=== PATIENT | male | born 1940 | race Caucasian/White ===

== ENCOUNTER 2024-05-07 14:35 | Inpatient (IN) | payer MEDICARE, SELFPAY ==
[2024-05-07] VITALS (22 sets, daily range): BP systolic 104–148; BP diastolic 54–90; PULSE 105–123; RESP 15–30; TEMP 36.4–36.9; O2SAT 93–100; BMI 23.6
--- NOTE | ~2024-05-07 | XR_ITS ---
EXAMINATION: XR chest 1V portable Exam Date/Time: 05/07/2024 17:00 BATCH ROLLER OPERATOR HISTORY: cough Comparison: 06/27/2012. RESULT: Lines, tubes, and devices: Median sternotomy wires. Fractures of inferior wires, but remain in stabl e position. Cardiac valve replacement. Lungs and pleura: Clear. Cardiomediastinal silhouette: Stable. Other: No acute osseous or upper abdominal finding. IMPRESSION: No acute cardiopulmonary process. Reviewed, dictated and finalized at location K. H ROLLER OPERATOR
--- OUTSIDE RECORDS SUMMARY | 2024-05-07 15:27 | XMS_ITS | Referral Summary ---
Author Organization [facility] Address [address] [facility] [address] Care Team Providers Care Labor Expediter Name Role Phone Cuate Mclaughlin MD Primary Care Provider [phone] Source Comments [facility],non-owned Affiliates and Associated Physician Practices is amultiple site organization consisting of ambulatory clinics and hospital sitesin [place], [place], [place] and [place]. This disclosure is being madepursuant to the Care Everywhere program and may not contain all information available regarding this patient. Last updated 17.[facility] [employer] Social History Tobacco Use Types Packs/Day Years Used Date Smoking Tobacco: Never Assessed Sex and Gender Information Value Date Recorded Sex Assigned at Not on file Gender Identity Not on file Sexual Orientation Not on file Plan of Treatment Not on file Care Teams Labor Expediter Relationship Specialty Start Date End Date Cuate Mclaughlin MD [address] [place] [address] PCP - General 06/27/18
--- OUTSIDE RECORDS SUMMARY | 2024-05-07 15:27 | XMS_ITS | Patient Health Summary ---
Author Organization [facility] Address [address] [facility] [place] [address] Care Team Providers Care Electrophysiology Scientist Name Role Phone Cuate Mclaughlin MD Primary Care Provider [phone] Note from [facility],non-owned Affiliates and Associated Physician Practices is amultiple site organization consisting of ambulatory clinics and hospital sitesin [place], [place], [place] and [place]. This disclosure is being madepursuant to the Care Everywhere program and may not contain all information available regarding this patient. Last updated 17.[facility] Social History Tobacco Use Types Packs/Day Years Used Date Smoking Tobacco: Never Assessed Sex and Gender Information Value Date Recorded Sex Assigned at Not on file Gender Identity Not on file Sexual Orientation Not on file Procedures * DERMATOPATHOLOGY(Performed 06/27/2018) Results * DERMATOPATHOLOGY (06/27/2018 12:00 AM CDT) Case Report Dermatopathology Report ? Case: [id number] ? Authorizing Provider: ??Pari Petit DO ? Collected: ? 06/27/2018 12:00 AM ? Pathologist: ? Ara Medina MD ? Received: ?06/28/2018 09:14 AM ? Specimen: ?Skin, right mid back ? 12:45 PM CDT DERMATOPATHOLOGY LABORATORY Final Diagnosis Specimen A. SKIN, right mid back: DILATED PORE OF CHEVY, FRAGMENTED (L70.8) 12:45 PM CDT DERMATOPATHOLOGY LABORATORY Clinical History DPW. 12:45 PM CDT DERMATOPATHOLOGY LABORATORY Gross Description Specimen A: Received is one formalin filled container labeled with the patient's name and designated right mid back. The specimen consists of a punch biopsy measuring 5x5x mm, bisected. Jar 0. 12:45 PM CDT DERMATOPATHOLOGY LABORATORY Microscopic Description Specimen A. SKIN, right mid back: There is a central, broad epidermal invagination lined by epithelium with a prominent rete pattern. The specimen is fragmented. 12:45 PM CDT DERMATOPATHOLOGY LABORATORY Disclaimer An external and internal positive and negative controls are appropriate for the histochemical, immunohistochemical and immunofluorescence stain(s) in this case (if any), except where stated explicitly. The performance characteristics of the stain(s) cited in this report were developed and its performance characteristic determined by the Dermatopathology Laboratory at [facility], directed by Dr. Ben Lucia. These tests need not be, and therefore are not, approved by the [place] Food and Drug Administration. The tests are used for clinical purposes. Billing Codes Specimen Charges Stain Charges 68524 1 12:45 PM CDT DERMATOPATHOLOGY LABORATORY Embedded Images 12:45 PM CDT DERMATOPATHOLOGY LABORATORY Pathology/Cytolog y TISSUE SPECIMEN FROM SKIN / Unknown 06/27/2018 06/28/2018 9:14 AM CDT Pari Petit DO LAB - PATHOLOGY/C YTOLOGY ORDERABLES DERMATOPATHOLOGY LABORATORY [facility] - Department of Dermatology [address] [facility], [address]th [place] [address], [facility] [phone] Care Teams Electrophysiology Scientist Relationship Specialty Start Date End Date Cuate Mclaughlin MD [address] [place] [address] PCP - General 06/27/18
--- OUTSIDE RECORDS SUMMARY | 2024-05-07 15:27 | XMS_ITS | Clinical Summary ---
Author Organization [facility] Address [address] [facility] [place] [address] Care Team Providers Care Nematologist Name Role Phone Cuate Mclaughlin MD Primary Care Provider [phone] Source Comments [facility],non-owned Affiliates and Associated Physician Practices is amultiple site organization consisting of ambulatory clinics and hospital sitesin [place], [place], [place] and [place]. This disclosure is being madepursuant to the Care Everywhere program and may not contain all information available regarding this patient. Last updated 17.[facility] Social History Tobacco Use Types Packs/Day Years Used Date Smoking Tobacco: Never Assessed Sex and Gender Information Value Date Recorded Sex Assigned at Not on file Gender Identity Not on file Sexual Orientation Not on file Plan of Treatment Health Maintenance Due Date Last Done Comments DTAP/TDAP/TD VACCINES (1 - Tdap) 1957 PNEUMOCOCCAL VACCINE 50+ (1 of 1 - PCV) 1988 ZOSTER VACCINE (1 of 2) 1988 Respiratory Syncytial Virus (RSV) Vaccine Pt: or over 60 yrs (1 - 1-dose 75+ series) 2013 COVID-19 VACCINE ( - 2023-2 5 season) 2023 INFLUENZA VACCINE (#1) 2023 DEPRESSION SCREENING 04/04/2024 MEDICARE AWV ? CALENDAR YEAR 2024 HEPATITIS B VACCINE Aged Out No longe r eligible based on patient's age to complete this topic HIB VACCINE Aged Out No longer eligi ble based on patient's age to complete this topic HPV VACCINE Aged Out No longer eligi ble based on patient's age to complete this topic MENINGOCOCCAL (Group B) VACCINE Aged Out No longer eligible based on patient's age to complete this topic MENINGOCOCCAL VACCINE Aged Out No nadiya cyril eligible based on patient's age to complete this topic Care Teams Nematologist Relationship Specialty Start Date End Date Cuate Mclaughlin MD [address] [place] [address] PCP - General 06/27/18
--- OUTSIDE RECORDS SUMMARY | 2024-05-07 15:27 | XMS_ITS | Encounter Summary ---
Author Organization [facility] Address [address] [place] [address] Care Team Providers Care Baker Test Name Role Phone Cuate Mclaughlin MD Primary Care Provider [phone] Encounter Details Date Type Department Care Team (Late st Contact Info) Description 06/28/2018 Lab Requisition [facility] Care DermPath Lab [address] [facility], [place] [id number] Pari Petit DO [address] [facility] [address] [place] [address] Social History Tobacco Use Types Packs/Day Years Used Date Smoking Tobacco: Never Assessed Sex and Gender Information Value Date Recorded Sex Assigned at Not on file Gender Identity Not on file Sexual Orientation Not on file documented as of this encounter Plan of Treatment Not on file documented as of this encounter Procedures Procedure Name Priority Date/Time Associated Diagnosis Comments DERMATOPATHOLOGY Routine 06/27/2018 12:0 0 AM CDT documented in this encounter Results * DERMATOPATHOLOGY (06/27/2018 12:00 AM CDT) Case Report Dermatopathology Report ? Case: [id number] ? Authorizing Provider: ??Pari Petit DO ? [...] characteristic determined by the Dermatopathology Laboratory at [facility], directed by Dr. Ben Lucia. These tests need not be, and therefore are not, approved by the [place] Food and Drug Administration. The tests are used for clinical purposes. Billing Codes Specimen Charges Stain Charges 30524 1 12:45 PM CDT DERMATOPATHOLOGY LABORATORY Embedded Images 12:45 PM CDT DERMATOPATHOLOGY LABORATORY Pathology/Cytolog y TISSUE SPECIMEN FROM SKIN / Unknown 06/27/2018 06/28/2018 9:14 AM CDT Parisanya Ring Damaso DO LAB - PATHOLOGY/C YTOLOGY ORDERABLES DERMATOPATHOLOGY LABORATORY [facility] - Department of Dermatology [address] [place] [address], [address] [place] [address], [facility] [phone] documented in this encounter Visit Diagnoses Not on filedocumented in this encounter Care Teams Baker Test Relationship Specialty Start Date End Date Cuate Mclaughlin MD [address] [place] [address] PCP - General 06/27/18 documented as of this encounter
--- OUTSIDE RECORDS SUMMARY | 2024-05-07 15:27 | XMS_ITS | Referral Summary ---
Author Organization [facility] Address [address] [place] [address] Care Team Providers Care Freight Representative Name Role Phone Steve Potter MD Primary Care Provider Allergies Active Allergy Reactions Criticality Noted Date Comments Adhesive Tape-Silicones Redness Low Medications fenofibrate nanocrystallized (TRICOR,TRIGLIDE) 145 mg tablet Take 145 mg by mouth steamfitter before breakfast. Active metoprolol XL (TOPROL-XL) 50 mg 24 hr tablet Take 50 mg by mouth steamfitter before breakfast. Active atorvastatin (LIPITOR) 10 mg tablet Take 10 mg by mouth nightly. Active imipramine (TOFRANIL) 25 mg tablet Take 25 mg by mouth nightly. Active NIFEdipine (NIFEdipine CC) 30 mg 24 hr tablet Take 30 mg by mouth nightly. Active ALPRAZolam (XANAX) 0.25 mg tablet Take 0.25 mg by mouth nightly. Active acetaminophen 500 mg capsuleIndications:P ain Take 2 capsules (1,000 mg total) by mouth every 6 (six) hours. 30 tablet 08/24/19 18 Active Additional Information Patient not taking.Reported on 09/14/2018 aspirin 81 mg enteric coated tablet Take 81 mg by mouth daily Active vitamin b complex tablet Take 1 tablet by mouth daily Active pentoxifylline ER (TRENtal) 400 mg CR tabletIndications:In termittent Claudication Take 400 mg by mouth 3 (three) times a day with meals Active bicalutamide (CASODEX) 50 mg tablet Take 50 mg by mouth daily Active Active Problems Problem Noted Date Diagnosed Date S/P aortic valve replacement with bioprosthetic valve 08/17/2017 H/O bicuspid aortic valve 08/17/2017 S/P ascending aortic aneurysm repair 08/17/2017 Preop cardiovascular exam 08/17/2017 Chronic kidney disease, stage III (moderate) Essential hypertension 08/17/2017 Mixed hyperlipidemia 08/17/2017 Blepharoptosis 10/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 Benign paroxysmal positional vertigo 05/17/2012 Nuclear senile cataract 08/14/2009 Social History Tobacco Use Types Packs/Day Years Used Date Smoking Tobacco: Never Smokeless Tobacco: Never Alcohol Use Standard Drinks/Week Comments No 0 (1 standard drink = 0.6 oz pur e alcohol) Sex and Gender Information Value Date Recorded Sex Assigned at Not on file Legal Sex Male 10:54 PM BARMAID Gender Identity Not on file Sexual Orientation Not on file Last Filed Vital Signs Vital Sign Reading Time Taken Comments Blood Pressure 131/93 09/15/2018 10:51 AM CDT Pulse 81 09/15/2018 10:51 AM CDT Temperature 36.3 ??C (97.3 ??F) 08/23/2017 7:00 AM CD T Respiratory Rate 16 09/15/2018 10:51 AM CDT Oxygen Saturation 98% 09/15/2018 10:51 AM CDT Inhaled Oxygen Concentration - - Weight 80.7 kg (178 lb) 09/15/2018 10:51 AM CDT Height 182.9 cm (6') 09/15/2018 10:51 AM CDT Body Mass Index 24.14 09/15/2018 10:51 AM CDT Plan of Treatment Not on file Insurance MEDICARE SOL[facility]IONS [facility] MEDICARE Address: [facility] [address] [place] [address] MEDICARE SOLUTIONS Advance Directives For more information, please contact: [phone] Documents on File Type Date Recorded Patient Haul Cane Brakeman Expl anation ADVANCE DIRECTIVE 08/22/2017 11:06 AM ADVANCE DIRECTIVE 08/22/2017 Advance Di rective Checklist * Full Code (Latest Code Status on File) Date Activated Date Inactivated Comments 08/22/2017 2:39 PM 08/23/2017 2:18 PM Care Teams Freight Representative Relationship Specialty Start Date End Date Steve Potter MD PCP - General 08/12/17
--- OUTSIDE RECORDS SUMMARY | 2024-05-07 15:27 | XMS_ITS | Clinical Summary ---
Author Organization [facility] Address [address] [place] [address] Care Team Providers Care Accounting Manager Name Role Phone Steve Potter MD Primary Care Provider Allergies Active Allergy Reactions Criticality Noted Date Comments Adhesive Tape-Silicones Redness Low Medications fenofibrate nanocrystallized (TRICOR,TRIGLIDE) 145 mg tablet Take 145 mg by mouth associate professor of geography before breakfast. Active metoprolol XL (TOPROL-XL) 50 mg 24 hr tablet Take 50 mg by mouth associate professor of geography before breakfast. Active atorvastatin (LIPITOR) 10 mg [...] positional vertigo 05/17/2012 Nuclear senile cataract 08/14/2009 Surgical History Surgery Date Site/Laterality Comments CATARACT EXTRACTION Bilateral LA KERATOPLASTY ANTERIOR LAMELLAR Right PHOTOREFRACTIVE KERATOTOMY Bilateral LUMBAR LAMINECTOMY 04/04/1981 - 04/03/1982 ASCENDING AORTIC ANEURYSM REPAIR W/ TISSUE AORTIC VALVE REPLACEMENT 04/04/2009 - 04/03/2010 CORRECTION HAMMER TOE INGUINAL HERNIA REPAIR Left AORTIC VALVE REPLACEMENT 04/04/2009 - 04/03/2010 Bioprosthetic valve, Dr. Thomas, [facility] Medical History Medical History Date Comments Lumbar stenosis Dyslipidemia Hypertension Osteoarthritis Anxiety and depression History of valvular heart disease CKD (chronic kidney disease) stage 3, GFR 30-59 ml/min ([facility]) baseline creatinine 1.4 Glaucoma TIA (transient ischemic attack) 05/2009 per OSH records Hyperlipidemia Valvular disease 2009 Bicuspid aortic valve status post bioprosthetic valve replacement and replacement of ascending aortic aneurysm Family History Medical History Relation Name Comments Cancer Father Heart disease Mother Alzheimer's disease Sister Relation Name Status Comments Father Mother (Age 4343 years old) Patient had valve disease and of endocarditis. 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 Gender Identity Not on file Sexual Orientation Not on file Obstetrics History Last Filed Vital Signs Vital Sign Reading [...] Treatment Not on file Insurance [facility]ICARE [facility] MED[facility] Address: [address] [address] [place] [address] MEDICARE [facility] Address: [address] [address] [place] [address] Advance Directives For more information, please contact: [phone] Documents on File Type Date Recorded Patient Process Eng Expl anation ADVANCE DIRECTIVE 08/22/2017 11:06 AM ADVANCE DIRECTIVE 08/22/2017 Advance Di rective Checklist * Full Code (Latest Code Status on File) Date Activated Date Inactivated Comments 08/22/2017 2:39 PM 08/23/2017 2:18 PM Care Teams Accounting Manager Relationship Specialty Start Date End Date Steve Potter MD PCP - General 08/12/17
--- NOTE | 2024-05-07 16:02 | ED_ITS ---
HPI - SOB/Dyspnea General Chief Complaint: Shortness of Breath/Dyspnea Stated Complaint: SOB Focused HPI: This is an 83-year-old male who presents to the ED for chief complaint of cough, chills, body aches and dyspnea since last night. States that he was coughing up phlegm last night. States that he has had multiple episodes of dry heaving with nausea today. Endorses subjective fevers. Family member states that someone else at home is sick with the flu. GENERAL: Well-appearing, well-nourished, and in no acute distress. HEAD: Normocephalic, atraumatic. CHEST: Clear to auscultation. No respiratory distress. HEART: Regular rate and rhythm. NEURO: Alert and oriented x3. Patient screened in triage and initial orders placed. Additional care and disposition to be based upon diagnostic testing and treatment. Source: patient Mode of arrival: ambulatory Limitations: no limitations Related Data Home Medications ?Medication ?Instructions ?Recorded ?Confirmed ?Last Taken ?Type aspirin 81 mg chewable tablet 81 mg PO DAILY 04/09/19 04/29/24 Unknown History multivitamin (Multiple Vitamins 1 tablet PO DAILY 04/09/19 04/29/24 Unknown History tablet) omega 6-tla-ntz-fish oil 1,000 mg 1 cap PO DAILY 04/09/19 04/29/24 Unknown History (120 mg-180 mg) capsule (Fish Oil) Allergies Allergy/AdvReac Type Severity Reaction Status Date / Time adhesive tape Allergy Unknown Itching Verified 04/29/24 15:37 [facility] Past Medical History Medical History (Updated 04/30/24 @ 00:00 by Joey Mota) Allergic reaction Dyslipidemia CKD (chronic kidney disease) stage 3, GFR 30-59 ml/min Chronic bilateral low back pain with left-sided sciatica Anxiety Gynecomastia, male Elevated PSA URI with cough and congestion Ear bleeding Impacted ear wax Great toe pain Essential (primary) hypertension CKD (chronic kidney disease) stage 3, GFR 30-59 ml/min Anxiety Dyslipidemia History of prostate cancer (~05/30/18) Chronic bilateral low back pain with left-sided sciatica (~11/09/16) Surgical History Surgical History (Updated 09/29/23 @ 14:22 by Fariha Vieyra MA) Status post ascending aortic aneurysm repair Hx of aortic valve replacement with porcine valve (~2009) Status post ascending aortic aneurysm repair (~2009) Family History Family History Father Family history of pancreatic cancer, Onset Age: 51 Mother Family history of coronary artery disease, Onset Age: 43 Social History Social History Social History: , 2nd 2019. 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 Smoking status: Never smoker Second hand tobacco smoke exposure: No Alcohol intake: never Substance use: never Substance use type: does not use Current Housing: Decline to Answer Concerned About Future Housing: Decline to Answer Difficulty Paying Gas/Electric Bills: Decline to Answer Difficulty Paying for Meds: Decline to Answer Currently Unemployed: Decline to Answer Education: Decline to Answer Difficulty w/ Childcare or Family Care: Decline to Answer Gender identity (if verbalized by the patient): Male Course Vital Signs Vital signs: Vital Signs Temperature 98.5 F 05/07/24 15:06 Pulse Rate 115 H 05/07/24 15:06 Respiratory Rate 20 05/07/24 15:06 Blood Pressure 104/67 05/07/24 15:06 Pulse Oximetry 93 05/07/24 15:06 Oxygen Delivery Room Air 05/07/24 15:06 Temperature 98.5 F 05/07/24 15:06 Pulse Rate 115 H 05/07/24 15:06 Respiratory Rate 20 05/07/24 15:06 Blood Pressure 104/67 05/07/24 15:06 Pulse Oximetry 93 05/07/24 15:06 Oxygen Delivery Room Air 05/07/24 15:06 Discharge Plan Discharge Patient Language: East Timorese Prescriptions: No Action ketoconazole 2 % shampoo 1 applic topical 3XW Qty: 120 0RF multivitamin [Multiple Vitamins] Tablet 1 tablet PO DAILY Rx Instructions: take 1 tablet by oral route every day omega 2-ldi-cmj-fish oil [Fish Oil] 1,000 mg (120 mg-180 mg) capsule 1 cap PO DAILY Rx Instructions: take 1 capsule by oral route every day aspirin 81 mg tablet,chewable 81 mg PO DAILY Rx Instructions: chew 1 tablet by oral route every day cholecalciferol (vitamin D3) 50 mcg (2,000 unit) capsule 50 mcg PO DAILY Qty: 90 0RF atorvastatin 10 mg tablet See Rx Instructions .ROUTE .COMPLEX Qty: 90 2RF Dose Instruction: Take 1 Tablet (10 mg) by mouth daily at bedtime. Rx Instructions: Take 1 Tablet (10 mg) by mouth daily at bedtime. nifedipine 30 mg tablet extended release 24hr See Rx Instructions .ROUTE .COMPLEX Qty: 90 2RF Dose Instruction: Take 1 Tablet (30 mg) by mouth daily. Rx Instructions: Take 1 Tablet (30 mg) by mouth daily. fenofibrate nanocrystallized 145 mg tablet See Rx Instructions .ROUTE .COMPLEX Qty: 90 2RF Dose Instruction: TAKE ONE TABLET BY MOUTH ONCE DAILY Rx Instructions: TAKE ONE TABLET BY MOUTH ONCE DAILY imipramine HCl 25 mg tablet See Rx Instructions .ROUTE .COMPLEX Qty: 90 2RF Dose Instruction: Take 1 Tablet (25 mg) by mouth daily. Rx Instructions: Take 1 Tablet (25 mg) by mouth daily. metoprolol succinate 50 mg tablet extended release 24 hr See Rx Instructions .ROUTE .COMPLEX Qty: 90 2RF Dose Instruction: Take 1 Tablet (50 mg) by mouth daily. Rx Instructions: Take 1 Tablet (50 mg) by mouth daily. Follow-up/Referrals: Adonis Cabral MD [Primary Care Provider] -
--- NOTE | 2024-05-07 16:04 | ECG_ITS ---
Test Date: 2024-05-07 17:04:00 Measurements Intervals [place] Rate: 110 P: 0 LA: 0 QRS: -28 QRSD: 97 T: 143 QT: 339 QTc: 459 Interpretive Statements ATRIAL FIBRILLATION WITH RAPID VENTRICULAR RESPONSE LEFT VENTRICULAR HYPERTROPHY WITH ST-T CHANGE BORDERLINE R WAVE PROGRESSION, ANTERIOR LEADS BASELINE WANDER- I, II, III, AVL, AVF ABNORMAL ECG No previous ECG available for comparison Electronically Signed On 05-07-2024 19:21:42 CEMENT WORKER by Giovanni Smith D.O.
[2024-05-07 17:21] LABS: Basophils Percent Auto 0.3 % (0.2-1.2); Eosinophils Absolute Auto 0.1 K/mm3 (0-0.3); Eosinophils Percent Auto 0.6 % (0-4.4); Hematocrit 38.5 % (42.0-52.0); Hemoglobin 12.7 g/dL (14.0-18.0); Immature Granulocyte Absolute 0.05 K/mm3 (0.00-0.031); Immature Granulocyte Percent A 0.6 % (0-0.5); Lymphocytes Absolute Auto 0.54 K/mm3 (0.9-3.2); Lymphocytes Percent Auto 6.8 % (18.3-44.2); Mean Corpuscular Hemoglobin 29.8 pg (26-34); Mean Corpuscular Volume 90.4 fl (80-100); Monocytes Absolute Auto 0.7 K/mm3 (0.1-0.6); Monocytes Percent Auto 9.1 % (2.6-8.5); Neutrophils Absolute Auto 6.5 K/mm3 (1.3-6.7); Neutrophils Percent Auto 82.6 % (45.5-73.1); Platelet Count Result 180 k/mm3 (150-375); Red Blood Count 4.26 M/mm3 (4.6-6.20); Red Cell Distribution Width 13.2 % (11.5-14.5); White Blood Count 7.9 K/mm3 (4.5-10.0)
[2024-05-07 17:27] LABS: Alanine Aminotransferase 33 U/L (6-50); Albumin Level 4.2 g/dL (3.5-5.1); Alkaline Phosphatase 41 U/L (38-126); Anion Gap 10 mmol/L (4-12); Aspartate Amino Transferase 50 U/L (17-59); Bilirubin,Total 0.8 mg/dL (0.2-1.3); Blood Urea Nitrogen 19 mg/dL (9-20); Calcium 9.3 mg/dL (8.4-10.2); Carbon Dioxide 21 mmol/L (22-30); Chloride 106 mmol/L (98-107); Estimated CRCL calculation 39 ml/min; Estimated Glomerular Filt Rate 53; Glucose 149 mg/dL (65-110); Sodium 137 mmol/L (137-145)
[2024-05-07 17:28] LABS: Lactic Acid Reflex 1.4 mmol/L (0.7-2.0)
[2024-05-07 17:30] LABS: INR 1.2; Prothrombin Time 15.5 Seconds (11.1-14.7)
[2024-05-07 17:31] LABS: Partial Thromboplastin Time 29.1 Seconds (22.3-36.8)
[2024-05-07 17:45] LABS: NT Pro B Type Natriuretic Pept 1780 pg/mL (19.9-100); Troponin I 0.065 ng/mL (0.000-0.034)
[2024-05-07 17:53] LABS: Influenza A QL RT-PCR Positive (Negative); Influenza B QL RT-PCR Negative (Negative); RSV RNA, RT-PCR Negative (Negative); SARS-CoV-2 RNA PCR Negative (Negative)
[2024-05-07] MEDS: SODIUM CHLORIDE 0.9% IV 1,000 ML 150 ML IV CONT (18:11)
--- NOTE | 2024-05-07 18:25 | PC.NURSE ---
pt unable to provide UA at this time an declines straight catheter. fluids infusing for pt and educated to use call light with any urge to provide sample.
--- OUTSIDE RECORDS SUMMARY | 2024-05-07 18:58 | XMS_ITS | Encounter Summary ---
[facility] Address 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
--- OUTSIDE RECORDS SUMMARY | 2024-05-07 18:58 | XMS_ITS | Patient Health Summary ---
Author Organization [facility] Address [address] [place] [address] Care Team Providers Care Hydro Excavation Operator Name Role Phone Cuate Mclaughlin MD Primary Care Provider [phone] Note from [facility],non-owned Affiliates and Associated Physician Practices is amultiple site organization consisting of ambulatory clinics and hospital sitesin [place], [place], [place] and [place]. This disclosure is being madepursuant to the Care Everywhere program and may not contain all information available regarding this patient. Last updated 17.[facility] Social History Tobacco Use Types Packs/Day Years Used Date Smoking Tobacco: Never Assessed Sex and Gender Information Value Date Recorded Sex Assigned at Not on file Gender Identity Not on file Sexual Orientation Not on file Procedures * DERMATOPATHOLOGY(Performed 06/27/2018) Results * DERMATOPATHOLOGY (06/27/2018 12:00 AM CDT) Case Report Dermatopathology Report ? Case: [id number] ? Authorizing Provider: ??Pari Petit DO ? [...] characteristic determined by the Dermatopathology Laboratory at [facility], directed by Dr. Ben Lucia. These tests need not be, and therefore are not, approved by the [place] Food and Drug Administration. The tests are used for clinical purposes. Billing Codes Specimen Charges Stain Charges [id number] [id number] 12:45 PM CDT DERMATOPATHOLOGY LABORATORY Embedded Images 12:45 PM CDT DERMATOPATHOLOGY LABORATORY Pathology/Cytolog y TISSUE SPECIMEN FROM SKIN / Unknown 06/27/2018 06/28/2018 9:14 AM CDT Pari Petit DO LAB - PATHOLOGY/C YTOLOGY ORDERABLES DERMATOPATHOLOGY LABORATORY [facility] - Department of Dermatology [address], [address]th [place] [address], [facility] [phone] Care Teams Hydro Excavation Operator Relationship Specialty Start Date End Date Cuate Mclaughlin MD [address] [address] PCP - General 06/27/18
--- OUTSIDE RECORDS SUMMARY | 2024-05-07 18:58 | XMS_ITS | Encounter Summary ---
Author Organization [facility] [place] Address [address] [place] [address] Care Team Providers Care Military Communications Specialist Name Role Phone Cuate Mclaughlin MD Primary Care Provider [phone] Encounter Details Date Type Department Care Team (Late st Contact Info) Description 06/28/2018 Lab Requisition [facility] Care DermPath Lab [address] [place] [id number] Pari Petit DO [address] [place] [address] Social History Tobacco Use Types Packs/Day Years [...] CDT) Case Report Dermatopathology Report ? Case: [id number] ? Authorizing Provider: ??Pari Petit DO ? [...] characteristic determined by the Dermatopathology Laboratory at [facility], directed by Dr. Ben Lucia. These tests need not be, and therefore are not, approved by the [place] Food and Drug Administration. The tests are used for clinical purposes. Billing Codes Specimen Charges Stain Charges [id number] 1 12:45 PM CDT DERMATOPATHOLOGY LABORATORY Embedded Images 12:45 PM CDT DERMATOPATHOLOGY LABORATORY Pathology/Cytolog y TISSUE SPECIMEN FROM SKIN / Unknown 06/27/2018 06/28/2018 9:14 AM CDT Parisanya Ring Damaso DO LAB - PATHOLOGY/C YTOLOGY ORDERABLES DERMATOPATHOLOGY LABORATORY [facility] - Department of Dermatology [address] [place] [address], [address]th [place] [address], [facility] [phone] documented in this encounter Visit Diagnoses Not on filedocumented in this encounter Care Teams Military Communications Specialist Relationship Specialty Start Date End Date Cuate Mclaughlin MD [address] [place] [address] PCP - General 06/27/18 documented as of this encounter
--- OUTSIDE RECORDS SUMMARY | 2024-05-07 18:58 | XMS_ITS | Clinical Summary ---
Author Organization [facility] Address [address] [place] [address] Care Team Providers Care String Cutter Name Role Phone Steve Potter MD Primary Care Provider Allergies Active Allergy Reactions Criticality Noted Date Comments Adhesive Tape-Silicones Redness Low Medications fenofibrate nanocrystallized (TRICOR,TRIGLIDE) 145 mg tablet Take 145 mg by mouth project associate before breakfast. Active metoprolol XL (TOPROL-XL) 50 mg 24 hr tablet Take 50 mg by mouth project associate before breakfast. Active atorvastatin (LIPITOR) 10 mg [...] Surgery Date Site/Laterality Comments CATARACT EXTRACTION Bilateral RI KERATOPLASTY ANTERIOR LAMELLAR Right PHOTOREFRACTIVE KERATOTOMY Bilateral LUMBAR LAMINECTOMY 04/04/1981 - 04/03/1982 ASCENDING AORTIC ANEURYSM REPAIR W/ TISSUE AORTIC VALVE REPLACEMENT 04/04/2009 - 04/03/2010 CORRECTION HAMMER TOE INGUINAL HERNIA REPAIR Left AORTIC VALVE REPLACEMENT 04/04/2009 - 04/03/2010 Bioprosthetic valve, Dr. 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
--- OUTSIDE RECORDS SUMMARY | 2024-05-07 18:58 | XMS_ITS | Referral Summary ---
Author Organization [facility] Address [address] [place] [address] Care Team Providers Care Care Provider Name Role Phone Cuate Mclaughlin MD Primary Care Provider [phone] Source Comments [facility],non-owned Affiliates and Associated Physician Practices is amultiple site organization consisting of ambulatory clinics and hospital sitesin [place], [place], [place] and [place]. This disclosure is being madepursuant to the Care Everywhere program and may not contain all information available regarding this patient. Last updated 17.[facility] Social History Tobacco Use Types Packs/Day Years Used Date Smoking Tobacco: Never Assessed Sex and Gender Information Value Date Recorded Sex Assigned at Not on file Gender Identity Not on file Sexual Orientation Not on file Plan of Treatment Not on file Care Teams Care Provider Relationship Specialty Start Date End Date Cuate Mclaughlin MD [address] [place] [address] PCP - General 06/27/18
--- OUTSIDE RECORDS SUMMARY | 2024-05-07 18:58 | XMS_ITS | Clinical Summary ---
Author Organization [facility] Address [address] [place] [address] Care Team Providers Care Director Of Pulmonary Unit Name Role Phone Cuate Mclaughlin MD Primary Care Provider [phone] Source Comments [facility],non-owned Affiliates and Associated Physician Practices is amultiple site organization consisting of ambulatory clinics and hospital sitesin [place], [place], [place] and [place]. This disclosure is being madepursuant to the Care Everywhere program and may not contain all information available regarding this patient. Last updated 17.[facility] Social History Tobacco Use Types Packs/Day Years [...] age to complete this topic Care Teams Director Of Pulmonary Unit Relationship Specialty Start Date End Date Cuate Mclaughlin MD [address] [place] [address] PCP - General 06/27/18
--- OUTSIDE RECORDS SUMMARY | 2024-05-07 18:59 | XMS_ITS | Clinical Summary ---
Author Organization [facility] Address [address] Bui: Epic Prelude ADT [place] [address] Care Team Providers Care Rack Worker Name Role Phone Unavailable Primary Care Provider Unavailabl e Allergies No known active allergies Medications brimonidine (ALPHAGAN P) 0.15 % solution INSTILL 1 DROP IN THE RIGHT EYE THREE TIMES A DAY NEEDED 10 mL 5 3 3:30 PM COAL WASHER TENDER 02/28/20 22 Active lactulose (KRISTALOSE) 10 gram Packet DISSOLVE THE CONTENTS OF 1 PACKET IN 4 OUNCES OF WATER AND DRINK ONCE DAILY NEEDED FOR CONSTIPATION 15 Packet 5 3 5:25 PM CDT 09/29/19 23 Active amoxicillin (AMOXIL) 250 mg capsule TAKE 8 CAPSULES 1 HOUR BEFORE APPOINTMENT. 24 Capsule 2 3 5:45 PM CDT 11/05/19 23 Active azithromycin (ZITHROMAX) 250 mg tablet Take 2 tablets by mouth on day 1, then take 1 tablet by mouth for 4 days. 6 Tablet 3 7:44 PM CDT 11/25/19 23 Active triamcinolone acetonide (KENALOG) 0.1 % Paste APPLY TO MOUTH SORES 3-4 TIMES DAILY AFTER MEALS AND AT BEDTIME. DO NOT RUB 5 Gram 50 3 4:48 PM CDT 12/03/19 23 Active dorzolamide-timoloL (COSOPT) 22.3-6.8 mg/mL solution Administer one drop into right eye twice daily 10 mL 6 12/24/19 23 Active erythromycin (ILOTYCIN) 5 mg/gram (0.5 %) ointment Apply a small amount to eyelids once daily as needed 3.5 Gram 3 3 7:20 PM CDT 12/24/19 Active brimonidine (ALPHAGAN P) 0.15 % solution INSTILL 1 DROP IN THE RIGHT EYE 3 TIMES DAILY. 10 mL 12 01/06/20 23 Active ALPRAZolam (XANAX) 0.25 mg tablet Take 0.5 Tablets (0.125 mg) by mouth 1 time daily as needed for anxiety. 45 Tablet 1 4 7:34 PM COAL WASHER TENDER 02/03/20 23 Active brimonidine (ALPHAGAN P) 0.15 % solution Administer 1 Drop in right eye 3 times daily as needed. 10 mL 5 4 5:30 PM COAL WASHER TENDER 05/10/19 24 Active atorvastatin (LIPITOR) 10 mg tablet Take 1 Tablet (10 mg) by mouth daily at bedtime. 90 Tablet 2 4 5:30 PM COAL WASHER TENDER 05/12/19 24 Active dorzolamide-timoloL (COSOPT) 22.3-6.8 mg/mL solution INSTILL ONE DROP IN THE RIGHT EYE TWO TIMES A DAY 10 mL 5 5 5:25 PM COAL WASHER TENDER 06/27/19 24 025 Active NIFEdipine (PROCARDIA XL) 30 mg Extended Release 24 hour tablet Take 1 Tablet (30 mg) by mouth daily. 90 Tablet 2 4 5:30 PM COAL WASHER TENDER 02/10/20 24 Active fenofibrate nanocrystallized (TRICOR) 145 mg tablet TAKE ONE TABLET BY MOUTH ONCE DAILY 90 Tablet 2 4 5:30 PM COAL WASHER TENDER 02/22/20 24 Active imipramine HCl (TOFRANIL) 25 mg tablet Take 1 Tablet (25 mg) by mouth daily. 90 Tablet 2 4 2:05 PM COAL WASHER TENDER 03/05/20 24 Active metoprolol succinate (TOPROL XL) 50 mg Extended Release 24 hour tablet Take 1 Tablet (50 mg) by mouth daily. 90 Tablet 2 4 2:05 PM COAL WASHER TENDER 03/21/20 24 Active ketoconazole (NIZORAL) 2 % Shampoo USE ON AFFECTED AREA 3 TIMES A WEEK. 120 mL 5 5:25 PM COAL WASHER TENDER 04/29/19 25 Active Encounters Date Type Department Care Team Description 04/26/2024 External Device Data [facility] ABSTRACTION Provider, Abstract from Last 3 Months Social History Tobacco Use Types Packs/Day Years Used Date Smoking Tobacco: Never Assessed Sex and Gender Information Value Date Recorded Sex Assigned at Not on file Legal Sex Male 4:58 AM COAL WASHER TENDER Gender Identity Not on file Sexual Orientation Not on file Plan of Treatment Health Maintenance Due Date Last Done Comments DTAP/TDAP/TD VACCINES (1 - Tdap) 1957 PNEUMOCOCCAL VACCINE 65+ YEARS (1 of 1 - PCV) 12/03/18 89 ZOSTER VACCINE (1 of 2) 1988 RSV VACCINE (60+ or ) (1 - 1-dose 75+ series) 2013 INFLUENZA VACCINE (#1) 2023 Insurance RX AETNA Medicare Part D RX [place] [employer] (INTERNAL) [facility]
--- OUTSIDE RECORDS SUMMARY | 2024-05-07 18:59 | XMS_ITS | Referral Summary ---
Author Organization [facility] Address [address] [place] [address] Care Team Providers Care Biomedical Specialist Name Role Phone Steve Potter MD Primary Care Provider Allergies Active Allergy Reactions Criticality Noted Date Comments Adhesive Tape-Silicones Redness Low Medications fenofibrate nanocrystallized (TRICOR,TRIGLIDE) 145 mg tablet Take 145 mg by mouth deputy sheriff court services before breakfast. Active metoprolol XL (TOPROL-XL) 50 mg 24 hr tablet Take 50 mg by mouth deputy sheriff court services before breakfast. 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
--- NOTE | 2024-05-07 20:10 | ECG_ITS ---
Test Date: 2024-05-07 20:22:58 Measurements Intervals [place] Rate: 110 P: 0 TN: 0 QRS: -38 QRSD: 103 T: 81 QT: 332 QTc: 451 Interpretive Statements ATRIAL FIBRILLATION WITH RAPID VENTRICULAR RESPONSE LEFT AXIS DEVIATION LEFT VENTRICULAR HYPERTROPHY WITH ST-T CHANGE BORDERLINE R WAVE PROGRESSION, ANTERIOR LEADS BASELINE ARTIFACT- I, II, III, AVR, AVL, AVF, V1, V6 ABNORMAL ECG Compared to ECG 05/07/2024 17:04:00 NO SIGNIFICANT CHANGE Electronically Signed On 05-08-2024 07:00:23 STOCK SORTER by Giovanni Smith D.O.
[2024-05-07 20:30] LABS: Add Urine Microscopic? YES; Appearance Urine Clear (Clear); Bacteria Urine None Seen /hpf; Bilirubin Urine 1+ (Negative); Blood Urine Negative (Negative); Color Urine Dark Yellow (Yellow); Glucose Urine UA Negative (Negative); Ketones Urine Trace mg/dL (Negative); Leukocyte Esterase Ur Negative LEU/UL (Negative); Nitrate Urine Negative (Negative); Protein Urine 2+ mg/dL (Negative); RBC Urine 0-2 /hpf (0-2); Specific Grav Ur 1.021 (1.001-1.035); Squamous Epithelial Cell Urine Occasional /hpf (Few); WBC Urine 0-5 /hpf (0-3); pH Urine 5.5 (5.0-9.0)
[2024-05-07 20:50] LABS: Troponin I 0.103 ng/mL (0.000-0.034)
[2024-05-07] MEDS: OSELTAMIVIR PHOSPHATE 30 MG CAPSULE PO (21:29)
--- NOTE | 2024-05-07 22:46 | ADMGEN ---
This patient, Robin Beckwith, was admitted to IMU Room 203-01. Patient/family oriented to hospital policies and general routines including ID bracelet, bed and alarms, visiting hours, pain management, procedures, bathroom and other care routines, personal items, smoking policy, room service/diet, and visiting hours. Information on how to activate the Rapid Response Team has been discussed. Patient/Family are encouraged to report perceived risks to care and to ask questions if they do not understand what they are told or what they should do.
[2024-05-08] VITALS (22 sets, daily range): BP systolic 123–146; BP diastolic 54–67; PULSE 55–98; RESP 16–22; TEMP 36.7–37.3; O2SAT 95–100
--- NOTE | 2024-05-08 | ECHO_ITS ---
Patient Info Name: Robin Beckwith Age: 83 years : 1940 Gender: Male Ht: 72 in Wt: 160 lbs BSA: 1.92 m2 HR: 92 bpm BP: 146 / 57 mmHg Heart Rhythm: Atrial Fibrillation Technical Quality: Fair Exam Date: 05/08/2024 10:46 AM Exam Location: Echo Lab Patient Status: Inpatient Admit Date: 05/07/2024 Staff Ordering Physician: Ike Peters MD Eligibility Worker: Marita Hemphill RDCS Attending Provider: Fernando Fishman MD Exam Type: CA echo doppler color flow Study Info Indications - NEW ONSET AFIB Complete two-dimensional, color flow and Doppler transthoracic echocardiogram is performed. Summary 1. Left ventricular chamber dimension is normal. 2. Left ventricular systolic function is normal, estimated at 60-65%. 3. There is severely increased left ventricular wall thickness. 4. The left ventricular diastolic function is grade I diastolic dysfunction. 5. Right ventricular systolic function is normal. 6. Left atrial chamber dimension is mildly enlarged. 7. Right atrial chamber dimension is moderately enlarged. 8. Prosthetic aortic valve is not well visualized. There is mild aortic regurgitation. Left Ventricle Left ventricular chamber dimension is normal. Left ventricular systolic function is normal, estimated at 60-65%. There is severely increased left ventricular wall thickness. The left ventricular diastolic function is grade I diastolic dysfunction. Right Ventricle Right ventricular chamber dimension is normal. Right ventricular systolic function is normal. Left Atria Left atrial chamber dimension is mildly enlarged. Right Atria Right atrial chamber dimension is moderately enlarged. Atrial Septum Intact interatrial septum visualized by color flow imaging. Aortic Valve Prosthetic aortic valve is not well visualized. There is mild aortic regurgitation. Pulmonic Valve The pulmonic valve is not well visualized. Mitral Valve There is trace mitral valve regurgitation. Tricuspid Valve There is trace tricuspid valve regurgitation. Pericardium/Pleural The pericardium appears epicardial fat pad. There is no pericardial effusion. Inferior Vena Cava Normal inferior vena cava with >50% collapse upon inspiration consistent with normal right atrial pressure, 3 mmHg. Aorta The aortic root size at the sinus of Valsalva is normal. Left Ventricular Outflow Tract Name Value Normal LVOT 2D LVOT Diameter 2.0 cm LVOT Doppler LVOT Peak Gradient 3 mmHg LVOT Mean Gradient 2 mmHg LVOT VTI 22 cm LVOT VTI/AV VTI Ratio 0.5 LVOT Stroke Volume 72 ml LVOT CO 4.9 l/min LVOT CI 2.6 l/min/m2 Pulmonic Valve Name Value Normal RVOT Doppler RVOT Peak Gradient 4 mmHg PV Doppler PV Peak Gradient 8 mmHg Mitral Valve Name Value Normal MV Doppler MV Decel [place] 370 cm/s2 MV PHT 47 ms MV Area (PHT) 4.7 cm2 4.0-5.0 MV Diastolic Function MV E Peak Velocity 59 cm/s MV A Peak Velocity 84 cm/s MV E/A 0.7 MV Decel Time 161 ms MV Annular TDI MV E/e' (Septal) 8.0 <=8.0 MV E/e' (Lateral) 4.5 <=8.0 MV E/e' (Average) 6.3 Tricuspid Valve Name Value Normal TV Regurgitation Doppler TR Peak Velocity 299 cm/s TR Peak Gradient 36 mmHg Estimated PAP/RSVP RA Pressure 3 mmHg <=5 PA Systolic Pressure 39 mmHg <36 RV Systolic Pressure 39 mmHg <36 Aorta Name Value Normal Ascending Aorta Ao Root Diameter (MM) 3.5 cm Ao Root Diam Index (MM) 1.8 cm/m2 Aortic Valve Name Value Normal AV Doppler AV Peak Velocity 232 cm/s AV Peak Gradient 17 mmHg AV Mean Gradient 10 mmHg AV VTI 44 cm AV Area (Cont Eq VTI) 1.6 cm2 >=3.0 AV Area (Cont Eq Steven) 1.4 cm2 AV Regurgitation 2D LVOT Area 3.2 cm2 Ventricles Name Value Normal LV Dimensions 2D/MM IVS Diastolic Thickness (2D) 2.5 cm 0.6-1.0 LVID Diastole (2D) 3.3 cm 4.2-5.8 LVIW Diastolic Thickness (2D) 1.6 cm 0.6-1.0 LVID Systole (2D) 2.1 cm 2.5-4.0 LVOT Diameter 2.0 cm LV Mass (2D Cubed) 313.18 g 88.00-224.00 LV Mass Index (2D Cubed) 163 g/m2 49-115 Relative Wall Thickness (2D) 0.98 LV Fractional Shortening/Ejection Fraction 2D/MM LV Fractional Shortening (2D) 37 % 25-43 LV EF (2D Teicholz) 68 % 52-72 LV Diastolic Volume (4C MOD) 84 ml LV EF (4C MOD) 46 % LV Diastolic Volume (2C MOD) 67 ml LV EF (2C MOD) 62 % LV Diastolic Volume (BP MOD) 78 ml 62-150 LV Diastolic Volume Index (BP MOD) 41 ml/m2 34-74 LV Systolic Volume (BP MOD) 36 ml 21-61 LV Systolic Volume Index (BP MOD) 19 ml/m2 11-31 LV EF (BP MOD) 53 % 52-72 LV Diastolic Length (4C) 7.1 cm LV Systolic Length (4C) 6.7 cm LV Stroke Volume (4C MOD) 39 ml Atria Name Value Normal LA Dimensions LA Dimension (MM) 4.2 cm 3.0-4.1 LA Volume (4C A-L) 36 ml LA Volume (BP A-L) 46 ml RA Dimensions RA Area (4C) 24.2 cm2 <=18.0 Report Signatures
[2024-05-08 01:24] LABS: Troponin I 0.197 ng/mL (0.000-0.034)
[2024-05-08] MEDS: SODIUM CHLORIDE 0.9% IV 1,000 ML 125 ML IV CONT (01:41)
--- NOTE | 2024-05-08 02:11 | P.HP_ITS ---
H&P: HPI History of Present Illness Date/Time: 05/08/24 01:00 Chief Complaint: Cough, nausea and vomiting Narrative: 83-year-old male with a past medical history poor seen aortic valve replacement and ascending aortic aneurysm repair 2009, glaucoma, hyperlipidemia, hypertension and chronic back pain who presented to the ER with 1 day of drip weakness, she shortness of breath and dry heaves. He reports that he had eating some chili earlier in the day shortly thereafter he developed a moist cough. After couple of hours a moist cough turn into a dry cough. He was coughing so frequently that he was having some dry heaves. But he also did have a couple episodes of loose stool which is unusual for him. He reports that since he is not very active he usually has hard pebble like stool. He usually has trouble passing the stool. He denies any hematochezia or melena. He does have a history of prostate cancer but denies any urinary frequency, urgency or urinary incontinence. He has not had any hematuria. He denies having any chest pain or palpitations. In the ER he was noted to be in AFib in his rate was anywhere between 100 and 120. He denied known history of AFib. He also denies history of heart failure. He reports he has not followed up with edema in regarding his heart many years and does not have any space control supervisor. He reports that his daughter who lives a few houses down from him has been ill with upper respiratory symptoms. He denies any fevers or chills. He reports that he has ?never had the flu in his life?. He reports that he is miserable and feels truly ill. His troponin was noted to be elevated in the ER but he denies having any chest pain. He denies any history of coronary artery disease. He reports that he is not very active and only gets up out of bed about 5 times a day but has become so weak in the last 24 hours that he was unable to get out of bed. He reports that he does not use a walker and states that he has only had 1 fall in 50 years. Review of Systems 2 Review of Systems: 12 systems were reviewed with pertinent positives and negatives per HPI. Except as documented in the HPI, all other systems were reviewed and are negative. [facility] Past Medical History Medical History (Updated 05/08/24 @ 03:57 by Roxanne Langston DO) Slow transit constipation CKD (chronic kidney disease) stage 3, GFR 30-59 ml/min Although the patient denies this and prior labs demonstrated normal GFR and creatinine. Gynecomastia, male URI with cough and congestion Essential (primary) hypertension Anxiety Dyslipidemia History of prostate cancer (~05/30/18) Treated with radiation therapy Chronic bilateral low back pain with left-sided sciatica (~11/09/16) Surgical History Surgical History (Updated 05/08/24 @ 04:00 by Roxanne Langston DO) History of tonsillectomy and adenoidectomy Status post cataract extraction of both eyes with insertion of intraocular lens History of lumbar laminectomy Hx of aortic valve replacement with porcine valve (~2009) Status post ascending aortic aneurysm repair (~2009) Performed at [facility] by Dr. Thomas Family History Family History Father Family history of pancreatic cancer, Onset Age: 51 Mother Family history of coronary artery disease, Onset Age: 43 Social History Social History (Updated 05/08/24 @ 03:55 by Roxanne Langston DO) Social History: , 2nd 2018. His 2nd in September of 2023. 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 He is written over 50 looks on local history. He is a lifelong nonsmoker and does not drink alcohol. Code status: DNR/DNI per patient request Surrogate decision maker: Mukul (son) Smoking status: Never smoker Second hand tobacco smoke exposure: No Alcohol intake: never Substance use: never Substance use type: does not use Do You Feel Safe in your Home?: Yes Lack of Transportation: YES Lack of Food: Never True Current Housing: I Have Housing Concerned About Future Housing: No Difficulty Paying Gas/Electric Bills: No Difficulty Paying for Meds: No Currently Unemployed: No Education: Master's Degree or Higher Difficulty w/ Childcare or Family Care: No Gender identity (if verbalized by the patient): Male Spiritual care concerns: No Meds Home Medications and Allergies Home Medications ?Medication ?Instructions ?Recorded ?Confirmed ?Type aspirin 81 mg chewable tablet 81 mg PO DAILY 04/09/19 05/07/24 History multivitamin (Multiple Vitamins 1 tablet PO DAILY 04/09/19 05/07/24 History tablet) cholecalciferol (vitamin D3) 50 50 mcg PO DAILY #90 caps 02/02/21 05/07/24 Rx mcg (2,000 unit) capsule atorvastatin 10 mg tablet See Rx Instructions .Route 05/12/23 05/07/24 Rx .COMPLEX #90 tabs nifedipine 30 mg tablet,extended See Rx Instructions .Route 02/10/24 05/07/24 Rx release 24 hr .COMPLEX #90 tabs fenofibrate nanocrystallized 145 See Rx Instructions .Route 02/22/24 05/07/24 Rx mg tablet .COMPLEX #90 tabs metoprolol succinate 50 mg See Rx Instructions .Route 03/21/24 05/07/24 Rx tablet,extended release 24 hr .COMPLEX #90 tabs alprazolam 0.25 mg tablet 0.125 mg PO DAILY PRN anxiety 05/07/24 05/07/24 History brimonidine 0.15 % eye drops 1 drp RIGHT EYE TID PRN glaucoma 05/07/24 05/07/24 History dorzolamide 22.3 mg-timolol 6.8 1 drp RIGHT EYE BID 05/07/24 05/07/24 History mg/mL eye drops imipramine HCl 25 mg tablet 25 mg PO .three times per week 05/07/24 05/07/24 History Allergies Allergy/AdvReac Type Severity Reaction Status Date / Time adhesive tape Allergy Unknown Itching Verified 04/29/24 15:37 Vital Signs Vital Signs - 24 hr 05/07/24 15:06 05/07/24 17:10 05/07/24 17:10 Temperature 98.5 F Pulse Rate 115 H Respiratory Rate 20 Blood Pressure 104/67 142/78 H Pulse Oximetry 93 97 97 Oxygen Delivery Room Air Room Air Room Air 05/07/24 17:15 05/07/24 17:16 05/07/24 17:31 Temperature Pulse Rate Respiratory Rate Blood Pressure 132/80 142/78 H 123/67 Pulse Oximetry 97 95 94 Oxygen Delivery 05/07/24 17:46 05/07/24 18:16 05/07/24 18:31 Temperature Pulse Rate 106 H 105 H Respiratory Rate 26 H 30 H Blood Pressure 123/68 118/68 131/54 L Pulse Oximetry 94 98 94 Oxygen Delivery 05/07/24 18:46 05/07/24 19:01 05/07/24 19:16 Temperature Pulse Rate 107 H 114 H 112 H Respiratory Rate 28 H 21 H 28 H Blood Pressure 123/70 116/68 113/58 L Pulse Oximetry 96 Oxygen Delivery 05/07/24 19:31 05/07/24 19:47 05/07/24 20:02 Temperature Pulse Rate 119 H 112 H 116 H Respiratory Rate 23 H 25 H 28 H Blood Pressure 114/90 148/62 H 129/69 Pulse Oximetry 97 Oxygen Delivery 05/07/24 20:31 05/07/24 20:46 05/07/24 21:02 Temperature Pulse Rate 118 H 107 H 111 H Respiratory Rate 26 H 28 H 29 H Blood Pressure 120/87 137/73 130/75 Pulse Oximetry 95 95 96 Oxygen Delivery 05/07/24 21:16 05/07/24 21:32 05/07/24 21:40 Temperature 97.6 F Pulse Rate 113 H 123 H Respiratory Rate 27 H 15 Blood Pressure 131/73 116/79 Pulse Oximetry 95 Oxygen Delivery 05/07/24 23:47 05/07/24 23:57 05/08/24 00:00 Temperature 97.6 F Pulse Rate 108 H 98 Respiratory Rate 16 Blood Pressure 120/74 Pulse Oximetry 95 100 Oxygen Delivery Room Air 05/08/24 02:00 Temperature Pulse Rate 97 Respiratory Rate Blood Pressure Pulse Oximetry Oxygen Delivery Exam 2 Narrative: Weight 81.2 kg BMI 23.6 Const: Other: Mildly ill-appearing, appears stated age, well-developed well-nourished HENMT: Other: Mucous membranes are moist, no oral pharyngeal erythema, fair dentition, head is normocephalic atraumatic Eyes: Other: Pupils are equal and reactive with bilateral lens implants noted Neck: Other: No JVD, trachea midline Resp: Other: Decreased breath sounds at the bases, conversational tachypnea Cardio: Other: Irregularly irregular, mildly tachycardic, no obvious murmur, 2+ pulses bilateral radial and pedal GI: Other: Soft, slightly distended, nontender, hypoactive bowel sounds, no organomegaly : Other: Uncircumcised male, continent of urine Skin: Other: Warm to touch, non jaundice, mild pallor Neuro: Other: Alert orient x4, speech is clear, no facial asymmetry, no localizing neurologic deficits noted during the course of conversation Extrem: Other: No clubbing, cyanosis or edema, moves all extremities equally Psych: Other: Loquacious, Appropriate mood and affect, pleasant and cooperative, judgment and insight intact H&P: Results Labs Labs: Laboratory Tests 05/07/24 17:11 05/07/24 17:11 05/07/24 05/07/24 05/07/24 17:11 17:12 20:16 WBC 7.9 RBC 4.26 L Hgb 12.7 L Hct 38.5 L MCV 90.4 MCH 29.8 MCHC 33.0 RDW 13.2 Plt Count 180 MPV 10.0 Immature Gran % (Auto) 0.6 H Neut % (Auto) 82.6 H Lymph % (Auto) 6.8 L [place] % (Auto) 9.1 H Eos % (Auto) 0.6 Baso % (Auto) 0.3 Lymph # (Auto) 0.54 L [place] # (Auto) 0.7 H Eos # (Auto) 0.1 Baso # (Auto) 0.0 Abs Immat Gran (auto) 0.05 H Absolute Neuts (auto) 6.5 Absolute Nucleated RBC 0.000 Nucleated RBC % 0.0 PT 15.5 H INR 1.2 APTT 29.1 Sodium 137 Potassium 4.0 Chloride 106 Carbon Dioxide 21 L Anion Gap 10 BUN 19 Creatinine 1.28 Estim Creat Clear Calc 39 Estimated GFR 53 L Glucose 149 H Lactic Acid 1.4 Calcium 9.3 Total Bilirubin 0.8 AST 50 ALT 33 Alkaline Phosphatase 41 Troponin I 0.065 H* 0.103 H* D NT-Pro-B Natriuret Pep 1780 H Total Protein 7.0 Albumin 4.2 Urine Color Urine Appearance Urine pH Ur Specific [place] Urine Protein Urine Glucose (UA) Urine Ketones Ur Blood (Man) Urine Nitrate Urine Bilirubin Urine Urobilinogen Leukocyte Esterase Rfl Urine RBC Urine WBC Ur Squamous Epith Cells Urine Bacteria Urine Casts Influenza A (RT-PCR) Positive A Influenza B (RT-PCR) Negative RSV (RT-PCR) Negative SARS-CoV-2 RNA (RT-PCR) Negative 05/07/24 05/08/24 20:17 00:54 WBC RBC Hgb Hct MCV MCH MCHC RDW Plt Count MPV Immature Gran % (Auto) Neut % (Auto) Lymph % (Auto) [place] % (Auto) Eos % (Auto) Baso % (Auto) Lymph # (Auto) [place] # (Auto) Eos # (Auto) Baso # (Auto) Abs Immat Gran (auto) Absolute Neuts (auto) Absolute Nucleated RBC Nucleated RBC % PT INR APTT Sodium Potassium Chloride Carbon Dioxide Anion Gap BUN Creatinine Estim Creat Clear Calc Estimated GFR Glucose Lactic Acid Calcium Total Bilirubin AST ALT Alkaline Phosphatase Troponin I 0.197 H* D NT-Pro-B Natriuret Pep Total Protein Albumin Urine Color Dark yellow Urine Appearance Clear Urine pH 5.5 Ur Specific [place] 1.021 Urine Protein 2+ H Urine Glucose (UA) Negative Urine Ketones Trace H Ur Blood (Man) Negative Urine Nitrate Negative Urine Bilirubin 1+ H Urine Urobilinogen 1.0 Leukocyte Esterase Rfl Negative Urine RBC 0-2 Urine WBC 0-5 Ur Squamous Epith Cells Occasional Urine Bacteria None seen Urine Casts 3-5 Influenza A (RT-PCR) Influenza B (RT-PCR) RSV (RT-PCR) SARS-CoV-2 RNA (RT-PCR) Impressions Chest X-Ray 05/07/24 17:25 IMPRESSION: No acute cardiopulmonary process. EKG: Personally reviewed AFib with patient's telemetry demonstrating heart rates anywhere between 100-123. All imaging and EKGs personally reviewed and interpreted. And unless stated otherwise agree with radiologic and cardiology interpretation. Assessment and Plan Assessment and plan (1) Atrial fibrillation: Qualifiers: Atrial fibrillation type: unspecified Qualified Code(s): I48.91 - Unspecified atrial fibrillation Code(s): I48.91 - Unspecified atrial fibrillation Status: Acute (2) Hx of aortic valve replacement with porcine valve: Onset Date: ~2009 Code(s): Z95.3 - Presence of xenogenic heart valve Status: Acute (3) Slow transit constipation: Code(s): K59.01 - Slow transit constipation Status: Acute (4) Influenza A: Code(s): J10.1 - Influenza due to other identified influenza virus with other respiratory manifestations Status: Acute (5) Elevated troponin: Code(s): R79.89 - Other specified abnormal findings of blood chemistry Status: Acute Plan Patient presented with AFib. Presumed to be onset but given lack of symptoms of AFib patient may have chronic AFib that was previously unknown. Patient does have subsequent troponin leak likely secondary to tachycardia. Again tachycardia could be reactive due to the patient's active influenza a infection versus new onset AFib. Troponin is still trending upward. Will place patient on therapeutic Lovenox for the short term. Will check echocardiogram to further evaluate cardiac structure and function. Will continue patient's home aspirin and beta-angel. The patient's heart rate has improved after IV fluid hydration. Currently patient appears clinically euvolemic and will stop IV fluids. The patient's chads Vasc score is at least 2 any would benefit from long-term anticoagulation to reduce stroke risk. However after discussion and shared decision making the patient has opted to not pursue long-term anticoagulation. Will consult Cardiology this patient would benefit from continued cardiology follow-up. Will defer adjustments in rate controlling medications to Cardiology Service. Patient does have elevated troponin again likely secondary to type 2 infarct. Patient being monitored heard in the IMU and she will troponins have been trended. Will repeat troponin with a.m. labs. The patient has been started on Tamiflu renally dosed 30 mg p.o. b.i.d. patient has chronic slow transit constipation but some loose stools today at home. He will benefit from stool softeners as outpatient bubble hold off on stool softeners at this time. Will order Dulcolax suppository as needed for constipation. Will repeat CBC and electrolyte panel in a.m. Hospitalist MIPS Advance Care Plan I have confirmed that the patient's Advanced Care Plan is present, code status is documented, or surrogate decision maker is listed in patient medical record.: Yes Medication Reconciliation I have utilized all available resources to obtain, update and review the patients current medications (includes all prescriptions, OTC, herbals, cannabis, and nutritional supplements).: Yes
[2024-05-08] MEDS: DORZOLAMIDE/TIMOLOL OPHTH SOL 10 ML BOTTLE 1 DROP RIGHT EYE ×3 (02:46→22:08)
[2024-05-08] MEDS: ENOXAPARIN 80 MG/0.8 ML SYRINGE SUB-Q ×2 (02:46→20:40)
[2024-05-08] MEDS: ATORVASTATIN 10 MG TABLET PO ×2 (02:47→20:40)
[2024-05-08 04:57] LABS: Basophils Percent Auto 0.2 % (0.2-1.2); Eosinophils Percent Auto 0.2 % (0-4.4); Hemoglobin 11.5 g/dL (14.0-18.0); Immature Granulocyte Absolute 0.03 K/mm3 (0.00-0.031); Immature Granulocyte Percent A 0.5 % (0-0.5); Lymphocytes Absolute Auto 0.71 K/mm3 (0.9-3.2); Lymphocytes Percent Auto 12.5 % (18.3-44.2); Mean Corpuscular HGB Conc 32.9 g/dl (32-36); Mean Corpuscular Hemoglobin 29.9 pg (26-34); Mean Corpuscular Volume 91.1 fl (80-100); Mean Platelet Volume 10.4 fl (7.4-10.4); Monocytes Absolute Auto 0.8 K/mm3 (0.1-0.6); Monocytes Percent Auto 13.4 % (2.6-8.5); Neutrophils Absolute Auto 4.2 K/mm3 (1.3-6.7); Neutrophils Percent Auto 73.2 % (45.5-73.1); Platelet Count Result 147 k/mm3 (150-375); Red Blood Count 3.84 M/mm3 (4.6-6.20); Red Cell Distribution Width 13.2 % (11.5-14.5); White Blood Count 5.7 K/mm3 (4.5-10.0)
[2024-05-08 05:11] LABS: Anion Gap 8 mmol/L (4-12); Blood Urea Nitrogen 18 mg/dL (9-20); Calcium 8.6 mg/dL (8.4-10.2); Carbon Dioxide 20 mmol/L (22-30); Chloride 107 mmol/L (98-107); Estimated CRCL calculation 51 ml/min; Estimated Glomerular Filt Rate > 60; Glucose 108 mg/dL (65-110); Sodium 135 mmol/L (137-145)
[2024-05-08 05:19] LABS: Troponin I 0.221 ng/mL (0.000-0.034)
--- NOTE | 2024-05-08 05:23 | ECG_ITS ---
Test Date: 2024-05-08 05:30:54 Measurements Intervals [place] Rate: 88 P: 0 WI: 0 QRS: -32 QRSD: 98 T: 103 QT: 289 QTc: 350 Interpretive Statements ATRIAL FIBRILLATION LEFT AXIS DEVIATION LEFT VENTRICULAR HYPERTROPHY WITH ST-T CHANGE BORDERLINE R WAVE PROGRESSION, ANTERIOR LEADS BORDERLINE T WAVE ABNORMALITY- ANTEROLATERAL LEADS ABNORMAL ECG Compared to ECG 05/07/2024 20:22:58 HEART RATE HAS DECREASED Electronically Signed On 05-08-2024 07:18:33 [employer] by Giovanni Smith D.O.
--- NOTE | 2024-05-08 05:53 | PC.NURSE ---
Elevated troponin called to dr. Langston. Orders received for EKG and call alma
--- NOTE | 2024-05-08 05:55 | PC.NURSE ---
Elevated troponin called to Dr. Langston. Orders received for EKG and call cardiology consult. Cardiology called and report given to Dr. Jackson with [facility].
[2024-05-08] MEDS: BRIMONIDINE TARTRATE 0.15% 5 ML OPHTH SOLN 1 DROP RIGHT EYE ×3 (06:02→18:43)
--- NOTE | 2024-05-08 08:17 | P.PNIM_ITS ---
Progress Note: A&P Assessment and Plan (1) Atrial fibrillation: Qualifiers: Atrial fibrillation type: unspecified Qualified Code(s): I48.91 - Unspecified atrial fibrillation Code(s): I48.91 - Unspecified atrial fibrillation Status: Acute (2) Hx of aortic valve replacement with porcine valve: Onset Date: ~2009 Code(s): Z95.3 - Presence of xenogenic heart valve Status: Acute (3) Slow transit constipation: Code(s): K59.01 - Slow transit constipation Status: Acute (4) Influenza A: Code(s): J10.1 - Influenza due to other identified influenza virus with other respiratory manifestations Status: Acute (5) Elevated troponin: Code(s): R79.89 - Other specified abnormal findings of blood chemistry Status: Acute Plan 83-year-old male w/h aortic valve replacement and ascending aortic aneurysm repair 2009, glaucoma, hyperlipidemia, hypertension and chronic back pain who presented to the ER with 1 day of weakness, shortness breath, cough, loose stools. Patient has a general weakness, cannot get out of bed . Upon arrival to the ED, patient was found have AFib RVR heart rate about 100-120, influenza A positive New onset AFib Patient presented with AFib. Patient does not know he has AFib previously Start Lovenox based on the CHADS scores Patient is on metoprolol 50 mg daily p.o., nifedipine 30 mg daily p.o. Continue metoprolol 50 mg daily p.o. stop nifedipine 30 mg daily p.o. changed to Cardizem 30 mg q.8 hours p.o. Pending echocardiogram Telemetry monitoring Consult manufacturing sr engineer for evaluation treatment Now patient has sinus rhythm Elevated troponin Positive troponin, it is trending up Possible due to demand ischemia resulting from AFib RVR and influenza a infection Telemetry monitoring Continue aspirin 81 mg daily p.o. Pending echocardiogram Consult manufacturing sr engineer for evaluation treatment Influenza a infection Continue Tamiflu p.o. Chronic anemia No obvious bleeding Follow-up CBC, stool guaiac, iron panel Hyponatremia, dehydration Patient received fluid resuscitation with normal saline Follow-up BMP Uncontrolled hypertension Chronic patient is on metoprolol and Cardizem p.o. Subjective Date/time seen: 05/08/24 08:17 Interval history: Patient is afebrile, blood pressure stable, no O2 desaturation on room air, heart rate is better controlled. Labs reviewed, hemoglobin 11.5 stable, sodium 135, patient feels tired, denies palpitation, patient still has cough and shortness breath with exertion Exam Narrative: GENERAL: Pleasant, in no acute distress. Well-nourished. - EYES: EOMI. Anicteric. - HENT: Moist mucous membranes. - LUNGS: Clear to auscultation bilateral ly, no wheezing, rhonchi, or rales. - CARDIOVASCULAR: Irregular irregular r hythm, No murmur. No JVD. - ABDOMEN: Soft, non-tender and non-dist ended. No palpable masses. - EXTREMITIES: No edema. Peripheral puls es 2+. Non-tender. - NEUROLOGIC: No focal neurological defi cits. CN II-XII grossly intact. - PSYCHIATRIC: Awake, Alert and oriented x 3. Appropriate mood and affect. - SKIN: No rashes or lesions. Warm. - LYMPH: No cervical lymphadenopathy. Objective Data Vital Signs Vital Signs: Vital Signs - 24 hr 05/07/24 15:06 05/07/24 17:10 05/07/24 17:10 Temperature 98.5 F Pulse Rate 115 H Respiratory Rate 20 Blood Pressure 104/67 142/78 H Pulse Oximetry 93 97 97 Oxygen Delivery Room Air Room Air Room Air 05/07/24 17:15 05/07/24 17:16 05/07/24 17:31 Temperature Pulse Rate Respiratory Rate Blood Pressure 132/80 142/78 H 123/67 Pulse Oximetry 97 95 94 Oxygen Delivery 05/07/24 17:46 05/07/24 18:16 05/07/24 18:31 Temperature Pulse Rate 106 H 105 H Respiratory Rate 26 H 30 H Blood Pressure 123/68 118/68 131/54 L Pulse Oximetry 94 98 94 Oxygen Delivery 05/07/24 18:46 05/07/24 19:01 05/07/24 19:16 Temperature Pulse Rate 107 H 114 H 112 H Respiratory Rate 28 H 21 H 28 H Blood Pressure 123/70 116/68 113/58 L Pulse Oximetry 96 Oxygen Delivery 05/07/24 19:31 05/07/24 19:47 05/07/24 20:02 Temperature Pulse Rate 119 H 112 H 116 H Respiratory Rate 23 H 25 H 28 H Blood Pressure 114/90 148/62 H 129/69 Pulse Oximetry 97 Oxygen Delivery 05/07/24 20:31 05/07/24 20:46 05/07/24 21:02 Temperature Pulse Rate 118 H 107 H 111 H Respiratory Rate 26 H 28 H 29 H Blood Pressure 120/87 137/73 130/75 Pulse Oximetry 95 95 96 Oxygen Delivery 05/07/24 21:16 05/07/24 21:32 05/07/24 21:40 Temperature 97.6 F Pulse Rate 113 H 123 H Respiratory Rate 27 H 15 Blood Pressure 131/73 116/79 Pulse Oximetry 95 Oxygen Delivery 05/07/24 23:47 05/07/24 23:57 05/08/24 00:00 Temperature 97.6 F Pulse Rate 108 H 98 Respiratory Rate 16 Blood Pressure 120/74 Pulse Oximetry 95 100 Oxygen Delivery Room Air 05/08/24 02:00 05/08/24 03:57 05/08/24 04:00 Temperature Pulse Rate 97 84 Respiratory Rate Blood Pressure Pulse Oximetry 95 Oxygen Delivery Room Air 05/08/24 04:22 05/08/24 06:00 05/08/24 07:30 Temperature 98.5 F 98.0 F Pulse Rate 91 92 89 Respiratory Rate 16 22 H Blood Pressure 146/57 H 130/59 L Pulse Oximetry 98 99 Oxygen Delivery Intake/Output Intake/Output: Intake & Output 05/05/24 05/06/24 05/07/24 05/08/24 23:59 23:59 23:59 23:59 Intake Total 865 Output Total 50 Balance 815 Meds/Results Medications: Active Medications Generic Name Dose Route Start Last Admin Trade Name Freq PRN Reason Stop Dose Admin Acetaminophen 650 mg 05/07/24 18:45 Acetaminophen 325 Mg Tablet PO Q4H PRN Mild Pain (1-3) or Fever Al Hydrox/Mg Hydrox/Simethicone 30 ml 05/08/24 04:09 Mag Hydrox/Al Hydrox/Simeth 30 Ml Udc PO Q6H PRN Indigestion Alprazolam 0.125 mg 05/08/24 02:18 Alprazolam (*Crx) 0.125 Mg Tablet PO DAILY PRN anxiety Aspirin 81 mg 05/08/24 09:00 Aspirin 81 Mg Chewable Tablet PO DAILY KANDY Atorvastatin Calcium 10 mg 05/08/24 02:20 05/08/24 02:47 Atorvastatin 10 Mg Tablet PO 10 mg HS KANDY Administration Bisacodyl 10 mg 05/08/24 04:09 Bisacodyl 10 Mg Suppository RECTAL QAM PRN Constipation Brimonidine Tartrate 1 drop 05/08/24 06:00 05/08/24 06:02 Brimonidine Tartrate 0.15% 5 Ml Ophth Soln RIGHT EYE 1 drop Q8HR [facility] Administration Dorzolamide/Timolol 1 drop 05/08/24 02:20 05/08/24 02:46 Dorzolamide/Timolol Ophth Hailey 10 Ml Bottle RIGHT EYE 1 drop BID [facility] Administration Enoxaparin Sodium 80 mg 05/08/24 02:35 05/08/24 02:46 Enoxaparin 80 Mg/0.8 Ml Syringe SUB-Q 80 mg Q12HR [facility] Administration Fenofibrate 145 mg 05/08/24 09:00 Fenofibrate Nanocrystallized 145 Mg Tablet PO DAILY [facility] Metoprolol Succinate 50 mg 05/08/24 09:00 Metoprolol Succinate Ext Rel 50 Mg Tabcr PO DAILY [facility] Morphine Sulfate 2 mg 05/07/24 18:45 Morphine Sulfate (*Crx) 2 Mg/Ml Inj IV PUSH Q2H PRN Pain Rated 7-10 Multivitamins Therapeutic 1 tablet 05/08/24 09:00 Multivitamins Therapeutic Tab (*Bkc) PO DAILY [facility] Nifedipine 30 mg 05/08/24 09:00 Nifedipine 30 Mg Tab.Er.24 PO DAILY [facility] Ondansetron HCl 4 mg 05/07/24 18:45 Ondansetron Inj 4 Mg/2 Ml Vial IV PUSH Q4H PRN Nausea Oseltamivir Phosphate 30 mg 05/07/24 21:00 05/07/24 21:29 Oseltamivir Phosphate 30 Mg Capsule PO 05/12/24 20:59 30 mg Q12HR [facility] Administration Perflutren Lipid Microsphere 0 ml 05/07/24 18:45 Perflutren Lipid Microspheres 1.5 Ml Vial Diluted To 10 Ml Total Volume IV PUSH 05/10/24 18:47 ONCE PRN adequate visualization Protocol Vitamin D 2,000 units 05/08/24 09:00 Cholecalciferol 1,000 Units Tablet PO DAILY [facility] Radiology Results: ITS Impressions Chest X-Ray 05/07/24 17:25 IMPRESSION: No acute cardiopulmonary process. Labs Labs: Laboratory Results - last 24 hr 05/07/24 05/07/24 05/07/24 17:11 17:12 20:16 WBC 7.9 RBC 4.26 L Hgb 12.7 L Hct 38.5 L MCV 90.4 MCH 29.8 MCHC 33.0 RDW 13.2 Plt Count 180 MPV 10.0 Immature Gran % (Auto) 0.6 H Neut % (Auto) 82.6 H Lymph % (Auto) 6.8 L [place] % (Auto) 9.1 H Eos % (Auto) 0.6 Baso % (Auto) 0.3 Lymph # (Auto) 0.54 L [place] # (Auto) 0.7 H Eos # (Auto) 0.1 Baso # (Auto) 0.0 Abs Immat Gran (auto) 0.05 H Absolute Neuts (auto) 6.5 Absolute Nucleated RBC 0.000 Nucleated RBC % 0.0 PT 15.5 H INR 1.2 APTT 29.1 Sodium 137 Potassium 4.0 Chloride 106 Carbon Dioxide 21 L Anion Gap 10 BUN 19 Creatinine 1.28 Estim Creat Clear Calc 39 Estimated GFR 53 L Glucose 149 H Lactic Acid 1.4 Calcium 9.3 Total Bilirubin 0.8 AST 50 ALT 33 Alkaline Phosphatase 41 Troponin I 0.065 H* 0.103 H* D NT-Pro-B Natriuret Pep 1780 H Total Protein 7.0 Albumin 4.2 Urine Color Urine Appearance Urine pH Ur Specific [place] Urine Protein Urine Glucose (UA) Urine Ketones Ur Blood (Man) Urine Nitrate Urine Bilirubin Urine Urobilinogen Leukocyte Esterase Rfl Urine RBC Urine WBC Ur Squamous Epith Cells Urine Bacteria Urine Casts Influenza A (RT-PCR) Positive A Influenza B (RT-PCR) Negative RSV (RT-PCR) Negative SARS-CoV-2 RNA (RT-PCR) Negative 05/07/24 05/08/24 05/08/24 20:17 00:54 04:31 WBC 5.7 RBC 3.84 L Hgb 11.5 L Hct 35.0 L MCV 91.1 MCH 29.9 MCHC 32.9 RDW 13.2 Plt Count 147 L MPV 10.4 Immature Gran % (Auto) 0.5 Neut % (Auto) 73.2 H Lymph % (Auto) 12.5 L [place] % (Auto) 13.4 H Eos % (Auto) 0.2 Baso % (Auto) 0.2 Lymph # (Auto) 0.71 L [place] # (Auto) 0.8 H Eos # (Auto) 0.0 Baso # (Auto) 0.0 Abs Immat Gran (auto) 0.03 Absolute Neuts (auto) 4.2 Absolute Nucleated RBC 0.000 Nucleated RBC % 0.0 PT INR APTT Sodium 135 L Potassium 4.0 Chloride 107 Carbon Dioxide 20 L Anion Gap 8 BUN 18 Creatinine 1.06 Estim Creat Clear Calc 51 Estimated GFR > 60 Glucose 108 Lactic Acid Calcium 8.6 Total Bilirubin AST ALT Alkaline Phosphatase Troponin I 0.197 H* D 0.221 H* NT-Pro-B Natriuret Pep Total Protein Albumin Urine Color Dark yellow Urine Appearance Clear Urine pH 5.5 Ur Specific [place] 1.021 Urine Protein 2+ H Urine Glucose (UA) Negative Urine Ketones Trace H Ur Blood (Man) Negative Urine Nitrate Negative Urine Bilirubin 1+ H Urine Urobilinogen 1.0 Leukocyte Esterase Rfl Negative Urine RBC 0-2 Urine WBC 0-5 Ur Squamous Epith Cells Occasional Urine Bacteria None seen Urine Casts 3-5 Influenza A (RT-PCR) Influenza B (RT-PCR) RSV (RT-PCR) SARS-CoV-2 RNA (RT-PCR)
[2024-05-08] MEDS: dilTIAZem HCL 30 MG TABLET PO ×3 (09:29→20:40)
[2024-05-08] MEDS: ASPIRIN 81 MG CHEWABLE TABLET PO (09:29)
[2024-05-08] MEDS: CHOLECALCIFEROL 1,000 UNITS TABLET 2000 UNITS PO (09:29)
[2024-05-08] MEDS: OSELTAMIVIR PHOSPHATE 30 MG CAPSULE PO ×2 (09:30→20:40)
[2024-05-08] MEDS: MULTIVITAMINS THERAPEUTIC TAB (*BKC) 1 TABLET PO (09:30)
[2024-05-08] MEDS: FENOFIBRATE NANOCRYSTALLIZED 145 MG TABLET PO (09:30)
[2024-05-08] MEDS: METOPROLOL SUCCINATE EXT REL 50 MG TABCR PO (09:30)
[2024-05-08 10:04] LABS: Iron 29 ug/dL (49-181)
[2024-05-08 10:13] LABS: Percent Iron Saturation 8 % (20-50)
[2024-05-08] MEDS: IPRATROPIUM 0.5 MG/ALBUTEROL SULFATE 2.5 MG AMPUL.NEB 3 ML INHALATION (20:02)
[2024-05-09] VITALS (12 sets, daily range): BP systolic 138–146; BP diastolic 47–62; PULSE 66–91; RESP 16–20; TEMP 36.6–36.8; O2SAT 96–98
[2024-05-09] MEDS: IPRATROPIUM 0.5 MG/ALBUTEROL SULFATE 2.5 MG AMPUL.NEB 3 ML INHALATION ×3 (00:20→16:13)
[2024-05-09] MEDS: dilTIAZem HCL 30 MG TABLET PO ×3 (06:36→21:34)
[2024-05-09] MEDS: BRIMONIDINE TARTRATE 0.15% 5 ML OPHTH SOLN 1 DROP RIGHT EYE ×3 (06:37→17:54)
[2024-05-09] MEDS: ASPIRIN 81 MG CHEWABLE TABLET PO (09:50)
[2024-05-09] MEDS: CHOLECALCIFEROL 1,000 UNITS TABLET 2000 UNITS PO (09:50)
[2024-05-09] MEDS: MULTIVITAMINS THERAPEUTIC TAB (*BKC) 1 TABLET PO (09:51)
[2024-05-09] MEDS: OSELTAMIVIR PHOSPHATE 30 MG CAPSULE PO ×2 (09:51→21:33)
[2024-05-09] MEDS: ENOXAPARIN 80 MG/0.8 ML SYRINGE SUB-Q ×2 (09:51→21:33)
[2024-05-09] MEDS: FENOFIBRATE NANOCRYSTALLIZED 145 MG TABLET PO (09:51)
[2024-05-09] MEDS: METOPROLOL SUCCINATE EXT REL 50 MG TABCR PO (09:51)
[2024-05-09] MEDS: DORZOLAMIDE/TIMOLOL OPHTH SOL 10 ML BOTTLE 1 DROP RIGHT EYE ×2 (09:52→22:22)
--- NOTE | 2024-05-09 10:00 | PM.IMPN ---
Progress Note: A&P Assessment and Plan (1) Atrial fibrillation: Qualifiers: Atrial fibrillation type: unspecified Qualified Code(s): I48.91 - Unspecified atrial fibrillation Code(s): I48.91 - Unspecified atrial fibrillation Status: Acute (2) Hx of aortic valve replacement with porcine valve: Onset Date: ~2009 Code(s): Z95.3 - Presence of xenogenic heart valve Status: Acute (3) Slow transit constipation: Code(s): K59.01 - Slow transit constipation Status: Acute (4) Influenza A: Code(s): J10.1 - Influenza due to other identified influenza virus with other respiratory manifestations Status: Acute (5) Elevated troponin: Code(s): R79.89 - Other specified abnormal findings of blood chemistry Status: Acute Plan 83-year-old male w/h aortic valve replacement and ascending aortic aneurysm repair 2009, glaucoma, hyperlipidemia, hypertension and chronic back pain who presented to the ER with 1 day of weakness, shortness breath, cough, loose stools. Patient has a general weakness, cannot get out of bed . Upon arrival to the ED, patient was found have AFib RVR heart rate about 100-120, influenza A positive New onset AFib Patient presented with AFib. Patient does not know he has AFib previously Start Lovenox based on the CHADS scores Patient is on metoprolol 50 mg daily p.o., nifedipine 30 mg daily p.o. Continue metoprolol 50 mg daily p.o. stop nifedipine 30 mg daily p.o. changed to Cardizem 30 mg q.8 hours p.o. Pending echocardiogram Telemetry monitoring Consult supervisor safety deposit for evaluation treatment Now patient has sinus rhythm Switch from Lovenox to Eliquis 5 mg b.i.d. p.o. on discharge Elevated troponin Positive troponin, it is trending up Possible due to demand ischemia resulting from AFib RVR and influenza a infection Telemetry monitoring Continue aspirin 81 mg daily p.o. Pending echocardiogram Consult supervisor safety deposit for evaluation treatment Influenza a infection Continue Tamiflu p.o. Chronic anemia No obvious bleeding Follow-up CBC, Pending stool guaiac, iron panel: Iron of 29, saturation 8% ferritin on lower side 70.5 Provide ferrous sulfate 325 mg daily p.o. Hyponatremia, dehydration Patient received fluid resuscitation with normal saline Follow-up BMP Uncontrolled hypertension Chronic patient is on metoprolol and Cardizem p.o. Subjective Date/time seen: 05/09/24 10:00 Interval history: Patient is afebrile, blood pressure stable, patient still has general weakness, denies chest pain abdomen pain Exam Narrative: GENERAL: Pleasant, in no acute distress. Well-nourished. - EYES: EOMI. Anicteric. - HENT: Moist mucous membranes. - LUNGS: Clear to auscultation bilaterally, no wheezing, rhonchi, or rales. - CARDIOVASCULAR: Regular rhythm No murmur. No JVD. - ABDOMEN: Soft, non-tender and non-distended. No palpable masses. - EXTREMITIES: No edema. Peripheral pulses 2+. Non-tender. - NEUROLOGIC: No focal neurological deficits. CN II-XII grossly intact. - PSYCHIATRIC: Awake, Alert and oriented x 3. Appropriate mood and affect. - SKIN: No rashes or lesions. Warm. - LYMPH: No cervical lymphadenopathy. Objective Data Vital Signs Vital Signs: Vital Signs - 24 hr 05/08/24 11:55 05/08/24 12:00 05/08/24 15:49 Temperature 99.2 F 98.2 F Pulse Rate 71 83 81 Respiratory Rate 22 H 22 H Blood Pressure 135/60 123/67 Pulse Oximetry 99 100 Oxygen Delivery Oxygen Flow Rate 05/08/24 16:00 05/08/24 18:00 05/08/24 19:50 Temperature Pulse Rate 81 81 Respiratory Rate 22 H Blood Pressure Pulse Oximetry 99 99 Oxygen Delivery Nasal Cannula Nasal Cannula Oxygen Flow Rate 2 2 05/08/24 19:52 05/08/24 20:02 05/08/24 20:10 Temperature Pulse Rate 81 73 71 Respiratory Rate 20 20 Blood Pressure Pulse Oximetry Oxygen Delivery Oxygen Flow Rate 05/08/24 20:22 05/08/24 23:23 05/09/24 00:00 Temperature 98.1 F Pulse Rate 55 L 67 Respiratory Rate 22 H Blood Pressure 130/54 L Pulse Oximetry 97 98 Oxygen Delivery Nasal Cannula Oxygen Flow Rate 2 05/09/24 00:20 05/09/24 00:30 05/09/24 04:00 Temperature Pulse Rate 69 70 66 Respiratory Rate 20 20 Blood Pressure Pulse Oximetry Oxygen Delivery Oxygen Flow Rate 05/09/24 07:37 05/09/24 07:37 05/09/24 08:00 Temperature 98.1 F Pulse Rate 85 90 Respiratory Rate 20 20 Blood Pressure 138/60 Pulse Oximetry 96 97 Oxygen Delivery Room Air Oxygen Flow Rate 05/09/24 09:51 Temperature Pulse Rate 84 Respiratory Rate Blood Pressure Pulse Oximetry Oxygen Delivery Oxygen Flow Rate Intake/Output Intake/Output: Intake & Output 05/06/24 05/07/24 05/08/24 05/09/24 23:59 23:59 23:59 23:59 Intake Total 1835 200 Output Total 750 Balance 1085 200 Meds/Results Medications: Active Medications Generic Name Dose Route Start Last Admin Trade Name Freq PRN Reason Stop Dose Admin Acetaminophen 650 mg 05/07/24 18:45 Acetaminophen 325 Mg Tablet PO Q4H PRN Mild Pain (1-3) or Fever Al Hydrox/Mg Hydrox/Simethicone 30 ml 05/08/24 04:09 Mag Hydrox/Al Hydrox/Simeth 30 Ml Udc PO Q6H PRN Indigestion Albuterol/Ipratropium 3 ml 05/08/24 18:40 05/09/24 07:36 Ipratropium 0.5 Mg/Albuterol Sulfate 2.5 Mg Ampul.Neb 3 Ml INHALATION 3 ml Q8HRT KANDY Administration Alprazolam 0.125 mg 05/08/24 02:18 Alprazolam (*Crx) 0.125 Mg Tablet PO DAILY PRN anxiety Aspirin 81 mg 05/08/24 09:00 05/09/24 09:50 Aspirin 81 Mg Chewable Tablet PO 81 mg DAILY KANDY Administration Atorvastatin Calcium 10 mg 05/08/24 02:20 05/08/24 20:40 Atorvastatin 10 Mg Tablet PO 10 mg HS KANDY Administration Bisacodyl 10 mg 05/08/24 04:09 Bisacodyl 10 Mg Suppository RECTAL QAM PRN Constipation Brimonidine Tartrate 1 drop 05/08/24 18:00 05/09/24 06:37 Brimonidine Tartrate 0.15% 5 Ml Ophth Soln RIGHT EYE 1 drop 0700,1400,1800 KANDY Administration Diltiazem HCl 30 mg 05/08/24 08:35 05/09/24 06:36 Diltiazem Hcl 30 Mg Tablet PO 30 mg Q8HR KANDY Administration Dorzolamide/Timolol 1 drop 05/08/24 22:00 05/09/24 09:52 Dorzolamide/Timolol Ophth Hailey 10 Ml Bottle RIGHT EYE 1 drop Q12H [facility]Y Administration Enoxaparin Sodium 80 mg 05/08/24 02:35 05/09/24 09:51 Enoxaparin 80 Mg/0.8 Ml Syringe SUB-Q 80 mg Q12HR KANDY Administration Fenofibrate 145 mg 05/08/24 09:00 05/09/24 09:51 Fenofibrate Nanocrystallized 145 Mg Tablet PO 145 mg DAILY KANDY Administration Metoprolol Succinate 50 mg 05/08/24 09:00 05/09/24 09:51 Metoprolol Succinate Ext Rel 50 Mg Tabcr PO 50 mg DAILY KANDY Administration Morphine Sulfate 2 mg 05/07/24 18:45 Morphine Sulfate (*Crx) 2 Mg/Ml Inj IV PUSH Q2H PRN Pain Rated 7-10 Multivitamins Therapeutic 1 tablet 05/08/24 09:00 05/09/24 09:51 Multivitamins Therapeutic Tab (*Bkc) PO 1 tablet DAILY KANDY Administration Ondansetron HCl 4 mg 05/07/24 18:45 Ondansetron Inj 4 Mg/2 Ml Vial IV PUSH Q4H PRN Nausea Oseltamivir Phosphate 30 mg 05/07/24 21:00 05/09/24 09:51 Oseltamivir Phosphate 30 Mg Capsule PO 05/12/24 20:59 30 mg Q12HR KANDY Administration Perflutren Lipid Microsphere 0 ml 05/07/24 18:45 Perflutren Lipid Microspheres 1.5 Ml Vial Diluted To 10 Ml Total Volume IV PUSH 05/10/24 18:47 ONCE PRN adequate visualization Protocol Vitamin D 2,000 units 05/08/24 09:00 05/09/24 09:50 Cholecalciferol 1,000 Units Tablet PO 2,000 units DAILY KANDY Administration Radiology Results: ITS Impressions Chest X-Ray 05/07/24 17:25 IMPRESSION: No acute cardiopulmonary process. Labs Labs: Laboratory Results - last 24 hr 05/08/24 04:31 Iron 29 L TIBC 383 % Saturation 8 L Ferritin 70.50
--- NOTE | 2024-05-09 12:00 | P.CONCA_ITS ---
Assessment and Plan Assessment and plan (1) Atrial fibrillation: Qualifiers: Atrial fibrillation type: unspecified Qualified Code(s): I48.91 - Unspecified atrial fibrillation Code(s): I48.91 - Unspecified atrial fibrillation Status: Acute Assessment and Plan: Probably due to flu. [id number] 3. Rate controlled. On Lovenox. Upon discharge will change Lovenox to Eliquis 5 mg BID. Monitor. (2) Elevated troponin: Code(s): R79.89 - Other specified abnormal findings of blood chemistry Status: Acute Assessment and Plan: Troponin up to 0.2 and trending up. Could be flu related with atrial fibrillation. Doubt ACS as no chest pains or ST changes on EKG. Patient does not want any invasive procedures and conservative treatment only per patient. Obtain echo. (3) Hx of aortic valve replacement with porcine valve: Onset Date: ~2009 Code(s): Z95.3 - Presence of xenogenic heart valve Status: Acute (4) Essential (primary) hypertension: Code(s): I10 - Essential (primary) hypertension Status: Acute Assessment and Plan: Stable. (5) Dyslipidemia: Code(s): E78.5 - Hyperlipidemia, unspecified Status: Acute Assessment and Plan: On Atorvastatin. (6) Influenza A: Code(s): J10.1 - Influenza due to other identified influenza virus with other respiratory manifestations Status: Acute Assessment and Plan: Managed as per hospitalist. History of Present Illness History of Present Illness Consult date/time: 05/09/24 12:00 Reason For Visit: New onset afib, Influenza, Elevated Troponin Narrative: 83 yr old man presents to ER due to sob. He has a history of bioprosthetic aortic valve with ascending aortic repair in 2009 at [facility], hypertension, dyslipidemia. Reports for last 1 day he noted coughing with sob and a temp of 100 degrees, and found to have influenza and new onset atrial fibrillation. He is normally limited at walking to restroom due to progressively worsening back pain. Denies chest pain, orthopnea, PND, edema, dizziness, palpitations. Review of Systems 2 Review of Systems: All systems reviewed & are unremarkable except as noted in HPI and below Constitutional: Constitutional: Reports as per HPI, Denies chills and Reports fever(s) Cardiovascular: Cardiovascular: Denies as per HPI, Denies chest pain and Denies irregular heart rhythm Respiratory: Respiratory: Reports as per HPI, Reports cough and Reports dyspnea Gastrointestinal: Gastrointestinal: Reports as per HPI and Denies abdominal pain Genitourinary: Genitourinary: Reports as per HPI and Denies dysuria Musculoskeletal: Musculoskeletal: Reports as per HPI and Reports back pain Neurologic: Reports as per HPI, Denies dizziness and Denies syncope [facility] Past Medical History Medical History (Updated 05/08/24 @ 03:57 by Roxanne Langston DO) Slow transit constipation CKD (chronic kidney disease) stage 3, GFR 30-59 ml/min Although the patient denies this and prior labs demonstrated normal GFR and creatinine. Gynecomastia, male URI with cough and congestion Essential (primary) hypertension Anxiety Dyslipidemia History of prostate cancer (~05/30/18) Treated with radiation therapy Chronic bilateral low back pain with left-sided sciatica (~11/09/16) Surgical History Surgical History (Updated 05/08/24 @ 04:00 by Roxanne Langston DO) History of tonsillectomy and adenoidectomy Status post cataract extraction of both eyes with insertion of intraocular lens History of lumbar laminectomy Hx of aortic valve replacement with porcine valve (~2009) Status post ascending aortic aneurysm repair (~2009) Performed at [facility] by Dr. Thomas Family History Family History Father Family history of pancreatic cancer, Onset Age: 51 Mother Family history of coronary artery disease, Onset Age: 43 Social History Social History (Updated 05/08/24 @ 03:55 by Roxanne Langston DO) Social History: , 2nd 2018. His 2nd in September of 2023. 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 He is written over 50 looks on local history. He is a lifelong nonsmoker and does not drink alcohol. Code status: DNR/DNI per patient request Surrogate decision maker: Mukul (son) Smoking status: Never smoker Second hand tobacco smoke exposure: No Alcohol intake: never Substance use: never Substance use type: does not use Do You Feel Safe in your Home?: Yes Lack of Transportation: YES Lack of Food: Never True Current Housing: I Have Housing Concerned About Future Housing: No Difficulty Paying Gas/Electric Bills: No Difficulty Paying for Meds: No Currently Unemployed: No Education: Master's Degree or Higher Difficulty w/ Childcare or Family Care: No Gender identity (if verbalized by the patient): Male Spiritual care concerns: No Meds Home Medications and Allergies Home Medications ?Medication ?Instructions ?Recorded ?Confirmed ?Type aspirin 81 mg chewable tablet 81 mg PO DAILY 04/09/19 05/07/24 History multivitamin (Multiple Vitamins 1 tablet PO DAILY 04/09/19 05/07/24 History tablet) cholecalciferol (vitamin D3) 50 50 mcg PO DAILY #90 caps 02/02/21 05/07/24 Rx mcg (2,000 unit) capsule atorvastatin 10 mg tablet See Rx Instructions .Route 05/12/23 05/07/24 Rx .COMPLEX #90 tabs nifedipine 30 mg tablet,extended See Rx Instructions .Route 02/10/24 05/07/24 Rx release 24 hr .COMPLEX #90 tabs fenofibrate nanocrystallized 145 See Rx Instructions .Route 02/22/24 05/07/24 Rx mg tablet .COMPLEX #90 tabs metoprolol succinate 50 mg See Rx Instructions .Route 03/21/24 05/07/24 Rx tablet,extended release 24 hr .COMPLEX #90 tabs alprazolam 0.25 mg tablet 0.125 mg PO DAILY PRN anxiety 05/07/24 05/07/24 History brimonidine 0.15 % eye drops 1 drp RIGHT EYE TID PRN glaucoma 05/07/24 05/07/24 History dorzolamide 22.3 mg-timolol 6.8 1 drp RIGHT EYE BID 05/07/24 05/07/24 History mg/mL eye drops imipramine HCl 25 mg tablet 25 mg PO .three times per week 05/07/24 05/07/24 History Allergies Allergy/AdvReac Type Severity Reaction Status Date / Time adhesive tape Allergy Unknown Itching Verified 04/29/24 15:37 Vital Signs Vital Signs - 24 hr 05/08/24 15:49 05/08/24 16:00 05/08/24 18:00 Temperature 98.2 F Pulse Rate 81 81 Respiratory Rate 22 H Blood Pressure 123/67 Pulse Oximetry 100 99 Oxygen Delivery Nasal Cannula Oxygen Flow Rate 2 05/08/24 19:50 05/08/24 19:52 05/08/24 20:02 Temperature Pulse Rate 81 81 73 Respiratory Rate 22 H 20 Blood Pressure Pulse Oximetry 99 Oxygen Delivery Nasal Cannula Oxygen Flow Rate 2 05/08/24 20:10 05/08/24 20:22 05/08/24 23:23 Temperature 98.1 F Pulse Rate 71 55 L Respiratory Rate 20 22 H Blood Pressure 130/54 L Pulse Oximetry 97 98 Oxygen Delivery Nasal Cannula Oxygen Flow Rate 2 05/09/24 00:00 05/09/24 00:20 05/09/24 00:30 Temperature Pulse Rate 67 69 70 Respiratory Rate 20 20 Blood Pressure Pulse Oximetry Oxygen Delivery Oxygen Flow Rate 05/09/24 04:00 05/09/24 07:37 05/09/24 07:37 Temperature Pulse Rate 66 85 Respiratory Rate 20 Blood Pressure Pulse Oximetry 96 Oxygen Delivery Room Air Oxygen Flow Rate 05/09/24 08:00 05/09/24 09:51 05/09/24 10:11 Temperature 98.1 F Pulse Rate 90 84 84 Respiratory Rate 20 20 Blood Pressure 138/60 Pulse Oximetry 97 97 Oxygen Delivery Room Air Oxygen Flow Rate 05/09/24 10:11 Temperature Pulse Rate 91 Respiratory Rate Blood Pressure Pulse Oximetry Oxygen Delivery Oxygen Flow Rate Exam 2 Const: General: cooperative, healthy appearing and comfortable Resp: Auscultation: clear to auscultation bilaterally, no crackles, no rales, no rhonchi and no wheezes Cardio: Rate: regular rate Rhythm: abnormal rhythm Heart sounds: no murmurs Peripheral pulses: dorsalis pedis present GI: GI Palp: No abdominal tenderness and Yes Soft to palpation Neuro: General: oriented to person, oriented to place and oriented to time Extrem: Right lower extremity: no edema Left lower extremity: no edema Results Labs and Meds 05/08/24 04:31 05/08/24 04:31 Lab results: Intake and Output 05/08/24 05/09/24 05/09/24 23:59 07:59 15:59 Intake Total 490 200 240 Output Total 100 Balance 390 200 240 Intake: Oral 490 200 240 Output: Urine 100 Patient Weight 05/09/24 23:59 Weight 81 kg
[2024-05-09] MEDS: polyethylene glycoL 3350 17 GM POWD.PACK PO (12:56)
--- NOTE | 2024-05-09 16:57 | PC.NURSE ---
orders for med surg earlier today- report given to Tina RN- pt to move to room 246 via bed accompanied by staff
--- NOTE | 2024-05-09 18:05 | PC.NURSE ---
to room 246 accompanied by staff and family via bed
[2024-05-09] MEDS: ATORVASTATIN 10 MG TABLET PO (21:33)
[2024-05-10 00:20] VITALS: PULSE 69; RESP 20; O2SAT 97
[2024-05-10] MEDS: IPRATROPIUM 0.5 MG/ALBUTEROL SULFATE 2.5 MG AMPUL.NEB 3 ML INHALATION ×2 (00:20→07:55)
[2024-05-10 01:48] VITALS: PULSE 70; RESP 20
[2024-05-10 05:03] LABS: Basophils Percent Auto 0.2 % (0.2-1.2); Eosinophils Absolute Auto 0.1 K/mm3 (0-0.3); Eosinophils Percent Auto 1.7 % (0-4.4); Hematocrit 31.1 % (42.0-52.0); Hemoglobin 10.5 g/dL (14.0-18.0); Immature Granulocyte Absolute 0.02 K/mm3 (0.00-0.031); Immature Granulocyte Percent A 0.4 % (0-0.5); Lymphocytes Absolute Auto 1.13 K/mm3 (0.9-3.2); Lymphocytes Percent Auto 24.7 % (18.3-44.2); Mean Corpuscular HGB Conc 33.8 g/dl (32-36); Mean Corpuscular Hemoglobin 30.3 pg (26-34); Mean Corpuscular Volume 89.6 fl (80-100); Monocytes Absolute Auto 0.5 K/mm3 (0.1-0.6); Monocytes Percent Auto 10.7 % (2.6-8.5); Neutrophils Absolute Auto 2.9 K/mm3 (1.3-6.7); Neutrophils Percent Auto 62.3 % (45.5-73.1); Platelet Count Result 126 k/mm3 (150-375); Red Blood Count 3.47 M/mm3 (4.6-6.20); Red Cell Distribution Width 13.2 % (11.5-14.5); White Blood Count 4.6 K/mm3 (4.5-10.0)
[2024-05-10 05:18] LABS: Anion Gap 6 mmol/L (4-12); Blood Urea Nitrogen 18 mg/dL (9-20); Calcium 8.7 mg/dL (8.4-10.2); Carbon Dioxide 25 mmol/L (22-30); Chloride 105 mmol/L (98-107); Estimated CRCL calculation 52 ml/min; Estimated Glomerular Filt Rate > 60; Glucose 90 mg/dL (65-110); Magnesium 1.8 mg/dL (1.6-2.3); Potassium 3.5 mmol/L (3.4-5.0); Sodium 136 mmol/L (137-145)
[2024-05-10 05:27] LABS: Troponin I 0.106 ng/mL (0.000-0.034)
[2024-05-10] MEDS: BRIMONIDINE TARTRATE 0.15% 5 ML OPHTH SOLN 1 DROP RIGHT EYE ×2 (05:53→14:30)
[2024-05-10] MEDS: dilTIAZem HCL 30 MG TABLET PO (05:54)
[2024-05-10 05:57] VITALS: BP 153/73; PULSE 67; RESP 16; TEMP 36.5; O2SAT 96
--- NOTE | 2024-05-10 07:47 | PM.PNCARD ---
Progress Note: A&P Assessment and Plan (1) Atrial fibrillation: Qualifiers: Atrial fibrillation type: unspecified Qualified Code(s): I48.91 - Unspecified atrial fibrillation Code(s): I48.91 - Unspecified atrial fibrillation Status: Acute Assessment and Plan: Probably due to flu. [id number] 3. Rate controlled On Metoprolol. On Lovenox. Stop Lovenox. Start Eliquis 5 mg BID. August d/c home from cardiology standpoint and f/u with me in 1 week. (2) Elevated troponin: Code(s): R79.89 - Other specified abnormal findings of blood chemistry Status: Acute Assessment and Plan: Troponin peaked at 0.2. Could be flu related with atrial fibrillation. Doubt ACS as no chest pains or ST changes on EKG. 05/08/24 Echo: EF 60-65%, severe LVH, grade I diastolic dysfunction, mild LAE, mod VINNY, prosthetic AVR, mild AI. Patient does not want any invasive procedures and conservative treatment only per patient. (3) Hx of aortic valve replacement with porcine valve: Onset Date: ~2009 Code(s): Z95.3 - Presence of xenogenic heart valve Status: Acute (4) Essential (primary) hypertension: Code(s): I10 - Essential (primary) hypertension Status: Acute Assessment and Plan: Stable. (5) Dyslipidemia: Code(s): E78.5 - Hyperlipidemia, unspecified Status: Acute Assessment and Plan: On Atorvastatin. (6) Influenza A: Code(s): J10.1 - Influenza due to other identified influenza virus with other respiratory manifestations Status: Acute Assessment and Plan: Managed as per hospitalist. Subjective Date/time seen: 05/10/24 07:47 Interval history: Denies chest pain or sob. Has some cough. He would like to go home. Exam Const: General: cooperative, healthy appearing and comfortable Orientation/consciousness: oriented to person, oriented to place and oriented to time Resp: Auscultation: clear to auscultation bilaterally, no crackles, no rales, no rhonchi and no wheezes Cardio: Rate: regular rate Rhythm: abnormal rhythm Heart sounds: no murmurs Peripheral pulses: dorsalis pedis present Neuro: General: oriented to person, oriented to place and oriented to time Extrem: Right lower extremity: no edema Left lower extremity: no edema Objective Data Vital Signs Vital Signs: Vital Signs - 24 hr 05/09/24 08:00 05/09/24 09:51 05/09/24 10:11 Temperature 98.1 F Pulse Rate 90 84 84 Respiratory Rate 20 20 Blood Pressure 138/60 Pulse Oximetry 97 97 Oxygen Delivery Room Air 05/09/24 10:11 05/09/24 16:00 05/09/24 16:13 Temperature 98.2 F Pulse Rate 91 73 70 Respiratory Rate 20 20 Blood Pressure 146/47 H Pulse Oximetry 96 Oxygen Delivery 05/09/24 16:24 05/09/24 20:00 05/09/24 23:00 Temperature 97.8 F Pulse Rate 68 66 Respiratory Rate 20 16 Blood Pressure 141/62 H Pulse Oximetry 98 Oxygen Delivery Room Air 05/10/24 00:20 05/10/24 00:20 05/10/24 01:48 Temperature Pulse Rate 69 70 Respiratory Rate 20 20 Blood Pressure Pulse Oximetry 97 Oxygen Delivery Room Air 05/10/24 05:57 Temperature 97.7 F Pulse Rate 67 Respiratory Rate 16 Blood Pressure 153/73 H Pulse Oximetry 96 Oxygen Delivery Intake/Output Intake/Output: Intake & Output 05/07/24 05/08/24 05/09/24 05/10/24 23:59 23:59 23:59 23:59 Intake Total 1835 1320 550 Output Total 750 800 300 Balance 1085 520 250 Meds/Results Medications: Active Medications Generic Name Dose Route Start Last Admin Trade Name Freq PRN Reason Stop Dose Admin Acetaminophen 650 mg 05/07/24 18:45 Acetaminophen 325 Mg Tablet PO Q4H PRN Mild Pain (1-3) or Fever Al Hydrox/Mg Hydrox/Simethicone 30 ml 05/08/24 04:09 Mag Hydrox/Al Hydrox/Simeth 30 Ml Udc PO Q6H PRN Indigestion Albuterol/Ipratropium 3 ml 05/08/24 18:40 05/10/24 00:20 Ipratropium 0.5 Mg/Albuterol Sulfate 2.5 Mg Ampul.Neb 3 Ml INHALATION 3 ml Q8HRT KANDY Administration Alprazolam 0.125 mg 05/08/24 02:18 Alprazolam (*Crx) 0.125 Mg Tablet PO DAILY PRN anxiety Apixaban 5 mg 05/10/24 09:00 Apixaban 2.5 Mg Tablet PO Q12HR [facility] Aspirin 81 mg 05/08/24 09:00 05/09/24 09:50 Aspirin 81 Mg Chewable Tablet PO 81 mg DAILY [facility] Administration Atorvastatin Calcium 10 mg 05/08/24 02:20 05/09/24 21:33 Atorvastatin 10 Mg Tablet PO 10 mg HS KANDY Administration Bisacodyl 10 mg 05/08/24 04:09 Bisacodyl 10 Mg Suppository RECTAL QAM PRN Constipation Brimonidine Tartrate 1 drop 05/08/24 18:00 05/10/24 05:53 Brimonidine Tartrate 0.15% 5 Ml Ophth Soln RIGHT EYE 1 drop 0700,1400,1800 [facility] Administration Diltiazem HCl 30 mg 05/08/24 08:35 05/10/24 05:54 Diltiazem Hcl 30 Mg Tablet PO 30 mg Q8HR [facility] Administration Dorzolamide/Timolol 1 drop 05/08/24 22:00 05/09/24 22:22 Dorzolamide/Timolol Ophth Hailey 10 Ml Bottle RIGHT EYE 1 drop Q12H [facility] Administration Fenofibrate 145 mg 05/08/24 09:00 05/09/24 09:51 Fenofibrate Nanocrystallized 145 Mg Tablet PO 145 mg DAILY [facility] Administration Ferrous Sulfate 325 mg 05/10/24 09:00 Ferrous Sulfate [address] PO DAILY [facility] Metoprolol Succinate 50 mg 05/08/24 09:00 05/09/24 09:51 Metoprolol Succinate Ext Rel 50 Mg Tabcr PO 50 mg DAILY [facility] Administration Morphine Sulfate 2 mg 05/07/24 18:45 Morphine Sulfate (*Crx) 2 Mg/Ml Inj IV PUSH Q2H PRN Pain Rated 7-10 Multivitamins Therapeutic 1 tablet 05/08/24 09:00 05/09/24 09:51 Multivitamins Therapeutic Tab (*Bkc) PO 1 tablet DAILY [facility] Administration Ondansetron HCl 4 mg 05/07/24 18:45 Ondansetron Inj 4 Mg/2 Ml Vial IV PUSH Q4H PRN Nausea Oseltamivir Phosphate 30 mg 05/07/24 21:00 05/09/24 21:33 Oseltamivir Phosphate 30 Mg Capsule PO 05/12/24 20:59 30 mg Q12HR [facility] Administration Perflutren Lipid Microsphere 0 ml 05/07/24 18:45 Perflutren Lipid Microspheres 1.5 Ml Vial Diluted To 10 Ml Total Volume IV PUSH 05/10/24 18:47 ONCE PRN adequate visualization Protocol Perflutren Lipid Microsphere 0 ml 05/09/24 12:06 Perflutren Lipid Microspheres 1.5 Ml Vial Diluted To 10 Ml Total Volume IV PUSH 05/12/24 12:06 ONCE PRN adequate visualization Protocol Polyethylene Glycol 17 gm 05/09/24 12:45 05/09/24 12:56 Polyethylene Glycol 3350 17 Gm Powd.Pack PO 17 gm QAM KANDY Administration Vitamin D 2,000 units 05/08/24 09:00 05/09/24 09:50 Cholecalciferol 1,000 Units Tablet PO 2,000 units DAILY KANDY Administration Radiology Results: ITS Impressions Chest X-Ray 05/07/24 17:25 IMPRESSION: No acute cardiopulmonary process. Labs Labs: Laboratory Results - last 24 hr 05/10/24 04:53 WBC 4.6 RBC 3.47 L Hgb 10.5 L Hct 31.1 L MCV 89.6 MCH 30.3 MCHC 33.8 RDW 13.2 Plt Count 126 L MPV 10.0 Immature Gran % (Auto) 0.4 Neut % (Auto) 62.3 Lymph % (Auto) 24.7 [place] % (Auto) 10.7 H Eos % (Auto) 1.7 Baso % (Auto) 0.2 Lymph # (Auto) 1.13 [place] # (Auto) 0.5 Eos # (Auto) 0.1 Baso # (Auto) 0.0 Abs Immat Gran (auto) 0.02 Absolute Neuts (auto) 2.9 Absolute Nucleated RBC 0.000 Nucleated RBC % 0.0 Sodium 136 L Potassium 3.5 Chloride 105 Carbon Dioxide 25 Anion Gap 6 BUN 18 Creatinine 1.05 Estim Creat Clear Calc 52 Estimated GFR > 60 Glucose 90 Calcium 8.7 Magnesium 1.8 Troponin I 0.106 H*
[2024-05-10 07:57] VITALS: PULSE 73; RESP 20; O2SAT 93
[2024-05-10 08:07] VITALS: PULSE 68; RESP 20
[2024-05-10] MEDS: CHOLECALCIFEROL 1,000 UNITS TABLET 2000 UNITS PO (08:31)
[2024-05-10] MEDS: MULTIVITAMINS THERAPEUTIC TAB (*BKC) 1 TABLET PO (08:31)
[2024-05-10] MEDS: ASPIRIN 81 MG CHEWABLE TABLET PO (08:32)
[2024-05-10] MEDS: FERROUS SULFATE 325 MG TABLET DR PO (08:32)
[2024-05-10] MEDS: dilTIAZem HCL CD 120 MG CAP.24HR PO (08:32)
[2024-05-10] MEDS: OSELTAMIVIR PHOSPHATE 30 MG CAPSULE PO (08:32)
[2024-05-10] MEDS: FENOFIBRATE NANOCRYSTALLIZED 145 MG TABLET PO (08:32)
[2024-05-10 08:33] VITALS: PULSE 68
[2024-05-10] MEDS: METOPROLOL SUCCINATE EXT REL 50 MG TABCR PO (08:33)
[2024-05-10] MEDS: APIXABAN 5 MG TABLET BY MOUTH (08:33)
--- NOTE | 2024-05-10 09:28 | PM.IMPN ---
Progress Note: A&P Assessment and Plan (1) Atrial fibrillation: Qualifiers: Atrial fibrillation type: unspecified Qualified Code(s): I48.91 - Unspecified atrial fibrillation Code(s): I48.91 - Unspecified atrial fibrillation Status: Acute (2) Hx of aortic valve replacement with porcine valve: Onset Date: ~2009 Code(s): Z95.3 - Presence of xenogenic heart valve Status: Acute (3) Slow transit constipation: Code(s): K59.01 - Slow transit constipation Status: Acute (4) Influenza A: Code(s): J10.1 - Influenza due to other identified influenza virus with other respiratory manifestations Status: Acute (5) Elevated troponin: Code(s): R79.89 - Other specified abnormal findings of blood chemistry Status: Acute Plan 83-year-old male w/h aortic valve replacement and ascending aortic aneurysm repair 2009, glaucoma, hyperlipidemia, hypertension and chronic back pain who presented to the ER with 1 day of weakness, shortness breath, cough, loose stools. Patient has a general weakness, cannot get out of bed . Upon arrival to the ED, patient was found have AFib RVR heart rate about 100-120, influenza A positive New onset AFib Patient presented with AFib. Patient does not know he has AFib previously Start Lovenox based on the CHADS scores Patient is on metoprolol 50 mg daily p.o., nifedipine 30 mg daily p.o. Continue metoprolol 50 mg daily p.o. stop nifedipine 30 mg daily p.o. changed to Cardizem 30 mg q.8 hours p.o. Telemetry monitoring Consult land conservation specialist for evaluation treatment Now patient has sinus rhythm Switch from Lovenox to Eliquis 5 mg b.i.d. p.o. continue Cardizem 180 mg daily p.o. Elevated troponin Positive troponin, Possible due to demand ischemia resulting from AFib RVR and influenza a infection Telemetry monitoring Continue aspirin 81 mg daily p.o. echocardiogram 1. Left ventricular chamber dimension is normal. 2. Left ventricular systolic function is normal, estimated at 60-65%. 3. There is severely increased left ventricular wall thickness. 4. The left ventricular diastolic function is grade I diastolic dysfunction. 5. Right ventricular systolic function is normal. 6. Left atrial chamber dimension is mildly enlarged. 7. Right atrial chamber dimension is moderately enlarged. 8. Prosthetic aortic valve is not well visualized. There is mild aorticregurgitation. Consult land conservation specialist for evaluation treatment Patient does not want any invasive procedures and conservative treatment only per land conservation specialist note Influenza a infection Continue Tamiflu p.o. Continue Tamiflu to May 12 Chronic anemia No obvious bleeding Follow-up CBC, Ordered stool guaiac, not collected iron panel: Iron of 29, saturation 8% ferritin on lower side 70.5 Provide ferrous sulfate 325 mg daily p.o. Patient needs to follow-up with primary care doctor for further evaluation treatment Hyponatremia, dehydration Patient received fluid resuscitation with normal saline Follow-up BMP corrected Uncontrolled hypertension Chronic patient is on metoprolol and Cardizem p.o. discontinue nifedipine p.o. Consult PT OT, ocular care aide for evaluation and assisting placement Subjective Date/time seen: 05/10/24 09:28 Interval history: I saw examined the patient today, patient feels comfortable, denies chest pain, palpitation, cough, shortness breast. Patient also denies Abdomen pain, nausea vomiting. Patient is afebrile, blood pressure stable Exam Narrative: GENERAL: Pleasant, in no acute distress. Well-nourished. - EYES: EOMI. Anicteric. - HENT: Moist mucous membranes. - LUNGS: Clear to auscultation bilaterally, no wheezing, rhonchi, or rales. - CARDIOVASCULAR: Regular rhythm No murmur. No JVD. - ABDOMEN: Soft, non-tender and non-distended. No palpable masses. - EXTREMITIES: No edema. Peripheral pulses 2+. Non-tender. - NEUROLOGIC: No focal neurological deficits. CN II-XII grossly intact. - PSYCHIATRIC: Awake, Alert and oriented x 3. Appropriate mood and affect. - SKIN: No rashes or lesions. Warm. - LYMPH: No cervical lymphadenopathy. Objective Data Vital Signs Vital Signs: Vital Signs - 24 hr 05/09/24 09:51 05/09/24 10:11 05/09/24 10:11 Temperature Pulse Rate 84 84 91 Respiratory Rate 20 Blood Pressure Pulse Oximetry 97 Oxygen Delivery Room Air 05/09/24 16:00 05/09/24 16:13 05/09/24 16:24 Temperature 98.2 F Pulse Rate 73 70 68 Respiratory Rate 20 20 20 Blood Pressure 146/47 H Pulse Oximetry 96 Oxygen Delivery 05/09/24 20:00 05/09/24 23:00 02/06/25 00:20 Temperature 97.8 F Pulse Rate 66 69 Respiratory Rate 16 20 Blood Pressure 141/62 H Pulse Oximetry 98 Oxygen Delivery Room Air 05/10/24 00:20 05/10/24 01:48 05/10/24 05:57 Temperature 97.7 F Pulse Rate 70 67 Respiratory Rate 20 16 Blood Pressure 153/73 H Pulse Oximetry 97 96 Oxygen Delivery Room Air 05/10/24 07:57 05/10/24 07:57 05/10/24 08:07 Temperature Pulse Rate 73 68 Respiratory Rate 20 20 Blood Pressure Pulse Oximetry 93 Oxygen Delivery Room Air 05/10/24 08:33 Temperature Pulse Rate 68 Respiratory Rate Blood Pressure Pulse Oximetry Oxygen Delivery Intake/Output Intake/Output: Intake & Output 05/07/24 05/08/24 05/09/24 05/10/24 23:59 23:59 23:59 23:59 Intake Total 1835 1320 550 Output Total 750 800 300 Balance 1085 520 250 Meds/Results Medications: Active Medications Generic Name Dose Route Start Last Admin Trade Name Freq PRN Reason Stop Dose Admin Acetaminophen 650 mg 05/07/24 18:45 Acetaminophen 325 Mg Tablet PO Q4H PRN Mild Pain (1-3) or Fever Al Hydrox/Mg Hydrox/Simethicone 30 ml 05/08/24 04:09 Mag Hydrox/Al Hydrox/Simeth 30 Ml Udc PO Q6H PRN Indigestion Albuterol/Ipratropium 3 ml 05/08/24 18:40 05/10/24 07:55 Ipratropium 0.5 Mg/Albuterol Sulfate 2.5 Mg Ampul.Neb 3 Ml INHALATION 3 ml Q8HRT KANDY Administration Alprazolam 0.125 mg 05/08/24 02:18 Alprazolam (*Crx) 0.125 Mg Tablet PO DAILY PRN anxiety Apixaban 5 mg 05/10/24 09:00 05/10/24 08:33 Apixaban 5 Mg Tablet BY MOUTH 5 mg Q12HR KANDY Administration Aspirin 81 mg 05/08/24 09:00 05/10/24 08:32 Aspirin 81 Mg Chewable Tablet PO 81 mg DAILY KANDY Administration Atorvastatin Calcium 10 mg 05/08/24 02:20 05/09/24 21:33 Atorvastatin 10 Mg Tablet PO 10 mg HS KANDY Administration Bisacodyl 10 mg 05/08/24 04:09 Bisacodyl 10 Mg Suppository RECTAL QAM PRN Constipation Brimonidine Tartrate 1 drop 05/08/24 18:00 05/10/24 05:53 Brimonidine Tartrate 0.15% 5 Ml Ophth Soln RIGHT EYE 1 drop 0700,1400,1800 KANDY Administration Diltiazem HCl 120 mg 05/10/24 09:00 05/10/24 08:32 Diltiazem Hcl Cd 120 Mg Cap.24hr PO 120 mg QAM KANDY Administration Dorzolamide/Timolol 1 drop 05/08/24 22:00 05/09/24 22:22 Dorzolamide/Timolol Ophth [place]iley 10 Ml Bottle RIGHT EYE 1 drop Q12H KANDY Administration Fenofibrate 145 mg 05/08/24 09:00 05/10/24 08:32 Fenofibrate Nanocrystallized 145 Mg Tablet PO 145 mg DAILY KANDY Administration Ferrous Sulfate 325 mg 05/10/24 09:00 05/10/24 08:32 Ferrous Sulfate [address] PO 325 mg DAILY KANDY Administration Metoprolol Succinate 50 mg 05/08/24 09:00 05/10/24 08:33 Metoprolol Succinate Ext Rel 50 Mg Tabcr PO 50 mg DAILY KANDY Administration Morphine Sulfate 2 mg 05/07/24 18:45 Morphine Sulfate (*Crx) 2 Mg/Ml Inj IV PUSH Q2H PRN Pain Rated 7-10 Multivitamins Therapeutic 1 tablet 05/08/24 09:00 05/10/24 08:31 Multivitamins Therapeutic Tab (*Bkc) PO 1 tablet DAILY KANDY Administration Ondansetron HCl 4 mg 05/07/24 18:45 Ondansetron Inj 4 Mg/2 Ml Vial IV PUSH Q4H PRN Nausea Oseltamivir Phosphate 30 mg 05/07/24 21:00 05/10/24 08:32 Oseltamivir Phosphate 30 Mg Capsule PO 05/12/24 20:59 30 mg Q12HR KANDY Administration Perflutren Lipid Microsphere 0 ml 05/07/24 18:45 Perflutren Lipid Microspheres 1.5 Ml Vial Diluted To 10 Ml Total Volume IV PUSH 05/10/24 18:47 ONCE PRN adequate visualization Protocol Perflutren Lipid Microsphere 0 ml 05/09/24 12:06 Perflutren Lipid Microspheres 1.5 Ml Vial Diluted To 10 Ml Total Volume IV PUSH 05/12/24 12:06 ONCE PRN adequate visualization Protocol Polyethylene Glycol 17 gm 05/09/24 12:45 05/10/24 08:33 Polyethylene Glycol 3350 17 Gm Powd.Pack PO Not Given QAM [facility] Vitamin D 2,000 units 05/08/24 09:00 05/10/24 08:31 Cholecalciferol 1,000 Units Tablet PO 2,000 units DAILY KANDY Administration Radiology Results: ITS Impressions Chest X-Ray 05/07/24 17:25 IMPRESSION: No acute cardiopulmonary process. Labs Labs: Laboratory Results - last 24 hr 05/10/24 04:53 WBC 4.6 RBC 3.47 L Hgb 10.5 L Hct 31.1 L MCV 89.6 MCH 30.3 MCHC 33.8 RDW 13.2 Plt Count 126 L MPV 10.0 Immature Gran % (Auto) 0.4 Neut % (Auto) 62.3 Lymph % (Auto) 24.7 [place] % (Auto) 10.7 H Eos % (Auto) 1.7 Baso % (Auto) 0.2 Lymph # (Auto) 1.13 [place] # (Auto) 0.5 Eos # (Auto) 0.1 Baso # (Auto) 0.0 Abs Immat Gran (auto) 0.02 Absolute Neuts (auto) 2.9 Absolute Nucleated RBC 0.000 Nucleated RBC % 0.0 Sodium 136 L Potassium 3.5 Chloride 105 Carbon Dioxide 25 Anion Gap 6 BUN 18 Creatinine 1.05 Estim Creat Clear Calc 52 Estimated GFR > 60 Glucose 90 Calcium 8.7 Magnesium 1.8 Troponin I 0.106 H*
[2024-05-10] MEDS: DORZOLAMIDE/TIMOLOL OPHTH SOL 10 ML BOTTLE 1 DROP RIGHT EYE (10:10)
--- NOTE | 2024-05-10 14:25 | PM.DS ---
DS: Admitting Diagnosis Discharge Date 05/10/24 Admitting Diagnosis (1) Atrial fibrillation: Qualifiers: Atrial fibrillation type: unspecified Qualified Code(s): I48.91 - Unspecified atrial fibrillation Code(s): I48.91 - Unspecified atrial fibrillation Status: Acute (2) Hx of aortic valve replacement with porcine valve: Onset Date: ~2009 Code(s): Z95.3 - Presence of xenogenic heart valve Status: Acute (3) Slow transit constipation: Code(s): K59.01 - Slow transit constipation Status: Acute (4) Influenza A: Code(s): J10.1 - Influenza due to other identified influenza virus with other respiratory manifestations Status: Acute (5) Elevated troponin: Code(s): R79.89 - Other specified abnormal findings of blood chemistry Status: Acute DS: Discharge Diagnosis Discharge Diagnosis (1) Atrial fibrillation: Qualifiers: Atrial fibrillation type: unspecified Qualified Code(s): I48.91 - Unspecified atrial fibrillation Code(s): I48.91 - Unspecified atrial fibrillation Status: Acute (2) Hx of aortic valve replacement with porcine valve: Onset Date: ~2009 Code(s): Z95.3 - Presence of xenogenic heart valve Status: Acute (3) Slow transit constipation: Code(s): K59.01 - Slow transit constipation Status: Acute (4) Influenza A: Code(s): J10.1 - Influenza due to other identified influenza virus with other respiratory manifestations Status: Acute (5) Elevated troponin: Code(s): R79.89 - Other specified abnormal findings of blood chemistry Status: Acute DS: Summary Hospital Course Hospital Course: 83-year-old male w/h aortic valve replacement and ascending aortic aneurysm repair 2009, glaucoma, hyperlipidemia, hypertension and chronic back pain who presented to the ER with 1 day of weakness, shortness breath, cough, loose stools. Patient has a general weakness, cannot get out of bed . Upon arrival to the ED, patient was found have AFib RVR heart rate about 100-120, influenza A positive The following med issues have been addressed during hospitalization New onset AFib Patient presented with AFib. Patient does not know he has AFib previously Start Lovenox based on the CHADS scores Patient is on metoprolol 50 mg daily p.o., nifedipine 30 mg daily p.o. Continue metoprolol 50 mg daily p.o. stop nifedipine 30 mg daily p.o. changed to Cardizem 30 mg q.8 hours p.o. Telemetry monitoring Consult opinion polls survey worker for evaluation treatment Now patient has sinus rhythm Switch from Lovenox to Eliquis 5 mg b.i.d. p.o. continue Cardizem 180 mg daily p.o. Elevated troponin Positive troponin, Possible due to demand ischemia resulting from AFib RVR and influenza a infection Telemetry monitoring Continue aspirin 81 mg daily p.o. echocardiogram 1. Left ventricular chamber dimension is normal. 2. Left ventricular systolic function is normal, estimated at 60-65%. 3. There is severely increased left ventricular wall thickness. 4. The left ventricular diastolic function is grade I diastolic dysfunction. 5. Right ventricular systolic function is normal. 6. Left atrial chamber dimension is mildly enlarged. 7. Right atrial chamber dimension is moderately enlarged. 8. Prosthetic aortic valve is not well visualized. There is mild aorticregurgitation. Consult opinion polls survey worker for evaluation treatment Patient does not want any invasive procedures and conservative treatment only per opinion polls survey worker note Influenza a infection Continue Tamiflu p.o. Continue Tamiflu to May 12 Chronic anemia No obvious bleeding Follow-up CBC, Ordered stool guaiac, not collected iron panel: Iron of 29, saturation 8% ferritin on lower side 70.5 Provide ferrous sulfate 325 mg daily p.o. Patient needs to follow-up with primary care doctor for further evaluation treatment Hyponatremia, dehydration Patient received fluid resuscitation with normal saline Follow-up BMP corrected Uncontrolled hypertension Chronic patient is on metoprolol and Cardizem p.o. discontinue nifedipine p.o. Consult PT OT, care giver for evaluation and assisting placement Time Spent with Patient Time attestation: Total time spent providing and/or coordinating discharge services: Exam Narrative: GENERAL: Pleasant, in no acute distress. Well-nourished. - EYES: EOMI. Anicteric. - HENT: Moist mucous membranes. - LUNGS: Clear to auscultation bilaterally, no wheezing, rhonchi, or rales. - CARDIOVASCULAR: Regular rhythm No murmur. No JVD. - ABDOMEN: Soft, non-tender and non-distended. No palpable masses. - EXTREMITIES: No edema. Peripheral pulses 2+. Non-tender. - NEUROLOGIC: No focal neurological deficits. CN II-XII grossly intact. - PSYCHIATRIC: Awake, Alert and oriented x 3. Appropriate mood and affect. - SKIN: No rashes or lesions. Warm. - LYMPH: No cervical lymphadenopathy. DS: Data Data Completed and Pending Labs on day of discharge: Labs from last 24 hours 05/10/24 04:53 WBC 4.6 RBC 3.47 L Hgb 10.5 L Hct 31.1 L MCV 89.6 MCH 30.3 MCHC 33.8 RDW 13.2 Plt Count 126 L MPV 10.0 Immature Gran % (Auto) 0.4 Neut % (Auto) 62.3 Lymph % (Auto) 24.7 [place] % (Auto) 10.7 H Eos % (Auto) 1.7 Baso % (Auto) 0.2 Lymph # (Auto) 1.13 [place] # (Auto) 0.5 Eos # (Auto) 0.1 Baso # (Auto) 0.0 Abs Immat Gran (auto) 0.02 Absolute Neuts (auto) 2.9 Absolute Nucleated RBC 0.000 Nucleated RBC % 0.0 Sodium 136 L Potassium 3.5 Chloride 105 Carbon Dioxide 25 Anion Gap 6 BUN 18 Creatinine 1.05 Estim Creat Clear Calc 52 Estimated GFR > 60 Glucose 90 Calcium 8.7 Magnesium 1.8 Troponin I 0.106 H* Discharge Plan Discharge Attending physician on discharge: Flora Jacobs Consulting providers: Roxanne Langston; Giovanni Smith Discharging Clinician: Flora Jacobs Anticipated Discharge Date/Time: 05/10/24 14:25 Patient Disposition: Home Health Service Activity: as tolerated Diet: as tolerated and heart healthy Discharge Instructions: Per Care Coordination Patient has been accepted to have [facility] for RN, PT, OT [phone] RN please fax completed discharge instructions to [phone] Patient Instructions: Antibiotic Form, Heart Failure (GEN) Patient Language: Filipino Stand Alone Forms: General Discharge Information Follow-up/Referrals: Giovanni Smith DO [Physician] - (See opinion polls survey worker at scheduled appointment) Adonis Cabral MD [Primary Care Provider] - (See primary care doctor in 1 week) Discharge Medications: New diltiazem HCl 120 mg Capsule,Extended Release 24hr 120 mg PO QAM Qty: 60 0RF ferrous sulfate 325 mg (65 mg iron) Tablet,Delayed Release (Dr/Ec) 325 mg PO DAILY Qty: 30 0RF oseltamivir [Tamiflu] 30 mg Capsule 30 mg PO Q12HR Qty: 5 0RF Continued dorzolamide-timolol 22.3-6.8 mg/mL drops 1 drp RIGHT EYE BID brimonidine 0.15 % drops 1 drp RIGHT EYE TID PRN (Reason: glaucoma) imipramine HCl 25 mg tablet 25 mg PO .three times per week Rx Instructions: Take 1 Tablet (25 mg) by mouth [id number] multivitamin [Multiple Vitamins] Tablet 1 tablet PO DAILY Rx Instructions: take 1 tablet by oral route every day aspirin 81 mg tablet,chewable 81 mg PO DAILY Rx Instructions: chew 1 tablet by oral route every day cholecalciferol (vitamin D3) 50 mcg (2,000 unit) capsule 50 mcg PO DAILY Qty: 90 0RF atorvastatin 10 mg tablet See Rx Instructions .ROUTE .COMPLEX Qty: 90 2RF Dose Instruction: Take 1 Tablet (10 mg) by mouth daily at bedtime. Rx Instructions: Take 1 Tablet (10 mg) by mouth daily at bedtime. fenofibrate nanocrystallized 145 mg tablet See Rx Instructions .ROUTE .COMPLEX Qty: 90 2RF Dose Instruction: TAKE ONE TABLET BY MOUTH ONCE DAILY Rx Instructions: TAKE ONE TABLET BY MOUTH ONCE DAILY metoprolol succinate 50 mg tablet extended release 24 hr See Rx Instructions .ROUTE .COMPLEX Qty: 90 2RF Dose Instruction: Take 1 Tablet (50 mg) by mouth daily. Rx Instructions: Take 1 Tablet (50 mg) by mouth daily. Discontinued alprazolam 0.25 mg tablet 0.125 mg PO DAILY PRN (Reason: anxiety) nifedipine 30 mg tablet extended release 24hr See Rx Instructions .ROUTE .COMPLEX Qty: 90 2RF Dose Instruction: Take 1 Tablet (30 mg) by mouth daily. Rx Instructions: Take 1 Tablet (30 mg) by mouth daily. Date of admission: 05/07/24 18:45 Primary Care Provider: Adonis Cabral Admitting Provider: Fernando Fishman Attending physician on admission: Fernando Fishman Condition: Stable
== END 2024-05-10 16:10 | disposition home health service (06) | DRG 194 ==
LOC: ANHED 18:55 → ANHIMU 05-08 02:13 → ANH2MED 05-10 14:26 → ANHIMU 05-11 08:58
PROVIDERS: Internal Medicine; Internal Medicine Cardiovascular Disease; Physician Assistant; Admitting Provider Internal Medicine; Emergency Provider Family Medicine; PCP Emergency Medicine; Visit Provider Hospitalist
DX: J10.1 Influenza due to other identified influenza virus with other respiratory manifestations (principal); E87.1 Hypo-osmolality and hyponatremia; I5A Non-ischemic myocardial injury (non-traumatic); I48.91 Unspecified atrial fibrillation; I12.9 Hypertensive chronic kidney disease with stage 1 through stage 4 chronic kidney disease, or unspecified chronic kidney disease; N18.30 Chronic kidney disease, stage 3 unspecified; D64.9 Anemia, unspecified; E86.0 Dehydration; E78.5 Hyperlipidemia, unspecified; M54.42 Lumbago with sciatica, left side; K59.01 Slow transit constipation; F41.9 Anxiety disorder, unspecified; Z20.822 Contact with and (suspected) exposure to COVID-19; Z95.3 Presence of xenogenic heart valve; Z79.624 Long term (current) use of inhibitors of nucleotide synthesis; Z85.46 Personal history of malignant neoplasm of prostate
CPT/HCPCS: 36415; 71045; 80048; 80053; 81001; 82728; 83540; 83550; 83605; 83735; 83880; 84484; 85025; 85610; 85730; 87637; 93005; 93306; 94640; 96361; 96374; 96375; 97165; 97535; 99285; A9270; J1650; J7030

== ENCOUNTER 2024-06-24 09:43 | Emergency (ER) | payer MEDICARE, SELFPAY ==
--- NOTE | ~2024-06-24 | XR_ITS ---
CHEST RADIOGRAPH, PA AND LATERAL CLINICAL HISTORY: SOB . COMPARISON: 05/07/2024 TECHNIQUE: PA and lateral views of the chest. Examination is limited as the patient is rotated toward s the left side on frontal view and a lateral view is in a seated position. FINDINGS Sternal wires and mediastinal clips are identified, the wires are midline and intact. The remainder of the cardiomediastinal silhouette is otherwise unremarkable. Increased opacification within the left lung base on the frontal view representing either overlying s oft tissues, versus atelectasis. Semierect view done portably on 05/07/2024 demonstrated air opacificat ion in this area, representing an interval change. Repeat imaging, in the standing position versus a semierect portable to mimic prior examination is re commended, if the patient is clinically able. IMPRESSION: As above. Reviewed, dictated and finalized at location A. IMPRESSION: As above.
[2024-06-24 10:01] VITALS: BP 109/85; PULSE 92; RESP 16; TEMP 35.7; O2SAT 98
--- NOTE | 2024-06-24 10:24 | ED_ITS ---
HPI - General Adult General Chief complaint: Upper Respiratory Infection Stated complaint: SOB Time Seen by Provider: 06/24/24 10:24 Source: patient Mode of arrival: ambulatory Limitations: no limitations History of Present Illness HPI narrative: 83-year-old male patient presents to the [facility] with complaints of a cough and shortness of breath for the past 2-3 days. Patient was diagnosed with influenza a and was hospitalized beginning of the month. Patient states he is pretty well bed-bound or wheelchair-bound does not walk around or do much due to a back injury. Patient states no fevers but has had a little bit of drainage recently. Denies any chest pain at this time. Denies any nausea, vomiting or diarrhea. Related Data Home Medications ?Medication ?Instructions ?Recorded ?Confirmed ?Last Taken ?Type aspirin 81 mg chewable tablet 81 mg PO DAILY 04/09/19 06/06/24 05/06/24 History multivitamin (Multiple Vitamins 1 tablet PO DAILY 04/09/19 06/06/24 Unknown History tablet) brimonidine 0.15 % eye drops 1 drp RIGHT EYE TID PRN glaucoma 05/07/24 06/06/24 Unknown History dorzolamide 22.3 mg-timolol 6.8 1 drp RIGHT EYE BID 05/07/24 06/06/24 Unknown History mg/mL eye drops imipramine HCl 25 mg tablet 25 mg PO .three times per week 05/07/24 06/06/24 Unknown History Allergies Allergy/AdvReac Type Severity Reaction Status Date / Time adhesive tape AdvReac Mild Itching Verified 06/24/24 09:55 Review of Systems Review of Systems: CONSTITUTIONAL: Denies fever, chills, or sweats. EYES: Denies visual changes, redness, or discharge. ENT: positive rhinorrhea, deniescongestion, sore throat, or otalgia. CARDIOVASCULAR: Denies chest pain, palpitations, or edema. RESPIRATORY: Denies cough Positive dyspnea. GASTROINTESTINAL: Denies abdominal pain, nausea, vomiting, or diarrhea. GENITOURINARY: Denies dysuria or hematuria. SKIN: Denies rash or itching. MUSCULOSKELETAL: Denies back pain, joint pain, or myalgia. NEUROLOGIC: Denies headache, numbness, or weakness. PSYCHIATRIC: Denies anxiety or depression. [facility] Past Medical History Medical History Influenza A Slow transit constipation CKD (chronic kidney disease) stage 3, GFR 30-59 ml/min Although the patient denies this and prior labs demonstrated normal GFR and creatinine. Gynecomastia, male URI with cough and congestion Essential (primary) hypertension Anxiety Dyslipidemia History of prostate cancer (~05/30/18) Treated with radiation therapy Chronic bilateral low back pain with left-sided sciatica (~11/09/16) Surgical History Surgical History History of tonsillectomy and adenoidectomy Status post cataract extraction of both eyes with insertion of intraocular lens History of lumbar laminectomy Hx of aortic valve replacement with porcine valve (~2009) Status post ascending aortic aneurysm repair (~2009) Performed at [facility] by Dr. Thomas Family History Family History Father Family history of pancreatic cancer, Onset Age: 51 Mother Family history of coronary artery disease, Onset Age: 43 Social History Social History Social History: , 2nd 2018. His 2nd in September of 2023. 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 He is written over 50 looks on local history. He is a lifelong nonsmoker and does not drink alcohol. Code status: DNR/DNI per patient request Surrogate decision maker: Mukul (son) Smoking status: Never smoker Second hand tobacco smoke exposure: No Alcohol intake: never Substance use: never Substance use type: does not use Do You Feel Safe in your Home?: Yes Lack of Transportation: YES Lack of Food: Never True Current Housing: I Have Housing Concerned About Future Housing: No Difficulty Paying Gas/Electric Bills: No Difficulty Paying for Meds: No Currently Unemployed: No Education: Master's Degree or Higher Difficulty w/ Childcare or Family Care: No Gender identity (if verbalized by the patient): Male Spiritual care concerns: No Comments At the time of my signature I agree with nursing past medical history, surgical, social, and family history. There is no relevant family history pertinent to the presenting complaint. Exam Narrative: GENERAL: Well-appearing, well-nourished, and in no acute distress. HEAD: Normocephalic, atraumatic. EYES: PERRLA and EOMI. ENT: Nares clear, no rhinorrhea or epistaxis. Mucous membranes moist. posterior pharynx with no erythema, tonsillar enlargement, exudates or lesions present. Bilateral TMs are clear no erythema or foreign bodies the canal. NECK: Supple. No lymphadenopathy CHEST: Bilateral lower lobes are have decreased lung sounds noted.. No respiratory distress. Patient able to talk clear complete sentences. HEART: Regular rate and rhythm. No murmur heard. Normal peripheral pulses. ABDOMEN: Soft, nontender, nondistended, normal active bowel sounds. EXTREMITIES: Normal range of motion. No edema. SKIN: Warm, dry, no rash. NEURO: No focal deficits. Alert and oriented x3. Course Course Level of Care: Express Care Visit Reevaluation(s) Reevaluation #1: re-evaluated patient notified him that his symptoms and x-ray suggests most likely he has a mild pneumonia. We will discharge him home with oral antibiotics. Discussed with him to take [id number]-dupufzw cough medicine as needed and drink plenty of fluid. Discussed with patient that this antibiotic could upset his stomach and recommend probiotic or yogurt with it. Discussed with patient that if his symptoms worsen at all increase in shortness of breath, chest pain or develops a fever he would need to go the ER for further evaluation. Patient is aware the plan of care denies any other questions or concerns at this time. Date: 06/24/24 Time: 11:13 Vital Signs Vital signs: Vital Signs Temperature 35.7 C L 06/24/24 10:01 Pulse Rate 92 06/24/24 10:01 Respiratory Rate 16 06/24/24 10:01 Blood Pressure 109/85 06/24/24 10:01 Pulse Oximetry 98 06/24/24 10:01 Temperature 35.7 C L 06/24/24 10:01 Pulse Rate 92 06/24/24 10:01 Respiratory Rate 16 06/24/24 10:01 Blood Pressure 109/85 06/24/24 10:01 Pulse Oximetry 98 06/24/24 10:01 Vital signs reviewed. Medical Decision Making Differential Diagnosis Differential Diagnosis: Differential diagnosis: Allergic rhinitis, chronic sinusitis, tonsillitis, acute sinusitis, infectious mononucleosis, seasonal influenza, pertussis, diphtheria, meningococcal disease, viral syndrome, viral bronchitis, RSV, COVID- 19 Vital Signs Vital Signs: Vital Signs Temperature 35.7 C L 06/24/24 10:01 Pulse Rate 92 06/24/24 10:01 Respiratory Rate 16 06/24/24 10:01 Blood Pressure 109/85 06/24/24 10:01 Pulse Oximetry 98 06/24/24 10:01 Temperature 35.7 C L 06/24/24 10:01 Pulse Rate 92 06/24/24 10:01 Respiratory Rate 16 06/24/24 10:01 Blood Pressure 109/85 06/24/24 10:01 Pulse Oximetry 98 06/24/24 10:01 ECG Data EKG #1: Attestation: I personally reviewed and interpreted this ECG as follows: ECG completion date: 06/24/24 ECG completion time: 10:44 Prior ECG tracings: available for review Ischemic changes: non-specific ST-T wave changes Interpretation: Sinus rhythm with 1st degree AV block. Borderline left axis deviation, QRS axis +the -20. Moderate voltage criteria for LVH, consider normal variant, meets criteria in one of: R(aVL), S(V1), R(V5/V6)+S (V1) nonspecific ST and T-wave abnormality. Abnormal ECG. Unconfirmed report. Vent rate: 81 PA interval: 258 QRS duration: 104 QT/ QTC: 333/371 P-R- T axis: 109, -30, 59. Critical Care Time Critical Care Time Critical Care Time: No Discharge Plan Discharge Clinical Impression: Pneumonia Patient Disposition: Home, Self-Care Condition: Stable Instructions: Antibiotic Form, Community Acquired Pneumonia (ED) Additional Instructions: Take your medication exactly as directed. Don't skip doses. Continue taking your antibiotics as directed until they are all gone - even if you start to feel better. This will prevent the pneumonia from coming back. Drink at least 8 glasses of water daily, unless directed otherwise. This helps to loosen and thin secretions so that you can cough them up. Use a cool-mist humidifier in your bedroom. Be sure to clean the humidifier ed ly. Coughing up mucus is normal. Don't use medications to suppress your cough unless your cough is dry, painful, or interferes with your sleep. You may use an expectorant if ordered by your doctor. Warm compresses or a heating pad on the lowest setting can be used to relieve chest discomfort. Use several times a day for 15 to 20 minutes at a time. (To prevent injuring your skin, be sure the temperature of the compress or heating pad is warm, not hot.) Get plenty of rest until your fever, shortness of breath, and chest pain go away. Plan to get a flu shot every year. Ask your doctor about pneumonia vaccinations. Call 911 right away if you have any of the following: Chest pain Trouble breathing Blue lips or fingernails Otherwise, call your doctor if you have any of the following: Fever above 101.5?F (38.6?C) Yellow, green, bloody, or smelly sputum More than normal mucus production Vomiting Patient Language: Luxembourgish Prescriptions: New doxycycline hyclate 100 mg tablet 100 mg PO DAILY 7 Days Qty: 7 0RF No Action dorzolamide-timolol 22.3-6.8 mg/mL drops 1 drp RIGHT EYE BID brimonidine 0.15 % drops 1 drp RIGHT EYE TID PRN (Reason: glaucoma) imipramine HCl 25 mg tablet 25 mg PO .three times per week Rx Instructions: Take 1 Tablet (25 mg) by mouth [id number] diltiazem HCl 120 mg Capsule,Extended Release 24hr 120 mg PO QAM Qty: 60 0RF ferrous sulfate 325 mg (65 mg iron) Tablet,Delayed Release (Dr/Ec) 325 mg PO DAILY Qty: 30 0RF multivitamin [Multiple Vitamins] Tablet 1 tablet PO DAILY Rx Instructions: take 1 tablet by oral route every day aspirin 81 mg tablet,chewable 81 mg PO DAILY Rx Instructions: chew 1 tablet by oral route every day cholecalciferol (vitamin D3) 50 mcg (2,000 unit) capsule 50 mcg PO DAILY Qty: 90 0RF fenofibrate nanocrystallized 145 mg tablet See Rx Instructions .ROUTE .COMPLEX Qty: 90 2RF Dose Instruction: TAKE ONE TABLET BY MOUTH ONCE DAILY Rx Instructions: TAKE ONE TABLET BY MOUTH ONCE DAILY metoprolol succinate 50 mg tablet extended release 24 hr See Rx Instructions .ROUTE .COMPLEX Qty: 90 2RF Dose Instruction: Take 1 Tablet (50 mg) by mouth daily. Rx Instructions: Take 1 Tablet (50 mg) by mouth daily. albuterol sulfate 2.5 mg /3 mL (0.083 %) solution for nebulization 2.5 mg inhalation Q4-6H PRN (Reason: shortness of breath or wheezing) Qty: 180 0RF (DME) nebulizer and compressor Device See Rx Instructions .Route Qty: 1 0RF Rx Instructions: To use by inhalation route every 4 to 6 hours as needed atorvastatin 10 mg tablet See Rx Instructions .ROUTE .COMPLEX Qty: 90 2RF Dose Instruction: Take 1 Tablet (10 mg) by mouth daily at bedtime. Rx Instructions: Take 1 Tablet (10 mg) by mouth daily at bedtime. alprazolam 0.25 mg tablet 0.125 mg PO DAILY PRN (Reason: anxiety) Qty: 30 2RF Follow-up/Referrals: Adonis Cabral MD [Primary Care Provider] - Time of Disposition: 11:06
--- NOTE | 2024-06-24 10:36 | ECG_ITS ---
Test Date: 2024-06-24 10:44:02 Measurements Intervals [place] Rate: 81 P: 109 [place]: 258 QRS: -30 QRSD: 104 T: 59 QT: 333 QTc: 388 Interpretive Statements SINUS RHYTHM WITH FIRST DEGREE AV BLOCK BORDERLINE LEFT AXIS DEVIATION [QRS AXIS < -20] MODERATE VOLTAGE CRITERIA FOR LVH, CONSIDER NORMAL VARIANT [MEETS CRITERIA IN ONE OF: R(aVL), S(V1), R(V5), R(V5/V6)+S(V1)] NONSPECIFIC ST & T-WAVE ABNORMALITY Compared to ECG 05/08/2024 05:30:54 First degree AV block now present Atrial fibrillation no longer present Electronically Signed On 06-24-2024 13:36:01 CDT by Lety Dooley M.D.
== END 2024-06-24 11:08 | disposition home or self-care (01) ==
PROVIDERS: Emergency Provider Nurse Practitioner Family; PCP Emergency Medicine
DX: J18.9 Pneumonia, unspecified organism (principal); I44.0 Atrioventricular block, first degree; I12.9 Hypertensive chronic kidney disease with stage 1 through stage 4 chronic kidney disease, or unspecified chronic kidney disease; N18.30 Chronic kidney disease, stage 3 unspecified; E78.5 Hyperlipidemia, unspecified; K59.01 Slow transit constipation; Z85.46 Personal history of malignant neoplasm of prostate; Z92.3 Personal history of irradiation; Z96.1 Presence of intraocular lens; Z98.42 Cataract extraction status, left eye; Z98.41 Cataract extraction status, right eye; Z95.3 Presence of xenogenic heart valve; Z79.82 Long term (current) use of aspirin; Z99.3 Dependence on wheelchair
CPT/HCPCS: 71046; 93005; 99213; G0463

== ENCOUNTER 2024-06-25 15:53 | Emergency (ER) | payer MEDICARE, SELFPAY ==
--- NOTE | ~2024-06-25 | XR_ITS ---
EXAMINATION: XR chest 2V Exam Date/Time: 06/25/2024 19:20 CDT HISTORY: SOB Comparison: 06/24/2024. RESULT: Lines, tubes, and devices: Multiple sternotomy wires, several are fractured but remain in stable pos ition. Ostial markers. Lungs and pleura: Mild left costophrenic angle blunting. Minimal streaky bibasilar opacities likely representing atelectasis/scar. Cardiomediastinal silhouette: Stable. Other: No acute osseous or upper abdominal finding. IMPRESSION: Small left pleural effusion. Reviewed, dictated and finalized at location K.
[2024-06-25 15:59] VITALS: BP 181/58; PULSE 81; RESP 20; TEMP 36.6; O2SAT 100
[2024-06-25 16:05] VITALS: O2SAT 100
--- NOTE | 2024-06-25 18:49 | ECG_ITS ---
Test Date: 2024-06-25 19:10:30 Measurements Intervals [place] Rate: 81 P: 0 [place]: 0 QRS: -33 QRSD: 109 T: 35 QT: 337 QTc: 391 Interpretive Statements SINUS RHYTHM WITH FIRST DEGREE AV BLOCK MARKED LEFT AXIS DEVIATION [QRS AXIS < -30] MODERATE VOLTAGE CRITERIA FOR LVH, CONSIDER NORMAL VARIANT [MEETS CRITERIA IN ONE OF: R(aVL), S(V1), R(V5), R(V5/V6)+S(V1)] NONSPECIFIC ST & T-WAVE ABNORMALITY Compared to ECG 06/24/2024 10:44:02 NO SIGNIFICANT CHANGES Electronically Signed On 06-26-2024 16:00:30 CDT by Lety Dooley M.D.
--- OUTSIDE RECORDS SUMMARY | 2024-06-25 19:10 | XMS_ITS | Referral Summary ---
Author Organization [facility] Address [address] [place] [address] Care Team Providers Care Steamboat Pilot Name Role Phone Steve Potter MD Primary Care Provider Allergies Active Allergy Reactions Criticality Noted Date Comments Adhesive Tape-Silicones Redness Low Medications fenofibrate nanocrystallized (TRICOR,TRIGLIDE) 145 mg tablet Take 145 mg by mouth continuing education instructor before breakfast. Active metoprolol XL (TOPROL-XL) 50 mg 24 hr tablet Take 50 mg by mouth continuing education instructor before breakfast. 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 Gender Identity Not on file Sexual Orientation Not on file Last Filed Vital Signs Vital Sign Reading Time Taken Comments Blood Pressure 131/93 09/15/2018 10:51 AM CDT Pulse 81 09/15/2018 10:51 AM CDT Temperature 36.3 C (97.3 F) 08/23/2017 7:00 AM CDT Respiratory Rate 16 09/15/2018 10:51 AM CDT Oxygen Saturation 98% 09/15/2018 10:51 AM CDT Inhaled Oxygen Concentration - - Weight 80.7 kg (178 lb) 09/15/2018 10:51 AM CDT Height 182.9 cm (6') 09/15/2018 10:51 AM CDT Body Mass Index 24.14 09/15/2018 10:51 AM CDT Plan of Treatment Not on file Insurance [facility] MEDICARE [facility] Address: [facility] [address] [place] [address] UHC MEDICARE ADVANTAGE AETNA MEDICARE Advance Directives For more information, please contact: [phone] Documents on File Type Date Recorded Patient National Sales Expl anation ADVANCE DIRECTIVE 08/22/2017 11:06 AM ADVANCE DIRECTIVE 08/22/2017 Advance Di rective Checklist * Full Code (Latest Code Status on File) Date Activated Date Inactivated Comments 08/22/2017 2:39 PM 08/23/2017 2:18 PM Care Teams Steamboat Pilot Relationship Specialty Start Date End Date Steve Potter MD PCP - General 08/12/17
--- OUTSIDE RECORDS SUMMARY | 2024-06-25 19:10 | XMS_ITS | Clinical Summary ---
Author Organization [facility] Address [address] [place] [address] Care Team Providers Care Cigarette Filter Inspector Name Role Phone Cuate Mclaughlin MD Primary Care Provider [phone] Source Comments [facility],non-owned Affiliates and Associated Physician Practices is amultiple site organization consisting of ambulatory clinics and hospital sitesin [place], [place], [place] and [place]. This disclosure is being madepursuant to the Care Everywhere program and may not contain all information available regarding this patient. Last updated 17.[facility] Social History Tobacco Use Types Packs/Day Years [...] (#1) 2023 DEPRESSION SCREENING 04/04/2024 MEDICARE AWV CALENDAR YEAR 2024 HEPATITIS B VACCINE Aged Out No longe r eligible based on patient's age to complete this topic HIB VACCINE Aged Out No longer eligi ble based on patient's age to complete this topic HPV VACCINE Aged Out No longer eligi ble based on patient's age to complete this topic MENINGOCOCCAL (Group B) VACC INE SHARED DECISION-MAKING Aged Out No longer eligibl e based on patient's age to complete this topic MENINGOCOCCAL GROUPS A/C/Y/W VACCINE Aged Out No longer eligible b ased on patient's age to complete this topic Care Teams Cigarette Filter Inspector Relationship Specialty Start Date End Date Cuate Mclaughlin MD [address] [place] [address] PCP - General 06/27/18
--- OUTSIDE RECORDS SUMMARY | 2024-06-25 19:10 | XMS_ITS | Encounter Summary ---
Author Organization [facility] Address 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
--- OUTSIDE RECORDS SUMMARY | 2024-06-25 19:10 | XMS_ITS | Continuity of Care Document ---
Author Organization [facility] Address [address] [place] [address] Phone Care Team Providers Care Learning Development Specialist Name Role Phone Matt Kaba MD Unavailable Unavailable Advance Directives Directive Yes / No Effective Date File Name No Information Encounters Encounter Description Practice Location Reason(s) For Visit Diagnoses Date Provider Providers Copied on Encounter [facility], [address] [place] [address], [address] [place] [address], tel:[phone] [facility] SACROILIITIS NEC Sesar Gutierrez. [address] [place], [place], [id number], . tel:[phone] [facility], [address] [place] [address], [id number], tel:[phone] [facility] JOINT DIS NOS-PELVIS Jacqueline Mckinney. [address] [place], [place], [id number], . tel:[phone] [facility], [address] [place] [address], [id number], tel:[phone] [facility] LUMBAGO Denzellandry Sanya. [address] [place], [place], [id number], . tel:[phone] Family History Family Member Type Diagnosis Age At Onset No Information Payers Payer name Insurance type Covered democrat ID Authoriza tion(s) No Information Social History [...]
--- OUTSIDE RECORDS SUMMARY | 2024-06-25 19:10 | XMS_ITS | Clinical Summary ---
Author Organization [facility] Address [address] Bui: Epic Prelude ADT SALMA BLUNT [address] Care Team Providers Care Hop Strainer Name Role Phone Unavailable Primary Care Provider Unavailabl e Allergies No known active allergies Medications brimonidine (ALPHAGAN P) 0.15 % solution INSTILL 1 DROP IN THE RIGHT EYE THREE TIMES A DAY NEEDED 10 mL 5 3 3:30 PM SOLUTIONS MANAGER 02/28/20 22 Active lactulose (KRISTALOSE) 10 gram [...] Gram 3 3 7:20 PM CDT 12/24/19 23 Active brimonidine (ALPHAGAN P) 0.15 % solution INSTILL 1 DROP IN THE RIGHT EYE 3 TIMES DAILY. 10 mL 12 01/06/20 23 Active ALPRAZolam (XANAX) 0.25 mg tablet Take 0.5 Tablets (0.125 mg) by mouth 1 time daily as needed for anxiety. 45 Tablet 1 4 7:34 PM SOLUTIONS MANAGER 02/03/20 23 Active brimonidine (ALPHAGAN P) 0.15 % solution Administer 1 Drop in right eye 3 times daily as needed. 10 mL 5 4 5:30 PM SOLUTIONS MANAGER 05/10/19 24 Active dorzolamide-timoloL (COSOPT) 22.3-6.8 mg/mL solution INSTILL ONE DROP IN THE RIGHT EYE TWO TIMES A DAY 10 mL 5 5 5:25 PM SOLUTIONS MANAGER 06/27/19 24 025 Active fenofibrate nanocrystallized (TRICOR) 145 mg tablet TAKE ONE TABLET BY MOUTH ONCE DAILY 90 Tablet 2 5 7:05 PM SOLUTIONS MANAGER 02/22/20 24 Active imipramine HCl (TOFRANIL) 25 mg tablet Take 1 Tablet (25 mg) by mouth daily. 90 Tablet 2 4 2:05 PM SOLUTIONS MANAGER 03/05/20 24 Active metoprolol succinate (TOPROL XL) 50 mg Extended Release 24 hour tablet Take 1 Tablet (50 mg) by mouth daily. 90 Tablet 2 5 2:09 PM CDT 03/21/20 24 Active ketoconazole (NIZORAL) 2 % Shampoo USE ON AFFECTED AREA 3 TIMES A WEEK. 120 mL 5 5:25 PM SOLUTIONS MANAGER 04/29/19 25 Active dilTIAZem (CARDIZEM CD, CARTIA XT) 120 mg Controlled Delivery 24 hour capsule Take 1 Capsule (120 mg) by mouth daily in the morning. 60 Capsule 5 11:45 AM SOLUTIONS MANAGER 05/10/19 25 Active oseltamivir (TAMIFLU) 30 mg Capsule Take 1 Capsule (30 mg) by mouth every 12 hours. 5 Capsule 5 11:45 AM SOLUTIONS MANAGER 05/10/19 25 Active ferrous sulfate 325 mg (65 mg iron) Tablet, Delayed Release (E.C.) Take 1 Tablet (325 mg) by mouth daily. 30 Tablet 5 4:36 PM [facility] 05/10/19 25 Active albuterol (PROVENTIL,VENTOLIN) 2.5 mg /3 mL (0.083 %) Solution for Nebulization INHALE THE CONTENTS OF 1 VIAL PER NEBULIZER EVERY 4-6 HOURS NEEDED FOR SHORTNESS OF BREATH OR WHEEZING. 180 mL 5 4:16 PM [facility] 05/16/19 25 Active Nebulizer & Compressor For Neb Device To use by inhalation route every 4 to 6 hours as needed 1 Each 05/16/19 25 Active clobetasoL (TEMOVATE) 0.05 % Solution APPLY TO THE AFFECTED AREA(S) OF SCALP 1-2 TIMES DAILY FOR UP TO TWO CONSECUTIVE WEEKS AT A TIME 50 mL 2 5 6:57 PM [facility] 05/21/19 25 Active Clobetasol 0.05 % Shampoo Apply to affected areas of scalp three times weekly and let sit 3-5 minutes and then rinse for up to two consecutive weeks. Take a small break and repeat as necessary for flares. Avoid the face, axilla, and groin. 118 mL 2 5 7:05 PM SOLUTIONS MANAGER 05/21/19 25 Active atorvastatin (LIPITOR) 10 mg tablet Take 1 Tablet (10 mg) by mouth daily at bedtime. 90 Tablet 2 5 7:05 PM [facility] 05/22/19 25 Active clobetasoL (TEMOVATE) 0.05 % Solution Apply to affected areas of scalp 1-2 times daily for up to two consecutive weeks at a time. 50 mL 3 06/07/19 25 Active Clobetasol 0.05 % Shampoo Apply to affected areas of scalp three times weekly and let sit 3-5 minutes and then rinse for up to two consecutive weeks. Take a small break and repeat as necessary for flares. Avoid the face, axilla, and groin. 118 mL 3 5 2:09 PM CDT 06/07/19 25 Active prednisoLONE acetate (Pred Forte) 1 % suspension ADMINISTER 1 DROP IN RIGHT EYE 3 TIMES DAILY. 5 mL 6 5 11:40 AM CDT 06/23/19 25 Active doxycycline hyclate (VIBRAMYCIN) 100 mg tablet Take 1 Tablet (100 mg) by mouth daily for 7 days. 7 Tablet 5 11:40 AM CDT 06/25/19 25 025 Active Encounters Date Type Department Care Team Description 06/20/2024 External Device Data [facility] ABSTRACTION Provider, Abstract 06/09/2024 External Device Data [facility] ABSTRACTION Provider, Abstract 06/09/2024 External Device Data [facility] ABSTRACTION Provider, Abstract 05/23/2024 External Device Data [facility] ABSTRACTION Provider, Abstract 04/26/2024 External Device Data [facility] ABSTRACTION Provider, Abstract from Last 3 Months Social History Tobacco Use Types Packs/Day Years Used Date Smoking Tobacco: Never Assessed Sex and Gender Information Value Date Recorded Sex Assigned at Not on file Legal 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
--- OUTSIDE RECORDS SUMMARY | 2024-06-25 19:10 | XMS_ITS | Encounter Summary ---
Author Organization [facility] Address [address] [place] [address] Care Team Providers Care Ingredient Scaler Helper Name Role Phone Cuate Mclaughlin MD Primary Care Provider +[phone] Encounter Details Date Type Department Care Team (Late st Contact Info) Description 06/28/2018 Lab Requisition [facility] Care DermPath Lab [address] [facility], [place] [phone] Pari Petit DO [address] [facility] 3 DE[place] [address] Social History Tobacco Use Types Packs/Day Years [...] 12:00 AM CDT) Case Report Dermatopathology Report Case: [id number] Authorizing Provider: Pari Petit DO Collected: 06/27/2018 12:00 AM Pathologist: Ara Medina MD Received: 06/28/2018 09:14 AM Specimen: Skin, right mid back 9 12:45 PM CDT DERMATOPATHOLOGY LABORATORY Final Diagnosis Specimen A. SKIN, right mid back: DILATED PORE OF CHEVY, FRAGMENTED (L70.8) 9 12:45 PM CDT DERMATOPATHOLOGY LABORATORY Clinical History [...] characteristic determined by the Dermatopathology Laboratory at [facility], directed by Dr. Ben Lucia. These tests need not be, and therefore are not, approved by the [place] Food and Drug Administration. The tests are used for clinical purposes. Billing Codes Specimen Charges Stain Charges 26765 1 12:45 PM CDT DERMATOPATHOLOGY LABORATORY Embedded Images 12:45 PM CDT DERMATOPATHOLOGY LABORATORY Pathology/Cytolog y TISSUE SPECIMEN FROM SKIN / Unknown 06/27/2018 06/28/2018 9:14 AM CDT Pari Petit DO LAB - PATHOLOGY/C YTOLOGY ORDERABLES DERMATOPATHOLOGY LABORATORY [facility] - Department of Dermatology [address] [place] [address], 5th Floor Lab [address] [phone] documented in this encounter Visit Diagnoses Not on filedocumented in this encounter Care Teams Ingredient Scaler Helper Relationship Specialty Start Date End Date Cuate Mclaughlin MD [address] [place] [address] PCP - General 06/27/18 documented as of this encounter
--- OUTSIDE RECORDS SUMMARY | 2024-06-25 19:10 | XMS_ITS | Clinical Summary ---
Author Organization [facility] Address [address] [place] [address] Care Team Providers Care Overlock Collar Setter Name Role Phone Steve Potter MD Primary Care Provider Allergies Active Allergy Reactions Criticality Noted Date Comments Adhesive Tape-Silicones Redness Low Medications fenofibrate nanocrystallized (TRICOR,TRIGLIDE) 145 mg tablet Take 145 mg by mouth account manager trainee before breakfast. Active metoprolol XL (TOPROL-XL) 50 mg 24 hr tablet Take 50 mg by mouth account manager trainee before breakfast. Active atorvastatin (LIPITOR) 10 mg [...] Surgery Date Site/Laterality Comments CATARACT EXTRACTION Bilateral [place] KERATOPLASTY ANTERIOR LAMELLAR Right PHOTOREFRACTIVE KERATOTOMY Bilateral LUMBAR LAMINECTOMY 04/04/1981 - 04/03/1982 ASCENDING AORTIC ANEURYSM REPAIR W/ TISSUE AORTIC VALVE REPLACEMENT 04/04/2009 - 04/03/2010 CORRECTION HAMMER TOE INGUINAL HERNIA REPAIR Left AORTIC VALVE REPLACEMENT 04/04/2009 - 04/03/2010 Bioprosthetic valve, Dr. 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 Gender Identity Not on file Sexual Orientation [...] Plan of Treatment Not on file Insurance UHC MEDICARE ADVANTAGE [place] [id number] UHC MEDICARE ADVANTAGE [facility] MEDICARE Advance Directives For more information, please contact: [phone] Documents on File Type Date Recorded Patient Scrap Drop Engineer Expl anation ADVANCE DIRECTIVE 08/22/2017 11:06 AM ADVANCE DIRECTIVE 08/22/2017 Advance Di rective Checklist * Full Code (Latest Code Status on File) Date Activated Date Inactivated Comments 08/22/2017 2:39 PM 08/23/2017 2:18 PM Care Teams Overlock Collar Setter Relationship Specialty Start Date End Date Steve Potter MD PCP - General 08/12/17
[2024-06-25 19:32] VITALS: PULSE 82
--- NOTE | 2024-06-25 19:39 | PC.NURSE ---
edp at bedside
--- NOTE | 2024-06-25 19:52 | ED_ITS ---
HPI - General Adult General Chief complaint: Shortness of Breath/Dyspnea Stated complaint: dyspnea Time Seen by Provider: 06/25/24 18:33 History of Present Illness HPI narrative: 83-year-old male presents emergency department for evaluation for increased generalized weakness. Patient was positive for flu approximately 3 weeks ago and was discharged home after 4 days. Patient had worsening weakness over the last few days. Patient was diagnosed with pneumonia as out patient was started on doxycycline yesterday. Patient feels he is having difficulty caring for himself at home. Patient does live at home on his own but does have assistance that do help him multiple times a day. Patient feels that he has had worsening exertional shortness of breath and is willing to be admitted for physical therapy occupational therapy. Patient was also requesting medication to help him sleep. Patient's was stating he needed medications to help him sleep because he was having trouble breathing through his nose when he was sleeping, and this was causing him to wake up. Related Data Home Medications ?Medication ?Instructions ?Recorded ?Confirmed ?Last Taken ?Type aspirin 81 mg chewable tablet 81 mg PO DAILY 04/09/19 06/06/24 05/06/24 History multivitamin (Multiple Vitamins 1 tablet PO DAILY 04/09/19 06/06/24 Unknown History tablet) brimonidine 0.15 % eye drops 1 drp RIGHT EYE TID PRN glaucoma 05/07/24 06/06/24 Unknown History dorzolamide 22.3 mg-timolol 6.8 1 drp RIGHT EYE BID 05/07/24 06/06/24 Unknown History mg/mL eye drops imipramine HCl 25 mg tablet 25 mg PO .three times per week 05/07/24 06/06/24 Unknown History Allergies Allergy/AdvReac Type Severity Reaction Status Date / Time adhesive tape AdvReac Mild Itching Verified 06/24/24 09:55 Review of Systems Review of Systems: All systems reviewed & are unremarkable except as noted in HPI and below PMFSH Past Medical History Medical History Influenza A Slow transit constipation CKD (chronic kidney disease) stage 3, GFR 30-59 ml/min Although the patient denies this and prior labs demonstrated normal GFR and creatinine. Gynecomastia, male URI with cough and congestion Essential (primary) hypertension Anxiety Dyslipidemia History of prostate cancer (~05/30/18) Treated with radiation therapy Chronic bilateral low back pain with left-sided sciatica (~11/09/16) Surgical History Surgical History History of tonsillectomy and adenoidectomy Status post cataract extraction of both eyes with insertion of intraocular lens History of lumbar laminectomy Hx of aortic valve replacement with porcine valve (~2009) Status post ascending aortic aneurysm repair (~2009) Performed at [facility] by Dr. Thomas Family History Family History Father Family history of pancreatic cancer, Onset Age: 51 Mother Family history of coronary artery disease, Onset Age: 43 Social History Social History Social History: , 2nd 2018. His 2nd in September of 2023. 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 He is written over 50 looks on local history. He is a lifelong nonsmoker and does not drink alcohol. Code status: DNR/DNI per patient request Surrogate decision maker: Mukul (son) Smoking status: Never smoker Second hand tobacco smoke exposure: No Alcohol intake: never Substance use: never Substance use type: does not use Do You Feel Safe in your Home?: Yes Lack of Transportation: YES Lack of Food: Never True Current Housing: I Have Housing Concerned About Future Housing: No Difficulty Paying Gas/Electric Bills: No Difficulty Paying for Meds: No Currently Unemployed: No Education: Master's Degree or Higher Difficulty w/ Childcare or Family Care: No Gender identity (if verbalized by the patient): Male Spiritual care concerns: No Exam Narrative: APPEARANCE: Well appearing, no pain, no distress, well-nourished. HEAD: normocephalic, atraumatic. EYES: PERRLA/EOMI, conjunctivae clear. NOSE: Normal no drainage EARS:TMS clear with good light reflex. THROAT: Pharynx clear, no exudate. NECK: Supple. No adenopathy, no masses. RESPIRATORY: Airway patent, respirations nonlabored. Clear to auscultation bilaterally, no rales, rhonchi, wheezing. CARDIOVASCULAR: Regular rate and rhythm without murmurs rubs or gallops. ABDOMINAL: Soft, nontender, nondistended, normal bowel sounds MUSCULOSKELETAL: Moves all extremities. Strength/ROM intact, No edema, No calf tenderness. NEURO: Alert. Cranial nerves II through XII intact. Grossly intact SKIN: Warm, dry. Normal Color Course Vital Signs Vital signs: Vital Signs Temperature 97.9 F 06/25/24 15:59 Pulse Rate 81 06/25/24 15:59 Respiratory Rate 20 06/25/24 15:59 Blood Pressure 181/58 H 06/25/24 15:59 Pulse Oximetry 100 06/25/24 15:59 Oxygen Delivery Room Air 06/25/24 15:59 Temperature 97.9 F 06/25/24 15:59 Pulse Rate 82 06/25/24 19:32 Respiratory Rate 20 06/25/24 15:59 Blood Pressure 181/58 H 06/25/24 15:59 Pulse Oximetry 100 06/25/24 16:05 Oxygen Delivery Room Air 06/25/24 16:05 Medical Decision Making [facility] Narrative Medical decision making narrative: After evaluation patient preferred to be discharged and declined any workup. Vital Signs Vital Signs: Vital Signs Temperature 97.9 F 06/25/24 15:59 Pulse Rate 81 06/25/24 15:59 Respiratory Rate 20 06/25/24 15:59 Blood Pressure 181/58 H 06/25/24 15:59 Pulse Oximetry 100 06/25/24 15:59 Oxygen Delivery Room Air 06/25/24 15:59 Temperature 97.9 F 06/25/24 15:59 Pulse Rate 82 06/25/24 19:32 Respiratory Rate 20 06/25/24 15:59 Blood Pressure 181/58 H 06/25/24 15:59 Pulse Oximetry 100 06/25/24 16:05 Oxygen Delivery Room Air 06/25/24 16:05 Discharge Plan Discharge Clinical Impression: Episode of generalized weakness, Pneumonia Patient Disposition: Left Against Medical Advice Condition: Stable Additional Instructions: You were offered admission for physical therapy and occupational therapy but you declined and preferred to be discharged home. Continue to take your antibiotics as directed. Close follow-up with your primary care physician. If you have any worsening symptoms then please return to the emergency department to complete your medical workup. Patient Language: Nepali Prescriptions: No Action doxycycline hyclate 100 mg tablet 100 mg PO DAILY 7 Days Qty: 7 0RF dorzolamide-timolol 22.3-6.8 mg/mL drops 1 drp RIGHT EYE BID brimonidine 0.15 % drops 1 drp RIGHT EYE TID PRN (Reason: glaucoma) imipramine HCl 25 mg tablet 25 mg PO .three times per week Rx Instructions: Take 1 Tablet (25 mg) by mouth [id number] diltiazem HCl 120 mg Capsule,Extended Release 24hr 120 mg PO QAM Qty: 60 0RF ferrous sulfate 325 mg (65 mg iron) Tablet,Delayed Release (Dr/Ec) 325 mg PO DAILY Qty: 30 0RF multivitamin [Multiple Vitamins] Tablet 1 tablet PO DAILY Rx Instructions: take 1 tablet by oral route every day aspirin 81 mg tablet,chewable 81 mg PO DAILY Rx Instructions: chew 1 tablet by oral route every day cholecalciferol (vitamin D3) 50 mcg (2,000 unit) capsule 50 mcg PO DAILY Qty: 90 0RF fenofibrate nanocrystallized 145 mg tablet See Rx Instructions .ROUTE .COMPLEX Qty: 90 2RF Dose Instruction: TAKE ONE TABLET BY MOUTH ONCE DAILY Rx Instructions: TAKE ONE TABLET BY MOUTH ONCE DAILY metoprolol succinate 50 mg tablet extended release 24 hr See Rx Instructions .ROUTE .COMPLEX Qty: 90 2RF Dose Instruction: Take 1 Tablet (50 mg) by mouth daily. Rx Instructions: Take 1 Tablet (50 mg) by mouth daily. albuterol sulfate 2.5 mg /3 mL (0.083 %) solution for nebulization 2.5 mg inhalation Q4-6H PRN (Reason: shortness of breath or wheezing) Qty: 180 0RF (DME) nebulizer and compressor Device See Rx Instructions .Route Qty: 1 0RF Rx Instructions: To use by inhalation route every 4 to 6 hours as needed atorvastatin 10 mg tablet See Rx Instructions .ROUTE .COMPLEX Qty: 90 2RF Dose Instruction: Take 1 Tablet (10 mg) by mouth daily at bedtime. Rx Instructions: Take 1 Tablet (10 mg) by mouth daily at bedtime. alprazolam 0.25 mg tablet 0.125 mg PO DAILY PRN (Reason: anxiety) Qty: 30 2RF Follow-up/Referrals: Adonis Cabral MD [Primary Care Provider] -
--- NOTE | 2024-06-25 20:02 | PC.NURSE ---
pt hit call light and told community health navigator - i am leaving get me that paper now.
== END 2024-06-25 20:34 | disposition left against medical advice (07) ==
PROVIDERS: Emergency Provider Emergency Medicine; PCP Emergency Medicine
DX: J18.9 Pneumonia, unspecified organism (principal); R53.1 Weakness; Z79.82 Long term (current) use of aspirin; N18.30 Chronic kidney disease, stage 3 unspecified; I12.9 Hypertensive chronic kidney disease with stage 1 through stage 4 chronic kidney disease, or unspecified chronic kidney disease; E78.5 Hyperlipidemia, unspecified; F41.9 Anxiety disorder, unspecified; Z85.46 Personal history of malignant neoplasm of prostate
CPT/HCPCS: 71046; 93005; 99284

== ENCOUNTER 2024-06-27 06:43 | Inpatient (IN) | payer MEDICARE, SELFPAY ==
[2024-06-27] VITALS (22 sets, daily range): BP systolic 129–168; BP diastolic 43–82; PULSE 68–105; RESP 14–25; TEMP 36.4–36.7; O2SAT 96–100; BMI 23.1
--- NOTE | ~2024-06-27 | XR_ITS ---
EXAMINATION: XR chest 2V DATE: 06/27/2024 07:36 INDICATION: Shortness of breath. Weakness. TECHNIQUE: Frontal and lateral views of the chest were obtained. COMPARISON: Chest 2 views 06/25/2024, CT abdomen and pelvis 12/29/2027 FINDINGS: There is mild atelectasis in the lower lung zones. There are small pleural effusions. No pn eumothorax. The heart size is normal. There are changes of heart valve replacement. IMPRESSION: 1. Small pleural effusions. Reviewed, dictated and finalized at location A. IMPRESSION: 1. Small pleural effusions.
--- NOTE | ~2024-06-27 | CT_ITS ---
EXAMINATION: CT brain wo con DATE: 06/29/2024 14:01 INDICATION: Dilated pupil TECHNIQUE: Computed tomography (CT) of the head was performed without intravenous contrast. The dose- length product was 605.33 mGy-cm. Automated exposure control and iterative reconstruction technique w ere employed. COMPARISON: None FINDINGS: Generalized atrophy. There are scattered mild periventricular and subcortical white matter changes, most likely related to small vessel ischemic disease (microangiopathy). No ventriculomegaly or midline shift. Basilar cisterns are patent. No acute intracranial hemorrhage, infarction, mass or mass effect. Paranasal sinuses and mastoids are pneumatized. Mastoids are pneumatized. No depressed s kull fractures.. IMPRESSION: 1. No acute intracranial abnormality. Reviewed, dictated and finalized at location A.
--- NOTE | 2024-06-27 06:56 | ECG_ITS ---
Test Date: 2024-06-27 06:50:46 Measurements Intervals [place] Rate: 75 P: -54 CT: 225 QRS: -23 QRSD: 106 T: 45 QT: 392 QTc: 440 Interpretive Statements SINUS RHYTHM WITH FIRST DEGREE AV BLOCK BORDERLINE LEFT AXIS DEVIATION [QRS AXIS < -20] MODERATE VOLTAGE CRITERIA FOR LVH, CONSIDER NORMAL VARIANT [MEETS CRITERIA IN ONE OF: R(aVL), S(V1), R(V5), R(V5/V6)+S(V1)] NONSPECIFIC T WAVE ABNORMALITY Compared to ECG 06/25/2024 19:10:30 NO SIGNIFICANT CHANGES Electronically Signed On 06-27-2024 12:57:17 CDT by Lety Dooley M.D.
[2024-06-27 07:04] LABS: Basophils Percent Auto 0.2 % (0.2-1.2); Eosinophils Absolute Auto 0.1 K/mm3 (0-0.3); Eosinophils Percent Auto 0.8 % (0-4.4); Hematocrit 38.2 % (42.0-52.0); Hemoglobin 12.7 g/dL (14.0-18.0); Immature Granulocyte Absolute 0.08 K/mm3 (0.00-0.031); Immature Granulocyte Percent A 0.7 % (0-0.5); Lymphocytes Absolute Auto 1.93 K/mm3 (0.9-3.2); Lymphocytes Percent Auto 16.8 % (18.3-44.2); Mean Corpuscular HGB Conc 33.2 g/dl (32-36); Mean Corpuscular Volume 90.3 fl (80-100); Mean Platelet Volume 10.3 fl (7.4-10.4); Monocytes Absolute Auto 0.6 K/mm3 (0.1-0.6); Monocytes Percent Auto 5.2 % (2.6-8.5); Neutrophils Absolute Auto 8.8 K/mm3 (1.3-6.7); Neutrophils Percent Auto 76.3 % (45.5-73.1); Platelet Count Result 268 k/mm3 (150-375); Red Blood Count 4.23 M/mm3 (4.6-6.20); White Blood Count 11.5 K/mm3 (4.5-10.0)
[2024-06-27 07:14] LABS: Alanine Aminotransferase 23 U/L (6-50); Albumin Level 4.4 g/dL (3.5-5.1); Alkaline Phosphatase 37 U/L (38-126); Anion Gap 12 mmol/L (4-12); Aspartate Amino Transferase 38 U/L (17-59); Bilirubin,Total 0.8 mg/dL (0.2-1.3); Blood Urea Nitrogen 29 mg/dL (9-20); Calcium 9.4 mg/dL (8.4-10.2); Carbon Dioxide 22 mmol/L (22-30); Chloride 105 mmol/L (98-107); Estimated CRCL calculation 48 ml/min; Estimated Glomerular Filt Rate > 60; Glucose 106 mg/dL (65-110); Potassium 3.9 mmol/L (3.4-5.0); Sodium 139 mmol/L (137-145)
--- OUTSIDE RECORDS SUMMARY | 2024-06-27 07:36 | XMS_ITS | Clinical Summary ---
Author Organization [facility] Address [address] [place] [address] Care Team Providers Care Wine And Spirits Clerk Name Role Phone Steve Potter MD Primary Care Provider Allergies Active Allergy Reactions Criticality Noted Date Comments Adhesive Tape-Silicones Redness Low Medications fenofibrate nanocrystallized (TRICOR,TRIGLIDE) 145 mg tablet Take 145 mg by mouth prototyper before breakfast. Active metoprolol XL (TOPROL-XL) 50 mg 24 hr tablet Take 50 mg by mouth prototyper before breakfast. Active atorvastatin (LIPITOR) 10 mg [...] Surgery Date Site/Laterality Comments CATARACT EXTRACTION Bilateral [place] KERATOPLASTY ANTERIOR LAMELLAR Right PHOTOREFRACTIVE KERATOTOMY Bilateral LUMBAR LAMINECTOMY 04/04/1981 - 04/03/1982 ASCENDING AORTIC ANEURYSM REPAIR W/ TISSUE AORTIC VALVE REPLACEMENT 04/04/2009 - 04/03/2010 CORRECTION HAMMER TOE INGUINAL HERNIA REPAIR Left AORTIC VALVE REPLACEMENT 04/04/2009 - 04/03/2010 Bioprosthetic valve, Dr. Thomas, 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 Gender Identity Not on file Sexual Orientation [...] Not on file Insurance UHC MEDICARE ADVANTAGE [place] [id number] UHC MEDICARE ADVANTAGE [facility] MEDICARE Advance Directives For more information, please contact: [phone] Documents on File Type Date Recorded Patient Small Engine Specialist Expl anation ADVANCE DIRECTIVE 08/22/2017 11:06 AM ADVANCE DIRECTIVE 08/22/2017 Advance Di rective Checklist * Full Code (Latest Code Status on File) Date Activated Date Inactivated Comments 08/22/2017 2:39 PM 08/23/2017 2:18 PM Care Teams Wine And Spirits Clerk Relationship Specialty Start Date End Date Steve Potter MD PCP - General 08/12/17
--- OUTSIDE RECORDS SUMMARY | 2024-06-27 07:36 | XMS_ITS | Encounter Summary ---
Author Organization [facility] Address [address] [place] [address] Care Team Providers Care Finishing Wire Sawyer Name Role Phone Unavailable Primary Care Provider [...] on file Legal Sex Male 4:58 AM PHARMACEUTICAL SPECIALTY REPRESENTATIVE Gender Identity Not on file Sexual Orientation Not on file documented as of this encounter Plan of Treatment Not on file documented as of this encounter Visit Diagnoses Diagnosis Postlaminectomy syndrome, lumbar region- Primary documented in this encounter
--- OUTSIDE RECORDS SUMMARY | 2024-06-27 07:36 | XMS_ITS | Continuity of Care Document ---
Author Organization [facility] Address [address] [place] [address] Phone Care Team Providers Care Morning Show Producer Name Role Phone Matt Kaba MD Unavailable Unavailable Advance Directives Directive Yes / No Effective Date File Name No Information Encounters Encounter Description Practice Location Reason(s) For Visit Diagnoses Date Provider Providers Copied on Encounter [facility], [address] [place] [address], [address] [place] [address], tel:[phone] [facility] SACROILIITIS NEC Sesar Gutierrez. [address] [place], [place], [id number], . tel:[phone] [facility], [address] [place] [address], [id number], tel:[phone] [facility] JOINT DIS NOS-PELVIS Jacqueline Mckinney. [address] [place], [place], [id number], . tel:[phone] [facility], [address] [place] [address], [id number], tel:[phone] [facility] LUMBAGO Denzellandry Sanya. [address] [place], [place], [id number], . tel:[phone] Family History Family Member Type Diagnosis Age At Onset No Information Payers Payer name Insurance type Covered republican ID Authoriza tion(s) No Information Social History [...]
--- OUTSIDE RECORDS SUMMARY | 2024-06-27 07:36 | XMS_ITS | Clinical Summary ---
Author Organization [facility] Address [address] [facility] [place] [address] Care Team Providers Care Combat Systems Officer Name Role Phone Cuate Mclaughlin MD Primary Care Provider Source Comments [facility],non-owned Affiliates and Associated Physician Practices is amultiple site organization consisting of ambulatory clinics and hospital sitesin [place], [place], [place] and [place]. This disclosure is being madepursuant to the Care Everywhere program and may not contain all information available regarding this patient. Last updated 17.[facility] [employer] Social History Tobacco Use Types Packs/Day Years [...] age to complete this topic Care Teams Combat Systems Officer Relationship Specialty Start Date End Date Cuate Mclaughlin MD [address] [place] [address] PCP - General 06/27/18
--- OUTSIDE RECORDS SUMMARY | 2024-06-27 07:36 | XMS_ITS | Encounter Summary ---
Author Organization [facility] Address [address] [place] [address] Care Team Providers Care Turnstile Collector Name Role Phone Cuate Mclaughlin MD Primary Care Provider [phone] Encounter Details Date Type Department Care Team (Late st Contact Info) Description 06/28/2018 Lab Requisition [facility] Care DermPath Lab [address] [facility], [place] [phone] Pari Petit DO [address] [facility] 3 [place] [address] Social History Tobacco Use Types Packs/Day Years [...] AM CDT) Case Report Dermatopathology Report Case: [id number] Authorizing Provider: Pari Petit DO Collected: 06/27/2018 [...] characteristic determined by the Dermatopathology Laboratory at [facility], directed by Dr. Ben Lucia. These tests need not be, and therefore are not, approved by the [place] Food and Drug Administration. The tests are used for clinical purposes. Billing Codes Specimen Charges Stain Charges 72709 1 12:45 PM CDT DERMATOPATHOLOGY LABORATORY Embedded Images 12:45 PM CDT DERMATOPATHOLOGY LABORATORY Pathology/Cytolog y TISSUE SPECIMEN FROM SKIN / Unknown 06/27/2018 06/28/2018 9:14 AM CDT Pari Petit DO LAB - PATHOLOGY/C YTOLOGY ORDERABLES DERMATOPATHOLOGY LABORATORY [facility] - Department of Dermatology [address] [place] [address], 5th Floor Lab [address] [phone] documented in this encounter Visit Diagnoses Not on filedocumented in this encounter Care Teams Turnstile Collector Relationship Specialty Start Date End Date Cuate Mclaughlin MD [address] [address] PCP - General 06/27/18 documented as of this encounter
--- OUTSIDE RECORDS SUMMARY | 2024-06-27 07:37 | XMS_ITS | Referral Summary ---
Author Organization [facility] Address [address] [place] [address] Care Team Providers Care Security Orderly Name Role Phone Steve Potter MD Primary Care Provider Allergies Active Allergy Reactions Criticality Noted Date Comments Adhesive Tape-Silicones Redness Low Medications fenofibrate nanocrystallized (TRICOR,TRIGLIDE) 145 mg tablet Take 145 mg by mouth burrer operator before breakfast. Active metoprolol XL (TOPROL-XL) 50 mg 24 hr tablet Take 50 mg by mouth burrer operator before breakfast. 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 Gender Identity Not on file Sexual Orientation [...] Plan of Treatment Not on file Insurance [facility] MEDICARE ADVANTAGE UHC MEDICARE ADVANTAGE [employer] MEDICARE Advance Directives For more information, please contact: [phone] Documents on File Type Date Recorded Patient Group Home Counselor Expl anation ADVANCE DIRECTIVE 08/22/2017 11:06 AM ADVANCE DIRECTIVE 08/22/2017 Advance Di rective Checklist * Full Code (Latest Code Status on File) Date Activated Date Inactivated Comments 08/22/2017 2:39 PM 08/23/2017 2:18 PM Care Teams Security Orderly Relationship Specialty Start Date End Date Steve Potter MD PCP - General 08/12/17
--- OUTSIDE RECORDS SUMMARY | 2024-06-27 07:37 | XMS_ITS | Clinical Summary ---
Author Organization [facility] Address [address] Bui: Epic Prelude ADT SALMA BLUNT [id number] Care Team Prov[address] Care Road Conductor Name Role Phone Unavailable Primary Care Provider Unavailabl e Allergies No known active allergies Medications brimonidine (ALPHAGAN P) 0.15 % solution INSTILL 1 DROP IN THE RIGHT EYE THREE TIMES A DAY NEEDED 10 mL 5 3 3:30 PM FUSING MACHINE FEEDER 02/28/20 22 Active lactulose (KRISTALOSE) 10 gram [...] anxiety. 45 Tablet 1 4 7:34 PM FUSING MACHINE FEEDER 02/03/20 23 Active brimonidine (ALPHAGAN P) 0.15 % solution Administer 1 Drop in right eye 3 times daily as needed. 10 mL 5 4 5:30 PM FUSING MACHINE FEEDER 05/10/19 24 Active dorzolamide-timoloL (COSOPT) 22.3-6.8 mg/mL solution INSTILL ONE DROP IN THE RIGHT EYE TWO TIMES A DAY 10 mL 5 5 5:25 PM FUSING MACHINE FEEDER 06/27/19 24 025 Active fenofibrate nanocrystallized (TRICOR) 145 mg tablet TAKE ONE TABLET BY MOUTH ONCE DAILY 90 Tablet 2 5 7:05 PM FUSING MACHINE FEEDER 02/22/20 24 Active imipramine HCl (TOFRANIL) 25 mg tablet Take 1 Tablet (25 mg) by mouth daily. 90 Tablet 2 4 2:05 PM FUSING MACHINE FEEDER 03/05/20 24 Active metoprolol succinate (TOPROL XL) 50 mg Extended Release 24 hour tablet Take 1 Tablet (50 mg) by mouth daily. 90 Tablet 2 5 2:09 PM CDT 03/21/20 24 Active ketoconazole (NIZORAL) 2 % Shampoo USE ON AFFECTED AREA 3 TIMES A WEEK. 120 mL 5 5:25 PM FUSING MACHINE FEEDER 04/29/19 25 Active dilTIAZem (CARDIZEM CD, CARTIA XT) 120 mg Controlled Delivery 24 hour capsule Take 1 Capsule (120 mg) by mouth daily in the morning. 60 Capsule 5 11:45 AM FUSING MACHINE FEEDER 05/10/19 25 Active oseltamivir (TAMIFLU) 30 mg Capsule Take 1 Capsule (30 mg) by mouth every 12 hours. 5 Capsule 5 11:45 AM FUSING MACHINE FEEDER 05/10/19 25 Active ferrous sulfate 325 mg (65 mg iron) Tablet, Delayed Release (E.C.) Take 1 Tablet (325 mg) by mouth daily. 30 Tablet 5 4:36 PM [facility] 05/10/19 25 Active albuterol (PROVENTIL,VENTOLIN) 2.5 mg /3 mL (0.083 %) Solution for Nebulization INHALE THE CONTENTS OF 1 VIAL PER NEBULIZER EVERY 4-6 HOURS NEEDED FOR SHORTNESS OF BREATH OR WHEEZING. 180 mL 5 4:16 PM [facility] 05/16/19 25 Active Nebulizer & Compressor For Neb Device To use by inhalation route every 4 to 6 hours as needed 1 Each 05/16/19 25 Active clobetasoL (TEMOVATE) 0.05 % Solution APPLY TO THE AFFECTED AREA(S) OF SCALP 1-2 TIMES DAILY FOR UP TO TWO CONSECUTIVE WEEKS AT A TIME 50 mL 2 5 6:57 PM [facility] 05/21/19 25 Active Clobetasol 0.05 % Shampoo Apply to affected areas of scalp three times weekly and let sit 3-5 minutes and then rinse for up to two consecutive weeks. Take a small break and repeat as necessary for flares. Avoid the face, axilla, and groin. 118 mL 2 5 7:05 PM FUSING MACHINE FEEDER 05/21/19 25 Active atorvastatin (LIPITOR) 10 mg tablet Take 1 Tablet (10 mg) by mouth daily at bedtime. 90 Tablet 2 5 7:05 PM [facility] 05/22/19 25 Active clobetasoL (TEMOVATE) 0.05 % [...] 11:40 AM CDT 06/25/19 25 025 Active ALPRAZolam (XANAX) 0.25 mg tablet Take 0.5 Tablets (0.125 mg) by mouth daily as needed for anxiety 30 Tablet 2 06/12/19 25 Active Encounters Date Type Department Care [...] on file Legal Sex Male 4:58 AM FUSING MACHINE FEEDER Gender Identity Not on file Sexual Orientation [...]
--- NOTE | 2024-06-27 08:09 | ED_ITS ---
HPI - SOB/Dyspnea General Chief Complaint: Shortness of Breath/Dyspnea Stated Complaint: SOB Time Seen by Provider: 06/27/24 07:04 History of Present Illness HPI Narrative: 83-year-old male presenting to the emergency department for evaluation of subjective shortness of breath and weakness. Patient was in the emergency department yesterday for generalized weakness and left against medical advice as he did not want to stay for any workup. Patient lives alone, as assistance and help some multiple times per day. Patient states he has had worsening exertional dyspnea and shortness of breath for ?some time now ?he states he gets relief with nebulization treatments. He states he was given nebulizer yesterday on the EMS ambulance ride which improved him and then today in the ambulance that also improved him. No history of significant smoking, COPD or asthma that he has been diagnosed with. Patient is requesting for nebulization treatment and to go home. Denies any chest pain, nausea, vomiting. No abdominal pain or back pain. No productive cough. No orthopnea or leg swelling. Related Data Home Medications ?Medication ?Instructions ?Recorded ?Confirmed ?Last Taken ?Type aspirin 81 mg chewable tablet 81 mg PO DAILY 04/09/19 06/06/24 05/06/24 History multivitamin (Multiple Vitamins 1 tablet PO DAILY 04/09/19 06/06/24 Unknown History tablet) brimonidine 0.15 % eye drops 1 drp RIGHT EYE TID PRN glaucoma 05/07/24 06/06/24 Unknown History dorzolamide 22.3 mg-timolol 6.8 1 drp RIGHT EYE BID 05/07/24 06/06/24 Unknown History mg/mL eye drops imipramine HCl 25 mg tablet 25 mg PO .three times per week 05/07/24 06/06/24 Unknown History Allergies Allergy/AdvReac Type Severity Reaction Status Date / Time adhesive tape AdvReac Mild Itching Verified 06/27/24 06:57 Review of Systems 2 Review of Systems: As reviewed above in HPI [facility] Past Medical History Medical History Influenza A Slow transit constipation CKD (chronic kidney disease) stage 3, GFR 30-59 ml/min Although the patient denies this and prior labs demonstrated normal GFR and creatinine. Gynecomastia, male URI with cough and congestion Essential (primary) hypertension Anxiety Dyslipidemia History of prostate cancer (~05/30/18) Treated with radiation therapy Chronic bilateral low back pain with left-sided sciatica (~11/09/16) Surgical History Surgical History History of tonsillectomy and adenoidectomy Status post cataract extraction of both eyes with insertion of intraocular lens History of lumbar laminectomy Hx of aortic valve replacement with porcine valve (~2009) Status post ascending aortic aneurysm repair (~2009) Performed at [facility] by Dr. Thomas Family History Family History Father Family history of pancreatic cancer, Onset Age: 51 Mother Family history of coronary artery disease, Onset Age: 43 Social History Social History Social History: , 2nd 2018. His 2nd in September of 2023. 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 He is written over 50 looks on local history. He is a lifelong nonsmoker and does not drink alcohol. Code status: DNR/DNI per patient request Surrogate decision maker: Mukul (son) Smoking status: Never smoker Second hand tobacco smoke exposure: No Alcohol intake: never Substance use: never Substance use type: does not use Do You Feel Safe in your Home?: Yes Lack of Transportation: YES Lack of Food: Never True Current Housing: I Have Housing Concerned About Future Housing: No Difficulty Paying Gas/Electric Bills: No Difficulty Paying for Meds: No Currently Unemployed: No Education: Master's Degree or Higher Difficulty w/ Childcare or Family Care: No Gender identity (if verbalized by the patient): Male Spiritual care concerns: No Exam 2 Narrative: GENERAL: [Well-appearing, well-nourished, and in no acute distress.] HEAD: [Normocephalic, atraumatic.] EYES: [PERRLA and EOMI.] ENT: Nares clear, no rhinorrhea or epistaxis. Mucous membranes moist. NECK: Supple. CHEST: [Clear to auscultation. No respiratory distress.] No tachypnea, retractions, or respiratory distress. Old sternotomy scar noted. HEART: [Regular rate and rhythm]. No murmur heard. [Normal peripheral pulses.] ABDOMEN: [Soft, nondistended], [nontender], [No rigidity or guarding] EXTREMITIES: Normal range of motion. [No edema.] SKIN: Warm, dry, no rash. NEURO: [No focal deficits]. Alert and oriented [x3.] PSYCH: [Normal mood and affect.] Course Vital Signs Vital signs: Vital Signs Temperature 36.5 C 06/27/24 06:41 Pulse Rate 84 06/27/24 06:41 Respiratory Rate 18 06/27/24 06:41 Pulse Oximetry 98 06/27/24 06:41 Oxygen Delivery Room Air 06/27/24 06:41 Temperature 36.4 C 06/27/24 08:31 Pulse Rate 68 06/27/24 08:47 Respiratory Rate 14 06/27/24 08:47 Blood Pressure 129/53 L 06/27/24 08:47 Pulse Oximetry 100 06/27/24 08:47 Oxygen Delivery Room Air 06/27/24 06:53 MDM - SOB/Dyspnea MDM Narrative Medical decision making narrative: 83-year-old male presenting to the emergency department for evaluation of shortness of breath. Patient otherwise appears well, not any acute distress, vital signs reassuring without any tachycardia, tachypnea, fever, hypoxia. Blood pressure 168/71. He has no signs of respiratory distress, no exertional or conversational dyspnea examination. Clear breath sounds without any wheezing, rhonchi or rales. No leg swelling or calf swelling. No suspicion for DVT or thromboembolic event such as PE at this time. Patient states he gets relief with nebulization treatments as he has had 2 ambulance rides yesterday and today with nebulizers that have helped him. He is requesting a nebulization treatment and to go home at this time. I discussed with him that he was here in the hospital yesterday for generalized weakness and shortness of breath and had recently been diagnosed with pneumonia. He states he ordered a nebulizer and will be delivered today and he wishes to go home to get this. I discussed with him that he was having plans for admission yesterday for generalized weakness and shortness of breath workup and he declined and left against medical advice at that time. Patient overlies appears very well not any acute distress, has no wheezing, rhonchi or rales. He has stable normal vital signs. Workup was ordered including two-view chest x-ray, CBC, CMP, EKG and viral swabs. Patient is requesting a nebulizer treatment which was provided with respiratory therapy. Discussed with the patient that he should be admitted for continued workup of his dyspnea but he wants to go home after treatment. Patient re-evaluated. He still expressing desire to go home but after I went over his imaging and laboratory studies including an elevated BNP and small bilateral pleural effusions he had changed his mind and would agree to admission. I am concerned that he could be having early signs of heart failure with his complaints of shortness of breath and evidence of heart strain with elevated BNP and fluid in his lungs. He is saturating well on room air, no tachycardia, tachypnea, hypoxia. Normal blood pressure. He is not having any chest pain or exertional chest pain. No angina symptoms. Remote history of aortic surgery over 15 years ago without any recent concerns. He has not seen a social work nurse or his PCP for this evaluation. He states he felt better after the nebulizer treatments however and has no shortness of breath at this time. Patient would benefit from admission to the hospital with echocardiogram and potential initiation of diuresis versus goal-directed medical therapy based on the results. Spoke to the hospitalist Dr. Chirinos who agreed and accepted the patient for admission to a telemetry monitored bed at this time. Patient was provide a small dose of Lasix and standing admit orders placed. Echocardiogram ordered. Medical Records Attestation: I reviewed the patient's medical records. Lab Data Attestation: I reviewed the patient's lab results. 06/27/24 06:58 06/27/24 06:58 Labs: Lab Results 06/27/24 06/27/24 Range/Units 06:58 08:07 WBC 11.5 H (4.5-10.0) K/mm3 RBC 4.23 L (4.6-6.20) M/mm3 Hgb 12.7 L (14.0-18.0) g/dL Hct 38.2 L (42.0-52.0) % MCV 90.3 (80-100) fl MCH 30.0 (26-34) pg MCHC 33.2 (32-36) g/dl RDW 14.0 (11.5-14.5) % Plt Count 268 D (150-375) k/mm3 MPV 10.3 (7.4-10.4) fl Immature Gran % (Auto) 0.7 H (0-0.5) % Neut % (Auto) 76.3 H (45.5-73.1) % Lymph % (Auto) 16.8 L (18.3-44.2) % [place] % (Auto) 5.2 (2.6-8.5) % Eos % (Auto) 0.8 (0-4.4) % Baso % (Auto) 0.2 (0.2-1.2) % Lymph # (Auto) 1.93 (0.9-3.2) K/mm3 [place] # (Auto) 0.6 (0.1-0.6) K/mm3 Eos # (Auto) 0.1 (0-0.3) K/mm3 Baso # (Auto) 0.0 (0.0-0.1) K/mm3 Abs Immat Gran (auto) 0.08 H (0.00-0.031) K/mm3 Absolute Neuts (auto) 8.8 H (1.3-6.7) K/mm3 Absolute Nucleated RBC 0.000 (0.0-0.012) K/mm3 Nucleated RBC % 0.0 (0.0-0.2) % Sodium 139 (137-145) mmol/L Potassium 3.9 (3.4-5.0) mmol/L Chloride 105 (98-107) mmol/L Carbon Dioxide 22 (22-30) mmol/L Anion Gap 12 (4-12) mmol/L BUN 29 H D (9-20) mg/dL Creatinine 1.09 (0.7-1.3) mg/dL Estim Creat Clear Calc 48 ml/min Estimated GFR > 60 (59 - ) Glucose 106 (65-110) mg/dL Calcium 9.4 (8.4-10.2) mg/dL Total Bilirubin 0.8 (0.2-1.3) mg/dL AST 38 (17-59) U/L ALT 23 (6-50) U/L Alkaline Phosphatase 37 L (38-126) U/L NT-Pro-B Natriuret Pep 5170 H (19.9-100) pg/mL Total Protein 7.0 (6.3-8.2) g/dL Albumin 4.4 (3.5-5.1) g/dL Influenza A (RT-PCR) Negative (Negative) Influenza B (RT-PCR) Negative (Negative) RSV (RT-PCR) Negative (Negative) SARS-CoV-2 RNA (RT-PCR) Negative (Negative) Imaging Data Attestation: I personally reviewed and interpreted this imaging study as follows: My impression: Impressions Chest X-Ray 06/27/24 07:37 IMPRESSION: 1. Small pleural effusions. ECG Data EKG #1: Attestation: I personally reviewed and interpreted this ECG as follows: ECG completion date: 06/27/24 ECG completion time: 06:50 Prior ECG tracings: available for review Interpretation: No ST segment elevations, depressions or inversions. No QTC interval prolongation. Appears to be sinus rhythm with first-degree AV block with a [place] interval of 225. Regular rate, borderline left axis deviation. No interval change from prior EKG. No evidence of acute ischemic changes. Final to petition first-degree AV block, sinus rhythm. Discharge Plan Discharge Clinical Impression: Increasing shortness of breath, Pleural effusion Patient Disposition: Still a Patient Condition: Stable Patient Language: Russian Prescriptions: No Action doxycycline hyclate 100 mg tablet 100 mg PO DAILY 7 Days Qty: 7 0RF dorzolamide-timolol 22.3-6.8 mg/mL drops 1 drp RIGHT EYE BID brimonidine 0.15 % drops 1 drp RIGHT EYE TID PRN (Reason: glaucoma) imipramine HCl 25 mg tablet 25 mg PO .three times per week Rx Instructions: Take 1 Tablet (25 mg) by mouth [id number] diltiazem HCl 120 mg Capsule,Extended Release 24hr 120 mg PO QAM Qty: 60 0RF ferrous sulfate 325 mg (65 mg iron) Tablet,Delayed Release (Dr/Ec) 325 mg PO DAILY Qty: 30 0RF multivitamin [Multiple Vitamins] Tablet 1 tablet PO DAILY Rx Instructions: take 1 tablet by oral route every day aspirin 81 mg tablet,chewable 81 mg PO DAILY Rx Instructions: chew 1 tablet by oral route every day cholecalciferol (vitamin D3) 50 mcg (2,000 unit) capsule 50 mcg PO DAILY Qty: 90 0RF fenofibrate nanocrystallized 145 mg tablet See Rx Instructions .ROUTE .COMPLEX Qty: 90 2RF Dose Instruction: TAKE ONE TABLET BY MOUTH ONCE DAILY Rx Instructions: TAKE ONE TABLET BY MOUTH ONCE DAILY metoprolol succinate 50 mg tablet extended release 24 hr See Rx Instructions .ROUTE .COMPLEX Qty: 90 2RF Dose Instruction: Take 1 Tablet (50 mg) by mouth daily. Rx Instructions: Take 1 Tablet (50 mg) by mouth daily. albuterol sulfate 2.5 mg /3 mL (0.083 %) solution for nebulization 2.5 mg inhalation Q4-6H PRN (Reason: shortness of breath or wheezing) Qty: 180 0RF (DME) nebulizer and compressor Device See Rx Instructions .Route Qty: 1 0RF Rx Instructions: To use by inhalation route every 4 to 6 hours as needed atorvastatin 10 mg tablet See Rx Instructions .ROUTE .COMPLEX Qty: 90 2RF Dose Instruction: Take 1 Tablet (10 mg) by mouth daily at bedtime. Rx Instructions: Take 1 Tablet (10 mg) by mouth daily at bedtime. alprazolam 0.25 mg tablet 0.125 mg PO DAILY PRN (Reason: anxiety) Qty: 30 2RF Follow-up/Referrals: Adonis Cabral MD [Primary Care Provider] - Time of Disposition: 10:00
[2024-06-27] MEDS: IPRATROPIUM 0.5 MG/ALBUTEROL SULFATE 2.5 MG AMPUL.NEB 3 ML INHALATION ×2 (08:35→20:00)
[2024-06-27 08:47] LABS: Influenza A QL RT-PCR Negative (Negative); Influenza B QL RT-PCR Negative (Negative); RSV RNA, RT-PCR Negative (Negative); SARS-CoV-2 RNA PCR Negative (Negative)
[2024-06-27 09:44] LABS: NT Pro B Type Natriuretic Pept 5170 pg/mL (19.9-100)
[2024-06-27] MEDS: FUROSEMIDE INJ 40 MG/4 ML VIAL IV PUSH (10:01)
--- NOTE | 2024-06-27 10:40 | ADMGEN ---
This patient, Robin Beckwith, was admitted to Medical Room 250-01. Patient/family oriented to hospital policies and general routines including ID bracelet, bed and alarms, visiting hours, pain management, procedures, bathroom and other care routines, personal items, smoking policy, room service/diet, and visiting hours. Information on how to activate the Rapid Response Team has been discussed. Patient/Family are encouraged to report perceived risks to care and to ask questions if they do not understand what they are told or what they should do.
--- NOTE | 2024-06-27 20:49 | P.HP_ITS ---
H&P: HPI History of Present Illness Date/Time: 06/27/24 20:49 Chief Complaint: Shortness of Breath Narrative: 83 y/o M presents here with history of CKD, HTN, dyslipidemia, prostate cancer s/p radiation therapy, anxiety, chronic low back pain with left-sided sciatica, and debility secondary to chronic back pain. The patient presented via EMS from home. He reports he developed shortness of breath and cough around 06/21. He initially sought evaluation at [facility] on 06/24/2024. CXR done at that time which showed an increased opacification in the left lung base compared to previous CXR on 05/07/2024. He was discharged home on doxycycline 100 mg x7 days. He reports he has taken 4 doses of this prescription. The patient then sought care at [facility] on 06/25/2024 when the shortness of breath continued and began interfering with his sleep. The patient elected to forego workup after arrival and was discharged home. He is now returning today, 06/27, for re-evaluation of shortnes s of breath and weakness. He denies current fever, chills, orthopnea, leg swelling, weight gain, nausea, vomiting, diarrhea, chest pain, abdominal pain. He reports the shortness of breath was alleviated with nebulizer treatments. He is currently awaiting a nebulizer at home, per daughter this arrived today. He denies history of COPD, asthma, tobacco use. Of note, the patient was admitted from 05/08/24-05/10/24 for pneumonia, influenza, and new atrial fibrillation. He was discharged home on diltiazem, ferrous sulfate, and Tamiflu. Denies any further complaints. Initial VS at presentation: 97.7? F, HR 84, R 18, 155/47, and 98% on RA. ED workup showed: WBC 11.5, hemoglobin 12.7, creatinine 1.09 and GFR >60, BNP 5170, and viral PCR negative. CXR showed small pleural effusions. EKG showed sinus rhythm with first-degree AV block, borderline axis deviation, moderate voltage criteria for LVH, nonspecific T-wave abnormality (no significant changes compared to prior). Review of Systems Review of Systems: All systems reviewed & are unremarkable except as noted in HPI and below PMFSH Past Medical History Medical History (Updated 06/27/24 @ 22:50 by Marie Segundo APRN) Grade I diastolic dysfunction 05/08/24 Echo: EF 60-65%, severe LVH, grade I diastolic dysfunction, mild LAE, mod VINNY, prosthetic AVR, mild AI. Atrial fibrillation Glaucoma Influenza A Slow transit constipation CKD (chronic kidney disease) stage 3, GFR 30-59 ml/min Although the patient denies this and prior labs demonstrated normal GFR and creatinine. Gynecomastia, male URI with cough and congestion Essential (primary) hypertension Anxiety Dyslipidemia History of prostate cancer (~05/30/18) Treated with radiation therapy Chronic bilateral low back pain with left-sided sciatica (~11/09/16) Surgical History Surgical History (Updated 06/27/24 @ 21:13 by Marie Segundo APRN) History of cornea transplant History of tonsillectomy and adenoidectomy Status post cataract extraction of both eyes with insertion of intraocular lens History of lumbar laminectomy Hx of aortic valve replacement with porcine valve (~2009) Status post ascending aortic aneurysm repair (~2009) Performed at [facility] by Dr. Thomas Family History Family History Father Family history of pancreatic cancer, Onset Age: 51 Mother Family history of coronary artery disease, Onset Age: 43 Social History Social History Social History: , 2nd 2018. His 2nd in September of 2023. 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 He is written over 50 looks on local history. He is a lifelong nonsmoker and does not drink alcohol. Code status: DNR/DNI per patient request Surrogate decision maker: Mukul (son) Smoking status: Never smoker Second hand tobacco smoke exposure: No Alcohol intake: never Substance use: never Substance use type: does not use Do You Feel Safe in your Home?: Yes Lack of Transportation: No Lack of Food: Never True Current Housing: I Have Housing Concerned About Future Housing: No Difficulty Paying Gas/Electric Bills: No Difficulty Paying for Meds: No Currently Unemployed: No Education: Master's Degree or Higher Difficulty w/ Childcare or Family Care: No Gender identity (if verbalized by the patient): Male Spiritual care concerns: No Meds Home Medications and Allergies Home Medications ?Medication ?Instructions ?Recorded ?Confirmed ?Type aspirin 81 mg chewable tablet 81 mg PO DAILY 04/09/19 06/27/24 History multivitamin (Multiple Vitamins 1 tablet PO DAILY 04/09/19 06/27/24 History tablet) cholecalciferol (vitamin D3) 50 50 mcg PO DAILY #90 caps 02/02/21 06/27/24 Rx mcg (2,000 unit) capsule fenofibrate nanocrystallized 145 See Rx Instructions .Route 02/22/24 06/27/24 Rx mg tablet .COMPLEX #90 tabs metoprolol succinate 50 mg See Rx Instructions .Route 03/21/24 06/27/24 Rx tablet,extended release 24 hr .COMPLEX #90 tabs brimonidine 0.15 % eye drops 1 drp RIGHT EYE TID PRN glaucoma 05/07/24 06/27/24 History dorzolamide 22.3 mg-timolol 6.8 1 drp RIGHT EYE BID 05/07/24 06/27/24 History mg/mL eye drops imipramine HCl 25 mg tablet 25 mg PO .three times per week 05/07/24 06/27/24 History diltiazem HCl 120 mg capsule,24 120 mg PO QAM #60 caps 05/10/24 06/27/24 Rx hr,extended release ferrous sulfate 325 mg (65 mg 325 mg PO DAILY #30 tabs 05/10/24 06/27/24 Rx iron) tablet,delayed release albuterol sulfate 2.5 mg/3 mL 2.5 mg (3 mL) inhalation Q4-6H PRN 05/16/24 06/27/24 Rx (0.083 %) solution for nebulization shortness of breath or wheezing #180 mL nebulizer and compressor #1 ea 05/16/24 06/27/24 Rx atorvastatin 10 mg tablet See Rx Instructions .Route 05/22/24 06/27/24 Rx .COMPLEX #90 tabs clobetasol 0.05 % scalp solution 1 applic topical DAILY PRN scalp 06/27/24 06/27/24 History irriatation doxycycline hyclate 100 mg tablet 100 mg PO DAILY 06/27/24 06/27/24 History prednisolone acetate 1 % eye 1 drp RIGHT EYE TID 06/27/24 06/27/24 History drops,suspension Allergies Allergy/AdvReac Type Severity Reaction Status Date / Time adhesive tape AdvReac Mild Itching Verified 06/27/24 06:57 Vital Signs Vital Signs - 24 hr 06/27/24 06:41 06/27/24 06:49 06/27/24 06:50 Temperature 97.7 F Pulse Rate 84 81 Respiratory Rate 18 17 Blood Pressure 155/47 H Pulse Oximetry 98 98 98 Oxygen Delivery Room Air Room Air 06/27/24 06:53 06/27/24 06:53 06/27/24 07:01 Temperature Pulse Rate 92 80 Respiratory Rate 22 H Blood Pressure 161/45 H Pulse Oximetry 96 97 Oxygen Delivery Room Air 06/27/24 07:39 06/27/24 08:01 06/27/24 08:16 Temperature Pulse Rate 73 90 71 Respiratory Rate 18 18 18 Blood Pressure 157/54 H 168/71 H 167/60 H Pulse Oximetry 96 99 97 Oxygen Delivery 06/27/24 08:31 06/27/24 08:37 06/27/24 08:47 Temperature 97.6 F Pulse Rate 72 75 68 Respiratory Rate 20 25 H 14 Blood Pressure 162/55 H 129/53 L Pulse Oximetry 98 100 Oxygen Delivery 06/27/24 09:16 06/27/24 09:46 06/27/24 10:15 Temperature 97.7 F 97.7 F Pulse Rate 74 84 78 Respiratory Rate 18 20 20 Blood Pressure 161/51 H 157/82 H 132/68 Pulse Oximetry 100 100 100 Oxygen Delivery 06/27/24 12:01 06/27/24 14:00 06/27/24 16:00 Temperature 97.6 F Pulse Rate 89 72 71 Respiratory Rate 18 Blood Pressure 136/43 L Pulse Oximetry 99 Oxygen Delivery 06/27/24 20:03 06/27/24 20:06 06/27/24 20:14 Temperature Pulse Rate 77 77 Respiratory Rate 20 20 Blood Pressure Pulse Oximetry 96 Oxygen Delivery Room Air Exam Const: General: comfortable and no acute distress Other: , male, nontoxic appearance HENMT: Face/Nose/Sinus: Normal nares present Mouth: Yes moist mucous membranes Eyes: General: appearance normal, both eyes and all related structures Sclera: sclerae normal Pupils: Equal, round and reactive pupils present EOM: EOMs intact bilaterally Resp: Effort & Inspection: normal respiratory effort Auscultation: clear to auscultation bilaterally Cardio: Rate: regular rate Rhythm: regular rhythm Other: S1-S2 present without murmur, rub. Occasional ectopy. GI: Other: Abdomen soft, nondistended, nontender. Normoactive bowel sounds in all quadrants. Skin: General skin exam: normal color and no rashes or lesions noted Wounds: no wounds Neuro: Speech: normal speech Motor exam (neuro): 5/5 motor strength present throughout Sensory Exam: normal sensation Other: A&O x4 Extrem: General: normal to inspection Psych: Mental Status: mental status grossly normal Affect: normal affect Other: Fair insight and judgment, pleasant H&P: Results Labs Labs: Short CBC 06/27/24 Range/Units 06:58 WBC 11.5 H (4.5-10.0) K/mm3 Hgb 12.7 L (14.0-18.0) g/dL Hct 38.2 L (42.0-52.0) % Plt Count 268 D (150-375) k/mm3 BMP 06/27/24 06:58 Sodium 139 Potassium 3.9 Chloride 105 Carbon Dioxide 22 BUN 29 H D Creatinine 1.09 Glucose 106 Calcium 9.4 Liver Function 06/27/24 Range/Units 06:58 Total Bilirubin 0.8 (0.2-1.3) mg/dL AST 38 (17-59) U/L ALT 23 (6-50) U/L Alkaline Phosphatase 37 L (38-126) U/L Albumin 4.4 (3.5-5.1) g/dL Assessment and Plan Assessment and plan (1) Shortness of breath: Code(s): R06.02 - Shortness of breath Status: Acute Assessment and Plan: - CXR: Small pleural effusions - CXR, previous (06/24/2024): Increased opacification within the left lung base on the frontal view representing either overlying soft tissues, versus atelectasis. Semierect view done portably on 05/07/2024 demonstrated air opacification in this area, representing an interval change. - WBC 11.5, hemoglobin 12.7 (at baseline) - viral PCR negative - EKG showed sinus rhythm with first-degree AV block, see full report for details. - echo, previous (05/08/2024): EF 60-65%, severe LVH, grade I diastolic dysfunction, mild LAE, mod VINNY, prosthetic AVR, mild AI. no indication for daily diuretic during previous admission - no tachycardia or hypoxia, low suspicion for PE. However, patient is virtuall y bedbound due to his chronic low back pain (has been issue since the 80s per daughter). He is able to walk a very short distance from his bed to the restroom. He reports he goes 8 times per day. However, given recent illnesses there may be some level of deconditioning. High suspicion for continued shortness of breath secondary to recently diagnosed pneumonia. Shortness of breath continues to respond to nebulizers. No symptoms concerning for a CHF exacerbation including leg swelling or weight gain. (2) Pneumonia: Qualifiers: Pneumonia type: due to unspecified organism Laterality: left Lung location: lower lobe of lung Qualified Code(s): J18.9 - Pneumonia, unspecified organism Code(s): J18.9 - Pneumonia, unspecified organism Status: Acute Assessment and Plan: - see current and previous CXR above, pneumonia seen on CXR on 06/24 - complete doxycycline course started on 06/24 - supportive care (3) Atrial fibrillation: Qualifiers: Atrial fibrillation type: unspecified Qualified Code(s): I48.91 - Unspecified atrial fibrillation Code(s): I48.91 - Unspecified atrial fibrillation Status: Chronic Assessment and Plan: - recent diagnosis, paroxysmal - continue home medications: Diltiazem ER 120 daily, metoprolol ER 50 mg daily - reviewed cardiology consultation note (05/10/2024) from recent admission when he was diagnosed with paroxysmal AFib. Per Luis MICHELLE, stop Lovenox and start Eliquis 5 mg b.i.d.. Patient will need a prescription for this medication, was not continued at discharge. Ordered to start this evening. (4) CKD (chronic kidney disease) stage 3, GFR 30-59 ml/min: Qualifiers: Chronic kidney disease stage 3 subtype: stage 3a (GFR 45-59) Qualified Code(s): N18.31 - Chronic kidney disease, stage 3a Code(s): N18.3 - Chronic kidney disease, stage 3 (moderate) Status: Chronic Assessment and Plan: - creatinine 1.09, GFR >60, BUN 29 - currently at baseline, monitor (5) Essential (primary) hypertension: Code(s): I10 - Essential (primary) hypertension Status: Chronic Assessment and Plan: - chronic, currently 133/62 - continue home medications: diltiazem and metoprolol - monitor Plan Diet: Heart healthy GI Prophylaxis: Not currently indicated DVT Prophylaxis: Eliquis Lines: Peripheral Code Status: Full code Quality VTE Prophylaxis VTE prophylaxis: pharmacologic ordered Hospitalist MIPS Advance Care Plan I have confirmed that the patient's Advanced Care Plan is present, code status is documented, or surrogate decision maker is listed in patient medical record.: Yes Medication Reconciliation I have utilized all available resources to obtain, update and review the patients current medications (includes all prescriptions, OTC, herbals, cannabis, and nutritional supplements).: Yes
[2024-06-27] MEDS: guaiFENesin 600 MG/DEXTROMETHORPHAN 30 MG SR TAB 12 HR 1 TAB PO (22:53)
[2024-06-27] MEDS: prednisoLONE ACETATE 1% OPHTH 5 ML 1 DROP RIGHT EYE (22:53)
[2024-06-27] MEDS: ATORVASTATIN 10 MG TABLET PO (22:53)
[2024-06-27] MEDS: DORZOLAMIDE/TIMOLOL OPHTH SOL 10 ML BOTTLE 1 DROP RIGHT EYE (22:53)
[2024-06-27] MEDS: APIXABAN 5 MG TABLET PO (23:06)
[2024-06-28] VITALS (18 sets, daily range): BP systolic 129–170; BP diastolic 38–55; PULSE 61–100; RESP 18–20; TEMP 36.4–37.1; O2SAT 93–99
--- NOTE | 2024-06-28 | ECHOL_ITS ---
Patient Info Name: Robin Beckwith Age: 83 years : 1940 Gender: Male Ht: 72 in Wt: 170 lbs BSA: 1.98 m2 HR: 89 bpm BP: 170 / 55 mmHg Heart Rhythm: Sinus Arrhythmia Technical Quality: Fair Exam Date: 06/28/2024 12:19 PM Exam Location: Echo Lab Patient Status: Inpatient Admit Date: 06/28/2024 Staff Ordering Physician: Josemanuel Staton PA-C Grout Machine Tender: Kristy Talamantes RDCS Attending Provider: Josemanuel Staton PA-C Referring Physician: Brionna GLASGOW; Exam Type: CA echo limited Study Info Indications - Elevated BNP Limited two-dimensional transthoracic echocardiogram is performed. Summary 1. There is normal biventricular size and systolic function. 2. There is a prosthesis in the aortic position with no evidence of stenosis; however there is moderate aortic regurgitation that is most likely intra valvular in nature. 3. The visualized portion of the proximal ascending aorta measures 4.2 cm in diameter. 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 Left Ventricle The left ventricle is normal in size and systolic function. There is moderate concentric left ventricular hypertrophy. The left ventricular ejection fraction is visually estimated to be 60-65%. Right Ventricle The right ventricle is normal in size and systolic function. Left Atria The left atrium is moderately dilated. Right Atria The right atrium is normal size. Atrial Septum The atrial septum is not well visualized. Aortic Valve There is a prosthesis in the aortic valve position. There is moderate aortic regurgitation through the prosthesis. Pulmonic Valve The pulmonic valve opens well. There is trace pulmonic valve regurgitation. Mitral Valve The mitral valve opens well. There is mild mitral regurgitation. Tricuspid Valve The tricuspid valve opens well. There is mild tricuspid regurgitation. Pericardium/Pleural Pericardium is normal in appearance with no evidence for significant pericardial effusion. Inferior Vena Cava Inferior vena cava is not well visualized. Aorta The visualized portion of the proximal ascending aorta measures 4.2 cm in diameter. 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 Left Ventricular Outflow Tract Name Value Normal LVOT Doppler LVOT Peak Gradient 6 mmHg LVOT Mean Gradient 2 mmHg LVOT VTI 25 cm LVOT VTI/AV VTI Ratio 0.5 Mitral Valve Name Value Normal MV Doppler MV Decel Greer 451 cm/s2 MV PHT 49 ms MV Area (PHT) 4.5 cm2 4.0-5.0 MV Diastolic Function MV E Peak Velocity 76 cm/s MV A Peak Velocity 86 cm/s MV E/A 0.9 MV Decel Time 168 ms MV Annular TDI MV E/e' (Septal) 13.4 <=8.0 MV E/e' (Lateral) 8.9 <=8.0 MV E/e' (Average) 11.2 Tricuspid Valve Name Value Normal TV Regurgitation Doppler TR Peak Velocity 247 cm/s TR Peak Gradient 24 mmHg Aortic Valve Name Value Normal AV Doppler AV Peak Velocity 219 cm/s AV Peak Gradient 19 mmHg AV Mean Gradient 11 mmHg AV VTI 48 cm AV Regurgitation Doppler AR Decel Time 1,369 ms AR Decel Greer 261 cm/s2 AR PHT 397 ms Ventricles Name Value Normal LV Dimensions 2D/MM IVS Diastolic Thickness (2D) 1.2 cm 0.6-1.0 LVID Diastole (2D) 5.0 cm 4.2-5.8 LVIW Diastolic Thickness (2D) 1.2 cm 0.6-1.0 LVID Systole (2D) 3.2 cm 2.5-4.0 LV Mass (2D Cubed) 232.28 g 88.00-224.00 LV Mass Index (2D Cubed) 117 g/m2 49-115 Relative Wall Thickness (2D) 0.48 LV Fractional Shortening/Ejection Fraction 2D/MM LV Fractional Shortening (2D) 35 % 25-43 LV EF (2D Teicholz) 63 % 52-72 LV Diastolic Volume (4C MOD) 139 ml LV EF (4C MOD) 60 % LV Diastolic Volume (2C MOD) 169 ml LV EF (2C MOD) 65 % LV Diastolic Volume (BP MOD) 155 ml 62-150 LV Diastolic Volume Index (BP MOD) 78 ml/m2 34-74 LV Systolic Volume (BP MOD) 59 ml 21-61 LV Systolic Volume Index (BP MOD) 30 ml/m2 11-31 LV EF (BP MOD) 62 % 52-72 LV Diastolic Length (4C) 8.3 cm LV Systolic Length (4C) 6.6 cm LV Stroke Volume (4C MOD) 83 ml Atria Name Value Normal LA Dimensions LA Volume (4C A-L) 82 ml LA Volume (BP A-L) 86 ml RA Dimensions RA Area (4C) 20.2 cm2 <=18.0 Report Signatures
--- NOTE | 2024-06-28 02:14 | PCRCNOTE ---
Patient did not want to be woken for 0200 breathing treatment if he was asleep. Upon RT arrival, pt was asleep and lung sounds were clear. Patient was not woken. See next scheduled breathing tx
[2024-06-28 06:35] LABS: Anion Gap 9 mmol/L (4-12); Blood Urea Nitrogen 33 mg/dL (9-20); Calcium 9.1 mg/dL (8.4-10.2); Carbon Dioxide 25 mmol/L (22-30); Chloride 103 mmol/L (98-107); Estimated CRCL calculation 37 ml/min; Estimated Glomerular Filt Rate 47; Glucose 99 mg/dL (65-110); Potassium 4.6 mmol/L (3.4-5.0); Sodium 137 mmol/L (137-145)
[2024-06-28 06:37] LABS: Basophils Percent Auto 0.4 % (0.2-1.2); Eosinophils Absolute Auto 0.2 K/mm3 (0-0.3); Eosinophils Percent Auto 3.3 % (0-4.4); Hemoglobin 11.8 g/dL (14.0-18.0); Immature Granulocyte Absolute 0.06 K/mm3 (0.00-0.031); Immature Granulocyte Percent A 0.9 % (0-0.5); Lymphocytes Absolute Auto 1.51 K/mm3 (0.9-3.2); Lymphocytes Percent Auto 21.4 % (18.3-44.2); Mean Corpuscular HGB Conc 32.8 g/dl (32-36); Mean Corpuscular Hemoglobin 29.5 pg (26-34); Mean Platelet Volume 10.6 fl (7.4-10.4); Monocytes Absolute Auto 0.5 K/mm3 (0.1-0.6); Monocytes Percent Auto 7.2 % (2.6-8.5); Neutrophils Absolute Auto 4.7 K/mm3 (1.3-6.7); Neutrophils Percent Auto 66.8 % (45.5-73.1); Platelet Count Result 192 k/mm3 (150-375); Red Cell Distribution Width 13.9 % (11.5-14.5)
[2024-06-28] MEDS: BRIMONIDINE TARTRATE 0.15% 5 ML OPHTH SOLN 1 DROP RIGHT EYE ×3 (06:58→17:23)
--- NOTE | 2024-06-28 07:07 | P.PNIM_ITS ---
Progress Note: A&P Assessment and Plan (1) Shortness of breath: Code(s): R06.02 - Shortness of breath Status: Acute Assessment and Plan: - CXR: Small pleural effusions - CXR, previous (06/24/2024): Increased opacification within the left lung base on the frontal view representing either overlying soft tissues, versus atelectasis. - WBC 7.0, hemoglobin 11.8 - viral PCR negative - EKG showed sinus rhythm with first-degree AV block, see full report for details. - echo, previous (05/08/2024): EF 60-65%, severe LVH, grade I diastolic dysfunction, mild LAE, mod VINNY, prosthetic AVR, mild AI. no indication for daily diuretic during previous admission - no tachycardia or hypoxia, low suspicion for PE. (2) Pneumonia: Qualifiers: Laterality: left Lung location: lower lobe of lung Pneumonia type: due to unspecified organism Qualified Code(s): J18.9 - Pneumonia, unspecified organism Code(s): J18.9 - Pneumonia, unspecified organism Status: Acute Assessment and Plan: - see current and previous CXR above, pneumonia seen on CXR on 06/24 - complete doxycycline q24hr course started on 06/24 - supportive care (3) Acute kidney injury: Code(s): N17.9 - Acute kidney failure, unspecified Status: Acute Assessment and Plan: -Creatinine: 1.43, GFR: 47, BUN: 33 -IV Fluids: Holding, possible CHF -Trend renal function -trend electrolytes, correct as needed -Add CK, urine sodium, protein/creatinine, urea (4) Atrial fibrillation: Qualifiers: Atrial fibrillation type: unspecified Qualified Code(s): I48.91 - Unspecified atrial fibrillation Code(s): I48.91 - Unspecified atrial fibrillation Status: Chronic Assessment and Plan: - recent diagnosis, paroxysmal - continue home medications: Diltiazem ER 120 daily, metoprolol ER 50 mg daily - reviewed cardiology consultation note (05/10/2024) from recent admission when he was diagnosed with paroxysmal AFib. Per Luis MICHELLE, stop Lovenox and start Eliquis 5 mg b.i.d.. Patient will need a prescription for this medication, was not continued at discharge. Ordered to start this evening. (5) CKD (chronic kidney disease) stage 3, GFR 30-59 ml/min: Qualifiers: Chronic kidney disease stage 3 subtype: stage 3a (GFR 45-59) Qualified Code(s): N18.31 - Chronic kidney disease, stage 3a Code(s): N18.3 - Chronic kidney disease, stage 3 (moderate) Status: Chronic Assessment and Plan: - creatinine 1.09, GFR >60, BUN 29 - currently at baseline, monitor (6) Essential (primary) hypertension: Code(s): I10 - Essential (primary) hypertension Status: Chronic Assessment and Plan: - chronic, currently 133/62 - continue home medications: diltiazem and metoprolol - monitor Plan Diet: Heart healthy GI Prophylaxis: Not currently indicated DVT Prophylaxis: Eliquis Lines: Peripheral Code Status: Full code Subjective Date/time seen: 06/28/24 07:07 Interval history: 83 y/o M presents here with history of CKD, HTN, dyslipidemia, prostate cancer s/p radiation therapy, anxiety, chronic low back pain with left-sided sciatica, and debility secondary to chronic back pain. 06/28/2024 Patient is sitting comfortably at bedside. Denies any CP, SOB, n/v, abdominal pain. Lung lin clear, no adventitious lung sounds. BNP yesterday was >5000, repeat today was 3510. No volume of fluid overload. Limit echo was ordered and results are pending. Continue Doxy. Afebrile, no leukocytosis. Plan for discharge likely tomorrow. Review of Systems Review of Systems: All systems reviewed & are unremarkable except as noted in HPI and below Exam Const: General: comfortable and no acute distress Other: , male, nontoxic appearance HENMT: Face/Nose/Sinus: Normal nares present Mouth: Yes moist mucous membranes Eyes: General: appearance normal, both eyes and all related structures Sclera: sclerae normal Pupils: Equal, round and reactive pupils present EOM: EOMs intact bilaterally Resp: Effort & Inspection: normal respiratory effort Auscultation: clear to auscultation bilaterally Cardio: Rate: regular rate Rhythm: regular rhythm Other: S1-S2 present without murmur, rub. Occasional ectopy. GI: Other: Abdomen soft, nondistended, nontender. Normoactive bowel sounds in all quadrants. Skin: General skin exam: normal color and no rashes or lesions noted Wounds: no wounds Neuro: Cranial nerves: Yes Equal, round and reactive pupils present Speech: normal speech Motor exam (neuro): 5/5 motor strength present throughout Sensory Exam: normal sensation Other: A&O x4 Extrem: General: normal to inspection Psych: Mental Status: mental status grossly normal Affect: normal affect Other: Fair insight and judgment, pleasant Objective Data Vital Signs Vital Signs: Vital Signs - 24 hr 06/27/24 07:39 06/27/24 08:01 06/27/24 08:16 Temperature Pulse Rate 73 90 71 Respiratory Rate 18 18 18 Blood Pressure 157/54 H 168/71 H 167/60 H Pulse Oximetry 96 99 97 Oxygen Delivery 06/27/24 08:31 06/27/24 08:37 06/27/24 08:47 Temperature 97.6 F Pulse Rate 72 75 68 Respiratory Rate 20 25 H 14 Blood Pressure 162/55 H 129/53 L Pulse Oximetry 98 100 Oxygen Delivery 06/27/24 09:16 06/27/24 09:46 06/27/24 10:15 Temperature 97.7 F 97.7 F Pulse Rate 74 84 78 Respiratory Rate 18 20 20 Blood Pressure 161/51 H 157/82 H 132/68 Pulse Oximetry 100 100 100 Oxygen Delivery 06/27/24 12:01 06/27/24 14:00 06/27/24 16:00 Temperature 97.6 F Pulse Rate 89 72 71 Respiratory Rate 18 Blood Pressure 136/43 L Pulse Oximetry 99 Oxygen Delivery 06/27/24 20:00 06/27/24 20:00 06/27/24 20:03 Temperature Pulse Rate 105 H 77 Respiratory Rate 20 Blood Pressure Pulse Oximetry Oxygen Delivery Room Air 06/27/24 20:06 06/27/24 20:14 06/27/24 20:53 Temperature 98.1 F Pulse Rate 77 79 Respiratory Rate 20 18 Blood Pressure 133/62 Pulse Oximetry 96 98 Oxygen Delivery Room Air 06/28/24 00:00 06/28/24 04:00 06/28/24 04:52 Temperature 98.8 F Pulse Rate 66 64 100 Respiratory Rate 18 Blood Pressure 140/55 L Pulse Oximetry 96 Oxygen Delivery Intake/Output Intake/Output: Intake & Output 06/25/24 06/26/24 06/27/24 06/28/24 23:59 23:59 23:59 23:59 Intake Total 980 150 Output Total 3200 750 Balance -2220 -600 Meds/Results Medications: Active Medications Generic Name Dose Route Start Last Admin Trade Name Freq PRN Reason Stop Dose Admin Albuterol/Ipratropium 3 ml 06/27/24 20:00 06/28/24 02:13 Ipratropium 0.5 Mg/Albuterol Sulfate 2.5 Mg Ampul.Neb 3 Ml INHALATION Not Given Q6HRT KANDY Apixaban 5 mg 06/27/24 22:50 06/27/24 23:06 Apixaban 5 Mg Tablet PO 5 mg Q12HR KANDY Administration Aspirin 81 mg 06/28/24 09:00 Aspirin 81 Mg Chewable Tablet PO DAILY KANDY Atorvastatin Calcium 10 mg 06/27/24 21:00 06/27/24 22:53 Atorvastatin 10 Mg Tablet PO 10 mg HS KANDY Administration Benzocaine 1 lozenge 06/27/24 16:18 Benzocaine/Menthol (*Bkc) 18 Ea Lozenge PO PRN PRN Sore Throat Benzonatate 100 mg 06/27/24 16:18 Benzonatate 100 Mg Capsule PO TID PRN Cough Brimonidine Tartrate 1 drop 06/28/24 06:35 06/28/24 06:58 Brimonidine Tartrate 0.15% 5 Ml Ophth Soln RIGHT EYE 1 drop TID KANDY Administration Diltiazem HCl 120 mg 06/28/24 09:00 Diltiazem Hcl Cd 120 Mg Cap.24hr PO QAM KANDY Dorzolamide/Timolol 1 drop 06/27/24 20:35 06/27/24 22:53 Dorzolamide/Timolol Ophth Hailey 10 Ml Bottle RIGHT EYE 1 drop BID KANDY Administration Doxycycline Hyclate 100 mg 06/28/24 09:00 Doxycycline Hyclate 100 Mg Tablet PO 06/30/24 12:00 DAILY [facility] Fenofibrate 145 mg 06/28/24 09:00 Fenofibrate Nanocrystallized 145 Mg Tablet PO DAILY [facility] Ferrous Sulfate 325 mg 06/28/24 09:00 Ferrous Sulfate [address] PO DAILY [facility] Guaifenesin/Dextromethorphan 1 tab 06/27/24 21:00 06/27/24 22:53 Guaifenesin 600 Mg/Dextromethorphan 30 Mg Sr Tab 12 Hr PO 1 tab Q12HR KANDY Administration Imipramine HCl 25 mg 06/29/24 09:00 Imipramine Hcl 25 Mg Tablet PO [id number] [facility] Metoprolol Succinate 50 mg 06/28/24 09:00 Metoprolol Succinate Ext Rel 50 Mg Tabcr PO QAM [facility] Miscellaneous Information 1 each 06/28/24 00:01 Clobetasol Solution Is Nonform; Can Pt Use From Home? Or Ok To Hold Until Discharge? XX 07/28/24 00:00 CLARIFY [facility] Multivitamins Therapeutic 1 tablet 06/28/24 09:00 Multivitamins Therapeutic Tab (*Bkc) PO DAILY [facility] Non-Formulary Medication 1 applic 06/27/24 20:18 Clobetasol TOPICAL DAILY PRN scalp irriatation Perflutren Lipid Microsphere 0 ml 06/27/24 09:54 Perflutren Lipid Microspheres 1.5 Ml Vial Diluted To 10 Ml Total Volume IV PUSH 06/30/24 09:54 ONCE PRN adequate visualization Protocol Prednisolone Acetate 1 drop 06/27/24 20:35 06/27/24 22:53 Prednisolone Acetate 1% Ophth 5 Ml RIGHT EYE 1 drop TID [facility] Administration Vitamin D 2,000 units 06/28/24 09:00 Cholecalciferol 1,000 Units Tablet PO DAILY [facility] Radiology Results: ITS Impressions Chest X-Ray 06/27/24 07:37 IMPRESSION: 1. Small pleural effusions. Labs Labs: Laboratory Results - last 24 hr 06/27/24 06/27/24 06/28/24 06:58 08:07 06:12 WBC 7.0 RBC 4.00 L Hgb 11.8 L Hct 36.0 L MCV 90.0 MCH 29.5 MCHC 32.8 RDW 13.9 Plt Count 192 MPV 10.6 H Immature Gran % (Auto) 0.9 H Neut % (Auto) 66.8 Lymph % (Auto) 21.4 [place] % (Auto) 7.2 Eos % (Auto) 3.3 Baso % (Auto) 0.4 Lymph # (Auto) 1.51 [place] # (Auto) 0.5 Eos # (Auto) 0.2 Baso # (Auto) 0.0 Abs Immat Gran (auto) 0.06 H Absolute Neuts (auto) 4.7 Absolute Nucleated RBC 0.000 Nucleated RBC % 0.0 Sodium 139 137 Potassium 3.9 4.6 Chloride 105 103 Carbon Dioxide 22 25 Anion Gap 12 9 BUN 29 H D 33 H Creatinine 1.09 1.43 H Estim Creat Clear Calc 48 37 Estimated GFR > 60 47 L Glucose 106 99 Calcium 9.4 9.1 Total Bilirubin 0.8 AST 38 ALT 23 Alkaline Phosphatase 37 L NT-Pro-B Natriuret Pep 5170 H Total Protein 7.0 Albumin 4.4 Influenza A (RT-PCR) Negative Influenza B (RT-PCR) Negative RSV (RT-PCR) Negative SARS-CoV-2 RNA (RT-PCR) Negative Quality VTE Prophylaxis VTE prophylaxis: pharmacologic ordered
[2024-06-28] MEDS: IPRATROPIUM 0.5 MG/ALBUTEROL SULFATE 2.5 MG AMPUL.NEB 3 ML INHALATION ×3 (08:33→19:47)
[2024-06-28] MEDS: CHOLECALCIFEROL 1,000 UNITS TABLET 2000 UNITS PO (09:05)
[2024-06-28] MEDS: APIXABAN 5 MG TABLET PO ×2 (09:05→21:00)
[2024-06-28] MEDS: dilTIAZem HCL CD 120 MG CAP.24HR PO (09:05)
[2024-06-28] MEDS: ASPIRIN 81 MG CHEWABLE TABLET PO (09:05)
[2024-06-28] MEDS: DOXYCYCLINE HYCLATE 100 MG TABLET PO (09:05)
[2024-06-28] MEDS: MULTIVITAMINS THERAPEUTIC TAB (*BKC) 1 TABLET PO (09:06)
[2024-06-28] MEDS: FERROUS SULFATE 325 MG TABLET DR PO (09:06)
[2024-06-28] MEDS: guaiFENesin 600 MG/DEXTROMETHORPHAN 30 MG SR TAB 12 HR 1 TAB PO ×2 (09:06→21:00)
[2024-06-28] MEDS: FENOFIBRATE NANOCRYSTALLIZED 145 MG TABLET PO (09:07)
[2024-06-28] MEDS: prednisoLONE ACETATE 1% OPHTH 5 ML 1 DROP RIGHT EYE ×3 (09:11→16:21)
[2024-06-28] MEDS: DORZOLAMIDE/TIMOLOL OPHTH SOL 10 ML BOTTLE 1 DROP RIGHT EYE ×2 (09:11→18:23)
[2024-06-28] MEDS: METOPROLOL SUCCINATE EXT REL 50 MG TABCR PO (09:12)
[2024-06-28 11:43] LABS: NT Pro B Type Natriuretic Pept 3510 pg/mL (19.9-100)
[2024-06-28] MEDS: LACTATED RINGERS 1,000 ML 70 ML IV CONT (16:16)
[2024-06-28] MEDS: ATORVASTATIN 10 MG TABLET PO (21:00)
[2024-06-29] VITALS (11 sets, daily range): BP systolic 140–141; BP diastolic 40–59; PULSE 63–92; RESP 12–18; TEMP 36.2–36.7; O2SAT 92–98
--- NOTE | 2024-06-29 01:53 | PCRCNOTE ---
Patient did not want to be woken for his 0200 breathing treatment if he was asleep. RT arrived at the patient room to find him sleeping, therefore the treatment was not given. Patient had clear breath sounds. See next scheduled treatment.
[2024-06-29 07:40] LABS: Anion Gap 8 mmol/L (4-12); Blood Urea Nitrogen 27 mg/dL (9-20); Calcium 9.2 mg/dL (8.4-10.2); Carbon Dioxide 23 mmol/L (22-30); Chloride 107 mmol/L (98-107); Estimated CRCL calculation 48 ml/min; Estimated Glomerular Filt Rate > 60; Glucose 96 mg/dL (65-110); Potassium 3.8 mmol/L (3.4-5.0); Sodium 138 mmol/L (137-145)
[2024-06-29 07:50] LABS: Basophils Percent Auto 0.6 % (0.2-1.2); Eosinophils Absolute Auto 0.3 K/mm3 (0-0.3); Hematocrit 37.3 % (42.0-52.0); Hemoglobin 12.2 g/dL (14.0-18.0); Immature Granulocyte Absolute 0.08 K/mm3 (0.00-0.031); Immature Granulocyte Percent A 1.2 % (0-0.5); Lymphocytes Absolute Auto 1.42 K/mm3 (0.9-3.2); Lymphocytes Percent Auto 21.3 % (18.3-44.2); Mean Corpuscular HGB Conc 32.7 g/dl (32-36); Mean Corpuscular Hemoglobin 29.6 pg (26-34); Mean Corpuscular Volume 90.5 fl (80-100); Mean Platelet Volume 10.5 fl (7.4-10.4); Monocytes Absolute Auto 0.5 K/mm3 (0.1-0.6); Neutrophils Absolute Auto 4.4 K/mm3 (1.3-6.7); Neutrophils Percent Auto 65.9 % (45.5-73.1); Platelet Count Result 203 k/mm3 (150-375); Red Blood Count 4.12 M/mm3 (4.6-6.20); White Blood Count 6.7 K/mm3 (4.5-10.0)
[2024-06-29] MEDS: IPRATROPIUM 0.5 MG/ALBUTEROL SULFATE 2.5 MG AMPUL.NEB 3 ML INHALATION ×2 (07:50→14:38)
--- NOTE | 2024-06-29 08:07 | PM.DS ---
DS: Admitting Diagnosis Discharge Date 06/29/2024 Admitting Diagnosis Acute Kidney Injury Pneumonia DS: Discharge Diagnosis Discharge Diagnosis (1) Shortness of breath: Code(s): R06.02 - Shortness of breath Status: Acute (2) Pneumonia: Qualifiers: Laterality: left Lung location: lower lobe of lung Pneumonia type: due to unspecified organism Qualified Code(s): J18.9 - Pneumonia, unspecified organism Code(s): J18.9 - Pneumonia, unspecified organism Status: Acute (3) Acute kidney injury: Code(s): N17.9 - Acute kidney failure, unspecified Status: Acute (4) Atrial fibrillation: Qualifiers: Atrial fibrillation type: unspecified Qualified Code(s): I48.91 - Unspecified atrial fibrillation Code(s): I48.91 - Unspecified atrial fibrillation Status: Chronic (5) CKD (chronic kidney disease) stage 3, GFR 30-59 ml/min: Qualifiers: Chronic kidney disease stage 3 subtype: stage 3a (GFR 45-59) Qualified Code(s): N18.31 - Chronic kidney disease, stage 3a Code(s): N18.3 - Chronic kidney disease, stage 3 (moderate) Status: Chronic (6) Essential (primary) hypertension: Code(s): I10 - Essential (primary) hypertension Status: Chronic DS: Summary Hospital Course Reason for hospitalization: Shortness of Breath Hospital Course: 83 y/o M presents here with history of CKD, HTN, dyslipidemia, prostate cancer s/p radiation therapy, anxiety, chronic low back pain with left-sided sciatica, and debility secondary to chronic back pain. The patient presented via EMS from home. He reports he developed shortness of breath and cough around 06/21. He initially sought evaluation at [facility] on 06/24/2024. CXR done at that time which showed an increased opacification in the left lung base compared to previous CXR on 05/07/2024. He was discharged home on doxycycline 100 mg x7 days. He reports he has taken 4 doses of this prescription. The patient then sought care at [facility] on 06/25/2024 when the shortness of breath continued and began interfering with his sleep. The patient elected to forego workup after arrival and was discharged home. He is now returning today, 06/27, for re-evaluation of shortness of breath and weakness. He denies current fever, chills, orthopnea, leg swelling, weight gain, nausea, vomiting, diarrhea, chest pain, abdominal pain. He reports the shortness of breath was alleviated with nebulizer treatments. He is currently awaiting a nebulizer at home, per daughter this arrived today. He denies history of COPD, asthma, tobacco use. Of note, the patient was admitted from 05/08/24-05/10/24 for pneumonia, influenza, and new atrial fibrillation. He was discharged home on diltiazem, ferrous sulfate, and Tamiflu. Denies any further complaints. Initial VS at presentation: 97.7? F, HR 84, R 18, 155/47, and 98% on RA. ED workup showed: WBC 11.5, hemoglobin 12.7, creatinine 1.09 and GFR >60, BNP 5170, and viral PCR negative. CXR showed small pleural effusions. EKG showed sinus rhythm with first-degree AV block, borderline axis deviation, moderate voltage criteria for LVH, nonspecific T-wave abnormality (no significant changes compared to prior). Limited echo ordered and showed There is normal biventricular size and systolic function. There is a prosthesis in the aortic position with no evidence of stenosis; however there is moderate aortic regurgitation that is most likelyintra valvular in nature. The visualized portion of the proximal ascending aorta measures 4.2 cm in diameter. 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 Head CT was ordered due to dilated pupil found on exam in A.M. of 06/29, found no intracranial process. Pt follows with an opthamologist closely outpatient regarding blurry vision in his right eye when he sleeps on his right side. They are following this problem closely and I have instructed the patient to schedule an appointment with them again regarding this issue. BECKA resolved with creatinine 1.09, GFR >60, BUN 29. No leukocytosis, afebrile. Repeat Chest XR on 06/27 showed small pleural effusions. On exam, patient had no significant chest/respiratory/abdominal findings and did not complain of any SOB, CP, n/v, or abdominal pain. No electrolyte abnormalities. Pt otherwise stable and requests to be discharged. PT/OT evals recommend rehab outpatient but pt requests discharge home. Will plan for DC home with close followup with his PCP. Time Spent with Patient Time attestation: Total time spent providing and/or coordinating discharge services:45 Exam Const: General: comfortable and no acute distress Other: , male, nontoxic appearance HENMT: Face/Nose/Sinus: Normal nares present Mouth: Yes moist mucous membranes Eyes: General: appearance normal, both eyes and all related structures Sclera: sclerae normal Pupils: Equal, round and reactive pupils present EOM: EOMs intact bilaterally Resp: Effort & Inspection: normal respiratory effort Auscultation: clear to auscultation bilaterally Cardio: Rate: regular rate Rhythm: regular rhythm Other: S1-S2 present without murmur, rub. Occasional ectopy. GI: Other: Abdomen soft, nondistended, nontender. Normoactive bowel sounds in all quadrants. Skin: General skin exam: normal color and no rashes or lesions noted Wounds: no wounds Neuro: Cranial nerves: Yes Equal, round and reactive pupils present Speech: normal speech Motor exam (neuro): 5/5 motor strength present throughout Sensory Exam: normal sensation Other: A&O x4 Extrem: General: normal to inspection Psych: Mental Status: mental status grossly normal Affect: normal affect Other: Fair insight and judgment, pleasant DS: Data Data Completed and Pending Labs on day of discharge: Labs from last 24 hours 06/29/24 06/28/24 07:21 06:12 WBC 6.7 RBC 4.12 L Hgb 12.2 L Hct 37.3 L MCV 90.5 MCH 29.6 MCHC 32.7 RDW 14.0 Plt Count 203 MPV 10.5 H Immature Gran % (Auto) 1.2 H Neut % (Auto) 65.9 Lymph % (Auto) 21.3 [place] % (Auto) 7.0 Eos % (Auto) 4.0 Baso % (Auto) 0.6 Lymph # (Auto) 1.42 [place] # (Auto) 0.5 Eos # (Auto) 0.3 Baso # (Auto) 0.0 Abs Immat Gran (auto) 0.08 H Absolute Neuts (auto) 4.4 Absolute Nucleated RBC 0.000 Nucleated RBC % 0.0 Sodium 138 Potassium 3.8 Chloride 107 Carbon Dioxide 23 Anion Gap 8 BUN 27 H Creatinine 1.09 Estim Creat Clear Calc 48 Estimated GFR > 60 Glucose 96 Calcium 9.2 NT-Pro-B Natriuret Pep 3510 H Discharge Plan Discharge Attending physician on discharge: Josemanuel Staton Discharging Clinician: Josemanuel Staton Anticipated Discharge Date/Time: 06/29/24 14:33 Patient Disposition: Home Health Service Activity: as tolerated Diet: as tolerated Discharge Instructions: Per Care Coordination [facility] will continue to follow you. They will call you regarding start of next visit. RN please fax discharge orders to [phone]. Take medications as prescribed. You will be given a prescription for Eliquis 5mg. 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 Thank you for [facility] for your healthcare needs Patient Instructions: Apixaban (By mouth) Patient Language: Hebrew Stand Alone Forms: General Discharge Information Follow-up/Referrals: Josemanuel Staton, PACarlosC [Physician Senior Clinical Research Scientist] - Adonis Cabral MD [Primary Care Provider] - Discharge Medications: New apixaban 5 mg tablet 5 mg PO BID Qty: 30 0RF Continued dorzolamide-timolol 22.3-6.8 mg/mL drops 1 drp RIGHT EYE BID brimonidine 0.15 % drops 1 drp RIGHT EYE TID PRN (Reason: glaucoma) imipramine HCl 25 mg tablet 25 mg PO .three times per week Rx Instructions: Take 1 Tablet (25 mg) by mouth mag-sso-agecut diltiazem HCl 120 mg Capsule,Extended Release 24hr 120 mg PO QAM Qty: 60 0RF ferrous sulfate 325 mg (65 mg iron) Tablet,Delayed Release (Dr/Ec) 325 mg PO DAILY Qty: 30 0RF prednisolone acetate 1 % drops,suspension 1 drp RIGHT EYE TID Rx Instructions: Times 30 days. clobetasol 0.05 % solution 1 applic TOPICAL DAILY PRN (Reason: scalp irriatation) doxycycline hyclate 100 mg tablet 100 mg PO DAILY Rx Instructions: Times 7 days, started 06/24/24 multivitamin [Multiple Vitamins] Tablet 1 tablet PO DAILY Rx Instructions: take 1 tablet by oral route every day aspirin 81 mg tablet,chewable 81 mg PO DAILY Rx Instructions: chew 1 tablet by oral route every day cholecalciferol (vitamin D3) 50 mcg (2,000 unit) capsule 50 mcg PO DAILY Qty: 90 0RF fenofibrate nanocrystallized 145 mg tablet See Rx Instructions .ROUTE .COMPLEX Qty: 90 2RF Dose Instruction: TAKE ONE TABLET BY MOUTH ONCE DAILY Rx Instructions: TAKE ONE TABLET BY MOUTH ONCE DAILY metoprolol succinate 50 mg tablet extended release 24 hr See Rx Instructions .ROUTE .COMPLEX Qty: 90 2RF Dose Instruction: Take 1 Tablet (50 mg) by mouth daily. Rx Instructions: Take 1 Tablet (50 mg) by mouth daily. albuterol sulfate 2.5 mg /3 mL (0.083 %) solution for nebulization 2.5 mg inhalation Q4-6H PRN (Reason: shortness of breath or wheezing) Qty: 180 0RF (DME) nebulizer and compressor Device See Rx Instructions .Route Qty: 1 0RF Rx Instructions: To use by inhalation route every 4 to 6 hours as needed atorvastatin 10 mg tablet See Rx Instructions .ROUTE .COMPLEX Qty: 90 2RF Dose Instruction: Take 1 Tablet (10 mg) by mouth daily at bedtime. Rx Instructions: Take 1 Tablet (10 mg) by mouth daily at bedtime. Date of admission: 06/28/24 10:05 Primary Care Provider: Adonis Cabral Admitting Provider: Benjie Chirinos Attending physician on admission: Josemanuel Staton Condition: Stable Quality VTE Prophylaxis VTE prophylaxis: pharmacologic ordered
[2024-06-29] MEDS: LACTATED RINGERS 1,000 ML 70 ML IV CONT (08:17)
[2024-06-29] MEDS: FENOFIBRATE NANOCRYSTALLIZED 145 MG TABLET PO (08:19)
[2024-06-29] MEDS: FERROUS SULFATE 325 MG TABLET DR PO (08:19)
[2024-06-29] MEDS: DOXYCYCLINE HYCLATE 100 MG TABLET PO (08:19)
[2024-06-29] MEDS: APIXABAN 5 MG TABLET PO (08:19)
[2024-06-29] MEDS: IMIPRAMINE HCL 25 MG TABLET PO (08:19)
[2024-06-29] MEDS: MULTIVITAMINS THERAPEUTIC TAB (*BKC) 1 TABLET PO (08:19)
[2024-06-29] MEDS: dilTIAZem HCL CD 120 MG CAP.24HR PO (08:19)
[2024-06-29] MEDS: METOPROLOL SUCCINATE EXT REL 50 MG TABCR PO (08:19)
[2024-06-29] MEDS: CHOLECALCIFEROL 1,000 UNITS TABLET 2000 UNITS PO (08:20)
[2024-06-29] MEDS: ASPIRIN 81 MG CHEWABLE TABLET PO (08:20)
[2024-06-29] MEDS: guaiFENesin 600 MG/DEXTROMETHORPHAN 30 MG SR TAB 12 HR 1 TAB PO (08:20)
[2024-06-29] MEDS: DORZOLAMIDE/TIMOLOL OPHTH SOL 10 ML BOTTLE 1 DROP RIGHT EYE (08:22)
[2024-06-29] MEDS: BRIMONIDINE TARTRATE 0.15% 5 ML OPHTH SOLN 1 DROP RIGHT EYE ×2 (08:23→12:19)
[2024-06-29] MEDS: prednisoLONE ACETATE 1% OPHTH 5 ML 1 DROP RIGHT EYE ×2 (08:24→12:19)
== END 2024-06-29 16:05 | disposition home health service (06) | DRG 194 ==
LOC: ANHED 10:01 → ANH2MED 10:09
PROVIDERS: Student in an Organized Health Care Education/Training Program; Admitting Provider General Practice; Emergency Provider Student in an Organized Health Care Education/Training Program; PCP Emergency Medicine; Visit Provider Physician Assistant
DX: J18.9 Pneumonia, unspecified organism (principal); N17.9 Acute kidney failure, unspecified; I48.91 Unspecified atrial fibrillation; I12.9 Hypertensive chronic kidney disease with stage 1 through stage 4 chronic kidney disease, or unspecified chronic kidney disease; N18.31 Chronic kidney disease, stage 3a; E78.5 Hyperlipidemia, unspecified; F41.9 Anxiety disorder, unspecified; G89.29 Other chronic pain; M54.42 Lumbago with sciatica, left side; Z79.82 Long term (current) use of aspirin; Z85.46 Personal history of malignant neoplasm of prostate; Z92.3 Personal history of irradiation; Z79.01 Long term (current) use of anticoagulants; Z28.21 Immunization not carried out because of patient refusal; Z20.822 Contact with and (suspected) exposure to COVID-19; Z98.41 Cataract extraction status, right eye; Z98.42 Cataract extraction status, left eye; Z96.1 Presence of intraocular lens; Z95.2 Presence of prosthetic heart valve; Z66 Do not resuscitate
CPT/HCPCS: 36415; 70450; 71046; 80048; 80053; 83880; 85025; 87637; 93005; 93308; 94640; 96374; 96375; 99285; A9270; G0378; J1940; J7120

== ENCOUNTER 2024-07-06 01:50 | Inpatient (IN) | payer MEDICARE, SELFPAY ==
[2024-07-06] VITALS (20 sets, daily range): BP systolic 133–192; BP diastolic 42–87; PULSE 60–83; RESP 17–961; TEMP 35.9–36.4; O2SAT 93–100; BMI 23.5
--- NOTE | ~2024-07-06 | XR_ITS ---
EXAMINATION: [id number] DATE: 07/06/2024 14:37 INDICATION: Status post right thoracentesis TECHNIQUE: frontal view of the chest was obtained. COMPARISON: Chest radiograph dated 07/06/2024 at 2:36 AM FINDINGS: Right lung is now clear with resolution of prior right pleural effusion. No pneumothorax. Mild airspa ce opacities at the left lung base with blunting at costophrenic angle consistent with small left ple ural effusion and mild atelectasis. Heart size is normal. Median sternotomy wires, ostial markers and mediastinal surgical clips consistent with prior coronary artery bypass grafting. IMPRESSION: 1. Resolution of prior right pleural effusion with no pneumothorax post right thoracentesis. 2. Persistent small left pleural effusion with associated mild left basilar atelectasis. Reviewed, dictated and finalized at location A. IMPRESSION: 1. Resolution of prior right pleural effusion with no pneumothorax post right t horacentesis. 2. Persistent small left pleural effusion with associated mild left basilar ate lectasis.
--- NOTE | ~2024-07-06 | XR_ITS ---
Portable chest x-ray Comparison: 06/27/2024 Clinical History: Shortness of breath Findings: Questionable left basilar airspace disease. Right lung clear. Cardiomediastinal silhouett e is stable. Bones and soft tissues are unremarkable. Impression: Questionable left basilar airspace disease. Consider follow-up exam. Reviewed, dictated and finalized at [facility]. Impression: Questionable left basilar airspace disease. Consider follow-up exam.
--- NOTE | ~2024-07-06 | CT_ITS ---
CT Scan of the Chest without Contrast: Clinical Indication: Dyspnea Technique: Contiguous sections were acquired throughout the chest without intravenous contrast. Dose reduction technique was used on this scan by utilizing automated exposure control and iterative recon struction technique. The dose-length product (DLP) was 238.42 mGy-cm. Findings: There is no evidence of any significant mediastinal, hilar or axillary lymphadenopathy. The mediastin al soft tissues appear normal. No pericardial effusion. Small to moderate right pleural effusion and small left pleural effusion are present. Calcified right upper lobe granuloma present. There is probable minimal interstitial edema. Images through the upper abdomen reveal hepatic and left renal cysts. Impression: Bilateral pleural effusions, as detailed above. Probable minimal interstitial edema. Reviewed, dictated and finalized at location . Impression: Bilateral pleural effusions, as detailed above. Probable minimal interstitial edema.
--- NOTE | ~2024-07-06 | US_ITS ---
EXAMINATION: US thoracentesis DATE: 07/06/2024 14:44 INDICATION: Right pleural effusion TECHNIQUE: The procedure and its risks and benefits were discussed with the patient. Potential risks discussed included bleeding, infection, and pneumothorax. The patient understood the risks and agreed to proceed. The skin was prepped and draped in sterile fashion. 1% lidocaine was used for local anes thesia. Under ultrasound guidance, a 5 Fr catheter with trochar was advanced into the right pleural e ffusion. Fluid was aspirated. The catheter was removed, and a dressing was applied. There were no imm ediate complications. FINDINGS: Ultrasound images demonstrate a small right pleural effusion and the catheter within the fluid. IMPRESSION: 1. Successful ultrasound-guided thoracentesis yielding 350 mL of yellow fluid. Reviewed, dictated and finalized at location A.
--- NOTE | 2024-07-06 01:53 | ECG_ITS ---
Test Date: 2024-07-06 01:57:55 Measurements Intervals [place] Rate: 72 P: 63 NV: 263 QRS: -25 QRSD: 105 T: 20 QT: 402 QTc: 442 Interpretive Statements SINUS RHYTHM WITH FIRST DEGREE AV BLOCK VOLTAGE CRITERIA FOR LVH BASELINE ARTIFACT- I, II, AVR, V3-V6 BORDERLINE ECG Compared to ECG 06/27/2024 06:50:46 NO SIGNIFICANT CHANGE Electronically Signed On 07-06-2024 06:20:26 CDT by Giovanni Smith D.O.
[2024-07-06 02:01] LABS: Basophils Absolute Auto 0.1 K/mm3 (0.0-0.1); Basophils Percent Auto 0.7 % (0.2-1.2); Eosinophils Absolute Auto 0.2 K/mm3 (0-0.3); Eosinophils Percent Auto 2.3 % (0-4.4); Hematocrit 38.3 % (42.0-52.0); Hemoglobin 12.2 g/dL (14.0-18.0); Immature Granulocyte Absolute 0.07 K/mm3 (0.00-0.031); Immature Granulocyte Percent A 0.9 % (0-0.5); Lymphocytes Absolute Auto 1.25 K/mm3 (0.9-3.2); Lymphocytes Percent Auto 16.8 % (18.3-44.2); Mean Corpuscular HGB Conc 31.9 g/dl (32-36); Mean Corpuscular Hemoglobin 29.3 pg (26-34); Mean Corpuscular Volume 91.8 fl (80-100); Mean Platelet Volume 10.8 fl (7.4-10.4); Monocytes Absolute Auto 0.5 K/mm3 (0.1-0.6); Monocytes Percent Auto 6.7 % (2.6-8.5); Neutrophils Absolute Auto 5.4 K/mm3 (1.3-6.7); Neutrophils Percent Auto 72.6 % (45.5-73.1); Platelet Count Result 195 k/mm3 (150-375); Red Blood Count 4.17 M/mm3 (4.6-6.20); Red Cell Distribution Width 14.1 % (11.5-14.5); White Blood Count 7.5 K/mm3 (4.5-10.0)
[2024-07-06] MEDS: MAGNESIUM SULF 2 GM/WATER 50ML 2 GM/50 ML BAG IVPB (02:10)
--- NOTE | 2024-07-06 02:14 | ED_ITS ---
HPI - SOB/Dyspnea General Chief Complaint: Shortness of Breath/Dyspnea <Leslie Kuo APRN - Last Filed: 07/06/24 03:06> Stated Complaint: sob/recent dx pna <Leslie Kuo APRN - Last Filed: 07/06/24 03:06> Time Seen by Provider: 07/06/24 02:14 <Leslie Kuo APRN - Last Filed: 07/06/24 03:06> History of Present Illness HPI Narrative: Patient is an 83-year-old male presents to the ER with complaints of shortness of breath that has become increasingly worse over the past 2 weeks. He reports he did not have any shortness of breath prior to coming down with the flu in May 2024. Patient reports he was admitted to the hospital on June 26, 2024, due to his kidneys not working and had to stay until June 29, 2024. His daughter reports they did an ECHO and found fluid around his heart and around his lungs so they gave him a diuretic. Patient's daughter reports he has had a nebulizer since last week and has done treatment every 6 hours without much relief. He reports the last nebulizer treatment he did was approximately 3 hours ago. Patient denies any recent fevers, chest pain, back pain, abdominal pain. He endorses history of COPD, recent pneumonia, kidney problems, hyperlipidemia and high blood pressure. <Leslie Kuo APRN - Last Filed: 07/06/24 03:06> Related Data Home Medications: Home Medications ?Medication ?Instructions ?Recorded ?Confirmed ?Last Taken ?Type aspirin 81 mg chewable tablet 81 mg PO DAILY 04/09/19 06/27/24 05/06/24 History multivitamin (Multiple Vitamins 1 tablet PO DAILY 04/09/19 06/27/24 Unknown History tablet) brimonidine 0.15 % eye drops 1 drp RIGHT EYE TID PRN glaucoma 05/07/24 06/27/24 Unknown History dorzolamide 22.3 mg-timolol 6.8 1 drp RIGHT EYE BID 05/07/24 06/27/24 Unknown History mg/mL eye drops imipramine HCl 25 mg tablet 25 mg PO .three times per week 05/07/24 06/27/24 Unknown History clobetasol 0.05 % scalp solution 1 applic topical DAILY PRN scalp 06/27/24 06/27/24 Unknown History irriatation doxycycline hyclate 100 mg tablet 100 mg PO DAILY 06/27/24 06/27/24 Unknown History prednisolone acetate 1 % eye 1 drp RIGHT EYE TID 06/27/24 06/27/24 Unknown History drops,suspension <Leslie Kuo APRN - Last Filed: 07/06/24 03:06> Allergies/Adverse Reactions: Allergies Allergy/AdvReac Type Severity Reaction Status Date / Time adhesive tape AdvReac Mild Itching Verified 07/06/24 02:00 <Leslie Kuo APRN - Last Filed: 07/06/24 03:06> Review of Systems 2 Review of Systems: All systems reviewed & are unremarkable except as noted in HPI and below <Leslie Kuo APRN - Last Filed: 07/06/24 03:06> [facility] Past Medical History Medical History: Medical History Grade I diastolic dysfunction 05/08/24 Echo: EF 60-65%, severe LVH, grade I diastolic dysfunction, mild LAE, mod VINNY, prosthetic AVR, mild AI. Atrial fibrillation Glaucoma Influenza A Slow transit constipation CKD (chronic kidney disease) stage 3, GFR 30-59 ml/min Although the patient denies this and prior labs demonstrated normal GFR and creatinine. Gynecomastia, male URI with cough and congestion Essential (primary) hypertension Anxiety Dyslipidemia History of prostate cancer (~05/30/18) Treated with radiation therapy Chronic bilateral low back pain with left-sided sciatica (~11/09/16) <Leslie Kuo APRN - Last Filed: 07/06/24 03:06> Surgical History Surgical History: Surgical History History of cornea transplant History of tonsillectomy and adenoidectomy Status post cataract extraction of both eyes with insertion of intraocular lens History of lumbar laminectomy Hx of aortic valve replacement with porcine valve (~2009) Status post ascending aortic aneurysm repair (~2009) Performed at [facility] by Dr. Thomas <Leslie Kuo APRN - Last Filed: 07/06/24 03:06> Family History Family History: Family History Father Family history of pancreatic cancer, Onset Age: 51 Mother Family history of coronary artery disease, Onset Age: 43 <Leslei Kuo APRN - Last Filed: 07/06/24 03:06> Social History Social History: Social History Social History: , 2nd 2018. His 2nd in September of 2023. 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 He is written over 50 looks on local history. He is a lifelong nonsmoker and does not drink alcohol. Code status: DNR/DNI per patient request Surrogate decision maker: Mukul (son) Smoking status: Never smoker Second hand tobacco smoke exposure: No Alcohol intake: never Substance use: never Substance use type: does not use Do You Feel Safe in your Home?: Yes Lack of Transportation: No Lack of Food: Never True Current Housing: I Have Housing Concerned About Future Housing: No Difficulty Paying Gas/Electric Bills: No Difficulty Paying for Meds: No Currently Unemployed: No Education: Master's Degree or Higher Difficulty w/ Childcare or Family Care: No Gender identity (if verbalized by the patient): Male Spiritual care concerns: No <Leslie Kuo APRN - Last Filed: 07/06/24 03:06> Exam 2 Narrative: GENERAL: Well appearing, well-nourished, non-toxic, in no acute distress. HEAD: Normocephalic, atraumatic. NECK: Supple. No adenopathy, no masses. RESPIRATORY: Airway patent, respirations mildly labored. crackles to ROSHAN and LL lobes, R side lungs clear to auscultation, no notable wheezing at time of examination. CARDIOVASCULAR: Regular rate and rhythm without murmurs, rubs, or gallops. Peripheral pulses 2+ and equal bilaterally. No lower extremity edema noted. ABDOMINAL: Soft, nontender, nondistended, no hepatosplenomegaly. Normoactive BS. MUSCULOSKELETAL: Moves all extremities. Strength/ROM intact without gross deformities. SKIN: Warm, dry, normal color. No rashes. NEURO: A&O X3. Speech clear. Cranial nerves II-XII intact. No ataxic movements. PSYCHIATRIC: Appropriate mood and affect. Normal interaction. <Leslie Kuo APRN - Last Filed: 07/06/24 03:06> Course Vital Signs Vital signs: Vital Signs Temperature 36.4 C 07/06/24 01:46 Pulse Rate 83 07/06/24 01:46 Respiratory Rate 24 H 07/06/24 01:46 Blood Pressure 192/64 H 07/06/24 01:46 Pulse Oximetry 100 07/06/24 01:46 Oxygen Delivery Room Air 07/06/24 01:46 Temperature 36.4 C 07/06/24 01:46 Pulse Rate 78 07/06/24 05:38 Respiratory Rate 17 07/06/24 05:38 Blood Pressure 173/87 H 07/06/24 05:38 Pulse Oximetry 95 07/06/24 05:38 Oxygen Delivery Room Air 07/06/24 04:00 Oxygen Flow Rate 15 07/06/24 01:57 <Leslie Kuo APRN - Last Filed: 07/06/24 03:06> Vital Signs Temperature 36.4 C 07/06/24 01:46 Pulse Rate 83 07/06/24 01:46 Respiratory Rate 24 H 07/06/24 01:46 Blood Pressure 192/64 H 07/06/24 01:46 Pulse Oximetry 100 07/06/24 01:46 Oxygen Delivery Room Air 07/06/24 01:46 Temperature 36.4 C 07/06/24 01:46 Pulse Rate 78 07/06/24 05:38 Respiratory Rate 17 07/06/24 05:38 Blood Pressure 173/87 H 07/06/24 05:38 Pulse Oximetry 95 07/06/24 05:38 Oxygen Delivery Room Air 07/06/24 04:00 Oxygen Flow Rate 15 07/06/24 01:57 <Teddy Murcia MD - Last Filed: 07/06/24 06:16> MDM - SOB/Dyspnea MDM Narrative Medical decision making narrative: Patient is an 83-year-old male presents to the ER with complaints of shortness of breath that has become increasingly worse over the past 2 weeks. He reports he did not have any shortness of breath prior to coming down with the flu in May 2024. Patient reports he was admitted to the hospital on June 26, 2024, due to his kidneys not working and had to stay until June 29, 2024. His daughter reports they did an ECHO and found fluid around his heart and around his lungs so they gave him a diuretic. Patient's daughter reports he has had a nebulizer since last week and has done treatment every 6 hours without much relief. He reports the last nebulizer treatment he did was approximately 3 hours ago. Patient denies any recent fevers, chest pain, back pain, abdominal pain. He endorses history of COPD, recent pneumonia, kidney problems, hyperlipidemia and high blood pressure. Labs Ordered: CBC, CMP, proBNP, VBG, troponin COVID/flu/RSV swab Imaging Ordered: CT diagnostic chest w/o con Medications Ordered: Magnesium 2 g IV, DuoNeb, Lasix 40mg IV 0300- Care signed over to Dr. Murcia. <Leslie Kuo, TOOL POLISHING MACHINE OPERATOR - Last Filed: 07/06/24 03:06> Patient is an 83-year-old male presents to the ER with complaints of shortness of breath that has become increasingly worse over the past 2 weeks. He reports he did not have any shortness of breath prior to coming down with the flu in May 2024. Patient reports he was admitted to the hospital on June 26, 2024, due to his kidneys not working and had to stay until June 29, 2024. His daughter reports they did an ECHO and found fluid around his heart and around his lungs so they gave him a diuretic. Patient's daughter reports he has had a nebulizer since last week and has done treatment every 6 hours without much relief. He reports the last nebulizer treatment he did was approximately 3 hours ago. Patient denies any recent fevers, chest pain, back pain, abdominal pain. He endorses history of COPD, recent pneumonia, kidney problems, hyperlipidemia and high blood pressure. Labs Ordered: CBC, CMP, proBNP, VBG, troponin COVID/flu/RSV swab Imaging Ordered: CT diagnostic chest w/o con Medications Ordered: Magnesium 2 g IV, DuoNeb, Lasix 40mg IV 0300- Care signed over to Dr. Murcia. 0300: Resumed over patient care. I went and evaluated the patient with no acute complaints at this time. Told me he was having difficulty in breathing that he feels like his nebulizers were initially helping him at home but not improving. He does have some crackles to auscultation right worse than left. His workup so far shows a CT chest which I independently reviewed. There is bilateral pleural effusions with right greater than left and approximately 4 cm in diameter on the right side. Left effusion somewhat lobulated. Interseptal thickening and peribronchial cuffing consistent with interstitial edema. No consolidations or pneumothorax. No pneumonia. Patient's cardiac enzymes are flat he has had previous elevated troponins in the past. EKG without any signs of ischemia. Patient is resting comfortably on room air. Blood pressure acceptable. At this time to further delineate why he is having fluid on his lungs I believe he would benefit from a thoracentesis diagnostic with Radiology. Patient has had an echocardiogram recently that showed grade 1 diastolic dysfunction and some aortic regurgitation but normal ejection fraction. Not sure if this would cause his pleural effusions at this time but they are recurring and would benefit from further evaluation with thoracentesis. Discussed the case with the hospitalist Dr. Liu who accepted him to a telemetry monitored bed and ordered the diagnostic thoracentesis. Patient and family were updated at bedside and agreeable to the plan and admission. < Teddy Murcia MD - Last Filed: 07/06/24 06:16> Differential Diagnosis Differential diagnosis: Likely acute exacerbation of chronic obstructive airways disease, congestive heart failure and community acquired pneumonia <Leslie Kuo APRN - Last Filed: 07/06/24 03:06> Likely acute exacerbation of chronic obstructive airways disease, congestive heart failure, community acquired pneumonia, asthma with exacerbation, pulmonary embolism and other <Teddy Murcia MD - Last Filed: 07/06/24 06:16> Medical Records Attestation: I reviewed the patient's medical records. <Teddy Murcia MD - Last Filed: 07/06/24 06:16> Lab Data Attestation: I reviewed the patient's lab results. <Leslie Kuo APRN - Last Filed: 07/06/24 03:06> I reviewed the patient's lab results. <Teddy Murcia MD - Last Filed: 07/06/24 06:16> Result diagrams: 07/06/24 01:56 07/06/24 01:56 <Leslie Kuo APRN - Last Filed: 07/06/24 03:06> Labs: Lab Results 07/06/24 07/06/24 Range/Units 01:56 04:43 WBC 7.5 (4.5-10.0) K/mm3 RBC 4.17 L (4.6-6.20) M/mm3 Hgb 12.2 L (14.0-18.0) g/dL Hct 38.3 L (42.0-52.0) % MCV 91.8 (80-100) fl MCH 29.3 (26-34) pg MCHC 31.9 L (32-36) g/dl RDW 14.1 (11.5-14.5) % Plt Count 195 (150-375) k/mm3 MPV 10.8 H (7.4-10.4) fl Immature Gran % (Auto) 0.9 H (0-0.5) % Neut % (Auto) 72.6 (45.5-73.1) % Lymph % (Auto) 16.8 L (18.3-44.2) % Izard % (Auto) 6.7 (2.6-8.5) % Eos % (Auto) 2.3 (0-4.4) % Baso % (Auto) 0.7 (0.2-1.2) % Lymph # (Auto) 1.25 (0.9-3.2) K/mm3 Izard # (Auto) 0.5 (0.1-0.6) K/mm3 Eos # (Auto) 0.2 (0-0.3) K/mm3 Baso # (Auto) 0.1 (0.0-0.1) K/mm3 Abs Immat Gran (auto) 0.07 H (0.00-0.031) K/mm3 Absolute Neuts (auto) 5.4 (1.3-6.7) K/mm3 Absolute Nucleated RBC 0.000 (0.0-0.012) K/mm3 Nucleated RBC % 0.0 (0.0-0.2) % Sodium 137 (137-145) mmol/L Potassium 4.2 (3.4-5.0) mmol/L Chloride 106 (98-107) mmol/L Carbon Dioxide 22 (22-30) mmol/L Anion Gap 9 (4-12) mmol/L BUN 17 D (9-20) mg/dL Creatinine 0.96 (0.7-1.3) mg/dL Estim Creat Clear Calc 54 ml/min Estimated GFR > 60 (59 - ) Glucose 115 H (65-110) mg/dL Calcium 8.8 (8.4-10.2) mg/dL Total Bilirubin 0.5 (0.2-1.3) mg/dL AST 23 (17-59) U/L ALT 17 (6-50) U/L Alkaline Phosphatase 41 (38-126) U/L Troponin I 0.041 H* 0.044 H* (0.000-0.034) ng/mL NT-Pro-B Natriuret Pep 4560 H (19.9-100) pg/mL Total Protein 7.0 (6.3-8.2) g/dL Albumin 4.0 (3.5-5.1) g/dL Influenza A (RT-PCR) Negative (Negative) Influenza B (RT-PCR) Negative (Negative) RSV (RT-PCR) Negative (Negative) SARS-CoV-2 RNA (RT-PCR) Negative (Negative) <Leslie Kuo, TOOL POLISHING MACHINE OPERATOR - Last Filed: 07/06/24 03:06> Lab Results 07/06/24 07/06/24 Range/Units 01:56 04:43 WBC 7.5 (4.5-10.0) K/mm3 RBC 4.17 L (4.6-6.20) M/mm3 Hgb 12.2 L (14.0-18.0) g/dL Hct 38.3 L (42.0-52.0) % MCV 91.8 (80-100) fl MCH 29.3 (26-34) pg MCHC 31.9 L (32-36) g/dl RDW 14.1 (11.5-14.5) % Plt Count 195 (150-375) k/mm3 MPV 10.8 H (7.4-10.4) fl Immature Gran % (Auto) 0.9 H (0-0.5) % Neut % (Auto) 72.6 (45.5-73.1) % Lymph % (Auto) 16.8 L (18.3-44.2) % Izard % (Auto) 6.7 (2.6-8.5) % Eos % (Auto) 2.3 (0-4.4) % Baso % (Auto) 0.7 (0.2-1.2) % Lymph # (Auto) 1.25 (0.9-3.2) K/mm3 Izard # (Auto) 0.5 (0.1-0.6) K/mm3 Eos # (Auto) 0.2 (0-0.3) K/mm3 Baso # (Auto) 0.1 (0.0-0.1) K/mm3 Abs Immat Gran (auto) 0.07 H (0.00-0.031) K/mm3 Absolute Neuts (auto) 5.4 (1.3-6.7) K/mm3 Absolute Nucleated RBC 0.000 (0.0-0.012) K/mm3 Nucleated RBC % 0.0 (0.0-0.2) % Sodium 137 (137-145) mmol/L Potassium 4.2 (3.4-5.0) mmol/L Chloride 106 (98-107) mmol/L Carbon Dioxide 22 (22-30) mmol/L Anion Gap 9 (4-12) mmol/L BUN 17 D (9-20) mg/dL Creatinine 0.96 (0.7-1.3) mg/dL Estim Creat Clear Calc 54 ml/min Estimated GFR > 60 (59 - ) Glucose 115 H (65-110) mg/dL Calcium 8.8 (8.4-10.2) mg/dL Total Bilirubin 0.5 (0.2-1.3) mg/dL AST 23 (17-59) U/L ALT 17 (6-50) U/L Alkaline Phosphatase 41 (38-126) U/L Troponin I 0.041 H* 0.044 H* (0.000-0.034) ng/mL NT-Pro-B Natriuret Pep 4560 H (19.9-100) pg/mL Total Protein 7.0 (6.3-8.2) g/dL Albumin 4.0 (3.5-5.1) g/dL Influenza A (RT-PCR) Negative (Negative) Influenza B (RT-PCR) Negative (Negative) RSV (RT-PCR) Negative (Negative) SARS-CoV-2 RNA (RT-PCR) Negative (Negative) <Teddy Murcia MD - Last Filed: 07/06/24 06:16> ABG Data ABG results: 07/06/24 02:23 VBG pH 7.379 VBG pCO2 36.3 L VBG pO2 47.0 H VBG HCO3 20.9 L O2 Delivery Device Room air O2 Liters/Min Not Reportable FiO2 21 <Leslie Kuo APRN - Last Filed: 07/06/24 03:06> 07/06/24 02:23 VBG pH 7.379 VBG pCO2 36.3 L VBG pO2 47.0 H VBG HCO3 20.9 L O2 Delivery Device Room air O2 Liters/Min Not Reportable FiO2 21 <Teddy Murcia MD - Last Filed: 07/06/24 06:16> Imaging Data Attestation: I personally reviewed and interpreted this imaging study as follows: < Teddy Murcia MD - Last Filed: 07/06/24 06:16> My impression: Bilateral pleural effusions right worse than left with 4 cm in diameter on the right side. No consolidation or pneumonia. No pneumothorax. <Teddy Murcia MD - Last Filed: 07/06/24 06:16> ECG Data EKG #1: Attestation: I personally reviewed and interpreted this ECG as follows: < Teddy Murcia MD - Last Filed: 07/06/24 06:16> ECG completion date: 07/06/24 <Teddy Murcia MD - Last Filed: 07/06/24 06:16> ECG completion time: 04:44 <Teddy Murcia MD - Last Filed: 07/06/24 06:16> Prior ECG tracings: available for review <Teddy Murcia MD - Last Filed: 07/06/24 06:16> Interpretation: No ST segment elevations, depressions or inversions. Sinus rhythm with first-degree AV block. QTC 439 here QRS 114. PA interval 236. No significant interval change compared to prior. Final interpretation normal sinus rhythm with first-degree block. <Teddy Murcia MD - Last Filed: 07/06/24 06:16> Discharge Plan Discharge Clinical Impression: Bilateral pleural effusion, Acute dyspnea <Leslie Kuo APRN - Last Filed: 07/06/24 03:06> Patient Disposition: Still a Patient <Leslie Kuo APRN - Last Filed: 07/06/24 03:06> Condition: Stable <Leslie Kuo APRN - Last Filed: 07/06/24 03:06> Patient Language: Sudanese <Leslie Kuo APRN - Last Filed: 07/06/24 03:06> Prescriptions: No Action dorzolamide-timolol 22.3-6.8 mg/mL drops 1 drp RIGHT EYE BID brimonidine 0.15 % drops 1 drp RIGHT EYE TID PRN (Reason: glaucoma) imipramine HCl 25 mg tablet 25 mg PO .three times per week Rx Instructions: Take 1 Tablet (25 mg) by mouth [id number] diltiazem HCl 120 mg Capsule,Extended Release 24hr 120 mg PO QAM Qty: 60 0RF ferrous sulfate 325 mg (65 mg iron) Tablet,Delayed Release (Dr/Ec) 325 mg PO DAILY Qty: 30 0RF prednisolone acetate 1 % drops,suspension 1 drp RIGHT EYE TID Rx Instructions: Times 30 days. clobetasol 0.05 % solution 1 applic TOPICAL DAILY PRN (Reason: scalp irriatation) doxycycline hyclate 100 mg tablet 100 mg PO DAILY Rx Instructions: Times 7 days, started 06/24/24 apixaban 5 mg tablet 5 mg PO BID Qty: 30 0RF multivitamin [Multiple Vitamins] Tablet 1 tablet PO DAILY Rx Instructions: take 1 tablet by oral route every day aspirin 81 mg tablet,chewable 81 mg PO DAILY Rx Instructions: chew 1 tablet by oral route every day cholecalciferol (vitamin D3) 50 mcg (2,000 unit) capsule 50 mcg PO DAILY Qty: 90 0RF fenofibrate nanocrystallized 145 mg tablet See Rx Instructions .ROUTE .COMPLEX Qty: 90 2RF Dose Instruction: TAKE ONE TABLET BY MOUTH ONCE DAILY Rx Instructions: TAKE ONE TABLET BY MOUTH ONCE DAILY metoprolol succinate 50 mg tablet extended release 24 hr See Rx Instructions .ROUTE .COMPLEX Qty: 90 2RF Dose Instruction: Take 1 Tablet (50 mg) by mouth daily. Rx Instructions: Take 1 Tablet (50 mg) by mouth daily. albuterol sulfate 2.5 mg /3 mL (0.083 %) solution for nebulization 2.5 mg inhalation Q4-6H PRN (Reason: shortness of breath or wheezing) Qty: 180 0RF (DME) nebulizer and compressor Device See Rx Instructions .Route Qty: 1 0RF Rx Instructions: To use by inhalation route every 4 to 6 hours as needed atorvastatin 10 mg tablet See Rx Instructions .ROUTE .COMPLEX Qty: 90 2RF Dose Instruction: Take 1 Tablet (10 mg) by mouth daily at bedtime. Rx Instructions: Take 1 Tablet (10 mg) by mouth daily at bedtime. <Leslie Kuo APRN - Last Filed: 07/06/24 03:06> Follow-up/Referrals: Adonis Cabral MD [Primary Care Provider] - <Leslie Kuo APRN - Last Filed: 07/06/24 03:06> Time of Disposition: 06:16 <Leslie Kuo APRN - Last Filed: 07/06/24 03:06> 06:16 <Teddy Murcia MD - Last Filed: 07/06/24 06:16>
[2024-07-06 02:19] LABS: Alanine Aminotransferase 17 U/L (6-50); Alkaline Phosphatase 41 U/L (38-126); Anion Gap 9 mmol/L (4-12); Aspartate Amino Transferase 23 U/L (17-59); Bilirubin,Total 0.5 mg/dL (0.2-1.3); Blood Urea Nitrogen 17 mg/dL (9-20); Calcium 8.8 mg/dL (8.4-10.2); Carbon Dioxide 22 mmol/L (22-30); Chloride 106 mmol/L (98-107); Estimated CRCL calculation 54 ml/min; Estimated Glomerular Filt Rate > 60; Glucose 115 mg/dL (65-110); Potassium 4.2 mmol/L (3.4-5.0); Sodium 137 mmol/L (137-145)
[2024-07-06] MEDS: ALBUTEROL SULFATE NEB 2.5 MG/3 ML INH 10 MG INHALATION (02:24)
[2024-07-06] MEDS: IPRATROPIUM BR 0.02% INH SOLN 0.5 MG/2.5 ML VIAL 1 MG INHALATION (02:24)
--- OUTSIDE RECORDS SUMMARY | 2024-07-06 02:27 | XMS_ITS | Clinical Summary ---
Author Organization [facility] [employer] Address [address] [place] [address] Care Team Providers Care Branch Lead Name Role Phone Cuate Mclaughlin MD Primary Care Provider Source Comments [facility],non-owned Affiliates and Associated Physician Practices is amultiple site organization consisting of ambulatory clinics and hospital sitesin [place], [place], [place] and [place]. This disclosure is being madepursuant to the Care Everywhere program and may not contain all information available regarding this patient. Last updated 17.[facility] [employer] Social History Tobacco Use Types Packs/Day Years [...] VACCINE ( - 2023-2 5 season) 2023 DEPRESSION SCREENING 04/04/2024 MEDICARE AWV CALENDAR YEAR 2024 INFLUENZA VACCINE (Season Ended) 2024 HEPATITIS B VACCINE Aged Out No [...] age to complete this topic Care Teams Branch Lead Relationship Specialty Start Date End Date Cuate Mclaughlin MD [address] [place] [address] PCP - General 06/27/18
--- OUTSIDE RECORDS SUMMARY | 2024-07-06 02:27 | XMS_ITS | Clinical Summary ---
Author Organization [facility] Address [address] Bui: Epic Prelude ADT SALMA BLUNT [address] Care Team Providers Care Drain Cleaner Plumber Name Role Phone Unavailable Primary Care Provider Unavailabl e Allergies No known active allergies Medications brimonidine (ALPHAGAN P) 0.15 % solution INSTILL 1 DROP IN THE RIGHT EYE THREE TIMES A DAY NEEDED 10 mL 5 3 3:30 PM RELEASE AND TECHNICAL RECORDS CLERK 02/28/20 22 Active lactulose (KRISTALOSE) 10 gram [...] anxiety. 45 Tablet 1 4 7:34 PM RELEASE AND TECHNICAL RECORDS CLERK 02/03/20 23 Active brimonidine (ALPHAGAN P) 0.15 % solution Administer 1 Drop in right eye 3 times daily as needed. 10 mL 5 4 5:30 PM RELEASE AND TECHNICAL RECORDS CLERK 05/10/19 24 Active dorzolamide-timoloL (COSOPT) 22.3-6.8 mg/mL solution INSTILL ONE DROP IN THE RIGHT EYE TWO TIMES A DAY 10 mL 5 5 5:25 PM RELEASE AND TECHNICAL RECORDS CLERK 06/27/19 24 025 Active fenofibrate nanocrystallized (TRICOR) 145 mg tablet TAKE ONE TABLET BY MOUTH ONCE DAILY 90 Tablet 2 5 7:05 PM RELEASE AND TECHNICAL RECORDS CLERK 02/22/20 24 Active imipramine HCl (TOFRANIL) 25 mg tablet Take 1 Tablet (25 mg) by mouth daily. 90 Tablet 2 4 2:05 PM RELEASE AND TECHNICAL RECORDS CLERK 03/05/20 24 Active metoprolol succinate (TOPROL XL) 50 mg Extended Release 24 hour tablet Take 1 Tablet (50 mg) by mouth daily. 90 Tablet 2 5 2:09 PM CDT 03/21/20 24 Active ketoconazole (NIZORAL) 2 % Shampoo USE ON AFFECTED AREA 3 TIMES A WEEK. 120 mL 5 5:25 PM RELEASE AND TECHNICAL RECORDS CLERK 04/29/19 25 Active dilTIAZem (CARDIZEM CD, CARTIA XT) 120 mg Controlled Delivery 24 hour capsule Take 1 Capsule (120 mg) by mouth daily in the morning. 60 Capsule 5 11:45 AM RELEASE AND TECHNICAL RECORDS CLERK 05/10/19 25 Active oseltamivir (TAMIFLU) 30 mg Capsule Take 1 Capsule (30 mg) by mouth every 12 hours. 5 Capsule 5 11:45 AM RELEASE AND TECHNICAL RECORDS CLERK 05/10/19 25 Active ferrous sulfate 325 mg (65 mg iron) Tablet, Delayed Release (E.C.) Take 1 Tablet (325 mg) by mouth daily. 30 Tablet 5 4:36 PM [facility] 05/10/19 25 Active albuterol (PROVENTIL,VENTOLIN ) 2.5 mg /3 mL (0.083 %) Solution for Nebulization INHALE THE CONTENTS OF 1 VIAL PER NEBULIZER EVERY 4-6 HOURS NEEDED FOR SHORTNESS OF BREATH OR WHEEZING. 180 mL 5 4:16 PM [facility] 05/16/19 25 Active Nebulizer & Compressor For Neb Device To use by inhalation route every 4 to 6 hours as needed 1 Each 05/16/19 25 Active clobetasoL (TEMOVATE) 0.05 % Solution APPLY TO THE AFFECTED AREA(S) OF SCALP 1-2 TIMES DAILY FOR UP TO TWO CONSECUTIVE WEEKS AT A TIME 50 mL 2 5 6:57 PM RELEASE AND TECHNICAL RECORDS CLERK 05/21/19 25 Active Clobetasol 0.05 % Shampoo Apply to affected areas of scalp three times weekly and let sit 3-5 minutes and then rinse for up to two consecutive weeks. Take a small break and repeat as necessary for flares. Avoid the face, axilla, and groin. 118 mL 2 5 7:05 PM [facility] 05/21/19 25 Active atorvastatin (LIPITOR) 10 mg tablet Take 1 Tablet (10 mg) by mouth daily at bedtime. 90 Tablet 2 5 7:05 PM [facility] 05/22/19 25 Active clobetasoL (TEMOVATE) 0.05 % Solution Apply to affected areas of scalp 1-2 times daily for up to two consecutive weeks at a time. 50 mL 3 5 9:08 AM CDT 06/07/19 25 Active Clobetasol 0.05 % Shampoo [...] 5 11:40 AM CDT 06/23/19 25 Active ALPRAZolam (XANAX) 0.25 mg tablet Take 0.5 Tablets (0.125 mg) by mouth daily as needed for anxiety 30 Tablet 2 06/12/19 25 Active apixaban (Eliquis) 5 mg tablet Take 1 Tablet (5 mg) by mouth 2 times daily. 30 Tablet 5 9:08 AM CDT 06/30/19 25 Active doxycycline hyclate (VIBRAMYCIN) 100 mg tablet Take 1 Tablet (100 mg) by mouth daily for 7 days. 7 Tablet 5 11:40 AM CDT 06/25/19 25 025 Encounters Date Type Department Care Team Description [...] on file Legal Sex Male 4:58 AM RELEASE AND TECHNICAL RECORDS CLERK Gender Identity Not on file Sexual [...]
--- OUTSIDE RECORDS SUMMARY | 2024-07-06 02:27 | XMS_ITS | Encounter Summary ---
Author Organization [facility] Address [address] [place] [address] Care Team Providers Care Photo Cartographer Name Role Phone Cuate Mclaughlin MD Primary Care Provider [phone] Encounter Details Date Type Department Care Team (Late st Contact Info) Description 06/28/[address] [facility] Care DermPath Lab [address] [facility], [place] [id number] Pari Petit DO [address] [facility] 3 [place] [address] Social History Tobacco Use Types Packs/Day Years [...] AM CDT) Case Report Dermatopathology Report Case: [id number] Authorizing Provider: Pari Petit DO Collected: 06/27/2018 [...] characteristic determined by the Dermatopathology Laboratory at [facility], directed by Dr. Ben Lucia. These tests need not be, and therefore are not, approved by the [place] Food and Drug Administration. The tests are used for clinical purposes. Billing Codes Specimen Charges Stain Charges 19081 1 12:45 PM CDT DERMATOPATHOLOGY LABORATORY Embedded Images 12:45 PM CDT DERMATOPATHOLOGY LABORATORY Pathology/Cytolog y TISSUE SPECIMEN FROM SKIN / Unknown 06/27/2018 06/28/2018 9:14 AM CDT Pari Petit DO LAB - PATHOLOGY/C YTOLOGY ORDERABLES DERMATOPATHOLOGY LABORATORY [facility] - Department of Dermatology [address] [place] [address], 5th Floor Lab [address] [phone] documented in this encounter Visit Diagnoses Not on filedocumented in this encounter Care Teams Photo Cartographer Relationship Specialty Start Date End Date Cuate Mclaughlin MD [address] [place] [address] PCP - General 06/27/18 documented as of this encounter
--- OUTSIDE RECORDS SUMMARY | 2024-07-06 02:27 | XMS_ITS | Encounter Summary ---
Author Organization [facility] Address 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
--- OUTSIDE RECORDS SUMMARY | 2024-07-06 02:27 | XMS_ITS | Clinical Summary ---
Author Organization [facility] Address [address] [place] [address] Care Team Providers Care Sidehand Name Role Phone Steve Potter MD Primary Care Provider Allergies Active Allergy Reactions Criticality Noted Date Comments Adhesive Tape-Silicones Redness Low Medications fenofibrate nanocrystallized (TRICOR,TRIGLIDE) 145 mg tablet Take 145 mg by mouth grain distributor before breakfast. Active metoprolol XL (TOPROL-XL) 50 mg 24 hr tablet Take 50 mg by mouth grain distributor before breakfast. Active atorvastatin (LIPITOR) 10 mg [...] Surgery Date Site/Laterality Comments CATARACT EXTRACTION Bilateral [place] KERATOPLASTY ANTERIOR LAMELLAR Right PHOTOREFRACTIVE KERATOTOMY Bilateral LUMBAR LAMINECTOMY 04/04/1981 - 04/03/1982 ASCENDING AORTIC ANEURYSM REPAIR W/ TISSUE AORTIC VALVE REPLACEMENT 04/04/2009 - 04/03/2010 CORRECTION HAMMER TOE INGUINAL HERNIA REPAIR Left AORTIC VALVE REPLACEMENT 04/04/2009 - 04/03/2010 Bioprosthetic valve, Dr. 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 Gender Identity Not on file Sexual Orientation [...] Not on file Insurance UHC MEDICARE ADVANTAGE [place] [id number] UHC MEDICARE ADVANTAGE [facility] MEDICARE Advance Directives For more information, please contact: [phone] Documents on File Type Date Recorded Patient Supervisor Press Room Expl anation ADVANCE DIRECTIVE 08/22/2017 11:06 AM ADVANCE DIRECTIVE 08/22/2017 Advance Di rective Checklist * Full Code (Latest Code Status on File) Date Activated Date Inactivated Comments 08/22/2017 2:39 PM 08/23/2017 2:18 PM Care Teams Sidehand Relationship Specialty Start Date End Date Steve Potter MD PCP - General 08/12/17
--- OUTSIDE RECORDS SUMMARY | 2024-07-06 02:27 | XMS_ITS | Continuity of Care Document ---
Author Organization [facility] Address [address] [place] [address] Phone Care Team Providers Care Right Of Way Maintenance Supervisor Name Role Phone Matt Kaba MD Unavailable Unavailable Advance Directives Directive Yes / No Effective Date File Name No Information Encounters Encounter Description Practice Location Reason(s) For Visit Diagnoses Date Provider Providers Copied on Encounter [facility], [address] [place] [address], [address] [place] [address], tel:[phone] [facility] SACROILIITIS NEC Sesar Gutierrez. [address] [place], [place], [id number], . tel:[phone] [facility], [address] [place] [address], [id number], tel:[phone] [facility] JOINT DIS NOS-PELVIS Jacqueline Mckinney. [address] [place], [place], [id number], . tel:[phone] [facility], [address] [place] [address], [id number], tel:[phone] [facility] LUMBAGO Denzellandry Sanya. [address] [place], [place], [id number], . tel:[phone] Family History Family Member Type Diagnosis Age [...]
--- OUTSIDE RECORDS SUMMARY | 2024-07-06 02:27 | XMS_ITS | Referral Summary ---
Author Organization [facility] Address [address] [place] [address] Care Team Providers Care Aquatic Director Name Role Phone Steve Potter MD Primary Care Provider Allergies Active Allergy Reactions Criticality Noted Date Comments Adhesive Tape-Silicones Redness Low Medications fenofibrate nanocrystallized (TRICOR,TRIGLIDE) 145 mg tablet Take 145 mg by mouth supplier quality engineer before breakfast. Active metoprolol XL (TOPROL-XL) 50 mg 24 hr tablet Take 50 mg by mouth supplier quality engineer before breakfast. 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 Gender Identity Not on file Sexual Orientation [...] Plan of Treatment Not on file Insurance [facility] MEDICARE ADVANTAGE UHC MEDICARE ADVANTAGE [employer] MEDICARE Advance Directives For more information, please contact: [phone] Documents on File Type Date Recorded Patient Billing Manager Expl anation ADVANCE DIRECTIVE 08/22/2017 11:06 AM ADVANCE DIRECTIVE 08/22/2017 Advance Di rective Checklist * Full Code (Latest Code Status on File) Date Activated Date Inactivated Comments 08/22/2017 2:39 PM 08/23/2017 2:18 PM Care Teams Aquatic Director Relationship Specialty Start Date End Date tSeve Potter MD PCP - General 08/12/17
[2024-07-06 02:29] LABS: Fractional Inspired Oxygen 21 %; HCO3 VBG 20.9 mEq/l (24.0-30.0); PCO2 VBG 36.3 mmHg (42.0-48.0); pH VBG 7.379 (7.300-7.400)
[2024-07-06 02:30] LABS: Device ROOM AIR
[2024-07-06 02:36] LABS: Influenza A QL RT-PCR Negative (Negative); Influenza B QL RT-PCR Negative (Negative); RSV RNA, RT-PCR Negative (Negative); SARS-CoV-2 RNA PCR Negative (Negative)
[2024-07-06 02:46] LABS: NT Pro B Type Natriuretic Pept 4560 pg/mL (19.9-100); Troponin I 0.041 ng/mL (0.000-0.034)
[2024-07-06] MEDS: FUROSEMIDE INJ 40 MG/4 ML VIAL IV PUSH ×2 (02:53→17:35)
--- NOTE | 2024-07-06 04:37 | ECG_ITS ---
Test Date: 2024-07-06 04:44:27 Measurements Intervals [place] Rate: 69 P: 232 [place]: 236 QRS: -32 QRSD: 114 T: 5 QT: 409 QTc: 439 Interpretive Statements SINUS RHYTHM WITH FIRST DEGREE AV BLOCK LEFT AXIS DEVIATION INTRAVENTRICULAR CONDUCTION DELAY LEFT VENTRICULAR HYPERTROPHY DELAYED PRECORDIAL R/S TRANSITION BASELINE ARTIFACT- II, V3-V6 BORDERLINE ECG Compared to ECG 07/06/2024 01:57:55 NO SIGNIFICANT CHANGE Electronically Signed On 07-06-2024 06:22:08 CDT by Giovanni Smith D.O.
[2024-07-06 05:36] LABS: Troponin I 0.044 ng/mL (0.000-0.034)
--- OUTSIDE RECORDS SUMMARY | 2024-07-06 06:46 | XMS_ITS | Clinical Summary ---
Author Organization [facility] Address [address] Bui: Epic Prelude ADT SALMA BLUNT [address] Care Team Providers Care Clinical Pharmacologist Name Role Phone Unavailable Primary Care Provider Unavailabl e Allergies No known active allergies Medications brimonidine (ALPHAGAN P) 0.15 % solution INSTILL 1 DROP IN THE RIGHT EYE THREE TIMES A DAY NEEDED 10 mL 5 3 3:30 PM WOMEN'S APPAREL SALESPERSON 02/28/20 22 Active lactulose (KRISTALOSE) 10 gram [...] anxiety. 45 Tablet 1 4 7:34 PM WOMEN'S APPAREL SALESPERSON 02/03/20 23 Active brimonidine (ALPHAGAN P) 0.15 % solution Administer 1 Drop in right eye 3 times daily as needed. 10 mL 5 4 5:30 PM WOMEN'S APPAREL SALESPERSON 05/10/19 24 Active dorzolamide-timoloL (COSOPT) 22.3-6.8 mg/mL solution INSTILL ONE DROP IN THE RIGHT EYE TWO TIMES A DAY 10 mL 5 5 5:25 PM WOMEN'S APPAREL SALESPERSON 06/27/19 24 025 Active fenofibrate nanocrystallized (TRICOR) 145 mg tablet TAKE ONE TABLET BY MOUTH ONCE DAILY 90 Tablet 2 5 7:05 PM WOMEN'S APPAREL SALESPERSON 02/22/20 24 Active imipramine HCl (TOFRANIL) 25 mg tablet Take 1 Tablet (25 mg) by mouth daily. 90 Tablet 2 4 2:05 PM WOMEN'S APPAREL SALESPERSON 03/05/20 24 Active metoprolol succinate (TOPROL XL) 50 mg Extended Release 24 hour tablet Take 1 Tablet (50 mg) by mouth daily. 90 Tablet 2 5 2:09 PM CDT 03/21/20 24 Active ketoconazole (NIZORAL) 2 % Shampoo USE ON AFFECTED AREA 3 TIMES A WEEK. 120 mL 5 5:25 PM WOMEN'S APPAREL SALESPERSON 04/29/19 25 Active dilTIAZem (CARDIZEM CD, CARTIA XT) 120 mg Controlled Delivery 24 hour capsule Take 1 Capsule (120 mg) by mouth daily in the morning. 60 Capsule 5 11:45 AM WOMEN'S APPAREL SALESPERSON 05/10/19 25 Active oseltamivir (TAMIFLU) 30 mg Capsule Take 1 Capsule (30 mg) by mouth every 12 hours. 5 Capsule 5 11:45 AM WOMEN'S APPAREL SALESPERSON 05/10/19 25 Active ferrous sulfate 325 mg (65 mg iron) Tablet, Delayed Release (E.C.) Take 1 Tablet (325 mg) by mouth daily. 30 Tablet 5 4:36 PM [facility] 05/10/19 25 Active albuterol (PROVENTIL,VENTOLIN [...] TIME 50 mL 2 5 6:57 PM WOMEN'S APPAREL SALESPERSON 05/21/19 25 Active Clobetasol 0.05 % Shampoo Apply to affected areas of scalp three times weekly and let sit 3-5 minutes and then rinse for up to two consecutive weeks. Take a small break and repeat as necessary for flares. Avoid the face, axilla, and groin. 118 mL 2 5 7:05 PM [facility] 05/21/19 25 Active atorvastatin (LIPITOR) [...] on file Legal Sex Male 4:58 AM WOMEN'S APPAREL SALESPERSON Gender Identity Not on file Sexual Orientation [...]
--- OUTSIDE RECORDS SUMMARY | 2024-07-06 06:46 | XMS_ITS | Clinical Summary ---
Author Organization [facility] Address [address] [place] [address] Care Team Providers Care Arts Education Teacher Name Role Phone Steve Potter MD Primary Care Provider Allergies Active Allergy Reactions Criticality Noted Date Comments Adhesive Tape-Silicones Redness Low Medications fenofibrate nanocrystallized (TRICOR,TRIGLIDE) 145 mg tablet Take 145 mg by mouth tray drier operator before breakfast. Active metoprolol XL (TOPROL-XL) 50 mg 24 hr tablet Take 50 mg by mouth tray drier operator before breakfast. Active atorvastatin (LIPITOR) 10 [...] Surgery Date Site/Laterality Comments CATARACT EXTRACTION Bilateral [place] KERATOPLASTY ANTERIOR LAMELLAR Right PHOTOREFRACTIVE KERATOTOMY Bilateral LUMBAR LAMINECTOMY 04/04/1981 - 04/03/1982 ASCENDING AORTIC ANEURYSM REPAIR W/ TISSUE AORTIC VALVE REPLACEMENT 04/04/2009 - 04/03/2010 CORRECTION HAMMER TOE INGUINAL HERNIA REPAIR Left AORTIC VALVE REPLACEMENT 04/04/2009 - 04/03/2010 Bioprosthetic valve, Dr. 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 Gender Identity Not on file Sexual [...] Not on file Insurance UHC MEDICARE ADVANTAGE [facility] MEDICARE Address: [address] [address] [place] [id number] UHC MEDICARE ADVANTAGE [facility] MEDICARE Address: [address] [place], [place] [phone] [facility] MEDICARE Advance Directives For more information, please contact: [phone] Documents on File Type Date Recorded Patient Heliotherapist Expl anation ADVANCE DIRECTIVE 08/22/2017 11:06 AM ADVANCE DIRECTIVE 08/22/2017 Advance Di rective Checklist * Full Code (Latest Code Status on File) Date Activated Date Inactivated Comments 08/22/2017 2:39 PM 08/23/2017 2:18 PM Care Teams Arts Education Teacher Relationship Specialty Start Date End Date Steve Potter MD PCP - General 08/12/17
--- OUTSIDE RECORDS SUMMARY | 2024-07-06 06:46 | XMS_ITS | Clinical Summary ---
Author Organization [facility] [employer] Address [address] [facility] [place] [address] Care Team Providers Care Dock Clerk Name Role Phone Cuate Mclaughlin MD Primary Care Provider Source Comments [facility],non-owned Affiliates and Associated Physician Practices is amultiple site organization consisting of ambulatory clinics and hospital sitesin [place], [place], [place] and [place]. This disclosure is being madepursuant to the Care Everywhere program and may not contain all information available regarding this patient. Last updated 17.[facility] [employer] Social History Tobacco Use Types Packs/Day Years [...] age to complete this topic Care Teams Dock Clerk Relationship Specialty Start Date End Date Cuate Mclaughlin MD [address] [place] [address] PCP - General 06/27/18
--- OUTSIDE RECORDS SUMMARY | 2024-07-06 06:46 | XMS_ITS | Encounter Summary ---
Author Organization [facility] Address [address] [place] [address] Care Team Providers Care Ticket Counter Name Role Phone Cuate Mclaughlin MD Primary Care Provider [phone] Encounter Details Date Type Department Care Team (Late st Contact Info) Description 06/28/2018 Lab Requisition [facility] Care DermPath Lab [address] [facility], [place] [id number] Prai Petit DO [address] [facility] 3 [place] [address] Social History Tobacco Use Types Packs/Day Years [...] AM CDT) Case Report Dermatopathology Report Case: [id number] Authorizing Provider: Pari Petit DO Collected: 06/27/2018 [...] characteristic determined by the Dermatopathology Laboratory at [facility], directed by Dr. Ben Lucia. These tests need not be, and therefore are not, approved by the [place] Food and Drug Administration. The tests are used for clinical purposes. Billing Codes Specimen Charges Stain Charges 94754 1 12:45 PM CDT DERMATOPATHOLOGY LABORATORY Embedded Images 12:45 PM CDT DERMATOPATHOLOGY LABORATORY Pathology/Cytolog y TISSUE SPECIMEN FROM SKIN / Unknown 06/27/2018 06/28/2018 9:14 AM CDT Pari Petit DO LAB - PATHOLOGY/C YTOLOGY ORDERABLES DERMATOPATHOLOGY LABORATORY [facility] - Department of Dermatology [address] [place] [address], 5th Floor Lab B [address] [phone] documented in this encounter Visit Diagnoses Not on filedocumented in this encounter Care Teams Ticket Counter Relationship Specialty Start Date End Date Cuate Mclaughlin MD [address] [place] [address] PCP - General 06/27/18 documented as of this encounter
--- OUTSIDE RECORDS SUMMARY | 2024-07-06 06:46 | XMS_ITS | Referral Summary ---
Author Organization [facility] Address [address] [place] [address] Care Team Providers Care Testing And Regulating Technician Name Role Phone Steve Potter MD Primary Care Provider Allergies Active Allergy Reactions Criticality Noted Date Comments Adhesive Tape-Silicones Redness Low Medications fenofibrate nanocrystallized (TRICOR,TRIGLIDE) 145 mg tablet Take 145 mg by mouth dietary assistant before breakfast. Active metoprolol XL (TOPROL-XL) 50 mg 24 hr tablet Take 50 mg by mouth dietary assistant before breakfast. 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 Gender Identity Not on file Sexual Orientation [...] file Insurance [facility] MEDICARE ADVANTAGE [facility] Address: [facility] [address] [place] [address] UHC MEDICARE ADVANTAGE [employer] MEDICARE Advance Directives For more information, please contact: [phone] Documents on File Type Date Recorded Patient Mold Laminator Expl anation ADVANCE DIRECTIVE 08/22/2017 11:06 AM ADVANCE DIRECTIVE 08/22/2017 Advance Di rective Checklist * Full Code (Latest Code Status on File) Date Activated Date Inactivated Comments 08/22/2017 2:39 PM 08/23/2017 2:18 PM Care Teams Testing And Regulating Technician Relationship Specialty Start Date End Date Steve Potter MD PCP - General 08/12/17
--- OUTSIDE RECORDS SUMMARY | 2024-07-06 06:46 | XMS_ITS | Encounter Summary ---
Author Organization [facility] Address 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
--- OUTSIDE RECORDS SUMMARY | 2024-07-06 06:46 | XMS_ITS | Continuity of Care Document ---
Author Organization [facility] Address [address] [place] [address] Phone Care Team Providers Care Farm Tractor Operator Name Role Phone Matt Kaba MD Unavailable Unavailable Advance Directives Directive Yes / No Effective Date File Name No Information Encounters Encounter Description Practice Location Reason(s) For Visit Diagnoses Date Provider Providers Copied on Encounter Embedded Chat [facility], [address] [place] [address], [address] [place] [address], tel:[phone] [facility] SACROILIITIS NEC Sesar Gutierrez. [address] [place], [place], [id number], . tel:[phone] Embedded [facility], [address] [place] [address], [id number], tel:[phone] [facility] JOINT DIS NOS-PELVIS Jacqueline Mckinney. [address] [place], [place], [id number], . tel:[phone] [facility], [address] [place] [address], [id number], tel:[phone] [facility] LUMBAGO Denzellandry Sanya. [address] [place], [place], [id number], . tel:[phone] Family History Family Member Type Diagnosis Age [...]
--- NOTE | 2024-07-06 06:48 | ADMGEN ---
This patient, Robin Beckwith, was admitted to [facility] Surg Room 314-02. Patient/family oriented to hospital policies and general routines including ID bracelet, bed and alarms, visiting hours, pain management, procedures, bathroom and other care routines, personal items, smoking policy, room service/diet, and visiting hours. Information on how to activate the Rapid Response Team has been discussed. Patient/Family are encouraged to report perceived risks to care and to ask questions if they do not understand what they are told or what they should do.
[2024-07-06 09:05] LABS: Troponin I 0.048 ng/mL (0.000-0.034)
[2024-07-06 12:23] LABS: INR 1.2; Prothrombin Time 15.6 Seconds (11.1-14.7)
[2024-07-06 12:26] LABS: Lactate Dehydrogenase 229 U/L (120-246)
--- NOTE | 2024-07-06 12:58 | P.CONCA_ITS ---
Assessment and Plan Assessment and plan (1) Shortness of breath: Code(s): R06.02 - Shortness of breath Status: Acute Assessment and Plan: Probably due to acute on chronic diastolic heart failure. Diurese with Lasix as he was not on any upon discharge last month. Start Lasix 40 mg IV BID. (2) Pleural effusion: Code(s): J90 - Pleural effusion, not elsewhere classified Status: Acute (3) PAF (paroxysmal atrial fibrillation): Code(s): I48.0 - Paroxysmal atrial fibrillation Status: Acute Assessment and Plan: In Sinus rhythm now. [id number] 3. He does not want to take anticoagulation. On Metoprolol. Will start aspirin 325 mg daily. (4) Status post ascending aortic aneurysm repair: Onset Date: ~2009 Code(s): Z98.890 - Other specified postprocedural states; Z86.79 - Personal history of other diseases of the circulatory system Status: Acute (5) Dyslipidemia: Code(s): E78.5 - Hyperlipidemia, unspecified Status: Acute Assessment and Plan: On Atorvastatin. (6) Elevated troponin: Code(s): R79.89 - Other specified abnormal findings of blood chemistry Status: Acute Assessment and Plan: Up to .048 now, probably due to pneumonia, CHF. History of Present Illness History of Present Illness Consult date/time: 07/06/24 12:58 Reason For Visit: Dyspnea, bilateral pleural effusions right > left Narrative: 83 yr old man presents to ER due to sob. He has a history of bioprosthetic aortic valve with ascending aortic repair in 2009 at [facility], PAF, hypertension, dyslipidemia. Reports for last 2 weeks he has trouble with breathing and found to have pleural effusion. Last month he came he had influenza and new onset atrial fibrillation. He is normally limited at walking to restroom due to progressively worsening back pain. Denies chest pain, orthopnea, PND, edema, dizziness, palpitations. Review of Systems 2 Constitutional: Constitutional: Reports as per HPI, Denies chills and Denies fever(s) Cardiovascular: Cardiovascular: Reports as per HPI, Denies chest pain and Denies irregular heart rhythm Respiratory: Respiratory: Reports dyspnea Gastrointestinal: Gastrointestinal: Reports as per HPI and Denies abdominal pain Genitourinary: Genitourinary: Reports as per HPI and Denies dysuria Musculoskeletal: Musculoskeletal: Reports as per HPI and Reports back pain Neurologic: Reports as per HPI, Denies dizziness and Denies syncope [facility] Past Medical History Medical History Grade I diastolic dysfunction 05/08/24 Echo: EF 60-65%, severe LVH, grade I diastolic dysfunction, mild LAE, mod VINNY, prosthetic AVR, mild AI. Atrial fibrillation Glaucoma Influenza A Slow transit constipation CKD (chronic kidney disease) stage 3, GFR 30-59 ml/min Although the patient denies this and prior labs demonstrated normal GFR and creatinine. Gynecomastia, male URI with cough and congestion Essential (primary) hypertension Anxiety Dyslipidemia History of prostate cancer (~05/30/18) Treated with radiation therapy Chronic bilateral low back pain with left-sided sciatica (~11/09/16) Surgical History Surgical History History of cornea transplant History of tonsillectomy and adenoidectomy Status post cataract extraction of both eyes with insertion of intraocular lens History of lumbar laminectomy Hx of aortic valve replacement with porcine valve (~2009) Status post ascending aortic aneurysm repair (~2009) Performed at [facility] by Dr. Thomas Family History Family History Father Family history of pancreatic cancer, Onset Age: 51 Mother Family history of coronary artery disease, Onset Age: 43 Social History Social History Social History: , 2nd 2018. His 2nd in September of 2023. 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 He is written over 50 looks on local history. He is a lifelong nonsmoker and does not drink alcohol. Code status: DNR/DNI per patient request Surrogate decision maker: Mukul (son) Smoking status: Never smoker Second hand tobacco smoke exposure: No Alcohol intake: never Substance use: never Substance use type: does not use Do You Feel Safe in your Home?: Yes Lack of Transportation: No Lack of Food: Never True Current Housing: I Have Housing Concerned About Future Housing: No Difficulty Paying Gas/Electric Bills: No Difficulty Paying for Meds: No Currently Unemployed: No Education: Master's Degree or Higher Difficulty w/ Childcare or Family Care: No Gender identity (if verbalized by the patient): Male Spiritual care concerns: No Meds Home Medications and Allergies Home Medications ?Medication ?Instructions ?Recorded ?Confirmed ?Type aspirin 81 mg chewable tablet 81 mg PO DAILY 04/09/19 07/06/24 History multivitamin (Multiple Vitamins 1 tablet PO DAILY 04/09/19 07/06/24 History tablet) fenofibrate nanocrystallized 145 See Rx Instructions .Route 02/22/24 07/06/24 Rx mg tablet .COMPLEX #90 tabs metoprolol succinate 50 mg See Rx Instructions .Route 03/21/24 07/06/24 Rx tablet,extended release 24 hr .COMPLEX #90 tabs brimonidine 0.15 % eye drops 1 drp RIGHT EYE TID glaucoma 05/07/24 07/06/24 History dorzolamide 22.3 mg-timolol 6.8 1 drp RIGHT EYE BID 05/07/24 07/06/24 History mg/mL eye drops imipramine HCl 25 mg tablet 25 mg PO .three times per week 05/07/24 07/06/24 History diltiazem HCl 120 mg capsule,24 120 mg PO QAM #60 caps 05/10/24 07/06/24 Rx hr,extended release ferrous sulfate 325 mg (65 mg 325 mg PO DAILY #30 tabs 05/10/24 07/06/24 Rx iron) tablet,delayed release albuterol sulfate 2.5 mg/3 mL 2.5 mg (3 mL) inhalation Q4-6H PRN 05/16/24 07/06/24 Rx (0.083 %) solution for nebulization shortness of breath or wheezing #180 mL nebulizer and compressor #1 ea 05/16/24 07/06/24 Rx atorvastatin 10 mg tablet See Rx Instructions .Route 05/22/24 07/06/24 Rx .COMPLEX #90 tabs clobetasol 0.05 % scalp solution 1 applic topical DAILY scalp 06/27/24 07/06/24 History irriatation prednisolone acetate 1 % eye 1 drp RIGHT EYE TID 06/27/24 07/06/24 History drops,suspension apixaban 5 mg tablet 5 mg PO BID #30 tabs 06/29/24 07/06/24 Rx cholecalciferol (vitamin D3) 50 250 mcg PO DAILY 07/06/24 07/06/24 History mcg (2,000 unit) capsule Allergies Allergy/AdvReac Type Severity Reaction Status Date / Time adhesive tape AdvReac Mild Itching Verified 07/06/24 02:00 Vital Signs Vital Signs - 24 hr 07/06/24 01:46 07/06/24 01:53 07/06/24 01:54 Temperature 97.6 F Pulse Rate 83 78 Respiratory Rate 24 H Blood Pressure 192/64 H Pulse Oximetry 100 100 Oxygen Delivery Room Air Room Air Oxygen Flow Rate 07/06/24 01:57 07/06/24 02:00 07/06/24 02:01 Temperature Pulse Rate 74 Respiratory Rate 19 Blood Pressure 174/48 H Pulse Oximetry 100 100 100 Oxygen Delivery Nasal Cannula Room Air Oxygen Flow Rate 15 07/06/24 02:46 07/06/24 02:57 07/06/24 03:45 Temperature Pulse Rate 77 72 70 Respiratory Rate 22 H 24 H 22 H Blood Pressure 158/83 H Pulse Oximetry 100 Oxygen Delivery Oxygen Flow Rate 07/06/24 04:00 07/06/24 04:08 07/06/24 04:30 Temperature Pulse Rate 64 67 Respiratory Rate 26 H 24 H Blood Pressure 139/53 L 153/52 H Pulse Oximetry 95 93 94 Oxygen Delivery Room Air Oxygen Flow Rate 07/06/24 05:38 07/06/24 07:51 Temperature Pulse Rate 78 78 Respiratory Rate 17 17 Blood Pressure 173/87 H Pulse Oximetry 95 95 Oxygen Delivery Room Air Oxygen Flow Rate Exam 2 Const: General: cooperative, healthy appearing and comfortable Resp: Auscultation: clear to auscultation bilaterally, no crackles, no rales, no rhonchi and no wheezes Cardio: Rate: regular rate Rhythm: regular rhythm Heart sounds: no murmurs Peripheral pulses: dorsalis pedis present GI: GI Palp: No abdominal tenderness and Yes Soft to palpation Neuro: General: oriented to person, oriented to place and oriented to time Extrem: Right lower extremity: no edema Left lower extremity: no edema Results Labs and Meds 07/06/24 01:56 07/06/24 01:56 Lab results: Cardiac Enzymes 07/06/24 07/06/24 07/06/24 Range/Units 01:56 04:43 08:16 AST 23 (17-59) U/L Lactate Dehydrogenase (120-246) U/L Troponin I 0.041 H* 0.044 H* 0.048 H* (0.000-0.034) ng/mL 07/06/24 Range/Units 11:44 AST (17-59) U/L Lactate Dehydrogenase 229 (120-246) U/L Troponin I (0.000-0.034) ng/mL Coagulation 07/06/24 Range/Units 11:44 PT 15.6 H (11.1-14.7) Seconds APTT 28.0 (22.3-36.8) Seconds CBC 07/06/24 Range/Units 01:56 WBC 7.5 (4.5-10.0) K/mm3 RBC 4.17 L (4.6-6.20) M/mm3 Hgb 12.2 L (14.0-18.0) g/dL Hct 38.3 L (42.0-52.0) % Plt Count 195 (150-375) k/mm3 Lymph # (Auto) 1.25 (0.9-3.2) K/mm3 [place] # (Auto) 0.5 (0.1-0.6) K/mm3 Eos # (Auto) 0.2 (0-0.3) K/mm3 Baso # (Auto) 0.1 (0.0-0.1) K/mm3 Comprehensive Metabolic Panel 07/06/24 Range/Units 01:56 Sodium 137 (137-145) mmol/L Potassium 4.2 (3.4-5.0) mmol/L Chloride 106 (98-107) mmol/L Carbon Dioxide 22 (22-30) mmol/L BUN 17 D (9-20) mg/dL Creatinine 0.96 (0.7-1.3) mg/dL Glucose 115 H (65-110) mg/dL Calcium 8.8 (8.4-10.2) mg/dL AST 23 (17-59) U/L ALT 17 (6-50) U/L Alkaline Phosphatase 41 (38-126) U/L Total Protein 7.0 (6.3-8.2) g/dL Albumin 4.0 (3.5-5.1) g/dL Intake and Output 07/05/24 07/06/24 07/06/24 23:59 07:59 15:59 Intake Total 100 Output Total 1150 Balance -1050 Intake: IV 50 Magnesium Sulf 2 gm/Water 50Ml 50 2 gm In 50 ml @ 25 mls/hr IVPB ONCE ONE Rx#:[id number] Other 50 Output: Urine 1150 Other: Intake, Other Source IV medication # Unmeasured Voids 0 # Incontinent Voids 0 # Urine Diapers 0 Patient Weight 07/06/24 23:59 Weight 78.6 kg
--- NOTE | 2024-07-06 13:36 | PM.IMHP ---
H&P: HPI History of Present Illness Date/Time: 07/06/24 13:36 Chief Complaint: SOB Narrative: 83-year-old male past medical history grade 1 diastolic CHF, CKD, hypertension, anxiety, history of prostate cancer chronic low back pain who presented to the ER control shortness of breath. Patient reported since he will discharge on 21/11 of last multiple to his been gradually having worsening shortness of breath along with orthopnea and PND. Denies any chest pain no vomiting abdominal pain and dysuria focal symptoms. ER evaluation BP 192/64, saturating 100 on room air. labs notable for Troponin 0.041 to o.048, NTproBNP 4560. CT chest showed bilateral pleural effusion with pulm edema Review of Systems Review of Systems: All other systems reviewed and negative except as noted in history above. [facility] Past Medical History Medical History Grade I diastolic dysfunction 05/08/24 Echo: EF 60-65%, severe LVH, grade I diastolic dysfunction, mild LAE, mod VINNY, prosthetic AVR, mild AI. Atrial fibrillation Glaucoma Influenza A Slow transit constipation CKD (chronic kidney disease) stage 3, GFR 30-59 ml/min Although the patient denies this and prior labs demonstrated normal GFR and creatinine. Gynecomastia, male URI with cough and congestion Essential (primary) hypertension Anxiety Dyslipidemia History of prostate cancer (~05/30/18) Treated with radiation therapy Chronic bilateral low back pain with left-sided sciatica (~11/09/16) Surgical History Surgical History History of cornea transplant History of tonsillectomy and adenoidectomy Status post cataract extraction of both eyes with insertion of intraocular lens History of lumbar laminectomy Hx of aortic valve replacement with porcine valve (~2009) Status post ascending aortic aneurysm repair (~2009) Performed at [facility] by Dr. Thomas Family History Family History Father Family history of pancreatic cancer, Onset Age: 51 Mother Family history of coronary artery disease, Onset Age: 43 Social History Social History Social History: , 2nd 2018. His 2nd in September of 2023. 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 He is written over 50 looks on local history. He is a lifelong nonsmoker and does not drink alcohol. Code status: DNR/DNI per patient request Surrogate decision maker: Mukul (son) Smoking status: Never smoker Second hand tobacco smoke exposure: No Alcohol intake: never Substance use: never Substance use type: does not use Do You Feel Safe in your Home?: Yes Lack of Transportation: No Lack of Food: Never True Current Housing: I Have Housing Concerned About Future Housing: No Difficulty Paying Gas/Electric Bills: No Difficulty Paying for Meds: No Currently Unemployed: No Education: Master's Degree or Higher Difficulty w/ Childcare or Family Care: No Gender identity (if verbalized by the patient): Male Spiritual care concerns: No Meds Home Medications and Allergies Home Medications ?Medication ?Instructions ?Recorded ?Confirmed ?Type aspirin 81 mg chewable tablet 81 mg PO DAILY 04/09/19 07/06/24 History multivitamin (Multiple Vitamins 1 tablet PO DAILY 04/09/19 07/06/24 History tablet) fenofibrate nanocrystallized 145 See Rx Instructions .Route 02/22/24 07/06/24 Rx mg tablet .COMPLEX #90 tabs metoprolol succinate 50 mg See Rx Instructions .Route 03/21/24 07/06/24 Rx tablet,extended release 24 hr .COMPLEX #90 tabs brimonidine 0.15 % eye drops 1 drp RIGHT EYE TID glaucoma 05/07/24 07/06/24 History dorzolamide 22.3 mg-timolol 6.8 1 drp RIGHT EYE BID 05/07/24 07/06/24 History mg/mL eye drops imipramine HCl 25 mg tablet 25 mg PO .three times per week 05/07/24 07/06/24 History diltiazem HCl 120 mg capsule,24 120 mg PO QAM #60 caps 05/10/24 07/06/24 Rx hr,extended release ferrous sulfate 325 mg (65 mg 325 mg PO DAILY #30 tabs 05/10/24 07/06/24 Rx iron) tablet,delayed release albuterol sulfate 2.5 mg/3 mL 2.5 mg (3 mL) inhalation Q4-6H PRN 05/16/24 07/06/24 Rx (0.083 %) solution for nebulization shortness of breath or wheezing #180 mL nebulizer and compressor #1 ea 05/16/24 07/06/24 Rx atorvastatin 10 mg tablet See Rx Instructions .Route 05/22/24 07/06/24 Rx .COMPLEX #90 tabs clobetasol 0.05 % scalp solution 1 applic topical DAILY scalp 06/27/24 07/06/24 History irriatation prednisolone acetate 1 % eye 1 drp RIGHT EYE TID 06/27/24 07/06/24 History drops,suspension apixaban 5 mg tablet 5 mg PO BID #30 tabs 06/29/24 07/06/24 Rx cholecalciferol (vitamin D3) 50 250 mcg PO DAILY 07/06/24 07/06/24 History mcg (2,000 unit) capsule Allergies Allergy/AdvReac Type Severity Reaction Status Date / Time adhesive tape AdvReac Mild Itching Verified 07/06/24 02:00 Vital Signs Vital Signs - 24 hr 07/06/24 01:46 07/06/24 01:53 07/06/24 01:54 Temperature 97.6 F Pulse Rate 83 78 Respiratory Rate 24 H Blood Pressure 192/64 H Pulse Oximetry 100 100 Oxygen Delivery Room Air Room Air Oxygen Flow Rate 07/06/24 01:57 07/06/24 02:00 07/06/24 02:01 Temperature Pulse Rate 74 Respiratory Rate 19 Blood Pressure 174/48 H Pulse Oximetry 100 100 100 Oxygen Delivery Nasal Cannula Room Air Oxygen Flow Rate 15 07/06/24 02:46 07/06/24 02:57 07/06/24 03:45 Temperature Pulse Rate 77 72 70 Respiratory Rate 22 H 24 H 22 H Blood Pressure 158/83 H Pulse Oximetry 100 Oxygen Delivery Oxygen Flow Rate 07/06/24 04:00 07/06/24 04:08 07/06/24 04:30 Temperature Pulse Rate 64 67 Respiratory Rate 26 H 24 H Blood Pressure 139/53 L 153/52 H Pulse Oximetry 95 93 94 Oxygen Delivery Room Air Oxygen Flow Rate 07/06/24 05:38 07/06/24 07:51 Temperature Pulse Rate 78 78 Respiratory Rate 17 17 Blood Pressure 173/87 H Pulse Oximetry 95 95 Oxygen Delivery Room Air Oxygen Flow Rate Exam Narrative: General: alert and comfortable Eyes: EOMI, PERRLA ENNT External ears normal, Neck is supple, no masses, Respiratory systems: Clear to auscultation Cardiovascular S1, S2, normal rhythm, no murmur, rub, or gallop; no thrill or palpable murmurs on palpation. Gastrointestinal: soft, non-tender, and non-distended abdomen with no masses; BS present Skin: no rash, lesions, ulcerations, subcutaneous nodules or induration Musculoskeletal: no abnormality and no tenderness, normal ROM Neurologic: Alert and oriented x3, non focal Mental Status Exam: normal affect H&P: Results Labs Labs: Short CBC 07/06/24 Range/Units 01:56 WBC 7.5 (4.5-10.0) K/mm3 Hgb 12.2 L (14.0-18.0) g/dL Hct 38.3 L (42.0-52.0) % Plt Count 195 (150-375) k/mm3 BMP 07/06/24 01:56 Sodium 137 Potassium 4.2 Chloride 106 Carbon Dioxide 22 BUN 17 D Creatinine 0.96 Glucose 115 H Calcium 8.8 Cardiac Enzymes 07/06/24 07/06/24 07/06/24 Range/Units 01:56 04:43 08:16 Troponin I 0.041 H* 0.044 H* 0.048 H* (0.000-0.034) ng/mL Liver Function 07/06/24 Range/Units 01:56 Total Bilirubin 0.5 (0.2-1.3) mg/dL AST 23 (17-59) U/L ALT 17 (6-50) U/L Alkaline Phosphatase 41 (38-126) U/L Albumin 4.0 (3.5-5.1) g/dL Assessment and Plan Assessment and plan (1) Elevated troponin: Code(s): R79.89 - Other specified abnormal findings of blood chemistry Status: Acute Plan CHF exacerbation Patient was managed for diastolic CT was initially loss admission It appears he was discharged without diuretics and dusky but grossly shortness of breath. CT scan showed bilateral pleural effusion minimal pulmonary edema Continue lasix 40 mg b.i.d.. Cardiology following. Elevated troponin Likely related to CHF exacerbation Continue Protonix, aspirin. Monitor obtained Cardiology on board. Atrial fibrillation Cardiology evaluation report noted patient declined anticoagulation last admission Continue aspirin 325 mg, metoprolol adjust with clinical course. Anxiety Continue medications. Hypertension Continue medications per Hyperlipidemia Continue medications. DVT prophylaxis subQ Lovenox. Patient is DNR, surrogate decision maker is daughter Nancy Renteria Hospitalist [facility] Advance Care Plan I have confirmed that the patient's Advanced Care Plan is present, code status is documented, or surrogate decision maker is listed in patient medical record.: Yes Medication Reconciliation I have utilized all available resources to obtain, update and review the patients current medications (includes all prescriptions, OTC, herbals, cannabis, and nutritional supplements).: Yes
[2024-07-06 14:40] LABS: pH Pleural Fluid > 7.500 (7.210-7.500)
[2024-07-06 15:29] LABS: Nucleated Cell Pleural Fluid 1208 /uL (0-1000); Pleural fluid source Pleural fluid; RBC Pleural Fluid 2000 /uL (0-10000)
[2024-07-06 15:30] LABS: Lymphocytes Pleural Fluid 54 %; Macrophages Pleural Fluid 28 %; Mesothelial Cells Pleural Flui 1 %; Monocytes Pleural Fluid 14 %; Neutrophils Pleural Fluid 0 % (0-25); Other Cells Pleural Fluid 3 %
[2024-07-06 15:31] LABS: Appearance Pleural Fluid Hazy (Clear); Color Pleural Fluid White (Colorless)
[2024-07-06] MEDS: ATORVASTATIN 10 MG TABLET PO (20:09)
[2024-07-07] VITALS (8 sets, daily range): BP systolic 117–172; BP diastolic 51–56; PULSE 60–86; RESP 16–18; TEMP 35.5–37.2; O2SAT 99–100
--- NOTE | 2024-07-07 | ECHO_ITS ---
Patient Info Name: Robin Beckwith Age: 83 years : 1940 Gender: Male Ht: 72 in Wt: 173 lbs BSA: 2.00 m2 HR: 79 bpm BP: 172 / 56 mmHg Heart Rhythm: Sinus Rhythm Technical Quality: Fair Exam Date: 07/07/2024 12:20 PM Exam Location: Echo Lab Patient Status: Inpatient Admit Date: 07/06/2024 Staff Ordering Physician: Giovanni Smith DO Fare Register Repairer: Kristy Talamantes RDCS Attending Provider: Sophie Liu MD Referring Physician: Luis WOLF; Exam Type: CA echo doppler color flow Study Info Indications - Aortic valve replacement - CHF Complete two-dimensional, color flow and Doppler transthoracic echocardiogram is performed. Summary 1. Complete two-dimensional, color flow and Doppler transthoracic echocardiogram is performed. 2. Left ventricular chamber dimension is normal. 3. Ventricular septum is sigmoid shaped. No resting LVOT obstruction. 4. There is mild concentric increased left ventricular wall thickness. 5. Left ventricular systolic function is normal, estimated at 60-65%. 6. The left ventricular diastolic function is grade I diastolic dysfunction. 7. E/e' 10 is mildly elevated. 8. Left atrial chamber dimension is mildly enlarged. 9. Right atrial chamber dimension is mildly enlarged. 10. Bioprosthetic aortic valve. 11. There is mild to moderate regurgitation of the bioprosthetic aortic valve. 12. There is mild tricuspid valve regurgitation. 13. No pulmonary hypertension, estimated pulmonary arterial systolic pressure is 28 mmHg. 14. There is trace pulmonic regurgitation. 15. The aortic root size at the sinus of Valsalva is mildly dilated at 4.2 cm. 16. The prox ascending aorta size is mildly dilated at 4.2 cm. 17. There is trivial pericardial effusion. Left Ventricle E/e' 10 is mildly elevated. Ventricular septum is sigmoid shaped. No resting LVOT obstruction. Left ventricular chamber dimension is normal. Left ventricular systolic function is normal, estimated at 60-65%. There is mild concentric increased left ventricular wall thickness. The left ventricular diastolic function is grade I diastolic dysfunction. Right Ventricle Right ventricular systolic function is normal and with normal TAPSE 1.9 cm. Right ventricular chamber dimension is normal. Left Atria Left atrial chamber dimension is mildly enlarged. Right Atria Right atrial chamber dimension is mildly enlarged. Aortic Valve The bioprosthetic aortic valve is not well visualized. There is no bioprosthetic aortic valve stenosis. There is mild to moderate regurgitation of the bioprosthetic aortic valve. Bioprosthetic aortic valve. Pulmonic Valve There is trace pulmonic regurgitation. Mitral Valve There is no mitral valve stenosis. There is no mitral valve regurgitation. Tricuspid Valve There is mild tricuspid valve regurgitation. No pulmonary hypertension, estimated pulmonary arterial systolic pressure is 28 mmHg. Pericardium/Pleural There is trivial pericardial effusion. Inferior Vena Cava Normal inferior vena cava with >50% collapse upon inspiration consistent with normal right atrial pressure, 5 mmHg. Aorta The aortic root size at the sinus of Valsalva is mildly dilated at 4.2 cm. The prox ascending aorta size is mildly dilated at 4.2 cm. Left Ventricular Outflow Tract Name Value Normal LVOT 2D LVOT Diameter 2.4 cm LVOT Doppler LVOT Peak Gradient 6 mmHg LVOT Mean Gradient 3 mmHg LVOT VTI 28 cm LVOT VTI/AV VTI Ratio 0.5 LVOT Stroke Volume 122 ml LVOT CO 23.1 l/min LVOT CI 11.6 l/min/m2 Pulmonic Valve Name Value Normal RVOT Doppler RVOT Peak Gradient 5 mmHg PV Doppler PV Peak Gradient 6 mmHg Mitral Valve Name Value Normal MV Doppler MV Decel [place] 306 cm/s2 MV PHT 59 ms MV Area (PHT) 3.7 cm2 4.0-5.0 MV Diastolic Function MV E Peak Velocity 63 cm/s MV A Peak Velocity 87 cm/s MV E/A 0.7 MV Decel Time 204 ms MV Annular TDI MV E/e' (Septal) 13.1 <=8.0 MV E/e' (Lateral) 8.8 <=8.0 MV E/e' (Average) 10.9 Tricuspid Valve Name Value Normal TV Regurgitation Doppler TR Peak Velocity 237 cm/s TR Peak Gradient 23 mmHg Estimated PAP/RSVP RA Pressure 5 mmHg <=5 PA Systolic Pressure 28 mmHg <36 RV Systolic Pressure 28 mmHg <36 Aortic Valve Name Value Normal AV Doppler AV Peak Velocity 258 cm/s AV Peak Gradient 27 mmHg AV Mean Gradient 16 mmHg AV VTI 55 cm AV Area (Cont Eq VTI) 2.2 cm2 >=3.0 AV Area (Cont Eq Steven) 2.1 cm2 AV Regurgitation 2D LVOT Area 4.4 cm2 AV Regurgitation Doppler AR Decel Time 1,087 ms AR Decel Benton 354 cm/s2 AR PHT 315 ms Ventricles Name Value Normal LV Dimensions 2D/MM IVS Diastolic Thickness (2D) 1.2 cm 0.6-1.0 LVID Diastole (2D) 4.8 cm 4.2-5.8 LVIW Diastolic Thickness (2D) 1.2 cm 0.6-1.0 LVOT Diameter 2.4 cm LV Mass (2D Cubed) 218.68 g 88.00-224.00 LV Mass Index (2D Cubed) 109 g/m2 49-115 Relative Wall Thickness (2D) 0.50 LV Fractional Shortening/Ejection Fraction 2D/MM LV Diastolic Volume (4C MOD) 154 ml LV EF (4C MOD) 49 % LV Diastolic Volume (2C MOD) 145 ml LV EF (2C MOD) 58 % LV Diastolic Volume (BP MOD) 151 ml 62-150 LV Diastolic Volume Index (BP MOD) 76 ml/m2 34-74 LV Systolic Volume (BP MOD) 71 ml 21-61 LV Systolic Volume Index (BP MOD) 36 ml/m2 11-31 LV EF (BP MOD) 53 % 52-72 LV Diastolic Length (4C) 8.2 cm LV Systolic Length (4C) 7.4 cm LV Stroke Volume (4C MOD) 75 ml Atria Name Value Normal LA Dimensions LA Volume (4C A-L) 70 ml LA Volume (BP A-L) 68 ml RA Dimensions RA Area (4C) 21.2 cm2 <=18.0 Report Signatures
[2024-07-07 07:27] LABS: Hematocrit 35.2 % (42.0-52.0); Hemoglobin 11.6 g/dL (14.0-18.0); Mean Corpuscular Hemoglobin 29.9 pg (26-34); Mean Corpuscular Volume 90.7 fl (80-100); Mean Platelet Volume 10.7 fl (7.4-10.4); Platelet Count Result 166 k/mm3 (150-375); Red Blood Count 3.88 M/mm3 (4.6-6.20); Red Cell Distribution Width 14.1 % (11.5-14.5); White Blood Count 6.2 K/mm3 (4.5-10.0)
[2024-07-07 07:36] LABS: Anion Gap 6 mmol/L (4-12); Blood Urea Nitrogen 20 mg/dL (9-20); Calcium 8.8 mg/dL (8.4-10.2); Carbon Dioxide 25 mmol/L (22-30); Chloride 104 mmol/L (98-107); Estimated CRCL calculation 44 ml/min; Estimated Glomerular Filt Rate 57; Glucose 104 mg/dL (65-110); Potassium 3.9 mmol/L (3.4-5.0); Sodium 135 mmol/L (137-145)
--- NOTE | 2024-07-07 08:11 | PM.PNCARD ---
Progress Note: A&P Assessment and Plan (1) Shortness of breath: Code(s): R06.02 - Shortness of breath Status: Acute Assessment and Plan: Probably due to acute on chronic diastolic heart failure. Emilyurese with Lasix as he was not on any upon discharge last month. On Lasix 40 mg IV BID. Start Spironolactone 25 mg daily. Obtain echo. (2) Pleural effusion: Code(s): J90 - Pleural effusion, not elsewhere classified Status: Acute Assessment and Plan: S/P 350 ml removed by thoracentesis on 07/06/24. (3) PAF (paroxysmal atrial fibrillation): Code(s): I48.0 - Paroxysmal atrial fibrillation Status: Acute Assessment and Plan: In Sinus rhythm now. [id number] 3. He does not want to take anticoagulation. On Metoprolol. Started aspirin 325 mg daily. (4) Status post ascending aortic aneurysm repair: Onset Date: ~2009 Code(s): Z98.890 - Other specified postprocedural states; Z86.79 - Personal history of other diseases of the circulatory system Status: Acute (5) Dyslipidemia: Code(s): E78.5 - Hyperlipidemia, unspecified Status: Acute Assessment and Plan: On Atorvastatin. (6) Elevated troponin: Code(s): R79.89 - Other specified abnormal findings of blood chemistry Status: Acute Assessment and Plan: Up to .048 now, probably due to CHF. (7) Essential (primary) hypertension: Code(s): I10 - Essential (primary) hypertension Status: Chronic Assessment and Plan: High. Start Losartan 50 mg daily. Subjective Date/time seen: 07/07/24 08:11 Interval history: Reports feeling he was sob or trying to take an extra breath this morning. No chest pains. Exam Const: General: cooperative, healthy appearing and comfortable Orientation/consciousness: oriented to person, oriented to place and oriented to time Resp: Auscultation: clear to auscultation bilaterally, no crackles, no rales, no rhonchi and no wheezes Cardio: Rate: regular rate Rhythm: regular rhythm Heart sounds: no murmurs Peripheral pulses: dorsalis pedis present Neuro: General: oriented to person, oriented to place and oriented to time Extrem: Right lower extremity: no edema Left lower extremity: no edema Objective Data Vital Signs Vital Signs: Vital Signs - 24 hr 04/04/25 15:27 07/06/24 19:06 07/06/24 19:07 Temperature 97.4 F L Pulse Rate 68 67 60 Respiratory Rate 961 H Blood Pressure 133/42 L Pulse Oximetry 96 Oxygen Delivery 07/06/24 20:00 07/06/24 20:00 07/06/24 22:00 Temperature 96.6 F L Pulse Rate 74 76 Respiratory Rate 20 Blood Pressure 157/48 H Pulse Oximetry 96 Oxygen Delivery Room Air 07/07/24 00:00 07/07/24 04:00 07/07/24 05:07 Temperature 98.9 F Pulse Rate 73 60 79 Respiratory Rate 16 Blood Pressure 172/56 H Pulse Oximetry 100 Oxygen Delivery Intake/Output Intake/Output: Intake & Output 07/04/24 07/05/24 07/06/24 07/07/24 23:59 23:59 23:59 23:59 Intake Total 680 550 Output Total 2290 525 Balance -1610 25 Meds/Results Medications: Active Medications Generic Name Dose Route Start Last Admin Trade Name Freq PRN Reason Stop Dose Admin Aspirin 325 mg 07/07/24 09:00 Aspirin 325 Mg Enteric Tablet PO QAM [facility] Atorvastatin Calcium 10 mg 07/06/24 21:00 07/06/24 20:09 Atorvastatin 10 Mg Tablet PO 10 mg HS [facility] Administration Enoxaparin Sodium 40 mg 07/07/24 09:00 Enoxaparin 40 Mg/0.4 Ml Syringe SUB-Q DAILY [facility] [place] Furosemide 40 mg 07/06/24 17:00 07/06/24 17:35 Furosemide Inj 40 Mg/4 Ml Vial IV PUSH 40 mg BID KANDY Administration Imipramine HCl 25 mg 07/06/24 13:40 07/06/24 14:45 Imipramine Hcl 25 Mg Tablet PO Not Given [email or web address] [facility] [place] Lisinopril 5 mg 07/07/24 09:00 Lisinopril 5 Mg Tablet PO QAM [facility] [place] Losartan Potassium 50 mg 07/07/24 09:00 Losartan Potassium 50 Mg Tablet PO DAILY KANDY Metoprolol Succinate 50 mg 07/06/24 13:40 07/06/24 14:45 Metoprolol Succinate Ext Rel 50 Mg Tabcr PO Not Given DAILY [facility] [place] Perflutren Lipid Microsphere 0 ml 07/07/24 08:10 Perflutren Lipid Microspheres 1.5 Ml Vial Diluted To 10 Ml Total Volume IV PUSH 07/10/24 08:10 ONCE PRN adequate visualization Protocol Radiology Results: ITS Impressions Chest CT 07/06/24 06:06 Impression: Bilateral pleural effusions, as detailed above. Probable minimal interstitial edema. Chest X-Ray 07/06/24 15:24 IMPRESSION: 1. Resolution of prior right pleural effusion with no pneumothorax post right thoracentesis. 2. Persistent small left pleural effusion with associated mild left basilar atelectasis. Thoracentesis Ultrasound 07/06/24 15:26 IMPRESSION: 1. Successful ultrasound-guided thoracentesis yielding 350 mL of yellow fluid. Labs Labs: Laboratory Results - last 24 hr 07/06/24 07/06/24 07/06/24 08:16 11:44 13:43 WBC RBC Hgb Hct MCV MCH MCHC RDW Plt Count MPV PT 15.6 H INR 1.2 APTT 28.0 Sodium Potassium Chloride Carbon Dioxide Anion Gap BUN Creatinine Estim Creat Clear Calc Estimated GFR Glucose Calcium Lactate Dehydrogenase 229 Troponin I 0.048 H* Pleural Fluid Source Pleural fluid Pleural Color White Pleural Appearance Hazy Pleural pH Pleural RBC 2000 Pleural Nuc Cells 1208 H Pleural Neutrophils 0 Pleural Lymphocytes 54 Pleural Monocytes 14 Pleural Macrophages 28 Pleural Mesothelial 1 Pleural Other Cells 3 07/06/24 07/07/24 13:44 07:22 WBC 6.2 RBC 3.88 L Hgb 11.6 L Hct 35.2 L MCV 90.7 MCH 29.9 MCHC 33.0 RDW 14.1 Plt Count 166 MPV 10.7 H PT INR APTT Sodium 135 L Potassium 3.9 Chloride 104 Carbon Dioxide 25 Anion Gap 6 BUN 20 Creatinine 1.21 Estim Creat Clear Calc 44 Estimated GFR 57 L Glucose 104 Calcium 8.8 Lactate Dehydrogenase Troponin I Pleural Fluid Source Pleural Color Pleural Appearance Pleural pH > 7.500 H Pleural RBC Pleural Nuc Cells Pleural Neutrophils Pleural Lymphocytes Pleural Monocytes Pleural Macrophages Pleural Mesothelial Pleural Other Cells
[2024-07-07] MEDS: SPIRONOLACTONE 25 MG TABLET PO (08:49)
[2024-07-07] MEDS: ASPIRIN 325 MG ENTERIC TABLET PO (08:49)
[2024-07-07] MEDS: LOSARTAN POTASSIUM 50 MG TABLET PO (08:49)
[2024-07-07] MEDS: lisinopriL 5 MG TABLET PO (08:50)
[2024-07-07] MEDS: METOPROLOL SUCCINATE EXT REL 50 MG TABCR PO (08:50)
[2024-07-07] MEDS: FUROSEMIDE INJ 40 MG/4 ML VIAL IV PUSH ×2 (08:50→16:24)
[2024-07-07] MEDS: ENOXAPARIN 40 MG/0.4 ML SYRINGE SUB-Q (08:51)
--- NOTE | 2024-07-07 13:00 | PM.IMPN ---
Progress Note: A&P Assessment and Plan (1) Elevated troponin: Code(s): R79.89 - Other specified abnormal findings of blood chemistry Status: Acute Plan CHF exacerbation Patient was managed for diastolic CT was initially loss admission It appears he was discharged without diuretics and dusky but grossly shortness of breath. CT scan showed bilateral pleural effusion minimal pulmonary edema Continue lasix 40 mg b.i.d., spironolactone ECHO pending Cardiology following. Elevated troponin Likely related to CHF exacerbation Continue Protonix, aspirin. Monitor obtained Cardiology on board. Atrial fibrillation Cardiology evaluation report noted patient declined anticoagulation last admission Continue aspirin 325 mg, metoprolol adjust with clinical course. Anxiety Continue medications. Hypertension Continue medications per Hyperlipidemia Continue medications. DVT prophylaxis subQ Lovenox. Patient is DNR, surrogate decision maker is daughter Nancy Renteria Subjective Date/time seen: 07/07/24 13:00 Interval history: Reports worsenign SOB ECHo pending Review of Systems Review of Systems: All other systems reviewed and negative except as noted in history above. Exam Narrative: General: alert and comfortable Eyes: EOMI, PERRLA ENNT External ears normal, Neck is supple, no masses, Respiratory systems: Clear to auscultation Cardiovascular S1, S2, normal rhythm, no murmur, rub, or gallop; no thrill or palpable murmurs on palpation. Gastrointestinal: soft, non-tender, and non-distended abdomen with no masses; BS present Skin: no rash, lesions, ulcerations, subcutaneous nodules or induration Musculoskeletal: no abnormality and no tenderness, normal ROM Neurologic: Alert and oriented x3, non focal Mental Status Exam: normal affect Objective Data Vital Signs Vital Signs: Vital Signs - 24 hr 07/06/24 15:27 07/06/24 19:06 07/06/24 19:07 Temperature 97.4 F L Pulse Rate 68 67 60 Respiratory Rate 961 H Blood Pressure 133/42 L Pulse Oximetry 96 Oxygen Delivery 07/06/24 20:00 07/06/24 20:00 07/06/24 22:00 Temperature 96.6 F L Pulse Rate 74 76 Respiratory Rate 20 Blood Pressure 157/48 H Pulse Oximetry 96 Oxygen Delivery Room Air 07/07/24 00:00 07/07/24 04:00 07/07/24 05:07 Temperature 98.9 F Pulse Rate 73 60 79 Respiratory Rate 16 Blood Pressure 172/56 H Pulse Oximetry 100 Oxygen Delivery Intake/Output Intake/Output: Intake & Output 07/04/24 07/05/24 07/06/24 07/07/24 23:59 23:59 23:59 23:59 Intake Total 680 670 Output Total 2290 525 Balance -1610 145 Meds/Results Medications: Active Medications Generic Name Dose Route Start Last Admin Trade Name Freq PRN Reason Stop Dose Admin Aspirin 325 mg 07/07/24 09:00 07/07/24 08:49 Aspirin 325 Mg Enteric Tablet PO 325 mg QAM [facility]ANDY Administration Atorvastatin Calcium 10 mg 07/06/24 21:00 07/06/24 20:09 Atorvastatin 10 Mg Tablet PO 10 mg HS [facility]Y Administration Enoxaparin Sodium 40 mg 07/07/24 09:00 07/07/24 08:51 Enoxaparin 40 Mg/0.4 Ml Syringe SUB-Q 40 mg DAILY [facility] Administration Furosemide 40 mg 07/06/24 17:00 07/07/24 08:50 Furosemide Inj 40 Mg/4 Ml Vial IV PUSH 40 mg BID KANDY Administration Imipramine HCl 25 mg 07/06/24 13:40 07/06/24 14:45 Imipramine Hcl 25 Mg Tablet PO Not Given [email or web address] [facility] Lisinopril 5 mg 07/07/24 09:00 07/07/24 08:50 Lisinopril 5 Mg Tablet PO 5 mg QAM [facility] Administration Losartan Potassium 50 mg 07/07/24 09:00 07/07/24 08:49 Losartan Potassium 50 Mg Tablet PO 50 mg DAILY [facility] Administration Metoprolol Succinate 50 mg 07/06/24 13:40 07/07/24 08:50 Metoprolol Succinate Ext Rel 50 Mg Tabcr PO 50 mg DAILY [facility] Administration Perflutren Lipid Microsphere 0 ml 07/07/24 08:10 Perflutren Lipid Microspheres 1.5 Ml Vial Diluted To 10 Ml Total Volume IV PUSH 07/10/24 08:10 ONCE PRN adequate visualization Protocol Spironolactone 25 mg 07/07/24 09:00 07/07/24 08:49 Spironolactone 25 Mg Tablet PO 25 mg QAM [facility]ANDY Administration Radiology Results: ITS Impressions Chest CT 07/06/24 06:06 Impression: Bilateral pleural effusions, as detailed above. Probable minimal interstitial edema. Chest X-Ray 07/06/24 15:24 IMPRESSION: 1. Resolution of prior right pleural effusion with no pneumothorax post right thoracentesis. 2. Persistent small left pleural effusion with associated mild left basilar atelectasis. Thoracentesis Ultrasound 07/06/24 15:26 IMPRESSION: 1. Successful ultrasound-guided thoracentesis yielding 350 mL of yellow fluid. Labs Labs: Laboratory Results - last 24 hr 07/06/24 07/06/24 07/07/24 13:43 13:44 07:22 WBC 6.2 RBC 3.88 L Hgb 11.6 L Hct 35.2 L MCV 90.7 MCH 29.9 MCHC 33.0 RDW 14.1 Plt Count 166 MPV 10.7 H Sodium 135 L Potassium 3.9 Chloride 104 Carbon Dioxide 25 Anion Gap 6 BUN 20 Creatinine 1.21 Estim Creat Clear Calc 44 Estimated GFR 57 L Glucose 104 Calcium 8.8 Pleural Fluid Source Pleural fluid Pleural Color White Pleural Appearance Hazy Pleural pH > 7.500 H Pleural RBC 2000 Pleural Nuc Cells 1208 H Pleural Neutrophils 0 Pleural Lymphocytes 54 Pleural Monocytes 14 Pleural Macrophages 28 Pleural Mesothelial 1 Pleural Other Cells 3
[2024-07-07] MEDS: ATORVASTATIN 10 MG TABLET PO (20:00)
[2024-07-08] VITALS: PULSE 55
[2024-07-08 04:00] VITALS: PULSE 66
[2024-07-08 05:35] VITALS: BP 133/57; PULSE 83; RESP 20; TEMP 36.1; O2SAT 99
[2024-07-08 06:12] LABS: Basophils Percent Auto 0.6 % (0.2-1.2); Eosinophils Absolute Auto 0.2 K/mm3 (0-0.3); Eosinophils Percent Auto 2.7 % (0-4.4); Hematocrit 37.1 % (42.0-52.0); Hemoglobin 12.2 g/dL (14.0-18.0); Immature Granulocyte Absolute 0.04 K/mm3 (0.00-0.031); Immature Granulocyte Percent A 0.6 % (0-0.5); Lymphocytes Percent Auto 18.8 % (18.3-44.2); Mean Corpuscular HGB Conc 32.9 g/dl (32-36); Mean Corpuscular Hemoglobin 29.3 pg (26-34); Mean Corpuscular Volume 89.2 fl (80-100); Mean Platelet Volume 10.9 fl (7.4-10.4); Monocytes Absolute Auto 0.6 K/mm3 (0.1-0.6); Monocytes Percent Auto 8.8 % (2.6-8.5); Neutrophils Absolute Auto 4.7 K/mm3 (1.3-6.7); Neutrophils Percent Auto 68.5 % (45.5-73.1); Platelet Count Result 185 k/mm3 (150-375); Red Blood Count 4.16 M/mm3 (4.6-6.20); Red Cell Distribution Width 13.9 % (11.5-14.5); White Blood Count 6.9 K/mm3 (4.5-10.0)
[2024-07-08 06:23] LABS: Alanine Aminotransferase 18 U/L (6-50); Albumin Level 3.9 g/dL (3.5-5.1); Alkaline Phosphatase 41 U/L (38-126); Anion Gap 9 mmol/L (4-12); Aspartate Amino Transferase 29 U/L (17-59); Bilirubin,Total 0.8 mg/dL (0.2-1.3); Blood Urea Nitrogen 28 mg/dL (9-20); Calcium 9.1 mg/dL (8.4-10.2); Carbon Dioxide 26 mmol/L (22-30); Chloride 100 mmol/L (98-107); Estimated CRCL calculation 33 ml/min; Estimated Glomerular Filt Rate 41; Glucose 97 mg/dL (65-110); Magnesium 1.9 mg/dL (1.6-2.3); Potassium 3.7 mmol/L (3.4-5.0); Sodium 135 mmol/L (137-145)
[2024-07-08 08:00] VITALS: PULSE 67
[2024-07-08 08:59] VITALS: PULSE 78; O2SAT 98
[2024-07-08] MEDS: LOSARTAN POTASSIUM 50 MG TABLET PO (08:59)
[2024-07-08] MEDS: METOPROLOL SUCCINATE EXT REL 50 MG TABCR PO (08:59)
[2024-07-08] MEDS: ASPIRIN 325 MG ENTERIC TABLET PO (08:59)
[2024-07-08] MEDS: lisinopriL 5 MG TABLET PO (08:59)
[2024-07-08] MEDS: ENOXAPARIN 40 MG/0.4 ML SYRINGE SUB-Q (09:00)
[2024-07-08] MEDS: SPIRONOLACTONE 25 MG TABLET PO (09:00)
[2024-07-08] MEDS: FUROSEMIDE 40 MG TABLET PO (09:00)
--- NOTE | 2024-07-08 09:08 | PM.PNCARD ---
Progress Note: A&P Assessment and Plan (1) Shortness of breath: Code(s): R06.02 - Shortness of breath Status: Acute Assessment and Plan: Due to acute on chronic diastolic heart failure. Diurese with Lasix as he was not on any upon discharge last month. On Lasix 40 mg IV BID. Change Lasix 40 mg PO daily and on Spironolactone 25 mg daily. May d/c home from cardiology standpoint and f/u with me in 2 weeks. (2) Pleural effusion: Code(s): J90 - Pleural effusion, not elsewhere classified Status: Acute Assessment and Plan: S/P 350 ml removed by thoracentesis on 07/06/24. (3) PAF (paroxysmal atrial fibrillation): Code(s): I48.0 - Paroxysmal atrial fibrillation Status: Acute Assessment and Plan: In Sinus rhythm now. [id number] 3. He does not want to take anticoagulation. On Metoprolol. On aspirin 325 mg daily. (4) Status post ascending aortic aneurysm repair: Onset Date: ~2009 Code(s): Z98.890 - Other specified postprocedural states; Z86.79 - Personal history of other diseases of the circulatory system Status: Acute (5) Dyslipidemia: Code(s): E78.5 - Hyperlipidemia, unspecified Status: Acute Assessment and Plan: On Atorvastatin. (6) Elevated troponin: Code(s): R79.89 - Other specified abnormal findings of blood chemistry Status: Acute Assessment and Plan: Up to .048 now, probably due to CHF. (7) Essential (primary) hypertension: Code(s): I10 - Essential (primary) hypertension Status: Chronic Assessment and Plan: Stable. Subjective Date/time seen: 07/08/24 09:08 Interval history: No more sob. No chest pains. Exam Const: General: cooperative, healthy appearing and comfortable Orientation/consciousness: oriented to person, oriented to place and oriented to time Resp: Auscultation: clear to auscultation bilaterally, no crackles, no rales, no rhonchi and no wheezes Cardio: Rate: regular rate Rhythm: regular rhythm Heart sounds: no murmurs Peripheral pulses: dorsalis pedis present Neuro: General: oriented to person, oriented to place and oriented to time Extrem: Right lower extremity: no edema Left lower extremity: no edema Objective Data Vital Signs Vital Signs: Vital Signs - 24 hr 07/07/24 12:00 07/07/24 14:00 07/07/24 20:00 Temperature 98.3 F Pulse Rate 86 72 Respiratory Rate 18 Blood Pressure 129/51 L Pulse Oximetry 99 Oxygen Delivery Room Air 07/07/24 20:00 07/07/24 21:45 07/08/24 00:00 Temperature 96 F L Pulse Rate 68 70 55 L Respiratory Rate 16 Blood Pressure 117/51 L Pulse Oximetry 100 Oxygen Delivery 07/08/24 04:00 07/08/24 05:35 07/08/24 08:59 Temperature 96.9 F L Pulse Rate 66 83 Respiratory Rate 20 Blood Pressure 133/57 L Pulse Oximetry 99 98 Oxygen Delivery Room Air 07/08/24 08:59 Temperature Pulse Rate 78 Respiratory Rate Blood Pressure Pulse Oximetry Oxygen Delivery Intake/Output Intake/Output: Intake & Output 07/05/24 07/06/24 07/07/24 07/08/24 23:59 23:59 23:59 23:59 Intake Total 680 910 150 Output Total 2290 525 950 Balance -1610 385 -800 Meds/Results Medications: Active Medications Generic Name Dose Route Start Last Admin Trade Name Freq PRN Reason Stop Dose Admin Aspirin 325 mg 07/07/24 09:00 07/08/24 08:59 Aspirin 325 Mg Enteric Tablet PO 325 mg QAM KANDY Administration Atorvastatin Calcium 10 mg 07/06/24 21:00 07/07/24 20:00 Atorvastatin 10 Mg Tablet PO 10 mg HS KANDY Administration Enoxaparin Sodium 40 mg 07/07/24 09:00 07/08/24 09:00 Enoxaparin 40 Mg/0.4 Ml Syringe SUB-Q 40 mg DAILY [facility]Y Administration Furosemide 40 mg 07/08/24 09:00 07/08/24 09:00 Furosemide 40 Mg Tablet PO 40 mg DAILY [facility] Administration Imipramine HCl 25 mg 07/06/24 13:40 07/06/24 14:45 Imipramine Hcl 25 Mg Tablet PO Not Given [email or web address] [email or web address] Lisinopril 5 mg 07/07/24 09:00 07/08/24 08:59 Lisinopril 5 Mg Tablet PO 5 mg QAM KNADY Administration Losartan Potassium 50 mg 07/07/24 09:00 07/08/24 08:59 Losartan Potassium 50 Mg Tablet PO 50 mg DAILY [facility]Y Administration Metoprolol Succinate 50 mg 07/06/24 13:40 07/08/24 08:59 Metoprolol Succinate Ext Rel 50 Mg Tabcr PO 50 mg DAILY [facility] Administration Perflutren Lipid Microsphere 0 ml 07/07/24 08:10 Perflutren Lipid Microspheres 1.5 Ml Vial Diluted To 10 Ml Total Volume IV PUSH 07/10/24 08:10 ONCE PRN adequate visualization Protocol Spironolactone 25 mg 07/07/24 09:00 07/08/24 09:00 Spironolactone 25 Mg Tablet PO 25 mg QAM KANDY Administration Radiology Results: ITS Impressions Chest CT 07/06/24 06:06 Impression: Bilateral pleural effusions, as detailed above. Probable minimal interstitial edema. Chest X-Ray 07/06/24 15:24 IMPRESSION: 1. Resolution of prior right pleural effusion with no pneumothorax post right thoracentesis. 2. Persistent small left pleural effusion with associated mild left basilar atelectasis. Thoracentesis Ultrasound 07/06/24 15:26 IMPRESSION: 1. Successful ultrasound-guided thoracentesis yielding 350 mL of yellow fluid. Labs Labs: Laboratory Results - last 24 hr 07/08/24 06:00 WBC 6.9 RBC 4.16 L Hgb 12.2 L Hct 37.1 L MCV 89.2 MCH 29.3 MCHC 32.9 RDW 13.9 Plt Count 185 MPV 10.9 H Immature Gran % (Auto) 0.6 H Neut % (Auto) 68.5 Lymph % (Auto) 18.8 [place] % (Auto) 8.8 H Eos % (Auto) 2.7 Baso % (Auto) 0.6 Lymph # (Auto) 1.30 [place] # (Auto) 0.6 Eos # (Auto) 0.2 Baso # (Auto) 0.0 Abs Immat Gran (auto) 0.04 H Absolute Neuts (auto) 4.7 Absolute Nucleated RBC 0.000 Nucleated RBC % 0.0 Sodium 135 L Potassium 3.7 Chloride 100 Carbon Dioxide 26 Anion Gap 9 BUN 28 H Creatinine 1.61 H Estim Creat Clear Calc 33 Estimated GFR 41 L Glucose 97 Calcium 9.1 Magnesium 1.9 Total Bilirubin 0.8 AST 29 ALT 18 Alkaline Phosphatase 41 Total Protein 7.0 Albumin 3.9
--- NOTE | 2024-07-08 12:15 | PM.DS ---
DS: Admitting Diagnosis Discharge Date 07/09/23 Admitting Diagnosis SOB DS: Discharge Diagnosis Discharge Diagnosis (1) Elevated troponin: Code(s): R79.89 - Other specified abnormal findings of blood chemistry Status: Acute (2) Atrial fibrillation: Qualifiers: Atrial fibrillation type: unspecified Qualified Code(s): I48.91 - Unspecified atrial fibrillation Code(s): I48.91 - Unspecified atrial fibrillation Status: Chronic DS: Summary Hospital Course Hospital Course: 83-year-old male past medical history grade 1 diastolic CHF, CKD, hypertension, anxiety, history of prostate cancer chronic low back pain who presented to the ER control shortness of breath. Patient reported since he will discharge on 21/11 of last multiple to his been gradually having worsening shortness of breath along with orthopnea and PND. Denies any chest pain no vomiting abdominal pain and dysuria focal symptoms. ER evaluation BP 192/64, saturating 100 on room air. labs notable for Troponin 0.041 to o.048, NTproBNP 4560. CT chest showed bilateral pleural effusion with pulm edema It appears patient was not discharged on Lasix last admission, thus patient was started back on Lasix and he feels so much better. Cardiology was consulted and recommended ECHO which showed EF 60-65% and abnormal diastolic dysfunction. Patient discharged on Lasix 40mg daily and Spironolactone 25mg daily Also for Afib, patient noted he does not want to be on Anticoagulation, thus he was started on Aspirin 325mg per cardiology Added Losartan for Hypertension and Diltiazem discontinued. F/u with PCP in 3-5 days, follow up with cardiology as noted. Time Spent with Patient Time attestation: Total time spent providing and/or coordinating discharge services: DS: Data Data Completed and Pending Labs on day of discharge: Labs from last 24 hours 07/08/24 06:00 WBC 6.9 RBC 4.16 L Hgb 12.2 L Hct 37.1 L MCV 89.2 MCH 29.3 MCHC 32.9 RDW 13.9 Plt Count 185 MPV 10.9 H Immature Gran % (Auto) 0.6 H Neut % (Auto) 68.5 Lymph % (Auto) 18.8 [place] % (Auto) 8.8 H Eos % (Auto) 2.7 Baso % (Auto) 0.6 Lymph # (Auto) 1.30 [place] # (Auto) 0.6 Eos # (Auto) 0.2 Baso # (Auto) 0.0 Abs Immat Gran (auto) 0.04 H Absolute Neuts (auto) 4.7 Absolute Nucleated RBC 0.000 Nucleated RBC % 0.0 Sodium 135 L Potassium 3.7 Chloride 100 Carbon Dioxide 26 Anion Gap 9 BUN 28 H Creatinine 1.61 H Estim Creat Clear Calc 33 Estimated GFR 41 L Glucose 97 Calcium 9.1 Magnesium 1.9 Total Bilirubin 0.8 AST 29 ALT 18 Alkaline Phosphatase 41 Total Protein 7.0 Albumin 3.9 Preliminary micro results at discharge 07/06/24 13:44 Anaerobic Culture - Preliminary Other Aerobic Culture - Preliminary Discharge Plan Discharge Attending physician on discharge: Lisa Adams Consulting providers: Giovanni Smith Discharging Clinician: Lisa Adams Anticipated Discharge Date/Time: 07/08/24 12:11 Patient Disposition: Home Health Service Activity: as tolerated Diet: as tolerated and heart healthy Discharge Instructions: Per Care Coordination: [facility] will resume services at discharge. [facility] will follow for RN and PT/OT eval and treat. [facility] can be contacted at [phone]. Nursing please fax discharge paperwork to [phone]. Patient Language: Divehi Stand Alone Forms: General Discharge Information Follow-up/Referrals: Giovanni Smith DO [Physician] - (F/u with Cardiology as instructed ) Adonis Cabral MD [Primary Care Provider] - (F/u with PCP in 3-5 days ) Discharge Medications: New aspirin 325 mg Tablet,Delayed Release (Dr/Ec) 325 mg PO QAM 30 Days Qty: 30 1RF losartan [Cozaar] 50 mg Tablet 50 mg PO DAILY 30 Days Qty: 30 1RF spironolactone 25 mg Tablet 25 mg PO QAM 30 Days Qty: 30 1RF furosemide 40 mg Tablet 40 mg PO DAILY 30 Days Qty: 30 1RF Continued dorzolamide-timolol 22.3-6.8 mg/mL drops 1 drp RIGHT EYE BID brimonidine 0.15 % drops 1 drp RIGHT EYE TID imipramine HCl 25 mg tablet 25 mg PO .three times per week Rx Instructions: Take 1 Tablet (25 mg) by mouth [id number] ferrous sulfate 325 mg (65 mg iron) Tablet,Delayed Release (Dr/Ec) 325 mg PO DAILY Qty: 30 0RF cholecalciferol (vitamin D3) 50 mcg (2,000 unit) capsule 250 mcg PO DAILY prednisolone acetate 1 % drops,suspension 1 drp RIGHT EYE TID Rx Instructions: Times 30 days. clobetasol 0.05 % solution 1 applic TOPICAL DAILY multivitamin [Multiple Vitamins] Tablet 1 tablet PO DAILY Rx Instructions: take 1 tablet by oral route every day fenofibrate nanocrystallized 145 mg tablet See Rx Instructions .ROUTE .COMPLEX Qty: 90 2RF Dose Instruction: TAKE ONE TABLET BY MOUTH ONCE DAILY Rx Instructions: TAKE ONE TABLET BY MOUTH ONCE DAILY metoprolol succinate 50 mg tablet extended release 24 hr See Rx Instructions .ROUTE .COMPLEX Qty: 90 2RF Dose Instruction: Take 1 Tablet (50 mg) by mouth daily. Rx Instructions: Take 1 Tablet (50 mg) by mouth daily. albuterol sulfate 2.5 mg /3 mL (0.083 %) solution for nebulization 2.5 mg inhalation Q4-6H PRN (Reason: shortness of breath or wheezing) Qty: 180 0RF (DME) nebulizer and compressor Device See Rx Instructions .Route Qty: 1 0RF Rx Instructions: To use by inhalation route every 4 to 6 hours as needed atorvastatin 10 mg tablet See Rx Instructions .ROUTE .COMPLEX Qty: 90 2RF Dose Instruction: Take 1 Tablet (10 mg) by mouth daily at bedtime. Rx Instructions: Take 1 Tablet (10 mg) by mouth daily at bedtime. Discontinued diltiazem HCl 120 mg Capsule,Extended Release 24hr 120 mg PO QAM Qty: 60 0RF apixaban 5 mg tablet 5 mg PO BID Qty: 30 0RF aspirin 81 mg tablet,chewable 81 mg PO DAILY Rx Instructions: chew 1 tablet by oral route every day Date of admission: 07/06/24 06:22 Primary Care Provider: Adonis Cabral Admitting Provider: Sophie Liu Attending physician on admission: Sophie Liu Condition: Stable
== END 2024-07-08 12:55 | disposition home health service (06) | DRG 291 ==
LOC: ANHED 06:16 → ANH3MEDSUR 09:04
PROVIDERS: Student in an Organized Health Care Education/Training Program; Admitting Provider General Practice; Emergency Provider Registered Nurse; PCP Emergency Medicine; Visit Provider Internal Medicine
DX: I13.0 Hypertensive heart and chronic kidney disease with heart failure and stage 1 through stage 4 chronic kidney disease, or unspecified chronic kidney disease (principal); I50.33 Acute on chronic diastolic (congestive) heart failure; J91.8 Pleural effusion in other conditions classified elsewhere; N18.30 Chronic kidney disease, stage 3 unspecified; F41.9 Anxiety disorder, unspecified; J44.9 Chronic obstructive pulmonary disease, unspecified; I48.0 Paroxysmal atrial fibrillation; E78.5 Hyperlipidemia, unspecified; H40.9 Unspecified glaucoma; Z85.46 Personal history of malignant neoplasm of prostate; Z95.2 Presence of prosthetic heart valve; Z96.1 Presence of intraocular lens; Z98.42 Cataract extraction status, left eye; Z98.41 Cataract extraction status, right eye; Z86.79 Personal history of other diseases of the circulatory system
CPT/HCPCS: 32555; 36415; 71045; 71250; 80048; 80053; 82803; 82945; 83615; 83735; 83880; 83986; 84157; 84484; 85025; 85027; 85610; 85730; 87070; 87075; 87205; 87637; 89051; 93005; 93306; 94640; 96365; 96366; 96375; 99285; A9270; J1650; J1938; J3475

== ENCOUNTER 2024-11-17 01:58 | Observation (INO) | payer MEDICARE, SELFPAY ==
[2024-11-17] VITALS (18 sets, daily range): BP systolic 110–155; BP diastolic 30–77; PULSE 66–85; RESP 14–33; TEMP 36.3–36.7; O2SAT 94–98; BMI 21.7
--- NOTE | 2024-11-17 | ECHO_ITS ---
Patient Info Name: Robin Beckwith Age: 83 years : 1940 Gender: Male Ht: 72 in Wt: 160 lbs BSA: 1.92 m2 HR: 70 bpm BP: 111 / 67 mmHg Technical Quality: Fair Exam Date: 11/17/2024 12:36 PM Patient Status: I Admit Date: 11/17/2024 Exam Type: CA echo doppler color flow Complete two-dimensional, color flow and Doppler transthoracic echocardiogram is performed. Staff Referring Physician: Teddy Murcia Adjunct Political Science Instructor: Renae Ayala Attending Provider: Marivel Glass MD Summary 1. Complete two-dimensional, color flow and Doppler transthoracic echocardiogram is performed. 2. Left ventricular chamber dimension is moderately enlarged. 3. Left ventricular systolic function is preserved, estimated at 50-55. 4. There is mild concentric increased left ventricular wall thickness. 5. The left ventricular diastolic function is abnormal. 6. E/e' 18 is elevated. 7. Left atrial chamber dimension is moderately enlarged. 8. Right atrial chamber dimension is mildly enlarged. 9. Lipomatous interatrial septum. 10. Left to right shunt by color doppler suggestive of PFO or ASD. 11. The aortic valve is not well visualized. Cannot determine number of aortic valve leaflets due to significant calcification. 12. The bioprosthetic aortic valve is not well visualized. 13. There is severe sclerosis of the bioprosthetic aortic valve leaflets. 14. There is mild to moderate regurgitation of the bioprosthetic aortic valve. 15. There is mild mitral valve regurgitation. 16. There is mild to moderate tricuspid valve regurgitation. 17. Moderate pulmonary hypertension, estimated pulmonary arterial systolic pressure is 56 mmHg. 18. There is trace pulmonic regurgitation. 19. The prox ascending aorta size is borderline dilated at 4.0 cm. 20. There is trivial pericardial effusion. Left Ventricle E/e' 18 is elevated. Left ventricular chamber dimension is moderately enlarged. Left ventricular systolic function is preserved, estimated at 50-55. There is mild concentric increased left ventricular wall thickness. The left ventricular diastolic function is abnormal. Right Ventricle Right ventricular chamber dimension is normal. Right ventricular systolic function is normal. Left Atria Left atrial chamber dimension is moderately enlarged. Right Atria Right atrial chamber dimension is mildly enlarged. Atrial Septum Interatrial septum not well visualized by 2D and color flow imaging. Lipomatous interatrial septum. Left to right shunt by color doppler suggestive of PFO or ASD. Aortic Valve The aortic valve is not well visualized. Cannot determine number of aortic valve leaflets due to significant calcification. The bioprosthetic aortic valve is not well visualized. There is severe sclerosis of the bioprosthetic aortic valve leaflets. There is no bioprosthetic aortic valve stenosis. There is mild to moderate regurgitation of the bioprosthetic aortic valve. Pulmonic Valve There is trace pulmonic regurgitation. Mitral Valve There is no mitral valve stenosis. There is mild mitral valve regurgitation. Tricuspid Valve There is mild to moderate tricuspid valve regurgitation. Moderate pulmonary hypertension, estimated pulmonary arterial systolic pressure is 56 mmHg. Pericardium/Pleural There is trivial pericardial effusion. Inferior Vena Cava Normal inferior vena cava with >50% collapse upon inspiration consistent with normal right atrial pressure, 5 mmHg. Aorta The aortic root size at the sinus of Valsalva is normal. The prox ascending aorta size is borderline dilated at 4.0 cm. Left Ventricular Outflow Tract Name Value Normal LVOT 2D LVOT Diameter 2.0 cm LVOT Doppler LVOT Peak Velocity 125 cm/s LVOT Peak Gradient 6 mmHg LVOT Mean Gradient 4 mmHg LVOT VTI 29 cm LVOT VTI/AV VTI Ratio 0.4 LVOT Stroke Volume 93 ml LVOT CO 17.8 l/min LVOT CI 9.3 l/min/m2 Pulmonic Valve Name Value Normal PV Doppler PV Peak Velocity 96 cm/s PV Peak Gradient 4 mmHg Mitral Valve Name Value Normal MV Diastolic Function MV E Peak Velocity 150 cm/s MV A Peak Velocity 6 cm/s MV E/A 26.2 MV Decel Time (PW) 214 ms MV Annular TDI MV E/e' (Septal) 34.8 MV E/e' (Lateral) 12.2 MV E/e' (Average) 23.5 Tricuspid Valve Name Value Normal TV Regurgitation Doppler TR Peak Velocity 355 cm/s TR Peak Gradient 51 mmHg Estimated PAP/RSVP RA Pressure 5 mmHg <=5 PA Systolic Pressure 56 mmHg <36 RV Systolic Pressure 56 mmHg <36 TV Annular TDI TV Lateral Ml s' Velocity 9.4 cm/s >=9.5 Aorta Name Value Normal Ascending Aorta Ao Root Diameter (MM) 4.3 cm Ao Root Diam Index (MM) 2.3 cm/m2 Aortic Valve Name Value Normal AV Doppler AV Peak Velocity 315 cm/s AV Peak Gradient 32 mmHg AV Mean Gradient 20 mmHg AV VTI 69 cm AV Area (Cont Eq VTI) 1.3 cm2 >=3.0 AV Area (Cont Eq Steven) 1.3 cm2 AV DI (Steven) 0.40 AV Regurgitation 2D LVOT Area 3.2 cm2 Ventricles Name Value Normal LV Dimensions 2D/MM IVS Diastolic Thickness (2D) 1.3 cm 0.6-1.0 LVID Diastole (2D) 5.3 cm 4.2-5.8 LVIW Diastolic Thickness (2D) 1.2 cm 0.6-1.0 LVID Systole (2D) 4.0 cm 2.5-4.0 LVOT Diameter 2.0 cm LV Mass (2D Cubed) 268.12 g 88.00-224.00 LV Mass Index (2D Cubed) 140 g/m2 49-115 Relative Wall Thickness (2D) 0.44 <=0.42 LV Fractional Shortening/Ejection Fraction 2D/MM LV Fractional Shortening (2D) 24 % 25-43 LV EF (2D Teichholz) 47 % LV Diastolic Volume (4C MOD) 177 ml LV EF (4C MOD) 45 % LV Diastolic Volume (2C MOD) 153 ml LV EF (2C MOD) 42 % LV Diastolic Volume (BP MOD) 170 ml 62-150 LV Diastolic Volume Index (BP MOD) 89 ml/m2 34-74 LV Systolic Volume (BP MOD) 95 ml 21-61 LV Systolic Volume Index (BP MOD) 49 ml/m2 11-31 LV EF (BP MOD) 44 % 52-72 LV Diastolic Length (4C) 8.4 cm LV Systolic Length (4C) 7.3 cm LV Stroke Volume (4C MOD) 80 ml RV Dimensions 2D/MM RVID Diastole (2D) 3.7 cm 2.1-3.5 Atria Name Value Normal LA Dimensions LA Dimension (MM) 3.7 cm 3.0-4.0 LA Volume (4C A-L) 78 ml LA Volume (BP A-L) 86 ml RA Dimensions RA Systolic Major Glady Length (4C) 5.0 cm 2.1-2.7 RA Area (4C) 18.2 cm2 <=18.0 Report Signatures
--- NOTE | ~2024-11-17 | XR_ITS ---
EXAMINATION: XR chest 1V portable DATE: 11/17/2024 02:43 INDICATION: Shortness of breath TECHNIQUE: frontal view of the chest was obtained. COMPARISON: Chest radiograph dated 07/06/2024 FINDINGS: Hyperexpansion of the right lung. Elevation of the left hemidiaphragm. No or pulmonary edema, pneumot horax or definitive pleural effusion. Heart size is normal conifer accounting for AP technique with p rominent left paracardial fat pad which obscures the apex of the heart. Median sternotomy wires, osti al markers and mediastinal surgical clips consistent with prior coronary artery bypass grafting. IMPRESSION: 1. Hyperexpansion of the right lung with elevation of the left hemidiaphragm. Reviewed, dictated and finalized at location A.
--- NOTE | 2024-11-17 02:11 | ECG_ITS ---
Test Date: 2024-11-17 05:29:20 Measurements Intervals [place] Rate: 80 P: 0 WV: 0 QRS: -32 QRSD: 111 T: 60 QT: 374 QTc: 434 Interpretive Statements ATRIAL FIBRILLATION LEFT AXIS DEVIATION INTRAVENTRICULAR CONDUCTION DELAY LEFT VENTRICULAR HYPERTROPHY WITH ST-T CHANGE BORDERLINE R WAVE PROGRESSION, ANTERIOR LEADS ABNORMAL ECG Compared to ECG 11/17/2024 02:03:40 NO SIGNIFICANT CHANGE Electronically Signed On 11-17-2024 07:25:43 CDT by Giovanni Smith D.O.
--- OUTSIDE RECORDS SUMMARY | 2024-11-17 02:13 | XMS_ITS | Clinical Summary ---
Author Organization [facility] Address [address] [place] [address] Care Team Providers Care Logger Driving Horses Name Role Phone Steve Potter MD Primary Care Provider Tamiko Perez LAB INTERN Unavailable [phone] Guera Bass LAB INTERN Unavailable [phone] Allergies Active Allergy Reactions Criticality Noted Date Comments Adhesive Tape-Silicones Redness Low Medications fenofibrate nanocrystallized (TRICOR,TRIGLIDE) 145 mg tablet Take 145 mg by mouth sensor operator before breakfast. Active metoprolol XL (TOPROL-XL) 50 mg 24 hr tablet Take 50 mg by mouth sensor operator before breakfast. Active atorvastatin (LIPITOR) 10 [...] positional vertigo 05/17/2012 Nuclear senile cataract 08/14/2009 Encounters Date Type Department Care Team Description 09/21/2024 12:00 PM CDT Residential Visit [facility] [address] [place] [address] Tamiko Perez NP Age-related physical debility (Primary Dx) 08/29/2024 10:00 AM CDT Residential Visit [facility] [address] [place] [address] Tamiko Perez NP Palliative care encounter (Primary Dx); Valvular heart disease; Age-related physical debility; S/P aortic valve replacement with bioprosthetic valve; Essential hypertension; Stage 3b chronic kidney disease (HCC); S/P ascending aortic aneurysm repair from Last 3 Months Surgical History Surgery Date Site/Laterality Comments CATARACT EXTRACTION Bilateral NC KERATOPLASTY ANTERIOR LAMELLAR Right PHOTOREFRACTIVE KERATOTOMY Bilateral LUMBAR LAMINECTOMY 04/04/1981 - 04/03/1982 ASCENDING AORTIC ANEURYSM REPAIR W/ TISSUE AORTIC VALVE REPLACEMENT 04/04/2009 - 04/03/2010 CORRECTION HAMMER TOE INGUINAL HERNIA REPAIR Left AORTIC VALVE REPLACEMENT 04/04/2009 - 04/03/2010 Bioprosthetic valve, Dr. 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 Gender Identity Not on file Sexual Orientation [...] 09/15/2018 10:51 AM CDT Plan of Treatment Health Maintenance Due Date Last Done Comments Depression Screening 1940 Fall Risk Assessment 1940 DTaP/Tdap/Td Vaccine (1 - Tdap) 1949 Hepatitis B Screening 1956 Pneumococcal vaccine 65+ (1 of 2 - PCV) 1957 Zoster Vaccine (1 of 2) 1957 Well Visit 65+ 12/04/2003 Influenza Vaccine (#1) 2024 Insurance [facility] MEDICARE ADVANTAGE UHC MEDICARE ADVANTAGE AETNA MEDICARE Advance Directives For more information, please contact: [phone] Documents on File Type Date Recorded Patient Ethanol Operations Manager Expl anation ADVANCE DIRECTIVE 08/22/2017 11:06 AM ADVANCE DIRECTIVE 08/22/2017 Advance Di rective Checklist * Full Code (Latest Code Status on File) Date Activated Date Inactivated Comments 08/22/2017 2:39 PM 08/23/2017 2:18 PM Care Teams Logger Driving Horses Relationship Specialty Start Date End Date Steve Potter MD PCP - General 08/12/17 Tamiko Perez NP [address] [place] [address] Nurse Practitioner Hospice and Palliative Medicine 08/15/24 Guera Bass NP [address] [place] [address] Nurse Practitioner Hospice and Palliative Medicine 08/15/24
--- OUTSIDE RECORDS SUMMARY | 2024-11-17 02:13 | XMS_ITS | Clinical Summary ---
Author Organization [facility] Address [address] [facility] [place] [address] Care Team Providers Care Car Repair Supervisor Name Role Phone Cuate Mclaughlin MD Primary Care Provider Source Comments [facility],non-owned Affiliates and Associated Physician Practices is amultiple site organization consisting of ambulatory clinics and hospital sitesin [place], [place], [place] and [place]. This disclosure is being madepursuant to the Care Everywhere program and may not contain all information available regarding this patient. 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
--- OUTSIDE RECORDS SUMMARY | 2024-11-17 02:13 | XMS_ITS | Encounter Summary ---
Author Organization [facility] Address 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
--- OUTSIDE RECORDS SUMMARY | 2024-11-17 02:13 | XMS_ITS | Continuity of Care Document ---
Author Organization [facility] Address [address] [place] [address] Phone Care Team Providers Care Religious Ritual Slaughterer Name Role Phone Matt Kaba MD Unavailable Unavailable Advance Directives Directive Yes / No Effective Date File Name No Information Encounters Encounter Description Practice Location Reason(s) For Visit Diagnoses Date Provider Providers Copied on Encounter [facility], [address] [place] [address], [address] [place] [address], tel:[phone] [facility] SACROILIITIS NEC Sesar Gutierrez. [address] [place], [place], [id number], . tel:[phone] [facility], [address] [place] [address], [id number], tel:[phone] [facility] JOINT DIS NOS-PELVIS Jacqueline Mckinney. [address] [place], [place], [id number], . tel:[phone] [facility], [address] [place] [address], [id number], tel:[phone] [facility] LUMBAGO Denzellandry Sanya. [address] [place], [place], [id number], . tel:[phone] Family History Family Member Type Diagnosis Age [...]
--- OUTSIDE RECORDS SUMMARY | 2024-11-17 02:13 | XMS_ITS | Encounter Summary ---
Author Organization [facility] Address [address] [place] [address] Care Team Providers Care Oracle Analyst Name Role Phone Cuate Mclaughlin MD Primary Care Provider [phone] Encounter Details Date Type Department Care Team (Late st Contact Info) Description 06/28/2018 Lab Requisition [facility] [address] [facility] [place] [id number] Pari Petit DO [address] 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[employer] Gender Identity Not on file Sexual Orientation Not on file documented as of this encounter Plan of Treatment Not on file documented as of this encounter Procedures Procedure Name Priority Date/Time Associated Diagnosis Comments DERMATOPATHOLOGY Routine 06/27/2018 12:0 0 AM CDT documented in this encounter Results * DERMATOPATHOLOGY (06/27/2018 12:00 AM CDT) Case Report Dermatopathology Report Case: [id number] Authorizing Provider: Pari Petit DO Collected: 06/27/2018 12:00 AM Pathologist: Ara Medina MD Received: 06/28/2018 09:14 AM Specimen: Skin, right mid back 9 12:45 PM CDT DERMATOPATHOLOGY LABORATORY Final Diagnosis Specimen A. SKIN, right mid back: DILATED PORE OF CHEVY, FRAGMENTED (L70.8) 9 12:45 PM CDT DERMATOPATHOLOGY LABORATORY at 1245 CDT Clinical History DPW. 12:45 PM CDT DERMATOPATHOLOGY [...] characteristic determined by the Dermatopathology Laboratory at [facility], directed by Dr. Ben Lucia. These tests need not be, and therefore are not, approved by the [place] Food and Drug Administration. The tests are used for clinical purposes. Billing Codes Specimen Charges Stain Charges 48950 1 12:45 PM CDT DERMATOPATHOLOGY LABORATORY Embedded Images 12:45 PM CDT DERMATOPATHOLOGY LABORATORY Pathology/Cytolog y TISSUE SPECIMEN FROM SKIN / Unknown 06/27/2018 06/28/2018 9:14 AM CDT Pari Petit DO LAB - PATHOLOGY/CYTOLOGY ORDERABLES Final Result DERMATOPATHOLOGY LABORATORY [facility] - Department of Dermatology [address] [facility]th [address] Lab [address] [phone] documented in this encounter Visit Diagnoses Not on filedocumented in this encounter Care Teams Oracle Analyst Relationship Specialty Start Date End Date Cuate Mclaughlin MD [address] [place] [address] PCP - General 06/27/18 documented as of this encounter
--- OUTSIDE RECORDS SUMMARY | 2024-11-17 02:13 | XMS_ITS | Clinical Summary ---
Author Organization [facility] Address [address] Bui: Epic Prelude ADT SALMA BLUNT [id number] Care Team Providers Care Ct Mri Technologist Name Role Phone Unavailable Primary Care Provider Unavailabl e Allergies No known active allergies Medications brimonidine (ALPHAGAN P) 0.15 % solution INSTILL 1 DROP IN THE RIGHT EYE THREE TIMES A DAY NEEDED 10 mL 5 02/24/20 23 3:30 PM STRING STUDIES DIRECTOR 022 Active lactulose (KRISTALOSE) 10 gram Packet DISSOLVE THE CONTENTS OF 1 PACKET IN 4 OUNCES OF WATER AND DRINK ONCE DAILY NEEDED FOR CONSTIPATION 15 Packet 5 10/08/19 23 5:25 PM CDT 023 Active amoxicillin (AMOXIL) 250 mg capsule TAKE 8 CAPSULES 1 HOUR BEFORE APPOINTMENT. 24 Capsule 2 12/30/19 23 5:45 PM CDT 023 Active azithromycin (ZITHROMAX) 250 mg tablet Take 2 tablets by mouth on day 1, then take 1 tablet by mouth for 4 days. 6 Tablet 11/30/19 23 7:44 PM CDT 023 Active triamcinolone acetonide (KENALOG) 0.1 % Paste APPLY TO MOUTH SORES 3-4 TIMES DAILY AFTER MEALS AND AT BEDTIME. DO NOT RUB 5 Gram 50 12/04/19 23 4:48 PM CDT 023 Active dorzolamide-timolo L (COSOPT) 22.3-6.8 mg/mL solution Administer one drop into right eye twice daily 10 mL 6 023 Active erythromycin (ILOTYCIN) 5 mg/gram (0.5 %) ointment Apply a small amount to eyelids once daily as needed 3.5 Gram 3 12/24/19 23 7:20 PM CDT 023 Active brimonidine (ALPHAGAN P) 0.15 % solution INSTILL 1 DROP IN THE RIGHT EYE 3 TIMES DAILY. 10 mL 12 023 Active ALPRAZolam (XANAX) 0.25 mg tablet Take 0.5 Tablets (0.125 mg) by mouth 1 time daily as needed for anxiety. 45 Tablet 1 05/27/19 24 7:34 PM STRING STUDIES DIRECTOR 023 Active brimonidine (ALPHAGAN P) 0.15 % solution Administer 1 Drop in right eye 3 times daily as needed. 10 mL 5 02/27/20 24 5:30 PM STRING STUDIES DIRECTOR 024 Active imipramine HCl (TOFRANIL) 25 mg tablet Take 1 Tablet (25 mg) by mouth daily. 90 Tablet 2 11/05/19 25 2:21 PM CDT 024 Active metoprolol succinate (TOPROL XL) 50 mg Extended Release 24 hour tablet Take 1 Tablet (50 mg) by mouth daily. 90 Tablet 2 09/20/19 25 5:19 PM CDT 024 Active ketoconazole (NIZORAL) 2 % Shampoo USE ON AFFECTED AREA 3 TIMES A WEEK. 120 mL 04/30/19 25 5:25 PM STRING STUDIES DIRECTOR 025 Active dilTIAZem (CARDIZEM CD, CARTIA XT) 120 mg Controlled Delivery 24 hour capsule Take 1 Capsule (120 mg) by mouth daily in the morning. 60 Capsule 05/11/19 25 11:45 AM STRING STUDIES DIRECTOR 025 Active oseltamivir (TAMIFLU) 30 mg Capsule Take 1 Capsule (30 mg) by mouth every 12 hours. 5 Capsule 05/11/19 25 11:45 AM STRING STUDIES DIRECTOR 025 Active ferrous sulfate 325 mg (65 mg iron) Tablet, Delayed Release (E.C.) Take 1 Tablet (325 mg) by mouth daily. 30 Tablet 05/10/19 25 4:36 PM STRING STUDIES DIRECTOR 025 Active albuterol (PROVENTIL,VENTOLI N) 2.5 mg /3 mL (0.083 %) Solution for Nebulization INHALE THE CONTENTS OF 1 VIAL PER NEBULIZER EVERY 4-6 HOURS NEEDED FOR SHORTNESS OF BREATH OR WHEEZING. 180 mL 05/21/19 25 4:16 PM STRING STUDIES DIRECTOR 025 Active Nebulizer & Compressor For Neb Device To use by inhalation route every 4 to 6 hours as needed 1 Each 025 Active clobetasoL (TEMOVATE) 0.05 % Solution APPLY TO THE AFFECTED AREA(S) OF SCALP 1-2 TIMES DAILY FOR UP TO TWO CONSECUTIVE WEEKS AT A TIME 50 mL 2 07/19/19 25 12:32 PM CDT 025 Active Clobetasol 0.05 % Shampoo Apply to affected areas of scalp three times weekly and let sit 3-5 minutes and then rinse for up to two consecutive weeks. Take a small break and repeat as necessary for flares. Avoid the face, axilla, and groin. 118 mL 2 05/22/19 25 7:05 PM STRING STUDIES DIRECTOR 025 Active atorvastatin (LIPITOR) 10 mg tablet Take 1 Tablet (10 mg) by mouth daily at bedtime. 90 Tablet 2 08/19/19 25 12:35 PM CDT 025 Active Clobetasol 0.05 % Shampoo Apply to affected areas of scalp three times weekly and let sit 3-5 minutes and then rinse for up to two consecutive weeks. Take a small break and repeat as necessary for flares. Avoid the face, axilla, and groin. 118 mL 3 06/17/19 25 2:09 PM CDT 025 Active prednisoLONE acetate (Pred Forte) 1 % suspension ADMINISTER 1 DROP IN RIGHT EYE 3 TIMES DAILY. 5 mL 6 06/25/19 25 11:40 AM CDT 025 Active ALPRAZolam (XANAX) 0.25 mg tablet Take 0.5 Tablets (0.125 mg) by mouth daily as needed for anxiety 30 Tablet 2 07/19/19 25 12:32 PM CDT 025 Active aspirin (ECOTRIN EC) 325 mg Tablet, Delayed Release (E.C.) Take 1 Tablet (325 mg) by mouth daily in the morning. 30 Tablet 1 025 Active ALPRAZolam (XANAX) 0.25 mg tablet Take 0.5 Tablets (0.125 mg) by mouth 1 time daily as needed for anxiety. 30 Tablet 3 025 Active ALPRAZolam (XANAX) 0.25 mg tablet Take 0.5 Tablets (0.125 mg) by mouth 1 time daily as needed FOR ANXIETY. 30 Tablet 3 025 Active roflumilast (Zoryve) 0.3 % Foam Apply to affected areas at bedtime. 60 Gram 09/20/19 25 5:19 PM CDT 025 Active terconazole (TERAZOL) 0.4% vaginal cream Apply topically to the affected area(s) in the groin two times daily. 45 Gram 08/19/19 25 12:35 PM CDT 025 Active roflumilast (Zoryve) 0.3 % Foam Apply topically to the affected area(s) on the scalp once daily. 60 Gram 08/21/19 25 2:17 PM CDT 025 Active losartan (COZAAR) 50 mg tablet Take 1 Tablet (50 mg) by mouth daily. 90 Tablet 2 09/01/19 25 9:33 AM CDT 025 Active roflumilast (Zoryve) 0.3 % Foam Apply thin layer to affected areas once daily. 60 Gram 2 10/30/19 25 11:17 AM CDT 025 Active terconazole (TERAZOL) 0.4% vaginal cream Apply to affected areas in the groin twice daily. 45 Gram 10/30/19 25 11:17 AM CDT 025 Active triamcinolone acetonide (KENALOG) 0.5 % Ointment Apply to affected area in the groin twice daily as needed. 15 Gram 10/30/19 25 11:17 AM CDT 025 Active roflumilast (Zoryve) 0.3 % Foam Apply to scalp once daily. 60 Gram 025 Active clobetasoL (TEMOVATE) 0.05 % Solution Apply to affected areas of scalp 1-2 times daily for up to two consecutive weeks at a time. 50 mL 10/30/19 25 11:17 AM CDT 025 Active spironolactone (ALDACTONE) 25 mg tablet Take 1 Tablet (25 mg) by mouth daily in the morning. 30 Tablet 11/05/19 25 2:21 PM CDT 025 Active furosemide (LASIX) 40 mg tablet Take 1 Tablet (40 mg) by mouth daily. 30 Tablet 11/05/19 25 2:21 PM CDT 025 Active fenofibrate nanocrystallized (TRICOR) 145 mg tablet TAKE ONE TABLET BY MOUTH ONCE DAILY 90 Tablet 2 025 Active fenofibrate nanocrystallized (TRICOR) 145 mg tablet TAKE ONE TABLET BY MOUTH ONCE DAILY 90 Tablet 2 08/19/19 25 12:35 PM CDT 024 2024 Discontinued(R eorder) clobetasoL (TEMOVATE) 0.05 % Solution Apply to affected areas of scalp 1-2 times daily for up to two consecutive weeks at a time. 50 mL 3 10/10/19 25 2:51 PM CDT 025 2024 Discontinued(R eorder) triamcinolone acetonide (KENALOG) 0.5 % Ointment Apply topically to the affected area(s) in the groin two times daily. 15 Gram 08/19/19 25 12:35 PM CDT 025 2024 Discontinued(R eorder) furosemide (LASIX) 40 mg tablet Take 1 Tablet (40 mg) by mouth daily. 30 Tablet 1 10/07/19 25 9:55 AM T 025 2024 Discontinued spironolactone (ALDACTONE) 25 mg tablet Take 1 Tablet (25 mg) by mouth daily in the morning. 30 Tablet 1 10/07/19 25 9:55 AM T 025 2024 Discontinued Encounters Date Type Department Care Team Description 11/07/2024 External Device Data [facility] ABSTRACTION Provider, Abstract 10/17/2024 External Device Data [facility] ABSTRACTION Provider, Abstract 10/17/2024 External Device Data [facility]STRACTION Provider, Abstract 10/17/2024 External Device Data [facility] Provider, Abstract 09/18/2024 External Device Data [facility]CTION Provider, Abstract 08/28/2024 External Device Data [facility]CTION Provider, Abstract 08/28/2024 External Device Data [facility]CTION Provider, Abstract 08/22/2024 External Device Data [facility]STRACTION Provider, Abstract 08/22/2024 External Device Data [facility]STRACTION Provider, Abstract from Last 3 Months Social History Tobacco Use Types Packs/Day Years Used Date Smoking Tobacco: Never Assessed Sex and Gender Information Value Date Recorded Sex Assigned at Not on file Legal Sex Male 4:58 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
--- NOTE | 2024-11-17 02:33 | ED_ITS ---
HPI - SOB/Dyspnea General Chief Complaint: Shortness of Breath/Dyspnea Stated Complaint: difficulty breathing Time Seen by Provider: 11/17/24 02:11 History of Present Illness HPI Narrative: 83-year-old male with a past medical history including bedbound debility, grade 1 diastolic CHF, CKD, hypertension, anxiety. Patient presents to the emergency department with difficulty in breathing. He states he called the ambulance because he was having difficulty breathing when lying flat. When EMS arrived and set him up he felt significantly better and improved. Had no pain during any of these episodes. Has been taking 80 mg of Lasix daily as well as 25 mg daily spironolactone for diuresis for his heart failure. Recently increased from 40-80 mg at the direction by his PCP and palliative care team. Patient states he does not have any symptoms when he sits more upright. Worsening symptoms when he lays down flat consistent with orthopnea. Denies any chest pain, shortness a breath, headache, vision changes, abdominal pain, back pain. No fever or chills. Related Data Home Medications ?Medication ?Instructions ?Recorded ?Confirmed ?Last Taken ?Type multivitamin (Multiple Vitamins 1 tablet PO DAILY 04/09/19 07/06/24 07/05/24 History tablet) brimonidine 0.15 % eye drops 1 drp RIGHT EYE TID glaucoma 05/07/24 11/17/24 11/16/24 History dorzolamide 22.3 mg-timolol 6.8 1 drp RIGHT EYE BID 05/07/24 11/17/24 11/16/24 History mg/mL eye drops imipramine HCl 25 mg tablet 25 mg PO .three times per week 05/07/24 11/17/24 11/16/24 History clobetasol 0.05 % scalp solution 1 applic topical DAILY scalp 06/27/24 11/17/24 11/16/24 History irriatation cholecalciferol (vitamin D3) 50 250 mcg PO DAILY 07/06/24 07/06/24 07/05/24 History mcg (2,000 unit) capsule alprazolam 0.25 mg tablet 0.125 mg PO DAILY anxiety 11/17/24 11/17/24 11/16/24 History roflumilast 0.3 % topical foam 1 applic topical DAILY 11/17/24 11/17/24 11/16/24 History (Zoryve) terconazole 0.4 % vaginal cream 1 appful vaginal ONCE PRN itching 11/17/24 11/17/24 11/16/24 History Allergies Allergy/AdvReac Type Severity Reaction Status Date / Time adhesive tape AdvReac Mild Itching Verified 07/06/24 02:00 Review of Systems 2 Review of Systems: As reviewed above in [facility] Past Medical History Medical History Grade I diastolic dysfunction 05/08/24 Echo: EF 60-65%, severe LVH, grade I diastolic dysfunction, mild LAE, mod VINNY, prosthetic AVR, mild AI. Atrial fibrillation Glaucoma Influenza A Slow transit constipation CKD (chronic kidney disease) stage 3, GFR 30-59 ml/min Although the patient denies this and prior labs demonstrated normal GFR and creatinine. Gynecomastia, male URI with cough and congestion Essential (primary) hypertension Anxiety Dyslipidemia History of prostate cancer (~05/30/18) Treated with radiation therapy Chronic bilateral low back pain with left-sided sciatica (~11/09/16) Surgical History Surgical History History of cornea transplant History of tonsillectomy and adenoidectomy Status post cataract extraction of both eyes with insertion of intraocular lens History of lumbar laminectomy Hx of aortic valve replacement with porcine valve (~2009) Status post ascending aortic aneurysm repair (~2009) Performed at [facility] by Dr. Thomas Family History Family History Father Family history of pancreatic cancer, Onset Age: 51 Mother Family history of coronary artery disease, Onset Age: 43 Social History Social History Social History: , 2nd 2018. His 2nd in September of 2023. 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 He is written over 50 looks on local history. He is a lifelong nonsmoker and does not drink alcohol. Code status: DNR/DNI per patient request Surrogate decision maker: Mukul (son) Smoking status: Never smoker Second hand tobacco smoke exposure: No Alcohol intake: never Substance use: never Substance use type: does not use Do You Feel Safe in your Home?: Yes Lack of Transportation: No Lack of Food: Never True Current Housing: I Have Housing Concerned About Future Housing: No Difficulty Paying Gas/Electric Bills: No Difficulty Paying for Meds: No Currently Unemployed: No Education: Master's Degree or Higher Difficulty w/ Childcare or Family Care: No Gender identity (if verbalized by the patient): Male Spiritual care concerns: No Exam 2 Narrative: GENERAL: Well appearing not any acute distress HEAD: [Normocephalic, atraumatic.] EYES: [PERRLA and EOMI.] ENT: Nares clear, no rhinorrhea or epistaxis. Mucous membranes moist. NECK: Supple. CHEST: Asymmetric breath sounds coarse on the left side, clear on the right side, no audible wheezing. Sternotomy scar present. HEART: [Regular rate and rhythm]. No murmur heard. [Normal peripheral pulses.] ABDOMEN: [Soft, nondistended], [nontender], [No rigidity or guarding] EXTREMITIES: Normal range of motion. [No edema.] SKIN: Warm, dry, no rash. NEURO: [No focal deficits]. Alert and oriented [x3.] PSYCH: [Normal mood and affect.] Course Vital Signs Vital signs: Vital Signs Pulse Rate 82 11/17/24 01:53 Respiratory Rate 19 11/17/24 01:53 Blood Pressure 155/48 H 11/17/24 01:53 Pulse Oximetry 98 11/17/24 01:53 Oxygen Delivery Room Air 11/17/24 01:53 Temperature 36.4 C 11/17/24 06:24 Pulse Rate 85 11/17/24 06:24 Respiratory Rate 16 11/17/24 06:24 Blood Pressure 136/70 11/17/24 06:24 Pulse Oximetry 97 11/17/24 06:24 Oxygen Delivery Room Air 11/17/24 02:06 MDM - SOB/Dyspnea MDM Narrative Medical decision making narrative: 83-year-old male with a past medical history including bedbound debility, grade 1 diastolic CHF, CKD, hypertension, anxiety. Patient presents to the emergency department with difficulty in breathing. He states he called the ambulance because he was having difficulty breathing when lying flat. When EMS arrived and set him up he felt significantly better and improved. Had no pain during any of these episodes. Has been taking 80 mg of Lasix daily as well as 25 mg daily spironolactone for diuresis for his heart failure. Recently increased from 40-80 mg at the direction by his PCP and palliative care team. Patient states he does not have any symptoms when he sits more upright. Worsening symptoms when he lays down flat consistent with orthopnea. Denies any chest pain, shortness a breath, headache, vision changes, abdominal pain, back pain. No fever or chills. Patient is not in any acute distress and actually has no symptoms at this time. He is vital signs showed normal blood pressure, no tachycardia, fever, hypoxemia or fever. Breath sounds are coarse and diminished on left side compared to the right side which is clear without any wheezing. No pain or any symptoms at this time. Symptoms could be from position changes and fluid redistribution from his previous infusions that caused him to have some positional shortness of breath, could be a CHF exacerbation. Unlikely ACS or for acute disease or process such as pneumonia, pneumothorax. Patient is overall well-appearing. I discussed with him that patient might have some fluid collections in his left chest given that he had a thoracentesis done several months ago and from his right chest that improved of symptoms. Unfortunately do not have Interventional Radiology or any when capable of thoracentesis if this is the issue and family became verbally and visibly upset. I did offer the patient and the family workup to evaluate for other potential causes including BMP, CBC, chest x-ray, BNP, troponins, EKG for evaluation and other potential etiologies. Patient's laboratory studies show significantly elevated BNP and elevated troponin above his normal previous baseline. EKG was nonischemic showing just chronic atrial fibrillation. Patient was re-evaluated and improved, I discussed next steps for him including potential admission for diuresis and medication management given his failure of current regimen for appropriate management of his CHF. I did give him a dose of 1 mg IV Bumex given his normal kidney function. Repeat troponin was around the same level. EKG remained stable. Chest x-ray shows persistent left-sided effusion, no significant fluid overload. Family was comfortable with the plan for admission here for management and titration of his heart failure medications and treatment regimen here. Spoke to the hospitalist who is accepting of the patient to the IMU at this time for continued care. Patient orders placed. Medical Records Attestation: I reviewed the patient's medical records. Lab Data Attestation: I reviewed the patient's lab results. 11/17/24 02:46 11/17/24 02:46 Labs: Lab Results 11/17/24 Range/Units 02:46 WBC 8.6 (4.5-10.0) K/mm3 RBC 3.75 L (4.6-6.20) M/mm3 Hgb 11.2 L (14.0-18.0) g/dL Hct 33.5 L (42.0-52.0) % MCV 89.3 (80-100) fl MCH 29.9 (26-34) pg MCHC 33.4 (32-36) g/dl RDW 13.2 (11.5-14.5) % Plt Count 229 (150-375) k/mm3 MPV 10.3 (7.4-10.4) fl Immature Gran % (Auto) 0.5 (0-0.5) % Neut % (Auto) 75.9 H (45.5-73.1) % Lymph % (Auto) 14.2 L (18.3-44.2) % Grainger % (Auto) 7.3 (2.6-8.5) % Eos % (Auto) 1.6 (0-4.4) % Baso % (Auto) 0.5 (0.2-1.2) % Lymph # (Auto) 1.22 (0.9-3.2) K/mm3 Grainger # (Auto) 0.6 (0.1-0.6) K/mm3 Eos # (Auto) 0.1 (0-0.3) K/mm3 Baso # (Auto) 0.0 (0.0-0.1) K/mm3 Abs Immat Gran (auto) 0.04 H (0.00-0.031) K/mm3 Absolute Neuts (auto) 6.5 (1.3-6.7) K/mm3 Absolute Nucleated RBC 0.000 (0.0-0.012) K/mm3 Nucleated RBC % 0.0 (0.0-0.2) % Sodium 135 L (137-145) mmol/L Potassium 3.2 L (3.4-5.0) mmol/L Chloride 101 (98-107) mmol/L Carbon Dioxide 26 (22-30) mmol/L Anion Gap 8 (4-12) mmol/L BUN 20 (9-20) mg/dL Creatinine 0.95 (0.7-1.3) mg/dL Estim Creat Clear Calc 55 ml/min Estimated GFR > 60 (59 - ) Glucose 119 H (65-110) mg/dL Calcium 9.2 (8.4-10.2) mg/dL Total Bilirubin 0.9 (0.2-1.3) mg/dL AST 34 (17-59) U/L ALT 21 (6-50) U/L Alkaline Phosphatase 38 (38-126) U/L Troponin I 0.190 H* (0.000-0.034) ng/mL NT-Pro-B Natriuret Pep 57875 H (19.9-100) pg/mL Total Protein 6.6 (6.3-8.2) g/dL Albumin 3.8 (3.5-5.1) g/dL Discharge Plan Discharge Clinical Impression: Acute exacerbation of CHF (congestive heart failure), Orthopnea Patient Disposition: Still a Patient Condition: Stable
[2024-11-17 02:55] LABS: Hematocrit 33.5 % (42.0-52.0); Hemoglobin 11.2 g/dL (14.0-18.0); Immature Granulocyte Percent A 0.5 % (0-0.5); Lymphocytes Absolute Auto 1.22 K/mm3 (0.9-3.2); Mean Corpuscular HGB Conc 33.4 g/dl (32-36); Mean Corpuscular Hemoglobin 29.9 pg (26-34); Mean Corpuscular Volume 89.3 fl (80-100); Nucleated Red Blood Cells Absolute Auto 0.000 K/mm3 (0.0-0.012); Nucleated Red Blood Cells Perc 0.0 % (0.0-0.2); Platelet Count Result 229 k/mm3 (150-375); Red Blood Count 3.75 M/mm3 (4.6-6.20); White Blood Count 8.6 K/mm3 (4.5-10.0)
[2024-11-17 03:11] LABS: Alanine Aminotransferase 21 U/L (6-50); Albumin Level 3.8 g/dL (3.5-5.1); Alkaline Phosphatase 38 U/L (38-126); Anion Gap 8 mmol/L (4-12); Aspartate Amino Transferase 34 U/L (17-59); Bilirubin,Total 0.9 mg/dL (0.2-1.3); Blood Urea Nitrogen 20 mg/dL (9-20); Calcium 9.2 mg/dL (8.4-10.2); Carbon Dioxide 26 mmol/L (22-30); Chloride 101 mmol/L (98-107); Estimated CRCL calculation 55 ml/min; Estimated Glomerular Filt Rate > 60; Glucose 119 mg/dL (65-110); Potassium 3.2 mmol/L (3.4-5.0); Sodium 135 mmol/L (137-145); Total Protein 6.6 g/dL (6.3-8.2)
[2024-11-17 03:38] LABS: NT Pro B Type Natriuretic Pept 18300 pg/mL (19.9-100); Troponin I 0.190 ng/mL (0.000-0.034)
--- NOTE | 2024-11-17 05:15 | ECG_ITS ---
Test Date: 2024-11-17 02:03:40 Measurements Intervals [place] Rate: 85 P: 0 TX: 0 QRS: -29 QRSD: 108 T: 31 QT: 397 QTc: 473 Interpretive Statements ATRIAL FIBRILLATION INTRAVENTRICULAR CONDUCTION DELAY LEFT VENTRICULAR HYPERTROPHY WITH ST-T CHANGE BORDERLINE R WAVE PROGRESSION, ANTERIOR LEADS ABNORMAL ECG Compared to ECG 07/06/2024 04:44:27 Sinus rhythm no longer present Electronically Signed On 11-17-2024 07:22:19 CDT by Giovanni Smith D.O.
[2024-11-17 05:58] LABS: Troponin I 0.194 ng/mL (0.000-0.034)
[2024-11-17] MEDS: HYDROGEN PEROXIDE 3% SOLN(*SP) 473 ML BOTTLE (05:58)
[2024-11-17] MEDS: BUMETANIDE INJ 1 MG/4 ML VIAL IV PUSH (05:58)
--- NOTE | 2024-11-17 06:15 | ADMGEN ---
This patient, Robin Beckwith, was admitted to IMU Room 204-01 via bed with one tech and no issues. Patient/family oriented to hospital policies and general routines including ID bracelet, bed and alarms, visiting hours, pain management, procedures, bathroom and other care routines, personal items, smoking policy, room service/diet, and visiting hours. Information on how to activate the Rapid Response Team has been discussed. Patient/Family are encouraged to report perceived risks to care and to ask questions if they do not understand what they are told or what they should do.
--- NOTE | 2024-11-17 08:04 | P.HP_ITS ---
H&P: HPI History of Present Illness Date/Time: 11/17/24 08:04 Chief Complaint: shortness of breath Narrative: 83-year-old male with pmh/o bedbound debility, grade 1 diastolic CHF, CKD, hypertension, anxiety. Patient admitted for difficulty breathing. He states he called the ambulance because he was having difficulty breathing when lying flat. His pcp recently increased lasix from 40 to 80 mg but not sure if he started taking it or not. Patient states he does not have any symptoms when he sits more upright. Worsening symptoms when he lays down flat consistent with orthopnea. Denies any chest pain, shortness a breath, headache, vision changes, abdominal pain, back pain. No fever or chills. He reports chronic back pain but not taking any medication for it. He is generally stays in bed all day long but able to move and od things just choses to stay in bed. His daughter lives next door and able to help if needed. He also has couple of people who do grocery shopping, cooking and house work for h im. In ed: Patient is not in any acute distress and actually has no symptoms at this time. He is vital signs showed normal blood pressure, no tachycardia, fever, hypoxemia or fever. Breath sounds are coarse and diminished on left side compared to the right side which is clear without any wheezing. No pain or any symptoms at this time. Symptoms could be from position changes and fluid redistribution from his previous infusions that caused him to have some positional shortness of breath, could be a CHF exacerbation. Unlikely ACS or for acute disease or process such as pneumonia, pneumothorax. Patient is overall well-appearing. I discussed with him that patient might have some fluid collections in his left chest given that he had a thoracentesis done several months ago and from his right chest that improved of symptoms. Unfortunately do not have Interventional Radiology or any when capable of thoracentesis if this is the issue and family became verbally and visibly upset. I did offer the patient and the family workup to evaluate for other potential causes including BMP, CBC, chest x-ray, BNP, troponins, EKG for evaluation and other potential etiologies. pt is seen and examined. no sob, no crackles, no chest pain, no leg swelling noted. he is comfortable in bed. discussed the need to work with pt/ot- agreeable. echo is ordered and pending. Pt is a poor historian and not engaged much in exam. Review of Systems Review of Systems: All systems reviewed & are unremarkable except as noted in HPI and below PMFSH Past Medical History Medical History Grade I diastolic dysfunction 05/08/24 Echo: EF 60-65%, severe LVH, grade I diastolic dysfunction, mild LAE, mod VINNY, prosthetic AVR, mild AI. Atrial fibrillation Glaucoma Influenza A Slow transit constipation CKD (chronic kidney disease) stage 3, GFR 30-59 ml/min Although the patient denies this and prior labs demonstrated normal GFR and creatinine. Gynecomastia, male URI with cough and congestion Essential (primary) hypertension Anxiety Dyslipidemia History of prostate cancer (~05/30/18) Treated with radiation therapy Chronic bilateral low back pain with left-sided sciatica (~11/09/16) Surgical History Surgical History History of cornea transplant History of tonsillectomy and adenoidectomy Status post cataract extraction of both eyes with insertion of intraocular lens History of lumbar laminectomy Hx of aortic valve replacement with porcine valve (~2009) Status post ascending aortic aneurysm repair (~2009) Performed at [facility] by Dr. Thomas Family History Family History Father Family history of pancreatic cancer, Onset Age: 51 Mother Family history of coronary artery disease, Onset Age: 43 Social History Social History Social History: , 2nd 2018. His 2nd in September of 2023. 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 He is written over 50 looks on local history. He is a lifelong nonsmoker and does not drink alcohol. Code status: DNR/DNI per patient request Surrogate decision maker: Mukul (son) Smoking status: Never smoker Second hand tobacco smoke exposure: No Alcohol intake: never Substance use: never Substance use type: does not use Do You Feel Safe in your Home?: Yes Lack of Transportation: No Lack of Food: Never True Current Housing: I Have Housing Concerned About Future Housing: No Difficulty Paying Gas/Electric Bills: No Difficulty Paying for Meds: No Currently Unemployed: No Education: Master's Degree or Higher Difficulty w/ Childcare or Family Care: No Gender identity (if verbalized by the patient): Male Spiritual care concerns: No Meds Home Medications and Allergies Home Medications ?Medication ?Instructions ?Recorded ?Confirmed ?Type multivitamin (Multiple Vitamins 1 tablet PO DAILY 04/09/19 11/17/24 History tablet) metoprolol succinate 50 mg See Rx Instructions .Route 03/21/24 11/17/24 Rx tablet,extended release 24 hr .COMPLEX #90 tabs brimonidine 0.15 % eye drops 1 drp RIGHT EYE TID glaucoma 05/07/24 11/17/24 History dorzolamide 22.3 mg-timolol 6.8 1 drp RIGHT EYE BID 05/07/24 11/17/24 History mg/mL eye drops imipramine HCl 25 mg tablet 25 mg PO .three times per week 05/07/24 11/17/24 History ferrous sulfate 325 mg (65 mg 325 mg PO DAILY #30 tabs 05/10/24 11/17/24 Rx iron) tablet,delayed release albuterol sulfate 2.5 mg/3 mL 2.5 mg (3 mL) inhalation Q4-6H PRN 05/16/24 11/17/24 Rx (0.083 %) solution for nebulization shortness of breath or wheezing #180 mL nebulizer and compressor #1 ea 05/16/24 11/17/24 Rx atorvastatin 10 mg tablet See Rx Instructions .Route 05/22/24 11/17/24 Rx .COMPLEX #90 tabs clobetasol 0.05 % scalp solution 1 applic topical DAILY scalp 06/27/24 11/17/24 History irriatation cholecalciferol (vitamin D3) 50 250 mcg PO DAILY 07/06/24 11/17/24 History mcg (2,000 unit) capsule aspirin 325 mg tablet,delayed 325 mg PO QAM 30 days #30 tabs 07/08/24 11/17/24 Rx release losartan 50 mg tablet See Rx Instructions .Route 08/30/24 11/17/24 Rx .COMPLEX #90 tabs furosemide 40 mg tablet See Rx Instructions .Route 10/30/24 11/17/24 Rx .COMPLEX #30 tabs spironolactone 25 mg tablet See Rx Instructions .Route 10/30/24 11/17/24 Rx .COMPLEX #30 tabs fenofibrate nanocrystallized 145 See Rx Instructions .Route 11/13/24 11/17/24 Rx mg tablet .COMPLEX #90 tabs alprazolam 0.25 mg tablet 0.125 mg PO DAILY anxiety 11/17/24 11/17/24 History roflumilast 0.3 % topical foam 1 applic topical DAILY 11/17/24 11/17/24 History (Zoryve) terconazole 0.4 % vaginal cream 1 appful vaginal ONCE PRN itching 11/17/24 11/17/24 History Allergies Allergy/AdvReac Type Severity Reaction Status Date / Time adhesive tape AdvReac Mild Itching Verified 07/06/24 02:00 Vital Signs Vital Signs - 24 hr 11/17/24 01:53 11/17/24 02:06 11/17/24 06:00 Temperature Pulse Rate 82 81 Respiratory Rate 19 33 H Blood Pressure 155/48 H Pulse Oximetry 98 97 Oxygen Delivery Room Air Room Air 11/17/24 06:02 11/17/24 06:24 Temperature 97.6 F Pulse Rate 77 85 Respiratory Rate 24 H 16 Blood Pressure 123/30 L 136/70 Pulse Oximetry 98 97 Oxygen Delivery Exam Const: General: comfortable Eyes: Sclera: sclerae normal Resp: Effort & Inspection: normal respiratory effort Auscultation: clear to auscultation bilaterally and diminished lung sounds Cardio: Rate: regular rate Rhythm: regular rhythm GI: GI Palp: Yes Soft to palpation Auscultation: normal bowel sounds Skin: General skin exam: normal color Extrem: General: normal to inspection Psych: Affect: normal affect H&P: Results Labs Labs: Short CBC 11/17/24 Range/Units 02:46 WBC 8.6 (4.5-10.0) K/mm3 Hgb 11.2 L (14.0-18.0) g/dL Hct 33.5 L (42.0-52.0) % Plt Count 229 (150-375) k/mm3 [facility] 11/17/24 02:46 Sodium 135 L Potassium 3.2 L Chloride 101 Carbon Dioxide 26 BUN 20 Creatinine 0.95 Glucose 119 H Calcium 9.2 Cardiac Enzymes 11/17/24 11/17/24 Range/Units 02:46 05:29 Troponin I 0.190 H* 0.194 H* (0.000-0.034) ng/mL Liver Function 11/17/24 Range/Units 02:46 Total Bilirubin 0.9 (0.2-1.3) mg/dL AST 34 (17-59) U/L ALT 21 (6-50) U/L Alkaline Phosphatase 38 (38-126) U/L Albumin 3.8 (3.5-5.1) g/dL Assessment and Plan Assessment and plan (1) Essential (primary) hypertension: Code(s): I10 - Essential (primary) hypertension Status: Chronic (2) Acute exacerbation of CHF (congestive heart failure): Code(s): I50.9 - Heart failure, unspecified Status: Acute (3) Atrial fibrillation: Qualifiers: Atrial fibrillation type: unspecified Qualified Code(s): I48.91 - Unspecified atrial fibrillation Code(s): I48.91 - Unspecified atrial fibrillation Status: Chronic (4) Elevated troponin: Code(s): R79.89 - Other specified abnormal findings of blood chemistry Status: Acute (5) CKD (chronic kidney disease) stage 3, GFR 30-59 ml/min: Qualifiers: Chronic kidney disease stage 3 subtype: stage 3a (GFR 45-59) Qualified Code(s): N18.31 - Chronic kidney disease, stage 3a Code(s): N18.3 - Chronic kidney disease, stage 3 (moderate) Status: Chronic (6) Anxiety: Code(s): F41.9 - Anxiety disorder, unspecified Status: Acute Plan Pt is admitted for sob while laying flat. Patient is not in any acute distress and actually has no symptoms at this time. VS stable. Breath sounds are coarse and diminished on left side compared to the right side which is clear without any wheezing. No pain or any symptoms at this time. BNP was elevated, trop eleavted-will trend. NO acute chect pain though. Unlikely ACS as no chest pain and sob improves with position change or for acute disease or process such as pneumonia, pneumothorax. Echo is ordered. Will do lasix BID lower dose for now and montioe closely as doesnot appear to be volume overloaed. will consider card consult as he would need cardiac f/u as an oupt. tele will add bowel regimen- miralax, dulcolax as problems with constipation. pt is DNR Quality VTE Prophylaxis VTE prophylaxis: mechanical ordered Hospitalist MIPS Advance Care Plan I have confirmed that the patient's Advanced Care Plan is present, code status is documented, or surrogate decision maker is listed in patient medical record.: Yes Medication Reconciliation I have utilized all available resources to obtain, update and review the patients current medications (includes all prescriptions, OTC, herbals, cannabis, and nutritional supplements).: Yes
--- OUTSIDE RECORDS SUMMARY | 2024-11-17 08:20 | XMS_ITS | Clinical Summary ---
Author Organization [facility] Address [address] [place] [address] Care Team Providers Care Packing Shed Supervisor Name Role Phone Steve Potter MD Primary Care Provider Tamiko Preez LABORER SAWMILL Unavailable [phone] Guera Bass LABORER SAWMILL Unavailable [phone] Allergies Active Allergy Reactions Criticality Noted Date Comments Adhesive Tape-Silicones Redness Low Medications fenofibrate nanocrystallized (TRICOR,TRIGLIDE) 145 mg tablet Take 145 mg by mouth licensed nurse practitioner before breakfast. Active metoprolol XL (TOPROL-XL) 50 mg 24 hr tablet Take 50 mg by mouth licensed nurse practitioner before breakfast. Active atorvastatin (LIPITOR) 10 mg [...] Description 09/21/2024 12:00 PM CDT Residential Visit [facility] Palliative Care [address] [place] [address] Tamiko Perez NP Age-related physical debility (Primary Dx) 08/29/2024 10:00 AM CDT Residential Visit [facility] Palliative Care [address] [place] [address] Tamiko Perez NP Palliative care encounter (Primary [...] 04/04/2009 - 04/03/2010 Bioprosthetic valve, Dr. 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 Gender Identity Not on file Sexual Orientation [...] 65+ 12/04/2003 Influenza Vaccine (#1) 2024 Insurance [facility] MEDICARE ADVANTAGE [employer] MEDICARE ADVANTAGE [employer] MEDICARE Advance Directives For more information, please contact: [phone] Documents on File Type Date Recorded Patient Education Spec Expl anation ADVANCE DIRECTIVE 08/22/2017 11:06 AM ADVANCE DIRECTIVE 08/22/2017 Advance Di rective Checklist * Full Code (Latest Code Status on File) Date Activated Date Inactivated Comments 08/22/2017 2:39 PM 08/23/2017 2:18 PM Care Teams Packing Shed Supervisor Relationship Specialty Start Date End Date Steve Potter MD PCP - General 08/12/17 Tamiko Perez NP [address] [facility] [address] [place] [address] Nurse Practitioner Hospice and Palliative Medicine 08/15/24 Guera Bass NP [address] [facility] [address] [address] [place] [address] Nurse Practitioner Hospice and Palliative Medicine 08/15/24
--- OUTSIDE RECORDS SUMMARY | 2024-11-17 08:20 | XMS_ITS | Clinical Summary ---
Author Organization [facility] Address [address] Bui: Epic Prelude ADT SALMA BLUNT [address] Care Team Providers Care Electrophonic Engineer Name Role Phone Unavailable Primary Care Provider Unavailabl e Allergies No known active allergies Medications brimonidine (ALPHAGAN P) 0.15 % solution INSTILL 1 DROP IN THE RIGHT EYE THREE TIMES A DAY NEEDED 10 mL 5 02/24/20 23 3:30 PM MOLECULAR GENETICIST 022 Active lactulose (KRISTALOSE) 10 gram Packet [...] 45 Tablet 1 05/27/19 24 7:34 PM MOLECULAR GENETICIST 023 Active brimonidine (ALPHAGAN P) 0.15 % solution Administer 1 Drop in right eye 3 times daily as needed. 10 mL 5 02/27/20 24 5:30 PM MOLECULAR GENETICIST 024 Active imipramine HCl (TOFRANIL) 25 mg [...] WEEK. 120 mL 04/30/19 25 5:25 PM MOLECULAR GENETICIST 025 Active dilTIAZem (CARDIZEM CD, CARTIA XT) 120 mg Controlled Delivery 24 hour capsule Take 1 Capsule (120 mg) by mouth daily in the morning. 60 Capsule 05/11/19 25 11:45 AM MOLECULAR GENETICIST 025 Active oseltamivir (TAMIFLU) 30 mg Capsule Take 1 Capsule (30 mg) by mouth every 12 hours. 5 Capsule 05/11/19 25 11:45 AM MOLECULAR GENETICIST 025 Active ferrous sulfate 325 mg (65 mg iron) Tablet, Delayed Release (E.C.) Take 1 Tablet (325 mg) by mouth daily. 30 Tablet 05/10/19 25 4:36 PM MOLECULAR GENETICIST 025 Active albuterol (PROVENTIL,VENTOLI N) 2.5 mg /3 mL (0.083 %) Solution for Nebulization INHALE THE CONTENTS OF 1 VIAL PER NEBULIZER EVERY 4-6 HOURS NEEDED FOR SHORTNESS OF BREATH OR WHEEZING. 180 mL 05/21/19 25 4:16 PM MOLECULAR GENETICIST 025 Active Nebulizer & Compressor For Neb [...] 118 mL 2 05/22/19 25 7:05 PM MOLECULAR GENETICIST 025 Active atorvastatin (LIPITOR) 10 mg tablet [...] on file Legal Sex Male 4:58 AM MOLECULAR GENETICIST Gender Identity Not on file Sexual Orientation [...]
--- OUTSIDE RECORDS SUMMARY | 2024-11-17 08:20 | XMS_ITS | Encounter Summary ---
Author Organization [facility] Address [address] [place] [address] Care Team Providers Care Dado Operator Name Role Phone Cuate Mclaughlin MD Primary Care Provider [phone] Encounter Details Date Type Department Care Team (Late st Contact Info) Description 06/28/2018 Lab Requisition [facility] Care DermPath Lab [address] [facility] [place] [id number] Pari Petit DO [address] 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 Ben Lucia. These tests need not be, and therefore are not, approved by the [place] Food and Drug Administration. The tests are used for clinical purposes. Billing Codes Specimen Charges Stain Charges 37780 1 12:45 PM CDT DERMATOPATHOLOGY LABORATORY Embedded Images 12:45 PM CDT DERMATOPATHOLOGY LABORATORY Pathology/Cytolog y TISSUE SPECIMEN FROM SKIN / Unknown 06/27/2018 06/28/2018 9:14 AM CDT Pari Petit DO LAB - PATHOLOGY/CYTOLOGY ORDERABLES Final Result DERMATOPATHOLOGY LABORATORY [facility] - Department of Dermatology [address] [facility] 5th [address] Lab [address] [phone] documented in this encounter Visit Diagnoses Not on filedocumented in this encounter Care Teams Dado Operator Relationship Specialty Start Date End Date Cuate Mclaughlin MD [address] [place] [address] PCP - General 06/27/18 documented as of this encounter
--- OUTSIDE RECORDS SUMMARY | 2024-11-17 08:20 | XMS_ITS | Clinical Summary ---
Author Organization [facility] Address [address] [place] [address] Care Team Providers Care Range Aid Name Role Phone Cuate Mclaughlin MD Primary Care Provider Source Comments [facility],non-owned Affiliates and Associated Physician Practices is amultiple site organization consisting of ambulatory clinics and hospital sitesin [place], [place], [place]. This disclosure is being madepursuant to the Care Everywhere program and may not contain all information available regarding this patient. 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
--- OUTSIDE RECORDS SUMMARY | 2024-11-17 08:20 | XMS_ITS | Encounter Summary ---
Author Organization [facility] Address 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
--- OUTSIDE RECORDS SUMMARY | 2024-11-17 08:20 | XMS_ITS | Continuity of Care Document ---
Author Organization [email or web address] Address [address] [place] [phone] Phone Care Team Providers Care Mail Handler Sorter Name Role Phone Matt Kaba MD Unavailable Unavailable Advance Directives Directive Yes / No Effective Date File Name No Information Encounters Encounter Description Practice Location Reason(s) For Visit Diagnoses Date Provider Providers Copied on Encounter [facility], [address] [place] [address], [address] [place] [address], tel:[phone] [facility] SACROILIITIS NEC Sesar Gutierrez. [address] [place], [place], [id number], . tel:[phone] [facility], [address] [place] [address], [id number], tel:[phone] [facility] JOINT DIS NOS-PELVIS Jacqueline Mckinney. [address] [place], [place], [id number], . tel:[phone] [facility], [address] [place] [address], [id number], tel:[phone] [facility] LUMBAGO Denzellandry Sanya. [address] [place], [place], [id number], . tel:[phone] Family History Family Member Type Diagnosis Age [...]
[2024-11-17] MEDS: MULTIVITAMINS THERAPEUTIC TAB (*BKC) 1 TABLET PO (08:40)
[2024-11-17] MEDS: METOPROLOL SUCCINATE EXT REL 50 MG TABCR BY MOUTH (08:40)
[2024-11-17] MEDS: FENOFIBRATE NANOCRYSTALLIZED 145 MG TABLET BY MOUTH (08:40)
[2024-11-17] MEDS: FERROUS SULFATE 325 MG TABLET DR PO (08:40)
[2024-11-17] MEDS: BRIMONIDINE TARTRATE 0.15% 5 ML OPHTH SOLN 1 DROP RIGHT EYE ×3 (08:41→18:17)
[2024-11-17] MEDS: FUROSEMIDE INJ 40 MG/4 ML VIAL 20 MG IV PUSH (08:41)
[2024-11-17] MEDS: DORZOLAMIDE/TIMOLOL OPHTH SOL 10 ML BOTTLE 1 DROP RIGHT EYE ×2 (08:41→20:13)
[2024-11-17] MEDS: POTASSIUM CHLORIDE 20 MEQ PACKET (FOR LIQUID) 40 MEQ PO ×2 (08:41→18:16)
[2024-11-17] MEDS: ACETAMINOPHEN 325 MG TABLET 650 MG PO (08:42)
--- NOTE | 2024-11-17 16:35 | PC.NURSE ---
Patient digitally removes fecal matter from his rectum. This RN spoke with CONSULTANT DIETITIAN regarding patient's unsanitary behavior and educated patient on best bowel regimen practice. Patient is insistent on his regimen.
[2024-11-17 19:13] LABS: Troponin I 0.138 ng/mL (0.000-0.034)
[2024-11-17] MEDS: ATORVASTATIN 10 MG TABLET BY MOUTH (20:13)
[2024-11-18] VITALS (7 sets, daily range): BP systolic 106–127; BP diastolic 53–62; PULSE 63–94; RESP 21–22; TEMP 36.4–36.7; O2SAT 94–98
[2024-11-18 07:26] LABS: Hematocrit 35.3 % (42.0-52.0); Hemoglobin 11.4 g/dL (14.0-18.0); Mean Corpuscular HGB Conc 32.3 g/dl (32-36); Mean Corpuscular Hemoglobin 30.2 pg (26-34); Mean Corpuscular Volume 93.6 fl (80-100); Platelet Count Result 201 k/mm3 (150-375); Red Blood Count 3.77 M/mm3 (4.6-6.20); White Blood Count 6.7 K/mm3 (4.5-10.0)
[2024-11-18 07:30] LABS: Anion Gap 7 mmol/L (4-12); Blood Urea Nitrogen 23 mg/dL (9-20); Calcium 9.5 mg/dL (8.4-10.2); Carbon Dioxide 26 mmol/L (22-30); Chloride 101 mmol/L (98-107); Estimated CRCL calculation 46 ml/min; Estimated Glomerular Filt Rate > 60; Glucose 99 mg/dL (65-110); Potassium 4.2 mmol/L (3.4-5.0); Sodium 134 mmol/L (137-145)
--- NOTE | 2024-11-18 08:36 | PM.DS ---
DS: Admitting Diagnosis Discharge Date 11/18 Admitting Diagnosis sob while laying down flat DS: Discharge Diagnosis Discharge Diagnosis (1) Essential (primary) hypertension: Code(s): I10 - Essential (primary) hypertension Status: Chronic (2) Acute exacerbation of CHF (congestive heart failure): Code(s): I50.9 - Heart failure, unspecified Status: Acute (3) Atrial fibrillation: Qualifiers: Atrial fibrillation type: unspecified Qualified Code(s): I48.91 - Unspecified atrial fibrillation Code(s): I48.91 - Unspecified atrial fibrillation Status: Chronic (4) Elevated troponin: Code(s): R79.89 - Other specified abnormal findings of blood chemistry Status: Acute (5) CKD (chronic kidney disease) stage 3, GFR 30-59 ml/min: Qualifiers: Chronic kidney disease stage 3 subtype: stage 3a (GFR 45-59) Qualified Code(s): N18.31 - Chronic kidney disease, stage 3a Code(s): N18.3 - Chronic kidney disease, stage 3 (moderate) Status: Chronic (6) Anxiety: Code(s): F41.9 - Anxiety disorder, unspecified Status: Acute DS: Summary Hospital Course Hospital Course: 83-year-old male with pmh/o bedbound debility, grade 1 diastolic CHF, CKD, hypertension, anxiety. Patient admitted for difficulty breathing while laying flat. Patient is not in any acute distress and actually has no symptoms at this time. VS stable. Breath sounds are coarse and diminished on left side compared to the right side which is clear without any wheezing. No pain or any symptoms at this time. BNP was elevated, trop elevated but trending down. NO acute chest pain though. Unlikely ACS as no chest pain and sob improves with position change Echo is ordered-11/17/24-EF 50-55%, moderate pulm htn but essentially unchanged from the previous ECHO. Per pt report his lasix was increased to 80 mg recently per PCP but unsure why. Pt states he had been feeling pretty much the same. He is currently on palliative care and doroteo not want to pursue any more testing or investigation. Does not want to wait for PT/OT eval as he states it would not change anything. We discussed moving out of IMU to [facility] for overnight monitoring and he absolutely does not ant to do that. He wants to go home and will have two sons come and help him get into a car and house. He is not going to work with PT/OT to gain straight. Discussed in great details and will keep lasix at 40 mg for now instead of 80 and he would have a close f/u with PCP for further monitoring. K is stable now, so will not be replacing it as pt currently taking spironolactone as well. Will order labs to be repeated within 1 week of discharge. Status at Discharge Functional status at discharge: bed bound Overall status at discharge: patient is back to baseline Time Spent with Patient Time attestation: Total time spent providing and/or coordinating discharge services: Time spent: Greater than 30 minutes Exam Const: General: comfortable Eyes: Sclera: sclerae normal Resp: Effort & Inspection: normal respiratory effort Auscultation: clear to auscultation bilaterally and diminished lung sounds Cardio: Rate: regular rate Rhythm: regular rhythm GI: GI Palp: Yes Soft to palpation Auscultation: normal bowel sounds Skin: General skin exam: normal color Extrem: General: normal to inspection Psych: Affect: normal affect DS: Data Data Completed and Pending Completed studies during hospitalization: echo, chest xray Labs on day of discharge: Labs from last 24 hours 11/18/24 11/17/24 06:51 18:17 WBC 6.7 RBC 3.77 L Hgb 11.4 L Hct 35.3 L MCV 93.6 MCH 30.2 MCHC 32.3 RDW 13.2 Plt Count 201 MPV 10.4 Sodium 134 L Potassium 4.2 Chloride 101 Carbon Dioxide 26 Anion Gap 7 BUN 23 H Creatinine 1.08 Estim Creat Clear Calc 46 Estimated GFR > 60 Glucose 99 Calcium 9.5 Troponin I 0.138 H* Discharge Plan Discharge Attending physician on discharge: Marivel Glass Discharging Clinician: Myriam Burrows Patient Disposition: Other Activity: may shower Diet: heart healthy Discharge Instructions: You were admitted for shortness of breath while laying flat. Your breathing improved with IV diuretics and today you felt good to be discharged home. As we discussed, please f/u with your primary care provider for further management but we had you on 40 mg of Lasix and you did well. Continue that for now unless instructed otherwise per PCP. Your potassium level was stable so no need to take supplements for now. Please have your labs rechecked within 1 week after discharge and/or right before you f/u with pcp to review kidney function and electrolytes level including potassium. Patient Instructions: Antibiotic Form Patient Language: Syriac Stand Alone Forms: General Discharge Information Discharge Medications: Continued dorzolamide-timolol 22.3-6.8 mg/mL drops 1 drp RIGHT EYE BID brimonidine 0.15 % drops 1 drp RIGHT EYE TID imipramine HCl 25 mg tablet 25 mg PO .three times per week Rx Instructions: Take 1 Tablet (25 mg) by mouth [id number] ferrous sulfate 325 mg (65 mg iron) Tablet,Delayed Release (Dr/Ec) 325 mg PO DAILY Qty: 30 0RF cholecalciferol (vitamin D3) 50 mcg (2,000 unit) capsule 250 mcg PO DAILY aspirin 325 mg Tablet,Delayed Release (Dr/Ec) 325 mg PO QAM 30 Days Qty: 30 1RF clobetasol 0.05 % solution 1 applic TOPICAL DAILY Zoryve 0.3 % foam 1 applic topical DAILY terconazole 0.4 % cream 1 appful vaginal ONCE PRN (Reason: itching) Rx Instructions: apply to groin alprazolam 0.25 mg tablet 0.125 mg PO DAILY Rx Instructions: tuesday multivitamin [Multiple Vitamins] Tablet 1 tablet PO DAILY Rx Instructions: take 1 tablet by oral route every day metoprolol succinate 50 mg tablet extended release 24 hr See Rx Instructions .ROUTE .COMPLEX Qty: 90 2RF Dose Instruction: Take 1 Tablet (50 mg) by mouth daily. Rx Instructions: Take 1 Tablet (50 mg) by mouth daily. albuterol sulfate 2.5 mg /3 mL (0.083 %) solution for nebulization 2.5 mg inhalation Q4-6H PRN (Reason: shortness of breath or wheezing) Qty: 180 0RF (DME) nebulizer and compressor Device See Rx Instructions .Route Qty: 1 0RF Rx Instructions: To use by inhalation route every 4 to 6 hours as needed atorvastatin 10 mg tablet See Rx Instructions .ROUTE .COMPLEX Qty: 90 2RF Dose Instruction: Take 1 Tablet (10 mg) by mouth daily at bedtime. Rx Instructions: Take 1 Tablet (10 mg) by mouth daily at bedtime. losartan 50 mg tablet See Rx Instructions .ROUTE .COMPLEX Qty: 90 2RF Dose Instruction: Take 1 Tablet (50 mg) by mouth daily. Rx Instructions: Take 1 Tablet (50 mg) by mouth daily. furosemide 40 mg tablet See Rx Instructions .ROUTE .COMPLEX Qty: 30 0RF Dose Instruction: Take 1 Tablet (40 mg) by mouth daily. Rx Instructions: Take 1 Tablet (40 mg) by mouth daily. spironolactone 25 mg tablet See Rx Instructions .ROUTE .COMPLEX Qty: 30 0RF Dose Instruction: Take 1 Tablet (25 mg) by mouth daily in the morning. Rx Instructions: Take 1 Tablet (25 mg) by mouth daily in the morning. fenofibrate nanocrystallized 145 mg tablet See Rx Instructions .ROUTE .COMPLEX Qty: 90 2RF Dose Instruction: TAKE ONE TABLET BY MOUTH ONCE DAILY Rx Instructions: TAKE ONE TABLET BY MOUTH ONCE DAILY Other Ambulatory Orders: B Type Natriuretic Peptide (Routine) Timeframe: 1 Week Location: Determined by Patient Ordered By: Myriam Burrows Comprehensive Metabolic Panel (Routine) Timeframe: 1 Week Location: Determined by Patient Ordered By: Myriam Burrows Date of admission: 11/17/24 05:17 Primary Care Provider: Adonis Cabral Admitting Provider: Marivel Glass Attending physician on admission: Marivel Glass Condition: Stable Quality VTE Prophylaxis VTE prophylaxis: mechanical ordered Hospitalist MIPS Heart Failure (Exclusion) Patient has history of Heart Transplant or Left Ventricular Assistive Device?: No IF YES, STOP HERE Heart Failure (Qualifier) Patient has current or prior documentation of LVEF less than or equal to 40%, or mod/servere depressed LVSF?: No IF NO, STOP HERE
[2024-11-18] MEDS: MULTIVITAMINS THERAPEUTIC TAB (*BKC) 1 TABLET PO (09:23)
[2024-11-18] MEDS: LOSARTAN POTASSIUM 50 MG TABLET BY MOUTH (09:23)
[2024-11-18] MEDS: METOPROLOL SUCCINATE EXT REL 50 MG TABCR BY MOUTH (09:24)
[2024-11-18] MEDS: SPIRONOLACTONE 25 MG TABLET BY MOUTH (09:24)
[2024-11-18] MEDS: FERROUS SULFATE 325 MG TABLET DR PO (09:24)
[2024-11-18] MEDS: POTASSIUM CHLORIDE 20 MEQ PACKET (FOR LIQUID) 40 MEQ PO (09:25)
[2024-11-18] MEDS: FENOFIBRATE NANOCRYSTALLIZED 145 MG TABLET BY MOUTH (09:25)
== END 2024-11-18 10:45 | disposition home or self-care (01) ==
LOC: ANHED 02:12 → ANHIMU 07:26
PROVIDERS: Nurse Practitioner; Admitting Provider Family Medicine; Emergency Provider Student in an Organized Health Care Education/Training Program; PCP Emergency Medicine; Visit Provider Family Medicine
DX: I50.31 Acute diastolic (congestive) heart failure (principal); I13.0 Hypertensive heart and chronic kidney disease with heart failure and stage 1 through stage 4 chronic kidney disease, or unspecified chronic kidney disease; I48.91 Unspecified atrial fibrillation; N18.31 Chronic kidney disease, stage 3a; H40.9 Unspecified glaucoma; E78.49 Other hyperlipidemia; Z85.46 Personal history of malignant neoplasm of prostate; M54.9 Dorsalgia, unspecified; G89.29 Other chronic pain; R79.89 Other specified abnormal findings of blood chemistry; F41.9 Anxiety disorder, unspecified
CPT/HCPCS: 36415; 71045; 80048; 80053; 83880; 84484; 85025; 85027; 93005; 93306; 96374; 99285; A9270; G0378; J1938; J1939

== ENCOUNTER 2024-11-26 03:29 | Observation (INO) | payer MEDICARE, SELFPAY ==
--- OUTSIDE RECORDS SUMMARY | 2009-12-08 19:00 | XMS_ITS | Continuity of Care Document ---
[facility] Organization [facility] Address [address] [place] [phone] Phone Care Team Providers Care Weight Guesser Name Role Phone Matt Kaba MD Unavailable Unavailable Advance Directives Directive Yes / No Effective Date File Name No Information Encounters Encounter Description Practice Location Reason(s) For Visit Diagnoses Date Provider Providers Copied on Encounter [facility], [address] [place] [address], [address] [place] [address], tel:[phone] [facility] SACROILIITIS NEC Sesar Gutierrez. [address] [place], [place], [id number], . tel:[phone] [facility], [address] [place] [address], [id number], tel:[phone] [facility] JOINT DIS NOS-PELVIS Jacqueline Mckinney. [address] [place], [place], [id number], . tel:[phone] [facility], [address] [place] [address], [id number], tel:[phone] [facility] LUMBAGO Denzellandry Sanya. [address] [place], [place], [id number], . tel:[phone] Family History Family Member Type Diagnosis Age At Onset No Information Payers Payer name Insurance type Covered alliance party ID Authoriza tion(s) No Information Social History Type Description Quantity Date Captured Comments Sex Male Smoking Status No Information Chief Complaint And Reason For Visit No Information Reason For Referral Reason For Referral No Information History Of Present Illness Encounter Date Complaint History Of Prese nt Illness No Information Functional Status Date Functional Assessmen t No Information Instructions Date Instruction Additional Infor mation No Information Assessments Type Assessment Date No Information Patient Care Teams Name Effective Dates (start - stop) Status Members No Information
--- OUTSIDE RECORDS SUMMARY | 2009-12-08 19:00 | XMS_ITS | Continuity of Care Document ---
Author Organization [facility] Address [address] [place] [phone] Phone Care Team Providers Care Drain Layer Name Role Phone Matt Kaba MD Unavailable Unavailable Advance Directives Directive Yes / No Effective Date File Name No Information Encounters Encounter Description Practice Location Reason(s) For Visit Diagnoses Date Provider Providers Copied on Encounter [facility], [address] [place] [address], [address] [place] [address], tel:[phone] [facility] SACROILIITIS NEC Sesar Gutierrez. [address], [place], [id number], . tel:[phone] [facility], [address] [place] [address], [id number], tel:[phone] [facility] JOINT DIS NOS-PELVIS Jacqueline Mckinney. [address] [place], [place], [id number], . tel:[phone] [facility], [address] [place] [address], [id number], tel:[phone] [facility] LUMBAGO Denzellandry Segundo. [address] [place], [place], [id number], . tel:[phone] Family History Family Member Type Diagnosis Age At Onset No Information Payers Payer name Insurance type Covered constitution party ID Authoriza tion(s) No Information Social [...]
[2024-11-26] VITALS (14 sets, daily range): BP systolic 111–154; BP diastolic 38–45; PULSE 65–80; RESP 16–27; TEMP 36.2–36.8; O2SAT 97–99; BMI 20.6
--- NOTE | ~2024-11-26 | XR_ITS ---
EXAMINATION: XR chest 1V portable DATE: 11/26/2024 04:01 INDICATION: Shortness of breath TECHNIQUE: frontal view of the chest was obtained. COMPARISON: Chest radiograph dated 11/17/2024 and chest radiograph and CT dated 07/06/2024 FINDINGS: Unchanged elevation of the left hemidiaphragm. Asymmetric hazy opacity throughout the left hemithorax with some peripheral opacity left lower lung zone similar to radiographs with corresponding CT dated 07/06/2024 consistent with chronic loculated small left pleural effusion. No pulmonary edema or pneumo thorax. Cardiomegaly. Median sternotomy wires, ostial markers and mediastinal surgical clips consistent with prior coronary artery bypass grafting. IMPRESSION: 1. Chronic elevation the left hemidiaphragm with chronic small loculated left pleural effusion. 2. Cardiomegaly. Reviewed, dictated and finalized at location A. IMPRESSION: 1. Chronic elevation the left hemidiaphragm with chronic small loculated left p leural effusion. 2. Cardiomegaly.
--- NOTE | 2024-11-26 03:33 | ECG_ITS ---
Test Date: 2024-11-26 03:35:33 Measurements Intervals Lacey Rate: 72 P: 0 IL: 0 QRS: -28 QRSD: 109 T: 7 QT: 391 QTc: 430 Interpretive Statements ATRIAL FIBRILLATION DELAYED PRECORDIAL R/S TRANSITION LEFT VENTRICULAR HYPERTROPHY WITH ST-T CHANGE BORDERLINE ST-T WAVE ABNORMALITY- LATERAL LEADS BASELINE ARTIFACT- I, II, III, AVR, AVF, V1 ABNORMAL ECG Compared to ECG 11/17/2024 05:29:20 NO SIGNIFICANT CHANGE Electronically Signed On 11-26-2024 06:14:25 CDT by Giovanni Smith D.O.
--- OUTSIDE RECORDS SUMMARY | 2024-11-26 03:39 | XMS_ITS | Clinical Summary ---
Author Organization [facility] Address [address] Bui: Epic Prelude ADT SALMA BLUNT [address] Care Team Providers Care Capsule Filling Machine Operator Name Role Phone Unavailable Primary Care Provider Unavailabl e Allergies No known active allergies Medications brimonidine (ALPHAGAN P) 0.15 % solution INSTILL 1 DROP IN THE RIGHT EYE THREE TIMES A DAY NEEDED 10 mL 5 02/24/20 23 3:30 PM CORONARY CLINICAL SPECIALIST 022 Active lactulose (KRISTALOSE) 10 gram Packet [...] 45 Tablet 1 05/27/19 24 7:34 PM CORONARY CLINICAL SPECIALIST 023 Active brimonidine (ALPHAGAN P) 0.15 % solution Administer 1 Drop in right eye 3 times daily as needed. 10 mL 5 02/27/20 24 5:30 PM CORONARY CLINICAL SPECIALIST 024 Active imipramine HCl (TOFRANIL) 25 mg [...] WEEK. 120 mL 04/30/19 25 5:25 PM CORONARY CLINICAL SPECIALIST 025 Active dilTIAZem (CARDIZEM CD, CARTIA XT) 120 mg Controlled Delivery 24 hour capsule Take 1 Capsule (120 mg) by mouth daily in the morning. 60 Capsule 05/11/19 25 11:45 AM CORONARY CLINICAL SPECIALIST 025 Active oseltamivir (TAMIFLU) 30 mg Capsule Take 1 Capsule (30 mg) by mouth every 12 hours. 5 Capsule 05/11/19 25 11:45 AM CORONARY CLINICAL SPECIALIST 025 Active ferrous sulfate 325 mg (65 mg iron) Tablet, Delayed Release (E.C.) Take 1 Tablet (325 mg) by mouth daily. 30 Tablet 05/10/19 25 4:36 PM CORONARY CLINICAL SPECIALIST 025 Active albuterol (PROVENTIL,VENTOLI N) 2.5 mg /3 mL (0.083 %) Solution for Nebulization INHALE THE CONTENTS OF 1 VIAL PER NEBULIZER EVERY 4-6 HOURS NEEDED FOR SHORTNESS OF BREATH OR WHEEZING. 180 mL 05/21/19 25 4:16 PM CORONARY CLINICAL SPECIALIST 025 Active Nebulizer & Compressor For Neb [...] 118 mL 2 05/22/19 25 7:05 PM CORONARY CLINICAL SPECIALIST 025 Active atorvastatin (LIPITOR) 10 mg tablet Take 1 Tablet (10 mg) by mouth daily at bedtime. 90 Tablet 2 11/20/19 25 7:16 PM CDT 025 Active Clobetasol 0.05 % [...] BY MOUTH ONCE DAILY 90 Tablet 2 11/20/19 25 7:16 PM CDT 025 Active fenofibrate nanocrystallized (TRICOR) [...] 2:51 PM CDT 025 2024 Discontinued(R eorder) furosemide (LASIX) 40 mg tablet Take 1 Tablet (40 mg) by mouth daily. 30 Tablet 1 10/07/19 25 9:55 AM CDT 025 2024 Discontinued spironolactone (ALDACTONE) 25 mg tablet Take 1 Tablet (25 mg) by mouth daily in the morning. 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
--- OUTSIDE RECORDS SUMMARY | 2024-11-26 03:39 | XMS_ITS | Encounter Summary ---
Author Organization [facility] Address [address] [place] [address] Care Team Providers Care Lavatory Attendant Name Role Phone Cuate Mclaughlin MD Primary Care Provider [phone] Encounter Details Date Type Department Care Team (Late st Contact Info) Description 06/28/2018 Lab Requisition 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 Ben Lucia. These tests need not be, and therefore are not, approved by the [place] Food and Drug Administration. The tests are used for clinical purposes. Billing Codes Specimen Charges Stain Charges 31500 1 12:45 PM CDT DERMATOPATHOLOGY LABORATORY Embedded Images 12:45 PM CDT DERMATOPATHOLOGY LABORATORY Pathology/Cytolog y TISSUE SPECIMEN FROM SKIN / Unknown 06/27/2018 06/28/2018 9:14 AM CDT Pari Petit DO LAB - PATHOLOGY/CYTOLOGY ORDERABLES Final Result DERMATOPATHOLOGY LABORATORY [facility] - Department of Dermatology [address] [facility] [address] [facility] 5th Floor Lab [address] [phone] documented in this encounter Visit Diagnoses Not on filedocumented in this encounter Care Teams Lavatory Attendant Relationship Specialty Start Date End Date Cuate Mclaughlin MD [address] [address] PCP - General 06/27/18 documented as of this encounter
--- OUTSIDE RECORDS SUMMARY | 2024-11-26 03:39 | XMS_ITS | Clinical Summary ---
Author Organization [facility] Address [address] [place] [address] Care Team Providers Care Director Hardware Name Role Phone Steve Potter MD Primary Care Provider Tamiko Perez NEGOTIATOR Unavailable [phone] Guera Bass NEGOTIATOR Unavailable [phone] Allergies Active Allergy Reactions Criticality Noted Date Comments Adhesive Tape-Silicones Redness Low Medications fenofibrate nanocrystallized (TRICOR,TRIGLIDE) 145 mg tablet Take 145 mg by mouth chief i dispatcher before breakfast. Active metoprolol XL (TOPROL-XL) 50 mg 24 hr tablet Take 50 mg by mouth chief i dispatcher before breakfast. Active atorvastatin (LIPITOR) 10 mg [...] Encounters Date Type Department Care Team Description 11/20/2024 9:00 AM CDT Residential Visit [facility] Palliative Care [address] [place] [address] Guera Bass NP 11/20/[address] [place] [address] Brooklyn Gooden RN 09/21/2024 12:00 PM CDT Residential Visit [facility] Palliative Care [address] [place] [address] Tamiko Perez NP Age-related physical debility (Primary Dx) 08/29/2024 10:00 AM CDT Residential Visit [facility] Palliative Care [address] [place] [address] Tamiko Perez NP Palliative care encounter (Primary Dx); Valvular heart disease; Age-related physical debility; S/P aortic valve replacement with bioprosthetic valve; Essential hypertension; Stage 3b chronic kidney disease (HCC); S/P ascending aortic aneurysm repair from Last 3 Months Surgical History Surgery Date Site/Laterality Comments CATARACT EXTRACTION Bilateral TX KERATOPLASTY ANTERIOR LAMELLAR Right PHOTOREFRACTIVE KERATOTOMY Bilateral LUMBAR LAMINECTOMY 04/04/1981 - 04/03/1982 ASCENDING AORTIC ANEURYSM REPAIR W/ TISSUE AORTIC VALVE REPLACEMENT 04/04/2009 - 04/03/2010 CORRECTION HAMMER TOE INGUINAL HERNIA REPAIR Left AORTIC VALVE REPLACEMENT 04/04/2009 - 04/03/2010 Bioprosthetic valve, Dr. 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 Gender Identity Not on file Sexual Orientation [...] 65+ 12/04/2003 Influenza Vaccine (#1) 2024 Insurance [facility] MEDICARE ADVANTAGE UHC MEDICARE ADVANTAGE [employer] MEDICARE Advance Directives For more information, please contact: [phone] Documents on File Type Date Recorded Patient Supervisor [employer] anation ADVANCE DIRECTIVE 08/22/2017 11:06 AM ADVANCE DIRECTIVE 08/22/2017 Advance Di rective Checklist * Full Code (Latest Code Status on File) Date Activated Date Inactivated Comments 08/22/2017 2:39 PM 08/23/2017 2:18 PM Care Teams Director Hardware Relationship Specialty Start Date End Date Steve Potter MD PCP - General 08/12/17 Tamiko Perez NP [address] [place] [address] Nurse Practitioner Hospice and Palliative Medicine 08/15/24 Guera Bass NP [address] [place] [address] Nurse Practitioner Hospice and Palliative Medicine 08/15/24
--- OUTSIDE RECORDS SUMMARY | 2024-11-26 03:39 | XMS_ITS | Clinical Summary ---
Author Organization [facility] Address [address] [facility] [place] [address] Care Team Providers Care Patent Counsel Name Role Phone Cuate Mclaughlin MD Primary Care Provider [phone] Source Comments [facility],non-owned Affiliates and Associated Physician Practices is amultiple site organization consisting of ambulatory clinics and hospital sitesin [place] and [place]. This disclosure is being madepursuant to the Care Everywhere program and may not contain all information available regarding this patient. 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
[2024-11-26 03:47] LABS: Hematocrit 37.4 % (42.0-52.0); Hemoglobin 12.1 g/dL (14.0-18.0); Immature Granulocyte Percent A 0.6 % (0-0.5); Lymphocytes Absolute Auto 1.88 K/mm3 (0.9-3.2); Mean Corpuscular HGB Conc 32.4 g/dl (32-36); Mean Corpuscular Hemoglobin 29.5 pg (26-34); Mean Corpuscular Volume 91.2 fl (80-100); Nucleated Red Blood Cells Absolute Auto 0.000 K/mm3 (0.0-0.012); Nucleated Red Blood Cells Perc 0.0 % (0.0-0.2); Platelet Count Result 272 k/mm3 (150-375); Red Blood Count 4.10 M/mm3 (4.6-6.20); White Blood Count 8.6 K/mm3 (4.5-10.0)
[2024-11-26 04:03] LABS: Alanine Aminotransferase 27 U/L (6-50); Albumin Level 4.1 g/dL (3.5-5.1); Alkaline Phosphatase 36 U/L (38-126); Anion Gap 9 mmol/L (4-12); Aspartate Amino Transferase 46 U/L (17-59); Bilirubin,Total 0.8 mg/dL (0.2-1.3); Blood Urea Nitrogen 21 mg/dL (9-20); Calcium 10.0 mg/dL (8.4-10.2); Carbon Dioxide 23 mmol/L (22-30); Chloride 99 mmol/L (98-107); Estimated CRCL calculation 47 ml/min; Estimated Glomerular Filt Rate > 60; Glucose 116 mg/dL (65-110); Lipase 340 U/L (23-300); Magnesium 1.9 mg/dL (1.6-2.3); Potassium 4.3 mmol/L (3.4-5.0); Sodium 131 mmol/L (137-145); Total Protein 7.0 g/dL (6.3-8.2)
[2024-11-26 04:07] LABS: NT Pro B Type Natriuretic Pept 19800 pg/mL (19.9-100)
[2024-11-26 04:49] LABS: INR 1.2; Prothrombin Time 15.0 Seconds (11.1-14.7)
[2024-11-26 04:50] LABS: Partial Thromboplastin Time 31.2 Seconds (22.3-36.8)
[2024-11-26 04:50] LABS: Troponin I 0.067 ng/mL (0.000-0.034)
--- NOTE | 2024-11-26 04:53 | ED.GENADULT ---
HPI - General Adult General Chief complaint: Shortness of Breath/Dyspnea Stated complaint: SOB while lying in bed History of Present Illness HPI narrative: Patient is an 83-year-old male who presents emergency department this evening complaining of shortness of breath which woke him up from sleep. States that he has been having hard time laying flat and laying to the right side. Does have a history of CHF and COPD. Recently admitted here for CHF exacerbation for IV diuresis, however, patient was discharged the next day and daughter believes that he was discharged very soon because he asked to be discharged. Daughter feels as though he needs to be admitted for IV diuresis. Is currently alert and oriented x4 and denies any active chest pain, denies any recent illness, fevers or chills. Related Data Home Medications ?Medication ?Instructions ?Recorded ?Confirmed ?Last Taken ?Type multivitamin (Multiple Vitamins 1 tablet PO DAILY 04/09/19 11/17/24 07/05/24 History tablet) brimonidine 0.15 % eye drops 1 drp RIGHT EYE TID glaucoma 05/07/24 11/17/24 11/16/24 History dorzolamide 22.3 mg-timolol 6.8 1 drp RIGHT EYE BID 05/07/24 11/17/24 11/16/24 History mg/mL eye drops imipramine HCl 25 mg tablet 25 mg PO .COMPLEX 05/07/24 11/17/24 11/16/24 History clobetasol 0.05 % scalp solution 1 applic topical DAILY scalp 06/27/24 11/17/24 11/16/24 History irriatation cholecalciferol (vitamin D3) 50 250 mcg PO DAILY 07/06/24 11/17/24 07/05/24 History mcg (2,000 unit) capsule alprazolam 0.25 mg tablet 0.125 mg PO DAILY anxiety 11/17/24 11/17/24 11/16/24 History roflumilast 0.3 % topical foam 1 applic topical DAILY 11/17/24 11/17/24 11/16/24 History (Zoryve) terconazole 0.4 % vaginal cream 1 appful vaginal ONCE PRN itching 11/17/24 11/17/24 11/16/24 History Allergies Allergy/AdvReac Type Severity Reaction Status Date / Time adhesive tape AdvReac Mild Itching Verified 07/06/24 02:00 Review of Systems Review of Systems: All systems are reviewed and are negative unless stated otherwise in the HPI. [facility] Past Medical History Medical History Grade I diastolic dysfunction 05/08/24 Echo: EF 60-65%, severe LVH, grade I diastolic dysfunction, mild LAE, mod VINNY, prosthetic AVR, mild AI. Atrial fibrillation Glaucoma Influenza A Slow transit constipation CKD (chronic kidney disease) stage 3, GFR 30-59 ml/min Although the patient denies this and prior labs demonstrated normal GFR and creatinine. Gynecomastia, male URI with cough and congestion Essential (primary) hypertension Anxiety Dyslipidemia History of prostate cancer (~05/30/18) Treated with radiation therapy Chronic bilateral low back pain with left-sided sciatica (~11/09/16) Surgical History Surgical History History of cornea transplant History of tonsillectomy and adenoidectomy Status post cataract extraction of both eyes with insertion of intraocular lens History of lumbar laminectomy Hx of aortic valve replacement with porcine valve (~2009) Status post ascending aortic aneurysm repair (~2009) Performed at [facility] by Dr. Thomas Family History Family History Father Family history of pancreatic cancer, Onset Age: 51 Mother Family history of coronary artery disease, Onset Age: 43 Social History Social History Social History: , 2nd 2018. His 2nd in September of 2023. 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 He is written over 50 looks on local history. He is a lifelong nonsmoker and does not drink alcohol. Code status: DNR/DNI per patient request Surrogate decision maker: Mukul (son) Smoking status: Never smoker Second hand tobacco smoke exposure: No Alcohol intake: never Substance use: never Substance use type: does not use Do You Feel Safe in your Home?: Yes Lack of Transportation: No Lack of Food: Never True Current Housing: I Have Housing Concerned About Future Housing: No Difficulty Paying Gas/Electric Bills: No Difficulty Paying for Meds: No Currently Unemployed: No Education: Master's Degree or Higher Difficulty w/ Childcare or Family Care: No Gender identity (if verbalized by the patient): Male Spiritual care concerns: No Exam Narrative: General: Alert, awake, afebrile, in no acute distress. HEENT: PERRL, no rhinorrhea, no post nasal drip, oropharynx clear. Neck: Trachea midline, no JVD, no lymphadenopathy. Cardiovascular: Regular rate and rhythm, no murmurs, rubs or gallops, no peripheral edema. Respiratory: Clear to auscultation bilaterally, no tachypnea, no wheezing, no rhonchi, no rubs, no respiratory distress. Abdomen: Soft, nontender, nondistended, no rebound, no guarding, no peritoneal signs. Musculoskeletal: No joint swelling or deformity, normal muscle tone. Skin: No rashes or petechia, no signs of infection. Psychiatric: Alert and oriented, normal behavior and judgment for situation. Neurological: Alert and oriented to person, place, and time. Follows all commands. No focal deficits, speech is clear and fluent. Course Vital Signs Vital signs: Vital Signs Temperature 97.9 F 11/26/24 03:26 Pulse Rate 75 11/26/24 03:26 Respiratory Rate 27 H 11/26/24 03:26 Blood Pressure 154/44 H 11/26/24 03:26 Pulse Oximetry 99 11/26/24 03:26 Oxygen Delivery Room Air 11/26/24 03:26 Temperature 97.9 F 11/26/24 03:26 Pulse Rate 75 11/26/24 03:26 Respiratory Rate 27 H 11/26/24 03:26 Blood Pressure 154/44 H 11/26/24 03:26 Pulse Oximetry 98 11/26/24 03:32 Oxygen Delivery Room Air 11/26/24 03:32 Medical Decision Making MDM Narrative Medical decision making narrative: The patient was evaluated by myself in the emergency department. History is obtained from patient who is an independent historian and physical exam was performed. External medical records were reviewed at this time. IV was established and pertinent tests were ordered. EKG was obtained which revealed atrial fibrillation at a rate of 72 beats per minute, otherwise no evidence of acute ischemia. EKG was independently interpreted by me and is currently pending official cardiology read. Laboratory results obtained revealing an elevated troponin of 0.067 although this is trending downward from most recent values from last week. [place] [address]. At this time patient was administered 1 mg of IV Bumex and scheduled for 1 mg b.i.d. Imaging studies obtained included CXR which was independently interpreted by me revealing no acute process, which is pending final radiology interpretation. Differential diagnosis considerations include CHF, COPD exacerbation, acute viral syndrome, infectious process such as pneumonia. Comorbidities impacting this visit include history of COPD and CHF. I have evaluated and discussed social determinants of health with the patient that could potentially impact subsequent diagnosis and treatment plans. On repeat assessment of the patient, reevaluation revealed that the patient is doing well and is in no acute distress. Patient symptoms have improved since he arrived to our emergency department. Repeat vital signs were all reviewed and noted to be stable. Differential diagnosis and treatment plan were discussed with the patient at bedside. Patient agrees with discussion and after shared medical decision making agrees with discharge. All questions were answered to the patient's satisfaction. Case was discussed with the on-call hospitalist Dr. Langston at 0450 and she accepted admission. Vital Signs Vital Signs: Vital Signs Temperature 97.9 F 11/26/24 03:26 Pulse Rate 75 11/26/24 03:26 Respiratory Rate 27 H 11/26/24 03:26 Blood Pressure 154/44 H 11/26/24 03:26 Pulse Oximetry 99 11/26/24 03:26 Oxygen Delivery Room Air 11/26/24 03:26 Temperature 97.9 F 11/26/24 03:26 Pulse Rate 75 11/26/24 03:26 Respiratory Rate 27 H 11/26/24 03:26 Blood Pressure 154/44 H 11/26/24 03:26 Pulse Oximetry 98 11/26/24 03:32 Oxygen Delivery Room Air 11/26/24 03:32 Lab Data 11/26/24 03:34 11/26/24 03:34 Labs: Lab Results 11/26/24 11/26/24 Range/Units 03:34 03:37 WBC 8.6 (4.5-10.0) K/mm3 RBC 4.10 L (4.6-6.20) M/mm3 Hgb 12.1 L (14.0-18.0) g/dL Hct 37.4 L (42.0-52.0) % MCV 91.2 (80-100) fl MCH 29.5 (26-34) pg MCHC 32.4 (32-36) g/dl RDW 13.3 (11.5-14.5) % Plt Count 272 (150-375) k/mm3 MPV 10.1 (7.4-10.4) fl Immature Gran % (Auto) 0.6 H (0-0.5) % Neut % (Auto) 68.9 (45.5-73.1) % Lymph % (Auto) 21.8 (18.3-44.2) % [place] % (Auto) 6.5 (2.6-8.5) % Eos % (Auto) 1.7 (0-4.4) % Baso % (Auto) 0.5 (0.2-1.2) % Lymph # (Auto) 1.88 (0.9-3.2) K/mm3 [place] # (Auto) 0.6 (0.1-0.6) K/mm3 Eos # (Auto) 0.2 (0-0.3) K/mm3 Baso # (Auto) 0.0 (0.0-0.1) K/mm3 Abs Immat Gran (auto) 0.05 H (0.00-0.031) K/mm3 Absolute Neuts (auto) 6.0 (1.3-6.7) K/mm3 Absolute Nucleated RBC 0.000 (0.0-0.012) K/mm3 Nucleated RBC % 0.0 (0.0-0.2) % PT 15.0 H (11.1-14.7) Seconds INR 1.2 APTT 31.2 (22.3-36.8) Seconds Sodium 131 L (137-145) mmol/L Potassium 4.3 (3.4-5.0) mmol/L Chloride 99 (98-107) mmol/L Carbon Dioxide 23 (22-30) mmol/L Anion Gap 9 (4-12) mmol/L BUN 21 H (9-20) mg/dL Creatinine 1.08 (0.7-1.3) mg/dL Estim Creat Clear Calc 47 ml/min Estimated GFR > 60 (59 - ) Glucose 116 H (65-110) mg/dL Calcium 10.0 (8.4-10.2) mg/dL Magnesium 1.9 (1.6-2.3) mg/dL Total Bilirubin 0.8 (0.2-1.3) mg/dL AST 46 (17-59) U/L ALT 27 (6-50) U/L Alkaline Phosphatase 36 L (38-126) U/L Troponin I 0.067 H* (0.000-0.034) ng/mL NT-Pro-B Natriuret Pep 89500 H (19.9-100) pg/mL Total Protein 7.0 (6.3-8.2) g/dL Albumin 4.1 (3.5-5.1) g/dL Lipase 340 H (23-300) U/L Discharge Plan Discharge Clinical Impression: Acute exacerbation of CHF (congestive heart failure) Patient Disposition: Still a Patient Condition: Improved Patient Language: [place] Prescriptions: No Action dorzolamide-timolol 22.3-6.8 mg/mL drops 1 drp RIGHT EYE BID brimonidine 0.15 % drops 1 drp RIGHT EYE TID imipramine HCl 25 mg tablet 25 mg PO .COMPLEX Rx Instructions: Take 1 Tablet (25 mg) by mouth [id number] Frequency: three times per week ferrous sulfate 325 mg (65 mg iron) Tablet,Delayed Release (Dr/Ec) 325 mg PO DAILY Qty: 30 0RF cholecalciferol (vitamin D3) 50 mcg (2,000 unit) capsule 250 mcg PO DAILY aspirin 325 mg Tablet,Delayed Release (Dr/Ec) 325 mg PO QAM 30 Days Qty: 30 1RF clobetasol 0.05 % solution 1 applic TOPICAL DAILY Zoryve 0.3 % foam 1 applic topical DAILY terconazole 0.4 % cream 1 appful vaginal ONCE PRN (Reason: itching) Rx Instructions: apply to groin alprazolam 0.25 mg tablet 0.125 mg PO DAILY Rx Instructions: tuesday multivitamin [Multiple Vitamins] Tablet 1 tablet PO DAILY Rx Instructions: take 1 tablet by oral route every day metoprolol succinate 50 mg tablet extended release 24 hr See Rx Instructions .ROUTE .COMPLEX Qty: 90 2RF Dose Instruction: Take 1 Tablet (50 mg) by mouth daily. Rx Instructions: Take 1 Tablet (50 mg) by mouth daily. albuterol sulfate 2.5 mg /3 mL (0.083 %) solution for nebulization 2.5 mg inhalation Q4-6H PRN (Reason: shortness of breath or wheezing) Qty: 180 0RF (DME) nebulizer and compressor Device See Rx Instructions .Route Qty: 1 0RF Rx Instructions: To use by inhalation route every 4 to 6 hours as needed atorvastatin 10 mg tablet See Rx Instructions .ROUTE .COMPLEX Qty: 90 2RF Dose Instruction: Take 1 Tablet (10 mg) by mouth daily at bedtime. Rx Instructions: Take 1 Tablet (10 mg) by mouth daily at bedtime. losartan 50 mg tablet See Rx Instructions .ROUTE .COMPLEX Qty: 90 2RF Dose Instruction: Take 1 Tablet (50 mg) by mouth daily. Rx Instructions: Take 1 Tablet (50 mg) by mouth daily. furosemide 40 mg tablet See Rx Instructions .ROUTE .COMPLEX Qty: 30 0RF Dose Instruction: Take 1 Tablet (40 mg) by mouth daily. Rx Instructions: Take 1 Tablet (40 mg) by mouth daily. spironolactone 25 mg tablet See Rx Instructions .ROUTE .COMPLEX Qty: 30 0RF Dose Instruction: Take 1 Tablet (25 mg) by mouth daily in the morning. Rx Instructions: Take 1 Tablet (25 mg) by mouth daily in the morning. fenofibrate nanocrystallized 145 mg tablet See Rx Instructions .ROUTE .COMPLEX Qty: 90 2RF Dose Instruction: TAKE ONE TABLET BY MOUTH ONCE DAILY Rx Instructions: TAKE ONE TABLET BY MOUTH ONCE DAILY Follow-up/Referrals: Adonis Cabral MD [Primary Care Provider, Internal Medicine] Time of Disposition: 04:59
--- NOTE | 2024-11-26 04:58 | PM.IMHP ---
H&P: HPI History of Present Illness Date/Time: 11/26/24 04:58 Chief Complaint: Woke up feeling short of breath Narrative: Loquacious, pleasant 83-year-old male with a past medical history of left ventricular enlargement with preserved ejection fraction, diastolic dysfunction, bioprosthetic aortic valve with severe sclerosis, moderate aortic valve regurgitation, [id number] tricuspid regurgitation, moderate pulmonary hypertension, prior ascending aortic aneurysm repair, essential hypertension, glaucoma and chronic troponin elevation who presented to the ER via EMS from home due to waking up feeling short of breath. The patient reports that he felt fine after he was discharged from the hospital on the 18 of November. He has been taking his Lasix 80 mg p.o. daily. He is compliant with a low sodium diet. He has not noticed any increased lower extremity swelling. He denies any increased cough or congestion. He has been having some orthopnea and difficulty lying on the right side and has subsequently been laying mostly on his left side. He has chronic constipation and has to manually disimpact himself every day. He denies any change in urinary frequency or urgency. He has pale yellow urine in the urinal at bedside. His BNP is elevated compared to prior hospitalization. He has required prior thoracentesis in the past but does not have a large pleural effusion on chest x-ray at the time of my review. He does not have significant JVD at the time of my review. Review of Systems Review of Systems: 12 systems were reviewed with pertinent positives and negatives per HPI. Except as documented in the HPI, all other systems were reviewed and are negative. [facility] Past Medical History Medical History (Updated 11/26/24 @ 05:16 by Roxanne Langston DO) Pulmonary hypertension Diastolic CHF due to valvular disease Mitral valve regurgitation Aortic valve regurgitation Grade I diastolic dysfunction 05/08/24 Echo: EF 60-65%, severe LVH, grade I diastolic dysfunction, mild LAE, mod VINNY, prosthetic AVR, mild AI. Atrial fibrillation Glaucoma Slow transit constipation CKD (chronic kidney disease) stage 3, GFR 30-59 ml/min Patient's GFR has dropped into the 40s and 50s several times but for the most part remains greater than 60 Gynecomastia, male Essential (primary) hypertension Anxiety Dyslipidemia History of prostate cancer (~05/30/18) Treated with radiation therapy Chronic bilateral low back pain with left-sided sciatica (~11/09/16) Surgical History Surgical History History of cornea transplant History of tonsillectomy and adenoidectomy Status post cataract extraction of both eyes with insertion of intraocular lens History of lumbar laminectomy Hx of aortic valve replacement with porcine valve (~2009) Status post ascending aortic aneurysm repair (~2009) Performed at [facility] by Dr. Thomas Family History Family History Father Family history of pancreatic cancer, Onset Age: 51 Mother Family history of coronary artery disease, Onset Age: 43 Social History Social History (Updated 11/26/24 @ 05:04 by Roxanne Langston DO) Social History: , 2nd 2018. His 2nd in September of 2023. 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 He is written over 50 looks on local history. He is a lifelong nonsmoker and does not drink alcohol. Code status: DNR/DNI per patient request Surrogate decision maker: Mukul (son) Smoking status: Never smoker Second hand tobacco smoke exposure: No Alcohol intake: never Substance use: never Substance use type: does not use Do You Feel Safe in your Home?: Yes Lack of Transportation: No Lack of Food: Never True Current Housing: I Have Housing Concerned About Future Housing: No Difficulty Paying Gas/Electric Bills: No Difficulty Paying for Meds: No Currently Unemployed: No Education: Master's Degree or Higher Difficulty w/ Childcare or Family Care: No Gender identity (if verbalized by the patient): Male Spiritual care concerns: No Meds Home Medications and Allergies Home Medications ?Medication ?Instructions ?Recorded ?Confirmed ?Type multivitamin (Multiple Vitamins 1 tablet PO DAILY 04/09/19 11/26/24 History tablet) metoprolol succinate 50 mg See Rx Instructions .Route 03/21/24 11/26/24 Rx tablet,extended release 24 hr .COMPLEX #90 tabs imipramine HCl 25 mg tablet 25 mg PO .COMPLEX 05/07/24 11/26/24 History ferrous sulfate 325 mg (65 mg 325 mg PO DAILY #30 tabs 05/10/24 11/17/24 Rx iron) tablet,delayed release nebulizer and compressor #1 ea 05/16/24 11/17/24 Rx atorvastatin 10 mg tablet See Rx Instructions .Route 05/22/24 11/26/24 Rx .COMPLEX #90 tabs clobetasol 0.05 % scalp solution 1 applic topical DAILY scalp 06/27/24 11/17/24 History irriatation cholecalciferol (vitamin D3) 50 250 mcg PO DAILY 07/06/24 11/26/24 History mcg (2,000 unit) capsule aspirin 325 mg tablet,delayed 325 mg PO QAM 30 days #30 tabs 07/08/24 11/26/24 Rx release losartan 50 mg tablet See Rx Instructions .Route 08/30/24 11/26/24 Rx .COMPLEX #90 tabs furosemide 40 mg tablet See Rx Instructions .Route 10/30/24 11/26/24 Rx .COMPLEX #30 tabs spironolactone 25 mg tablet See Rx Instructions .Route 10/30/24 11/26/24 Rx .COMPLEX #30 tabs fenofibrate nanocrystallized 145 See Rx Instructions .Route 11/13/24 11/26/24 Rx mg tablet .COMPLEX #90 tabs alprazolam 0.25 mg tablet 0.125 mg PO DAILY anxiety 11/17/24 11/26/24 History potassium 99 mg tablet 99 mg PO TID 11/26/24 11/26/24 History psyllium seed (sugar) oral powder 1 tbsp PO DAILY 11/26/24 11/26/24 History (Fiber Therapy (psyllium seed-sucrose) oral powder) Allergies Allergy/AdvReac Type Severity Reaction Status Date / Time adhesive tape AdvReac Mild Itching Verified 07/06/24 02:00 Vital Signs Vital Signs - 24 hr 11/26/24 03:26 11/26/24 03:32 Temperature 97.9 F Pulse Rate 75 Respiratory Rate 27 H Blood Pressure 154/44 H Pulse Oximetry 99 98 Oxygen Delivery Room Air Room Air Exam Narrative: Weight 75 kg BMI 18.2 Const: Other: Chronically debilitated, appears stated age, lying in bed on his left side HENMT: Other: Mucous membranes are tacky, no oral pharyngeal erythema, head is normocephalic atraumatic Eyes: Other: Lens implants noted bilaterally, no scleral icterus Neck: Other: No JVD, no lymphadenopathy Resp: Other: Decreased breath sounds bilaterally, no wheezing, no crackles, no tachypnea Cardio: Other: Irregularly irregular, 2/6 murmur, no JVD, 2+ bilateral radial pedal pulses GI: Other: Positive bowel sounds, slightly distended, nontender Back/Spine/Pelvis: Other: Significant thoracic kyphosis Skin: Other: Generalized pallor, non jaundice Neuro: Other: Alert oriented x4, speech is clear, no facial asymmetry, hard of hearing, no localizing neurologic deficits noted during the course of conversation Extrem: Other: 1+ pitting edema bilateral lower extremities, age-related arthritic changes of the knees bilateral Psych: Other: Loquacious, pleasant and cooperative, judgment and insight intact H&P: Results Labs Labs: Laboratory Tests 11/26/24 03:34 11/26/24 03:34 11/26/24 11/26/24 03:34 03:37 WBC 8.6 RBC 4.10 L Hgb 12.1 L Hct 37.4 L MCV 91.2 MCH 29.5 MCHC 32.4 RDW 13.3 Plt Count 272 MPV 10.1 Immature Gran % (Auto) 0.6 H Neut % (Auto) 68.9 Lymph % (Auto) 21.8 [place] % (Auto) 6.5 Eos % (Auto) 1.7 Baso % (Auto) 0.5 Lymph # (Auto) 1.88 [place] # (Auto) 0.6 Eos # (Auto) 0.2 Baso # (Auto) 0.0 Abs Immat Gran (auto) 0.05 H Absolute Neuts (auto) 6.0 Absolute Nucleated RBC 0.000 Nucleated RBC % 0.0 PT 15.0 H INR 1.2 APTT 31.2 Sodium 131 L Potassium 4.3 Chloride 99 Carbon Dioxide 23 Anion Gap 9 BUN 21 H Creatinine 1.08 Estim Creat Clear Calc 47 Estimated GFR > 60 Glucose 116 H Calcium 10.0 Magnesium 1.9 Total Bilirubin 0.8 AST 46 ALT 27 Alkaline Phosphatase 36 L Troponin I 0.067 H* NT-Pro-B Natriuret Pep 15408 H Total Protein 7.0 Albumin 4.1 Lipase 340 H Chest x-ray: On my interpretation Sternal wires noted, marked cardiomegaly, chronic left hemidiaphragm elevation, mild pulmonary vascular congestion. Radiologic interpretation pending EKG: Atrial fibrillation rate 72 borderline left axis, voltage criteria for LVH, nonspecific ST and T-wave abnormality V5 V6 AVR and aVL cardiology interpretation pending All imaging and EKGs personally reviewed and interpreted. And unless stated otherwise agree with radiologic and cardiology interpretation. Assessment and Plan Assessment and plan (1) Acute exacerbation of CHF (congestive heart failure): Qualifiers: Heart failure type: diastolic Qualified Code(s): I50.33 - Acute on chronic diastolic (congestive) heart failure Code(s): I50.9 - Heart failure, unspecified Status: Acute (2) Elevated troponin: Code(s): R79.89 - Other specified abnormal findings of blood chemistry Status: Acute (3) Diastolic CHF due to valvular disease: Code(s): I50.30 - Unspecified diastolic (congestive) heart failure; I38 - Endocarditis, valve unspecified Status: Acute (4) Pulmonary hypertension: Code(s): I27.20 - Pulmonary hypertension, unspecified Status: Acute Plan Patient has acute on chronic diastolic heart failure exacerbation due to valvular heart disease and pulmonary hypertension. Will place patient on Bumex IV push b.i.d. and monitor strict I&O's and daily weights. He is not desaturating in his on room air. Will monitor electrolyte panel closely and check magnesium level with next set of labs. Will continue telemetry monitoring. Patient has chronic troponin elevation but troponin levels actually less than patient's baseline. Patient is not having any chest pain or suggestion of acute [place]. the patient would not want any intervention/cardiac catheterization. Given that result will not change overall management for the patient will not continue to check troponins. Will resume home metoprolol, losartan, atorvastatin, spironolactone and aspirin. Patient would benefit from palliative care referral. Since the patient does not want aggressive interventions the patient may benefit from palliative care/hospice where his heart failure exacerbations could be managed home without him apnea come into the hospital. Will consult care coordination for discussion of possible options for management strategies. MEDICAL DECISION MAKING NARRATIVE -Spoke with the ED provider in detail regarding patient's evaluation, workup and management -Patient seen and examined at bedside -Collaborated with patient's nurse at the bedside in detail and addressed all concerns -Labs, electrolytes, radiology, investigations and test results personally reviewed and interpreted unless otherwise specified -ED/Consult/Nursing/Ancilliary notes on the chart reviewed and appreciated -Spoke with patient at bedside and diagnosis and plan of care was discussed. All questions answered. Quality VTE Prophylaxis VTE prophylaxis: mechanical ordered (SCDs) Hospitalist MIPS Advance Care Plan I have confirmed that the patient's Advanced Care Plan is present, code status is documented, or surrogate decision maker is listed in patient medical record.: Yes Medication Reconciliation I have utilized all available resources to obtain, update and review the patients current medications (includes all prescriptions, OTC, herbals, cannabis, and nutritional supplements).: Yes
[2024-11-26] MEDS: BUMETANIDE INJ 1 MG/4 ML VIAL IV PUSH (05:14)
--- NOTE | 2024-11-26 06:07 | ADMGEN ---
This patient, Robin Beckwith, was admitted to Medical Room [facility] @05. Patient/family oriented to hospital policies and general routines including ID bracelet, bed and alarms, visiting hours, pain management, procedures, bathroom and other care routines, personal items, smoking policy, room service/diet, and visiting hours. Information on how to activate the Rapid Response Team has been discussed. Patient/Family are encouraged to report perceived risks to care and to ask questions if they do not understand what they are told or what they should do.
--- OUTSIDE RECORDS SUMMARY | 2024-11-26 08:44 | XMS_ITS | Encounter Summary ---
Author Organization [facility] Address [address] [place] [address] Care Team Providers Care Director Strategic Account Management Name Role Phone Unavailable Primary Care Provider Unavailabl e Encounter Details Date Type Department Care Team (Latest Contact Info) Description 08/18/2000 Outpatient Historical [facility] Makros Luque MD Postlaminectomy syndrome, lumbar region (Primary Dx) Social History Tobacco Use Types Packs/Day Years Used Date Smoking Tobacco: Never Assessed Sex and Gender Information Value Date Recorded Sex Assigned at Not on file Legal Sex Male 4:[address] CAPTAIN Gender Identity Not on file Sexual Orientation Not on file documented as of this encounter Plan of Treatment Not on file documented as of this encounter Visit Diagnoses Diagnosis Postlaminectomy syndrome, lumbar region- Primary documented in this encounter
--- OUTSIDE RECORDS SUMMARY | 2024-11-26 08:44 | XMS_ITS | Clinical Summary ---
Author Organization [facility] Address [address] [place] [address] Care Team Providers Care Warp Starter Name Role Phone Steve Potter MD Primary Care Provider Tamiko Perez BIOMASS PRODUCTION MANAGER Unavailable [phone] Guera Bass BIOMASS PRODUCTION MANAGER Unavailable [phone] Allergies Active Allergy Reactions Criticality Noted Date Comments Adhesive Tape-Silicones Redness Low Medications fenofibrate nanocrystallized (TRICOR,TRIGLIDE) 145 mg tablet Take 145 mg by mouth matrix plater before breakfast. Active metoprolol XL (TOPROL-XL) 50 mg 24 hr tablet Take 50 mg by mouth matrix plater before breakfast. Active atorvastatin (LIPITOR) 10 mg [...] Description 11/20/2024 9:00 AM CDT Residential Visit [facility] Palliative Care [address] [place] [address] Guera Bass NP 11/20/[address] [place] [address] Brooklyn Gooden RN 09/21/2024 12:00 PM CDT Residential Visit [facility] Palliative Care [address] [place] [address] Tamiko Perez NP Age-related physical debility (Primary Dx) 08/29/2024 10:00 AM CDT Residential Visit [facility] Palliative Care [address] [place] [address] Tamiko Perez NP Palliative care encounter (Primary Dx); Valvular heart disease; Age-related physical debility; S/P aortic valve replacement with bioprosthetic valve; Essential hypertension; Stage 3b chronic kidney disease (HCC); S/P ascending aortic aneurysm repair from Last 3 Months Surgical History Surgery Date Site/Laterality Comments CATARACT EXTRACTION Bilateral [place] KERATOPLASTY ANTERIOR LAMELLAR Right PHOTOREFRACTIVE KERATOTOMY Bilateral LUMBAR LAMINECTOMY 04/04/1981 - 04/03/1982 ASCENDING AORTIC ANEURYSM REPAIR W/ TISSUE AORTIC VALVE REPLACEMENT 04/04/2009 - 04/03/2010 CORRECTION HAMMER TOE INGUINAL HERNIA REPAIR Left AORTIC VALVE REPLACEMENT 04/04/2009 - 04/03/2010 Bioprosthetic valve, Dr. Thomas, 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 Gender Identity Not on file Sexual [...] 65+ 12/04/2003 Influenza Vaccine (#1) 2024 Insurance [facility] MEDICARE ADVANTAGE [employer] MEDICARE ADVANTAGE [employer] MEDICARE Advance Directives For more information, please contact: [phone] Documents on File Type Date Recorded Patient Variety Saw Operator Expl anation ADVANCE DIRECTIVE 08/22/2017 11:06 AM ADVANCE DIRECTIVE 08/22/2017 Advance Di rective Checklist * Full Code (Latest Code Status on File) Date Activated Date Inactivated Comments 08/22/2017 2:39 PM 08/23/2017 2:18 PM Care Teams Warp Starter Relationship Specialty Start Date End Date Steve Potter MD PCP - General 08/12/17 Tamiko Perez NP [address] [place] [address] Nurse Practitioner Hospice and Palliative Medicine 08/15/24 Guera Bass NP [address] [place] [address] Nurse Practitioner Hospice and Palliative Medicine 08/15/24
--- OUTSIDE RECORDS SUMMARY | 2024-11-26 08:44 | XMS_ITS | Encounter Summary ---
Author Organization [facility] Address [address] [place] [address] Care Team Providers Care Type Disk Quality Control Supervisor Name Role Phone Cuate Mclaughlin MD Primary Care Provider [phone] Encounter Details Date Type Department Care Team (Late st Contact Info) Description 06/28/2018 Lab Requisition [facility] Care DermPath Lab [address] [facility] [place] [id number] Pari Petit DO [address] [facility] [address] [place] [address] Social History Tobacco Use Types Packs/Day Years Used Date Smoking Tobacco: Never Assessed Sex and Gender Information Value Date Recorded Sex Assigned at Not on file 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 Ben Lucia. These tests need not be, and therefore are not, approved by the [place] Food and Drug Administration. The tests are used for clinical purposes. Billing Codes Specimen Charges Stain Charges 23226 1 12:45 PM CDT DERMATOPATHOLOGY LABORATORY Embedded Images 12:45 PM CDT DERMATOPATHOLOGY LABORATORY Pathology/Cytolog y TISSUE SPECIMEN FROM SKIN / Unknown 06/27/2018 06/28/2018 9:14 AM CDT Pari Petit DO LAB - PATHOLOGY/CYTOLOGY ORDERABLES Final Result DERMATOPATHOLOGY LABORATORY [facility] - Department of Dermatology [address] [facility], 5th Floor Lab [address] [phone] documented in this encounter Visit Diagnoses Not on filedocumented in this encounter Care Teams Type Disk Quality Control Supervisor Relationship Specialty Start Date End Date Cuate Mclaughlin MD [address] [place] [address] PCP - General 06/27/18 documented as of this encounter
--- OUTSIDE RECORDS SUMMARY | 2024-11-26 08:44 | XMS_ITS | Clinical Summary ---
Author Organization [facility] Address [address] [place] [address] Care Team Providers Care Acid Changer Name Role Phone Cuate Mclaughlin MD Primary Care Provider [phone] [facility],non-owned Affiliates and Associated Physician Practices is amultiple site organization consisting of ambulatory clinics and hospital sitesin [place], [place], [place] and [place]. This disclosure is being madepursuant to the Care Everywhere program and may not contain all information available regarding this patient. 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
--- OUTSIDE RECORDS SUMMARY | 2024-11-26 08:44 | XMS_ITS | Clinical Summary ---
Author Organization [facility] Address [address] Bui: Epic Prelude ADT [place] [address] Care Team Providers Care Certified Endoscopy Technician Name Role Phone Unavailable Primary Care Provider Unavailabl e Allergies No known active allergies Medications brimonidine (ALPHAGAN P) 0.15 % solution INSTILL 1 DROP IN THE RIGHT EYE THREE TIMES A DAY NEEDED 10 mL 5 02/24/20 23 3:30 PM PILOT CAN ROUTER 022 Active lactulose (KRISTALOSE) 10 gram Packet [...] 45 Tablet 1 05/27/19 24 7:34 PM PILOT CAN ROUTER 023 Active brimonidine (ALPHAGAN P) 0.15 % solution Administer 1 Drop in right eye 3 times daily as needed. 10 mL 5 02/27/20 24 5:30 PM PILOT CAN ROUTER 024 Active imipramine HCl (TOFRANIL) 25 mg [...] WEEK. 120 mL 04/30/19 25 5:25 PM PILOT CAN ROUTER 025 Active dilTIAZem (CARDIZEM CD, CARTIA XT) 120 mg Controlled Delivery 24 hour capsule Take 1 Capsule (120 mg) by mouth daily in the morning. 60 Capsule 05/11/19 25 11:45 AM PILOT CAN ROUTER 025 Active oseltamivir (TAMIFLU) 30 mg Capsule Take 1 Capsule (30 mg) by mouth every 12 hours. 5 Capsule 05/11/19 25 11:45 AM PILOT CAN ROUTER 025 Active ferrous sulfate 325 mg (65 mg iron) Tablet, Delayed Release (E.C.) Take 1 Tablet (325 mg) by mouth daily. 30 Tablet 05/10/19 25 4:36 PM PILOT CAN ROUTER 025 Active albuterol (PROVENTIL,VENTOLI N) 2.5 mg /3 mL (0.083 %) Solution for Nebulization INHALE THE CONTENTS OF 1 VIAL PER NEBULIZER EVERY 4-6 HOURS NEEDED FOR SHORTNESS OF BREATH OR WHEEZING. 180 mL 05/21/19 25 4:16 PM PILOT CAN ROUTER 025 Active Nebulizer & Compressor For Neb [...] 118 mL 2 05/22/19 25 7:05 PM PILOT CAN ROUTER 025 Active atorvastatin (LIPITOR) 10 mg tablet [...] on file Legal Sex Male 4:58 AM PILOT CAN ROUTER Gender Identity Not on file Sexual Orientation [...]
[2024-11-26] MEDS: LOSARTAN POTASSIUM 50 MG TABLET PO (09:30)
[2024-11-26] MEDS: ASPIRIN 325 MG ENTERIC TABLET PO (09:30)
[2024-11-26] MEDS: CHOLECALCIFEROL (VITAMIN D3) 125 MCG (5,000 UNITS) TABLET 250 MCG PO (09:30)
[2024-11-26] MEDS: METOPROLOL SUCCINATE EXT REL 50 MG TABCR PO (09:30)
[2024-11-26] MEDS: MULTIVITAMINS THERAPEUTIC TAB (*BKC) 1 TABLET PO (09:30)
[2024-11-26] MEDS: FENOFIBRATE NANOCRYSTALLIZED 145 MG TABLET PO (09:31)
[2024-11-26] MEDS: SPIRONOLACTONE 25 MG TABLET PO (09:31)
[2024-11-26] MEDS: POTASSIUM CHLORIDE 10 MEQ ER TABLET PO (09:31)
[2024-11-26] MEDS: IMIPRAMINE HCL 25 MG TABLET PO (09:31)
[2024-11-26] MEDS: ALPRAZolam (*CRX) 0.125 MG TABLET PO (09:44)
--- NOTE | 2024-11-26 11:17 | PM.CNCAR ---
Assessment and Plan Assessment and plan (1) PAF (paroxysmal atrial fibrillation): Code(s): I48.0 - Paroxysmal atrial fibrillation Status: Acute Assessment and Plan: [id number] 3. Discuss anticoagulation and in past he refused it, and was placed on aspirin only. He wants to think about it. Discuss antiarrhythmic and he will let me know if he would like Amiodarone vs Sotalol. (2) Acute exacerbation of CHF (congestive heart failure): Qualifiers: Heart failure type: diastolic Qualified Code(s): I50.33 - Acute on chronic diastolic (congestive) heart failure Code(s): I50.9 - Heart failure, unspecified Status: Acute Assessment and Plan: Acute on chronic diastolic HF. Probably due to PAF. Got Bumex x1. On Sprinolactone. Continue Lasix 40 mg PO BID. (3) Hx of aortic valve replacement with porcine valve: Onset Date: ~2009 Code(s): Z95.3 - Presence of xenogenic heart valve Status: Acute Assessment and Plan: Stable. (4) Essential (primary) hypertension: Code(s): I10 - Essential (primary) hypertension Status: Chronic Assessment and Plan: Stable. (5) Dyslipidemia: Code(s): E78.5 - Hyperlipidemia, unspecified Status: Acute Assessment and Plan: On Atorvastatin. History of Present Illness History of Present Illness Consult date/time: 11/26/24 11:17 Reason For Visit: CHF, orthopnea Narrative: 83 yr old man presents to ER due to sob. He has a history of bioprosthetic aortic valve with ascending aortic repair in 2009 at [facility], PAF, diastolic dysfunction, hypertension, dyslipidemia. Daughter is at bedside. Reports for last couple of days he had sob. Now he feels great without sob after diuresis and back in normal rhythm. He is normally limited at walking to restroom due to progressively worsening back pain. Denies chest pain, orthopnea, PND, edema, dizziness, palpitations. Review of Systems Review of Systems: All systems reviewed & are unremarkable except as noted in HPI and below Constitutional: Constitutional: Reports as per HPI, Denies chills and Denies fever(s) Cardiovascular: Cardiovascular: Reports as per HPI, Denies chest pain and Denies irregular heart rhythm Respiratory: Respiratory: Reports as per HPI and Reports dyspnea Gastrointestinal: Gastrointestinal: Reports as per HPI and Denies abdominal pain Genitourinary: Genitourinary: Reports as per HPI and Denies dysuria Musculoskeletal: Musculoskeletal: Reports as per HPI Neurologic: Reports as per HPI, Denies dizziness and Denies syncope [facility] Past Medical History Medical History (Updated 11/26/24 @ 05:16 by Roxanne Langston DO) Pulmonary hypertension Diastolic CHF due to valvular disease Mitral valve regurgitation Aortic valve regurgitation Grade I diastolic dysfunction 05/08/24 Echo: EF 60-65%, severe LVH, grade I diastolic dysfunction, mild LAE, mod VINNY, prosthetic AVR, mild AI. Atrial fibrillation Glaucoma Slow transit constipation CKD (chronic kidney disease) stage 3, GFR 30-59 ml/min Patient's GFR has dropped into the 40s and 50s several times but for the most part remains greater than 60 Gynecomastia, male Essential (primary) hypertension Anxiety Dyslipidemia History of prostate cancer (~05/30/18) Treated with radiation therapy Chronic bilateral low back pain with left-sided sciatica (~11/09/16) Surgical History Surgical History History of cornea transplant History of tonsillectomy and adenoidectomy Status post cataract extraction of both eyes with insertion of intraocular lens History of lumbar laminectomy Hx of aortic valve replacement with porcine valve (~2009) Status post ascending aortic aneurysm repair (~2009) Performed at [facility] by Dr. Thomas Family History Family History Father Family history of pancreatic cancer, Onset Age: 51 Mother Family history of coronary artery disease, Onset Age: 43 Social History Social History (Updated 11/26/24 @ 05:04 by Roxanne Langston DO) Social History: , 2nd 2018. His 2nd in September of 2023. 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 He is written over 50 looks on local history. He is a lifelong nonsmoker and does not drink alcohol. Code status: DNR/DNI per patient request Surrogate decision maker: Mukul (son) Smoking status: Never smoker Second hand tobacco smoke exposure: No Alcohol intake: never Substance use: never Substance use type: does not use Do You Feel Safe in your Home?: Yes Lack of Transportation: No Lack of Food: Never True Current Housing: I Have Housing Concerned About Future Housing: No Difficulty Paying Gas/Electric Bills: No Difficulty Paying for Meds: No Currently Unemployed: No Education: Master's Degree or Higher Difficulty w/ Childcare or Family Care: No Gender identity (if verbalized by the patient): Male Spiritual care concerns: No Meds Home Medications and Allergies Home Medications ?Medication ?Instructions ?Recorded ?Confirmed ?Type multivitamin (Multiple Vitamins 1 tablet PO DAILY 04/09/19 11/26/24 History tablet) metoprolol succinate 50 mg See Rx Instructions .Route 03/21/24 11/26/24 Rx tablet,extended release 24 hr .COMPLEX #90 tabs imipramine HCl 25 mg tablet 25 mg PO .COMPLEX 05/07/24 11/26/24 History ferrous sulfate 325 mg (65 mg 325 mg PO DAILY #30 tabs 05/10/24 11/26/24 Rx iron) tablet,delayed release nebulizer and compressor #1 ea 05/16/24 11/26/24 Rx atorvastatin 10 mg tablet See Rx Instructions .Route 05/22/24 11/26/24 Rx .COMPLEX #90 tabs clobetasol 0.05 % scalp solution 1 applic topical DAILY scalp 06/27/24 11/26/24 History irriatation cholecalciferol (vitamin D3) 50 250 mcg PO DAILY 07/06/24 11/26/24 History mcg (2,000 unit) capsule aspirin 325 mg tablet,delayed 325 mg PO QAM 30 days #30 tabs 07/08/24 11/26/24 Rx release losartan 50 mg tablet See Rx Instructions .Route 08/30/24 11/26/24 Rx .COMPLEX #90 tabs furosemide 40 mg tablet See Rx Instructions .Route 10/30/24 11/26/24 Rx .COMPLEX #30 tabs spironolactone 25 mg tablet See Rx Instructions .Route 10/30/24 11/26/24 Rx .COMPLEX #30 tabs fenofibrate nanocrystallized 145 See Rx Instructions .Route 11/13/24 11/26/24 Rx mg tablet .COMPLEX #90 tabs alprazolam 0.25 mg tablet 0.125 mg PO DAILY anxiety 11/17/24 11/26/24 History potassium 99 mg tablet 99 mg PO TID 11/26/24 11/26/24 History psyllium seed (sugar) oral powder 1 tbsp PO DAILY 11/26/24 11/26/24 History (Fiber Therapy (psyllium seed-sucrose) oral powder) Allergies Allergy/AdvReac Type Severity Reaction Status Date / Time adhesive tape AdvReac Mild Itching Verified 07/06/24 02:00 cloth surgical tape AdvReac Severe lopez Uncoded 11/26/24 07:43 skin; eats flesh Vital Signs Vital Signs - 24 hr 11/26/24 03:26 11/26/24 03:32 11/26/24 06:06 Temperature 97.9 F Pulse Rate 75 Respiratory Rate 27 H Blood Pressure 154/44 H Pulse Oximetry 99 98 Oxygen Delivery Room Air Room Air Room Air 11/26/24 06:06 11/26/24 08:30 11/26/24 09:30 Temperature 97.3 F L Pulse Rate 78 72 Respiratory Rate 16 Blood Pressure 138/38 L Pulse Oximetry 98 98 Oxygen Delivery Room Air Exam Const: General: cooperative, healthy appearing and comfortable Resp: Auscultation: clear to auscultation bilaterally, no crackles, no rales, no rhonchi and no wheezes Cardio: Rate: regular rate Rhythm: regular rhythm Heart sounds: no murmurs Peripheral pulses: dorsalis pedis present GI: GI Palp: No abdominal tenderness and Yes Soft to palpation Neuro: General: oriented to person, oriented to place and oriented to time Extrem: Right lower extremity: no edema Left lower extremity: no edema Results Labs and Meds 11/26/24 03:34 11/26/24 03:34 Lab results: Cardiac Enzymes 11/26/24 11/26/24 Range/Units 03:34 03:37 AST 46 (17-59) U/L Troponin I 0.067 H* (0.000-0.034) ng/mL Coagulation 11/26/24 Range/Units 03:34 PT 15.0 H (11.1-14.7) Seconds APTT 31.2 (22.3-36.8) Seconds CBC 11/26/24 Range/Units 03:34 WBC 8.6 (4.5-10.0) K/mm3 RBC 4.10 L (4.6-6.20) M/mm3 Hgb 12.1 L (14.0-18.0) g/dL Hct 37.4 L (42.0-52.0) % Plt Count 272 (150-375) k/mm3 Lymph # (Auto) 1.88 (0.9-3.2) K/mm3 [place] # (Auto) 0.6 (0.1-0.6) K/mm3 Eos # (Auto) 0.2 (0-0.3) K/mm3 Baso # (Auto) 0.0 (0.0-0.1) K/mm3 Comprehensive Metabolic Panel 11/26/24 Range/Units 03:34 Sodium 131 L (137-145) mmol/L Potassium 4.3 (3.4-5.0) mmol/L Chloride 99 (98-107) mmol/L Carbon Dioxide 23 (22-30) mmol/L BUN 21 H (9-20) mg/dL Creatinine 1.08 (0.7-1.3) mg/dL Glucose 116 H (65-110) mg/dL Calcium 10.0 (8.4-10.2) mg/dL AST 46 (17-59) U/L ALT 27 (6-50) U/L Alkaline Phosphatase 36 L (38-126) U/L Total Protein 7.0 (6.3-8.2) g/dL Albumin 4.1 (3.5-5.1) g/dL Intake and Output 11/25/24 11/26/24 11/26/24 23:59 07:59 15:59 Output Total 450 Balance -450 Output: Urine 450 Patient Weight 11/26/24 23:59 Weight 69 kg
--- NOTE | 2024-11-26 12:07 | PC.NURSE ---
RN spoke with patient and daughter and they stated they wanted to be on amiodarone and a blood thinner that is not Coumadin.
[2024-11-26] MEDS: AMIODARONE HCL 200 MG TABLET PO ×2 (13:32→20:42)
--- NOTE | 2024-11-26 14:59 | PM.IMPN ---
Progress Note: A&P Assessment and Plan (1) Acute exacerbation of CHF (congestive heart failure): Qualifiers: Heart failure type: diastolic Qualified Code(s): I50.33 - Acute on chronic diastolic (congestive) heart failure Code(s): I50.9 - Heart failure, unspecified Status: Acute (2) Elevated troponin: Code(s): R79.89 - Other specified abnormal findings of blood chemistry Status: Acute (3) Diastolic CHF due to valvular disease: Code(s): I50.30 - Unspecified diastolic (congestive) heart failure; I38 - Endocarditis, valve unspecified Status: Acute (4) Pulmonary hypertension: Code(s): I27.20 - Pulmonary hypertension, unspecified Status: Acute Plan This is a 83-year-old male who presents to the ED with shortness of breath. He was recently admitted for the same. Is compliant with his diet and takes Lasix regularly. He has not noticed any increased lower extremity swelling or any cough or congestion. He reports orthopnea. His BNP is elevated compared to prior hospitalization. He has required prior thoracentesis in the past. Chest x-ray with chronic elevation in the left hemidiaphragm with small chronic local it did left pleural effusion with cardiomegaly. Shortness of breath likely related to acute on chronic diastolic heart failure on IV Bumex currently. Troponin elevation mild no chest pain reported. Acute on chronic diastolic heart failure cardiology consult continue diuresis. History of aortic valve replacement with poor seen valve in 2009. 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 Subjective Date/time seen: 11/26/24 14:59 Interval history: No overnight events. Reports shortness of breath with exertion. No chest pain. No cough. No leg swelling. Review of Systems Review of Systems: All systems reviewed & are unremarkable except as noted in HPI and below Exam Narrative: General: Alert, awake, afebrile, in no acute distress. HEENT: PERRL, no rhinorrhea Neck: Trachea midline, no JVD, no lymphadenopathy. Cardiovascular: Regular rate and rhythm, no murmurs, rubs or gallops, no peripheral edema. Respiratory: Clear to auscultation bilaterally, no tachypnea, no wheezing, no rhonchi, no rubs, no respiratory distress. Abdomen: Soft, nontender, nondistended, no rebound, no guarding, no peritoneal signs. Musculoskeletal: No joint swelling or deformity, normal muscle tone. Skin: No rashes or petechia, no signs of infection. Psychiatric: Alert and oriented, normal behavior and judgment for situation. Neurological: Alert and oriented to person, place, and time. Follows all commands. No focal deficits, speech is clear and fluent. Objective Data Vital Signs Vital Signs: Vital Signs - 24 hr 11/26/24 03:26 11/26/24 03:32 11/26/24 06:06 Temperature 97.9 F Pulse Rate 75 Respiratory Rate 27 H Blood Pressure 154/44 H Pulse Oximetry 99 98 Oxygen Delivery Room Air Room Air Room Air 11/26/24 06:06 11/26/24 08:00 11/26/24 08:30 Temperature 97.3 F L Pulse Rate 78 76 Respiratory Rate 16 Blood Pressure 138/38 L Pulse Oximetry 98 98 Oxygen Delivery Room Air 11/26/24 09:30 11/26/24 09:30 11/26/24 09:30 Temperature Pulse Rate 72 Respiratory Rate Blood Pressure 144/41 H Pulse Oximetry Oxygen Delivery Room Air 11/26/24 12:00 11/26/24 13:32 11/26/24 14:00 Temperature 98.2 F Pulse Rate 69 69 68 Respiratory Rate 18 Blood Pressure 125/45 L Pulse Oximetry 98 Oxygen Delivery Intake/Output Intake/Output: Intake & Output 11/23/24 11/24/24 11/25/24 11/26/24 23:59 23:59 23:59 23:59 Intake Total 240 Output Total 1050 Balance -810 Meds/Results Medications: Active Medications Generic Name Dose Route Start Last Admin Trade Name Freq PRN Reason Stop Dose Admin Alprazolam 0.125 mg 11/26/24 09:00 11/26/24 09:44 Alprazolam (*Crx) 0.125 Mg Tablet PO 0.125 mg [email or web address] KANDY Administration Amiodarone HCl 200 mg 11/26/24 12:05 11/26/24 13:32 Amiodarone Hcl 200 Mg Tablet PO 200 mg Q12HR KANDY Administration Apixaban 5 mg 11/26/24 21:00 Apixaban 5 Mg Tablet PO Q12HR [facility] Atorvastatin Calcium 10 mg 11/26/24 21:00 Atorvastatin 10 Mg Tablet BY MOUTH [facility] Fenofibrate 145 mg 11/26/24 09:00 11/26/24 09:31 Fenofibrate Nanocrystallized 145 Mg Tablet PO 145 mg DAILY KANDY Administration Furosemide 40 mg 11/26/24 17:00 Furosemide 40 Mg Tablet PO BID [facility] Imipramine HCl 25 mg 11/26/24 09:00 11/26/24 09:31 Imipramine Hcl 25 Mg Tablet PO 25 mg [email or web address] [facility] Administration Losartan Potassium 50 mg 11/26/24 09:00 11/26/24 09:30 Losartan Potassium 50 Mg Tablet PO 50 mg DAILY [facility] Administration Metoprolol Succinate 50 mg 11/26/24 09:00 11/26/24 09:30 Metoprolol Succinate Ext Rel 50 Mg Tabcr PO 50 mg DAILY [facility] Administration Multivitamins Therapeutic 1 tablet 11/26/24 09:00 11/26/24 09:30 Multivitamins Therapeutic Tab (*Bkc) PO 1 tablet DAILY [facility] Administration Potassium Chloride 10 meq 11/26/24 09:00 11/26/24 09:31 Potassium Chloride 10 Meq Er Tablet PO 10 meq DAILY [facility] Administration Psyllium Hydrophilic Mucilloid 1 packet 11/26/24 09:00 11/26/24 09:31 Psyllium Powder Packet BY MOUTH Not Given DAILY [facility] Spironolactone 25 mg 11/26/24 09:00 11/26/24 09:31 Spironolactone 25 Mg Tablet PO 25 mg DAILY [facility] Administration Vitamin D 250 mcg 11/26/24 09:00 11/26/24 09:30 Cholecalciferol (Vitamin D3) 125 Mcg (5,000 Units) Tablet PO 250 mcg DAILY KANDY Administration Radiology Results: ITS Impressions Chest X-Ray 11/26/24 07:36 IMPRESSION: 1. Chronic elevation the left hemidiaphragm with chronic small loculated left pleural effusion. 2. Cardiomegaly. Labs Labs: Laboratory Results - last 24 hr 11/26/24 11/26/24 03:34 03:37 WBC 8.6 RBC 4.10 L Hgb 12.1 L Hct 37.4 L MCV 91.2 MCH 29.5 MCHC 32.4 RDW 13.3 Plt Count 272 MPV 10.1 Immature Gran % (Auto) 0.6 H Neut % (Auto) 68.9 Lymph % (Auto) 21.8 [place] % (Auto) 6.5 Eos % (Auto) 1.7 Baso % (Auto) 0.5 Lymph # (Auto) 1.88 [place] # (Auto) 0.6 Eos # (Auto) 0.2 Baso # (Auto) 0.0 Abs Immat Gran (auto) 0.05 H Absolute Neuts (auto) 6.0 Absolute Nucleated RBC 0.000 Nucleated RBC % 0.0 PT 15.0 H INR 1.2 APTT 31.2 Sodium 131 L Potassium 4.3 Chloride 99 Carbon Dioxide 23 Anion Gap 9 BUN 21 H Creatinine 1.08 Estim Creat Clear Calc 47 Estimated GFR > 60 Glucose 116 H Calcium 10.0 Magnesium 1.9 Total Bilirubin 0.8 AST 46 ALT 27 Alkaline Phosphatase 36 L Troponin I 0.067 H* NT-Pro-B Natriuret Pep 36462 H Total Protein 7.0 Albumin 4.1 Lipase 340 H
[2024-11-26] MEDS: FUROSEMIDE 40 MG TABLET PO (17:28)
[2024-11-26] MEDS: ATORVASTATIN 10 MG TABLET BY MOUTH (20:41)
[2024-11-26] MEDS: APIXABAN 5 MG TABLET PO (20:42)
[2024-11-27] VITALS (8 sets, daily range): BP systolic 124–152; BP diastolic 40–55; PULSE 57–77; RESP 16–18; TEMP 36.2–36.5; O2SAT 97–99
--- NOTE | 2024-11-27 06:06 | ECG_ITS ---
Test Date: 2024-11-27 09:19:16 Measurements Intervals Doss Rate: 71 P: 0 CO: 0 QRS: -28 QRSD: 121 T: -60 QT: 421 QTc: 457 Interpretive Statements SINUS RHYTHM WITH ATRIAL PREMATURE COMPLEXES VOLTAGE CRITERIA FOR LVH CANNOT R/O SEPTAL INFARCT, AGE INDETERMINATE BORDERLINE T WAVE ABNORMALITY- INF/LAT LEADS BASELINE WANDER- V5-V6 ABNORMAL ECG Compared to ECG 11/26/2024 03:35:33 NO SIGNIFICANT CHANGE Electronically Signed On 11-27-2024 09:21:47 CDT by Giovanni Smith D.O.
[2024-11-27 06:22] LABS: Hematocrit 35.7 % (42.0-52.0); Hemoglobin 11.8 g/dL (14.0-18.0); Immature Granulocyte Percent A 0.5 % (0-0.5); Lymphocytes Absolute Auto 1.48 K/mm3 (0.9-3.2); Mean Corpuscular HGB Conc 33.1 g/dl (32-36); Mean Corpuscular Hemoglobin 30.0 pg (26-34); Mean Corpuscular Volume 90.8 fl (80-100); Nucleated Red Blood Cells Absolute Auto 0.000 K/mm3 (0.0-0.012); Nucleated Red Blood Cells Perc 0.0 % (0.0-0.2); Platelet Count Result 240 k/mm3 (150-375); Red Blood Count 3.93 M/mm3 (4.6-6.20); White Blood Count 7.3 K/mm3 (4.5-10.0)
[2024-11-27 06:48] LABS: Anion Gap 8 mmol/L (4-12); Blood Urea Nitrogen 31 mg/dL (9-20); Calcium 9.8 mg/dL (8.4-10.2); Carbon Dioxide 23 mmol/L (22-30); Chloride 96 mmol/L (98-107); Estimated CRCL calculation 38 ml/min; Estimated Glomerular Filt Rate 56; Glucose 97 mg/dL (65-110); Magnesium 2.1 mg/dL (1.6-2.3); Potassium 4.5 mmol/L (3.4-5.0); Sodium 127 mmol/L (137-145)
--- NOTE | 2024-11-27 07:42 | PM.PNCARD ---
Progress Note: A&P Assessment and Plan (1) PAF (paroxysmal atrial fibrillation): Code(s): I48.0 - Paroxysmal atrial fibrillation Status: Acute Assessment and Plan: [id number] 3. Started on Eliquis 5 mg BID. Started on Amiodarone 200 mg PO BID for 1 week then 200 mg daily. If he gets discharged would lower Amiodarone to 200 mg daily for maintenance now since he states it is difficult for him to f/u with me in the office due to transport reasons. Otherwise would like for him to f/u with me in 1-2 weeks. (2) Acute exacerbation of CHF (congestive heart failure): Qualifiers: Heart failure type: diastolic Qualified Code(s): I50.33 - Acute on chronic diastolic (congestive) heart failure Code(s): I50.9 - Heart failure, unspecified Status: Acute Assessment and Plan: Appears to be euvolemic. Acute on chronic diastolic HF. Probably due to PAF. Got Bumex x1. On Sprinolactone and on Lasix 40 mg PO BID. (3) Hx of aortic valve replacement with porcine valve: Onset Date: ~2009 Code(s): Z95.3 - Presence of xenogenic heart valve Status: Acute Assessment and Plan: Stable. (4) Essential (primary) hypertension: Code(s): I10 - Essential (primary) hypertension Status: Chronic Assessment and Plan: Stable. (5) Dyslipidemia: Code(s): E78.5 - Hyperlipidemia, unspecified Status: Acute Assessment and Plan: On Atorvastatin. Subjective Date/time seen: 11/27/24 07:42 Interval history: Denies chest pain or sob. He is feeling good today. Exam Const: General: cooperative, healthy appearing and comfortable Orientation/consciousness: oriented to person, oriented to place and oriented to time Resp: Auscultation: clear to auscultation bilaterally, no crackles, no rales, no rhonchi and no wheezes Cardio: Rate: regular rate Rhythm: regular rhythm Heart sounds: no murmurs Peripheral pulses: dorsalis pedis present Neuro: General: oriented to person, oriented to place and oriented to time Extrem: Right lower extremity: no edema Left lower extremity: no edema Objective Data Vital Signs Vital Signs: Vital Signs - 24 hr 11/26/24 08:00 11/26/24 08:30 11/26/24 09:30 Temperature Pulse Rate 76 72 Respiratory Rate Blood Pressure Pulse Oximetry 98 Oxygen Delivery Room Air Fraction of Inspired Oxygen 11/26/24 09:30 11/26/24 09:30 11/26/24 12:00 Temperature Pulse Rate 69 Respiratory Rate Blood Pressure 144/41 H Pulse Oximetry Oxygen Delivery Room Air Fraction of Inspired Oxygen 11/26/24 13:32 11/26/24 14:00 11/26/24 16:00 Temperature 98.2 F Pulse Rate 69 68 65 Respiratory Rate 18 Blood Pressure 125/45 L Pulse Oximetry 98 Oxygen Delivery Fraction of Inspired Oxygen 11/26/24 20:00 11/26/24 20:42 11/26/24 22:00 Temperature 97.1 F L Pulse Rate 68 80 71 Respiratory Rate 18 Blood Pressure 111/42 L Pulse Oximetry 97 Oxygen Delivery Fraction of Inspired Oxygen 11/26/24 22:30 11/27/24 00:00 11/27/24 04:00 Temperature Pulse Rate 71 63 57 L Respiratory Rate Blood Pressure Pulse Oximetry 97 Oxygen Delivery Room Air Fraction of Inspired Oxygen 21 11/27/24 06:00 Temperature 97.2 F L Pulse Rate 64 Respiratory Rate 18 Blood Pressure 152/40 H Pulse Oximetry 99 Oxygen Delivery Fraction of Inspired Oxygen Intake/Output Intake/Output: Intake & Output 11/24/24 11/25/24 11/26/24 11/27/24 23:59 23:59 23:59 23:59 Intake Total 730 400 Output Total 1150 1400 Balance -420 -1000 Meds/Results Medications: Active Medications Generic Name Dose Route Start Last Admin Trade Name Freq PRN Reason Stop Dose Admin Alprazolam 0.125 mg 11/26/24 09:00 11/26/24 09:44 Alprazolam (*Crx) 0.125 Mg Tablet PO 0.125 mg [email or web address] KANDY Administration Amiodarone HCl 200 mg 11/26/24 12:05 11/26/24 20:42 Amiodarone Hcl 200 Mg Tablet PO 200 mg Q12HR KANDY Administration Apixaban 5 mg 11/26/24 21:00 11/26/24 20:42 Apixaban 5 Mg Tablet PO 5 mg Q12HR KANDY Administration Atorvastatin Calcium 10 mg 11/26/24 21:00 11/26/24 20:41 Atorvastatin 10 Mg Tablet BY MOUTH 10 mg HS KANDY Administration Fenofibrate 145 mg 11/26/24 09:00 11/26/24 09:31 Fenofibrate Nanocrystallized 145 Mg Tablet PO 145 mg DAILY KANDY Administration Furosemide 40 mg 11/26/24 17:00 11/26/24 17:28 Furosemide 40 Mg Tablet PO 40 mg BID KANDY Administration Imipramine HCl 25 mg 11/26/24 09:00 11/26/24 09:31 Imipramine Hcl 25 Mg Tablet PO 25 mg [email or web address] KANDY Administration Losartan Potassium 50 mg 11/26/24 09:00 11/26/24 09:30 Losartan Potassium 50 Mg Tablet PO 50 mg DAILY KANDY Administration Metoprolol Succinate 50 mg 11/26/24 09:00 11/26/24 09:30 Metoprolol Succinate Ext Rel 50 Mg Tabcr PO 50 mg DAILY KANDY Administration Multivitamins Therapeutic 1 tablet 11/26/24 09:00 11/26/24 09:30 Multivitamins Therapeutic Tab (*Bkc) PO 1 tablet DAILY KANDY Administration Potassium Chloride 10 meq 11/26/24 09:00 11/26/24 09:31 Potassium Chloride 10 Meq Er Tablet PO 10 meq DAILY KANDY Administration Psyllium Hydrophilic Mucilloid 1 packet 11/26/24 09:00 11/26/24 09:31 Psyllium Powder Packet BY MOUTH Not Given DAILY KANDY Spironolactone 25 mg 11/26/24 09:00 11/26/24 09:31 Spironolactone 25 Mg Tablet PO 25 mg DAILY KANDY Administration Vitamin D 250 mcg 11/26/24 09:00 11/26/24 09:30 Cholecalciferol (Vitamin D3) 125 Mcg (5,000 Units) Tablet PO 250 mcg DAILY KANDY Administration Radiology Results: ITS Impressions Chest X-Ray 11/26/24 07:36 IMPRESSION: 1. Chronic elevation the left hemidiaphragm with chronic small loculated left pleural effusion. 2. Cardiomegaly. Labs Labs: Laboratory Results - last 24 hr 11/27/24 05:31 WBC 7.3 RBC 3.93 L Hgb 11.8 L Hct 35.7 L MCV 90.8 MCH 30.0 MCHC 33.1 RDW 13.3 Plt Count 240 MPV 10.5 H Immature Gran % (Auto) 0.5 Neut % (Auto) 67.8 Lymph % (Auto) 20.3 [place] % (Auto) 7.8 Eos % (Auto) 2.9 Baso % (Auto) 0.7 Lymph # (Auto) 1.48 [place] # (Auto) 0.6 Eos # (Auto) 0.2 Baso # (Auto) 0.1 Abs Immat Gran (auto) 0.04 H Absolute Neuts (auto) 4.9 Absolute Nucleated RBC 0.000 Nucleated RBC % 0.0 Sodium 127 L Potassium 4.5 Chloride 96 L Carbon Dioxide 23 Anion Gap 8 BUN 31 H D Creatinine 1.23 Estim Creat Clear Calc 38 Estimated GFR 56 L Glucose 97 Calcium 9.8 Magnesium 2.1
--- NOTE | 2024-11-27 07:50 | P.CDI_ITS ---
CDI Query Clarification Request BMI: 20.8 Nutritional Diagnostic Statement: Please refer to the comprehensive nutrition assessment for further information. If you agree with diagnosis of Severe protein calorie malnutrition related to chronic loss of appetite as evidenced by intakes <75% needs >1 month; weight loss 12%/6 months, 5%/1 week; severe muscle wasting and fat loss . Please specify severity if known: * Mild * Moderate * Severe * Other/Unknown <Tasia Olguin RN - Last Filed: 11/27/24 07:50> Provider Comments severe protein calorie malnutrition <Danial Zepeda MD - Last Filed: 11/27/24 08:06>
[2024-11-27] MEDS: SPIRONOLACTONE 25 MG TABLET PO (09:03)
[2024-11-27] MEDS: METOPROLOL SUCCINATE EXT REL 50 MG TABCR PO (09:03)
[2024-11-27] MEDS: MULTIVITAMINS THERAPEUTIC TAB (*BKC) 1 TABLET PO (09:04)
[2024-11-27] MEDS: LOSARTAN POTASSIUM 50 MG TABLET PO (09:04)
[2024-11-27] MEDS: FENOFIBRATE NANOCRYSTALLIZED 145 MG TABLET PO (09:04)
[2024-11-27] MEDS: CHOLECALCIFEROL (VITAMIN D3) 125 MCG (5,000 UNITS) TABLET 250 MCG PO (09:04)
[2024-11-27] MEDS: FUROSEMIDE 40 MG TABLET PO (09:04)
[2024-11-27] MEDS: APIXABAN 5 MG TABLET PO (09:04)
[2024-11-27] MEDS: AMIODARONE HCL 200 MG TABLET PO (09:04)
[2024-11-27] MEDS: POTASSIUM CHLORIDE 10 MEQ ER TABLET PO (09:04)
--- NOTE | 2024-11-27 13:51 | P.DS_ITS ---
DS: Admitting Diagnosis Discharge Date 11/27/2024 Admitting Diagnosis Shortness of breath DS: Discharge Diagnosis Discharge Diagnosis (1) Acute exacerbation of CHF (congestive heart failure): Qualifiers: Heart failure type: diastolic Qualified Code(s): I50.33 - Acute on chronic diastolic (congestive) heart failure Code(s): I50.9 - Heart failure, unspecified Status: Acute (2) Elevated troponin: Code(s): R79.89 - Other specified abnormal findings of blood chemistry Status: Acute (3) Diastolic CHF due to valvular disease: Code(s): I50.30 - Unspecified diastolic (congestive) heart failure; I38 - Endocarditis, valve unspecified Status: Acute (4) Pulmonary hypertension: Code(s): I27.20 - Pulmonary hypertension, unspecified Status: Acute DS: Summary Hospital Course Hospital Course: This is a 83-year-old male who presents to the ED with shortness of breath. He was recently admitted for the same. Is compliant with his diet and takes Lasix regularly. He has not noticed any increased lower extremity swelling or any cough or congestion. He reports orthopnea. His BNP is elevated compared to prior hospitalization. He has required prior thoracentesis in the past. Chest x-ray with chronic elevation in the left hemidiaphragm with small chronic local it did left pleural effusion with cardiomegaly. Shortness of breath likely related to acute on chronic diastolic heart failure on IV Bumex currently. A been switched to oral Lasix. Cardiology consulted. Suggested could be related to paroxysmal atrial fibrillation. Patient admits started on amiodarone and Eliquis. Troponin elevation mild no chest pain reported. Nocturnal hypoxemia arrange for oxygen at night Acute on chronic diastolic heart failure cardiology consult continue diuresis. Increase Lasix to 40 mg twice a day at discharge. Labs in 1 week History of aortic valve replacement with poor seen valve in 2009. Echo with mild to moderate periprosthetic regurgitation with severe aortic valve sclerosis [id number] tricuspid regurgitation moderate pulmonary hypertension 11/2024 Hypertension Hyperlipidemia Paroxysmal atrial fibrillation Chronic back pain Prior ascending aortic aneurysm repair Glaucoma hx of prostate cancer with radiation treatment Goals of care discussion discuss palliative care hospice with patient/daughter. Time Spent with Patient Time attestation: Total time spent providing and/or coordinating discharge services: 45 minute Exam Narrative: General: Alert, awake, afebrile, in no acute distress. HEENT: PERRL, no rhinorrhea Neck: Trachea midline, no JVD, no lymphadenopathy. Cardiovascular: Regular rate and rhythm, no murmurs, rubs or gallops, no peripheral edema. Respiratory: Clear to auscultation bilaterally, no tachypnea, no wheezing, no rhonchi, no rubs, no respiratory distress. Abdomen: Soft, nontender, nondistended, no rebound, no guarding, no peritoneal signs. Musculoskeletal: No joint swelling or deformity, normal muscle tone. Skin: No rashes or petechia, no signs of infection. Psychiatric: Alert and oriented, normal behavior and judgment for situation. Neurological: Alert and oriented to person, place, and time. Follows all commands. No focal deficits, speech is clear and fluent. DS: Data Data Completed and Pending Labs on day of discharge: Labs from last 24 hours 11/27/24 05:31 WBC 7.3 RBC 3.93 L Hgb 11.8 L Hct 35.7 L MCV 90.8 MCH 30.0 MCHC 33.1 RDW 13.3 Plt Count 240 MPV 10.5 H Immature Gran % (Auto) 0.5 Neut % (Auto) 67.8 Lymph % (Auto) 20.3 [place] % (Auto) 7.8 Eos % (Auto) 2.9 Baso % (Auto) 0.7 Lymph # (Auto) 1.48 [place] # (Auto) 0.6 Eos # (Auto) 0.2 Baso # (Auto) 0.1 Abs Immat Gran (auto) 0.04 H Absolute Neuts (auto) 4.9 Absolute Nucleated RBC 0.000 Nucleated RBC % 0.0 Sodium 127 L Potassium 4.5 Chloride 96 L Carbon Dioxide 23 Anion Gap 8 BUN 31 H D Creatinine 1.23 Estim Creat Clear Calc 38 Estimated GFR 56 L Glucose 97 Calcium 9.8 Magnesium 2.1 Imaging Radiologist's impression: ITS Impressions Chest X-Ray 11/26/24 07:36 IMPRESSION: 1. Chronic elevation the left hemidiaphragm with chronic small loculated left pleural effusion. 2. Cardiomegaly. Discharge Plan Discharge Attending physician on discharge: Danial Zepeda Consulting providers: Giovanni Smith Discharging Clinician: Danial Zepeda Anticipated Discharge Date/Time: 11/27/24 13:53 Patient Disposition: Home with Home Health Service Activity: as tolerated Diet: heart healthy Discharge Instructions: Oxygen via nasal cannula 2 L at night Patient Instructions: Antibiotic Form, Apixaban (By mouth), Heart Failure (GEN) Patient Language: Dominican Stand Alone Forms: General Discharge Information Follow-up/Referrals: Giovanni Smith DO [Physician, Cardiology] - 2 Weeks Adonis Cabral MD [Primary Care Provider, Internal Medicine] - 1 Week Discharge Medications: New amiodarone [Pacerone] 200 mg Tablet 200 mg PO DAILY Qty: 30 0RF furosemide 40 mg Tablet 40 mg PO BID Qty: 60 0RF Eliquis 5 mg Tablet 5 mg PO Q12HR Qty: 60 0RF Continued imipramine HCl 25 mg tablet 25 mg PO .COMPLEX Rx Instructions: Take 1 Tablet (25 mg) by mouth [id number] Frequency: three times per week ferrous sulfate 325 mg (65 mg iron) Tablet,Delayed Release (Dr/Ec) 325 mg PO DAILY Qty: 30 0RF cholecalciferol (vitamin D3) 50 mcg (2,000 unit) capsule 250 mcg PO DAILY Fiber Therapy(psyl seed-sugar) Powder 1 tbsp PO DAILY potassium 99 mg tablet 99 mg PO TID clobetasol 0.05 % solution 1 applic TOPICAL DAILY alprazolam 0.25 mg tablet 0.125 mg PO DAILY Rx Instructions: tuesday multivitamin [Multiple Vitamins] Tablet 1 tablet PO DAILY Rx Instructions: take 1 tablet by oral route every day metoprolol succinate 50 mg tablet extended release 24 hr See Rx Instructions .ROUTE .COMPLEX Qty: 90 2RF Dose Instruction: Take 1 Tablet (50 mg) by mouth daily. Rx Instructions: Take 1 Tablet (50 mg) by mouth daily. atorvastatin 10 mg tablet See Rx Instructions .ROUTE .COMPLEX Qty: 90 2RF Dose Instruction: Take 1 Tablet (10 mg) by mouth daily at bedtime. Rx Instructions: Take 1 Tablet (10 mg) by mouth daily at bedtime. losartan 50 mg tablet See Rx Instructions .ROUTE .COMPLEX Qty: 90 2RF Dose Instruction: Take 1 Tablet (50 mg) by mouth daily. Rx Instructions: Take 1 Tablet (50 mg) by mouth daily. spironolactone 25 mg tablet See Rx Instructions .ROUTE .COMPLEX Qty: 30 0RF Dose Instruction: Take 1 Tablet (25 mg) by mouth daily in the morning. Rx Instructions: Take 1 Tablet (25 mg) by mouth daily in the morning. fenofibrate nanocrystallized 145 mg tablet See Rx Instructions .ROUTE .COMPLEX Qty: 90 2RF Dose Instruction: TAKE ONE TABLET BY MOUTH ONCE DAILY Rx Instructions: TAKE ONE TABLET BY MOUTH ONCE DAILY Discontinued aspirin 325 mg Tablet,Delayed Release (Dr/Ec) 325 mg PO QAM 30 Days Qty: 30 1RF furosemide 40 mg tablet See Rx Instructions .ROUTE .COMPLEX Qty: 30 0RF Dose Instruction: Take 1 Tablet (40 mg) by mouth daily. Rx Instructions: Take 1 Tablet (40 mg) by mouth daily. No Action (DME) nebulizer and compressor Device See Rx Instructions .Route Qty: 1 0RF Rx Instructions: To use by inhalation route every 4 to 6 hours as needed Other Ambulatory Orders: Basic Metabolic Panel (Routine) Timeframe: 1 Week Location: Determined by Patient Ordered By: Danial Zepeda Complete Blood Count with Diff (Routine) Timeframe: 1 Week Location: Determined by Patient Ordered By: Danial Zepeda Date of admission: 11/26/24 04:52 Primary Care Provider: Adonis Cabral Admitting Provider: Roxanne Langston Attending physician on admission: Roxanne Langston Condition: Improved Hospitalist MIPS Heart Failure (Exclusion) Patient has history of Heart Transplant or Left Ventricular Assistive Device?: No IF YES, STOP HERE Heart Failure (Qualifier) Patient has current or prior documentation of LVEF less than or equal to 40%, or mod/servere depressed LVSF?: No IF NO, STOP HERE
--- OUTSIDE RECORDS SUMMARY | 2024-11-28 07:24 | XMS_ITS | Encounter Summary ---
Author Organization [facility] Address [address] [place] [address] Care Team Providers Care Senior Online Marketing Manager Name Role Phone Unavailable Primary Care [...] on file Legal Sex Male 4:58 AM [employer] Gender Identity Not on file Sexual Orientation Not on file documented as of this encounter Plan of Treatment Not on file documented as of this encounter Visit Diagnoses Diagnosis Postlaminectomy syndrome, lumbar region- Primary documented in this encounter
--- OUTSIDE RECORDS SUMMARY | 2024-11-28 07:25 | XMS_ITS | Clinical Summary ---
Author Organization [facility] Address [address] [place] [address] Care Team Providers Care Sail Lay Out Worker Name Role Phone Cuate Mclaughlin MD Primary Care Provider [phone] [facility],non-owned Affiliates and Associated Physician Practices is amultiple site organization consisting of ambulatory clinics and hospital sitesin [place], [place]. This disclosure is being madepursuant to the Care Everywhere program and may not contain all information available regarding this patient. 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
--- OUTSIDE RECORDS SUMMARY | 2024-11-28 07:25 | XMS_ITS | Encounter Summary ---
Author Organization [facility] Address [address] [place] [address] Care Team Providers Care Sanitation Laborer Name Role Phone Cuate Mclaughlin MD Primary Care Provider [phone] Encounter Details Date Type Department Care Team (Late st Contact Info) Description 06/28/2018 Lab Requisition [facility] [address] [place] [id number] Pari Petit DO [address] [facility] [address] [place] [address] Social History Tobacco Use Types Packs/Day Years Used Date Smoking Tobacco: Never Assessed Sex and Gender Information Value Date Recorded Sex Assigned at Not on file 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 Ben Lucia. These tests need not be, and therefore are not, approved by the [place] Food and Drug Administration. The tests are used for clinical purposes. Billing Codes Specimen Charges Stain Charges 12206 1 12:45 PM CDT DERMATOPATHOLOGY LABORATORY Embedded Images 12:45 PM CDT DERMATOPATHOLOGY LABORATORY Pathology/Cytolog y TISSUE SPECIMEN FROM SKIN / Unknown 06/27/2018 06/28/2018 9:14 AM CDT Pari Petit DO LAB - PATHOLOGY/CYTOLOGY ORDERABLES Final Result DERMATOPATHOLOGY LABORATORY [facility] - Department of Dermatology [address] [facility] 5th Floor Lab [address] [phone] documented in this encounter Visit Diagnoses Not on filedocumented in this encounter Care Teams Sanitation Laborer Relationship Specialty Start Date End Date Cuate Mclaughlin MD [address] [place] [address] PCP - General 06/27/18 documented as of this encounter
--- OUTSIDE RECORDS SUMMARY | 2024-11-28 07:25 | XMS_ITS | Clinical Summary ---
Author Organization [facility] Address [address] Bui: Epic Prelude ADT [place] [address] Care Team Providers Care Business Development Name Role Phone Unavailable Primary Care Provider Unavailabl e Allergies No known active allergies Medications brimonidine (ALPHAGAN P) 0.15 % solution INSTILL 1 DROP IN THE RIGHT EYE THREE TIMES A DAY NEEDED 10 mL 5 02/24/20 23 3:30 PM ENGINE TEST CELL TECHNICIAN 022 Active lactulose (KRISTALOSE) 10 gram Packet [...] 45 Tablet 1 05/27/19 24 7:34 PM ENGINE TEST CELL TECHNICIAN 023 Active brimonidine (ALPHAGAN P) 0.15 % solution Administer 1 Drop in right eye 3 times daily as needed. 10 mL 5 02/27/20 24 5:30 PM ENGINE TEST CELL TECHNICIAN 024 Active imipramine HCl (TOFRANIL) 25 mg [...] WEEK. 120 mL 04/30/19 25 5:25 PM ENGINE TEST CELL TECHNICIAN 025 Active dilTIAZem (CARDIZEM CD, CARTIA XT) 120 mg Controlled Delivery 24 hour capsule Take 1 Capsule (120 mg) by mouth daily in the morning. 60 Capsule 05/11/19 25 11:45 AM ENGINE TEST CELL TECHNICIAN 025 Active oseltamivir (TAMIFLU) 30 mg Capsule Take 1 Capsule (30 mg) by mouth every 12 hours. 5 Capsule 05/11/19 25 11:45 AM ENGINE TEST CELL TECHNICIAN 025 Active ferrous sulfate 325 mg (65 mg iron) Tablet, Delayed Release (E.C.) Take 1 Tablet (325 mg) by mouth daily. 30 Tablet 05/10/19 25 4:36 PM ENGINE TEST CELL TECHNICIAN 025 Active albuterol (PROVENTIL,VENTOLI N) 2.5 mg /3 mL (0.083 %) Solution for Nebulization INHALE THE CONTENTS OF 1 VIAL PER NEBULIZER EVERY 4-6 HOURS NEEDED FOR SHORTNESS OF BREATH OR WHEEZING. 180 mL 05/21/19 25 4:16 PM ENGINE TEST CELL TECHNICIAN 025 Active Nebulizer & Compressor For Neb [...] 118 mL 2 05/22/19 25 7:05 PM ENGINE TEST CELL TECHNICIAN 025 Active atorvastatin (LIPITOR) 10 mg tablet [...] as needed for anxiety 30 Tablet 2 11/28/19 25 7:18 PM CDT 025 Active aspirin (ECOTRIN EC) [...] mg) by mouth daily. 90 Tablet 2 11/28/19 25 7:18 PM CDT 025 Active roflumilast (Zoryve) 0.3 [...] 11/20/19 25 7:16 PM CDT 025 Active amiodarone (CORDARONE) 200 mg tablet Take 1 Tablet (200 mg) by mouth daily. 30 Tablet 11/28/19 25 7:18 PM CDT 025 Active apixaban (Eliquis) 5 mg tablet Take 1 Tablet (5 mg) by mouth every 12 hours. 60 Tablet 11/28/19 25 7:18 PM CDT 025 Active furosemide (LASIX) 40 mg tablet Take 1 Tablet (40 mg) by mouth 2 times daily. 60 Tablet 11/28/19 7:18 PM CDT 025 Active fenofibrate nanocrystallized (TRICOR) 145 mg tablet TAKE ONE TABLET BY MOUTH ONCE DAILY 90 Tablet 2 08/19/19 25 12:35 PM CDT 024 2024 Discontinued(R eorder) clobetasoL (TEMOVATE) 0.05 % Solution Apply to affected areas of scalp 1-2 times daily for up to two consecutive weeks at a time. 50 mL 3 10/10/19 2:51 PM CDT 025 2024 Discontinued(R eorder) furosemide (LASIX) 40 mg tablet Take 1 Tablet (40 mg) by mouth daily. 30 Tablet 1 10/07/19 9:55 AM CDT 025 2024 Discontinued spironolactone (ALDACTONE) 25 mg tablet Take 1 Tablet (25 mg) by mouth daily in the morning. 30 Tablet 1 10/07/19 25 9:55 AM CDT 025 2024 Discontinued furosemide (LASIX) 40 mg tablet Take 1 Tablet (40 mg) by mouth daily. 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
--- OUTSIDE RECORDS SUMMARY | 2024-11-28 07:25 | XMS_ITS | Clinical Summary ---
Author Organization [facility] Address [address] [place] [address] Care Team Providers Care Wallboard Worker Name Role Phone Steve Potter MD Primary Care Provider Tamiko Perez BARIATRIC PROGRAM COORDINATOR Unavailable [phone] Guera Bass BARIATRIC PROGRAM COORDINATOR Unavailable [phone] Allergies Active Allergy Reactions Criticality Noted Date Comments Adhesive Tape-Silicones Redness Low Medications fenofibrate nanocrystallized (TRICOR,TRIGLIDE) 145 mg tablet Take 145 mg by mouth pharmacy picking tech before breakfast. Active metoprolol XL (TOPROL-XL) 50 mg 24 hr tablet Take 50 mg by mouth pharmacy picking tech before breakfast. Active atorvastatin (LIPITOR) 10 mg [...] Description 11/20/2024 9:00 AM CDT Residential Visit [facility] Palliative Care [address] [place] [address] Guera Bass NP 11/20/[address] [place] [address] Brooklyn Gooden RN 09/21/2024 12:00 PM CDT Residential Visit [facility] Palliative Care [address] [place] [address] Tamiko Perez NP Age-related physical debility (Primary Dx) 08/29/2024 10:00 AM CDT Residential Visit [facility] Palliative Care [address] [place] [address] Tamiko Perez NP Palliative care encounter (Primary [...] 04/04/2009 - 04/03/2010 Bioprosthetic valve, Dr. 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 Gender Identity Not on file Sexual Orientation [...] 65+ 12/04/2003 Influenza Vaccine (#1) [address] [facility] MEDICARE ADVANTAGE [employer] MEDICARE ADVANTAGE [employer] MEDICARE Advance Directives For more information, please contact: [phone] Documents on File Type Date Recorded Patient Consulting Actuary Expl anation ADVANCE DIRECTIVE 08/22/2017 11:06 AM ADVANCE DIRECTIVE 08/22/2017 Advance Di rective Checklist * Full Code (Latest Code Status on File) Date Activated Date Inactivated Comments 08/22/2017 2:39 PM 08/23/2017 2:18 PM Care Teams Wallboard Worker Relationship Specialty Start Date End Date Steve Potter MD PCP - General 08/12/17 Tamiko Perez NP [address] [address] [place] [address] Nurse Practitioner Hospice and Palliative Medicine 08/15/24 Guera Bass NP [address] [place] [address] Nurse Practitioner Hospice and Palliative Medicine 08/15/24
== END 2024-11-27 17:30 | disposition home health service (06) ==
LOC: ANHED 04:59 → ANH3MED 06:56
PROVIDERS: Admitting Provider Internal Medicine; Emergency Provider Emergency Medicine; PCP Emergency Medicine; Visit Provider Internal Medicine
DX: I50.33 Acute on chronic diastolic (congestive) heart failure (principal); I38 Endocarditis, valve unspecified; I27.20 Pulmonary hypertension, unspecified; N18.30 Chronic kidney disease, stage 3 unspecified; R79.89 Other specified abnormal findings of blood chemistry; E43 Unspecified severe protein-calorie malnutrition; Z68.20 Body mass index [BMI] 20.0-20.9, adult; I48.0 Paroxysmal atrial fibrillation; E78.5 Hyperlipidemia, unspecified; Z79.01 Long term (current) use of anticoagulants; I13.0 Hypertensive heart and chronic kidney disease with heart failure and stage 1 through stage 4 chronic kidney disease, or unspecified chronic kidney disease; Z95.3 Presence of xenogenic heart valve; Z95.828 Presence of other vascular implants and grafts; Z98.890 Other specified postprocedural states; Z90.89 Acquired absence of other organs; Z85.46 Personal history of malignant neoplasm of prostate; Z92.3 Personal history of irradiation; H40.9 Unspecified glaucoma; Z94.7 Corneal transplant status; Z98.41 Cataract extraction status, right eye; Z98.42 Cataract extraction status, left eye; Z96.1 Presence of intraocular lens; Z80.0 Family history of malignant neoplasm of digestive organs; Z82.49 Family history of ischemic heart disease and other diseases of the circulatory system
CPT/HCPCS: 36415; 71045; 80048; 80053; 83690; 83735; 83880; 84484; 85025; 85610; 85730; 93005; 94762; 96374; 99285; A9270; G0378; J1939